=== PATIENT | male | born 1955 | race Caucasian/White ===

== ENCOUNTER 2023-08-18 19:34 | Inpatient (IN) | payer OTHER, SELFPAY ==
--- NOTE | 2023-08-18 16:53 | ED.GENMED ---
Addendum entered and electronically signed by Brett Hernandez DO 08/18/23 20:14:
Late entry, on initial evaluation, the patient did have palpable DP and PT pulses to the left foot.
Original Note:
History of Present Illness
General
Chief Complaint: Crisis Evaluation
Time Seen by Provider: 08/18/23 16:52
History of Present Illness
History of Present Illness:
HPI: Patient presents as a 302. I reviewed the 302 which indicates the patient 'collapsed and urinated on himself in the kitchen and was found to have a gangrenous left toe. There was concern for change in mental status, he had declined medical
care'.
EXAM:
GENERAL: Disheveled
HEENT: Moist oral mucosa
CARDIOVASCULAR: No murmurs, tachycardic heart rate with regular rhythm, No chest wall tenderness
PULMONARY: No respiratory distress, breath sounds are clear and equal
ABDOMEN: Soft with no peritoneal signs, no tenderness
NEUROLOGIC: Excellent strength all extremities, no coordination deficits
PSYCHIATRIC: Fair mental status, limited insight and judgement, however he is currently cooperative and is willing to stay in the hospital
EXTREMITIES: Nontender, there is evidence of gangrenous changes to the left fifth toe with some cellulitic changes to the foot, there is purulent drainage at the webspace between the fourth and fifth toe
SKIN: Somewhat pale
ED COURSE:
6 PM: I initially evaluated patient
NUMBER AND COMPLEXITY OF PROBLEMS ADDRESSED AT THE ENCOUNTER
� Chronic conditions affecting care: Patient is a diabetic
� Acute Exacerbation and/or Progression of Chronic Illness: This is an acute problem
� Differential Diagnosis includes: Failure to thrive, uncontrolled diabetes, DKA, dehydration, FABRICE
AMOUNT AND/OR COMPLEXITY OF DATA TO BE REVIEWED AND ANALYZED
� I performed an independent evaluation of and my interpretation is:
EKG:
CT:
X-rays: I personally reviewed the x-rays of the left foot and I do have some concern for osseous destruction especially laterally
Laboratory Studies: White count is 13.6, hemoglobin 13.2, glucose is 428, lactic is 4.1
Other:
� Review of other/old records: I reviewed records, the patient apparently had a biopsy in 2010 here at [place]
� Clinical information was obtained by an independent historian: I also spoke to family at bedside and reviewed the 302 that was petition for by the
� Prescriptions/Medications Considered but not given:
� Further testing considered but not performed:
RISK OF COMPLICATIONS AND/OR MORBIDITY OR MORTALITY OF PATIENT MANAGEMENT
� Social determinants of health affecting care: Lives at home but does not take care of himself
� Discussion with other providers: Hospitalist for admission
� Escalation of care including admission/observation vs risk of discharge considered: The patient has an elevated lactic acid, is tachycardic, has significant hyperglycemia, along with signs of a rather significant diabetic foot
infection with necrosis of the left fifth toe. Will try antibiotics as there is some cellulitic changes to the left foot as well. The patient agrees for treatment here in the hospital therefore will not pursue to attempt to uphold a 302 at this
time. He was given aggressive IV fluids, antibiotics, and insulin.
Phy Exam
Physical Exam
Physical Exam:
See HPI
Course
Orders/Labs/Results
Orders:
Orders
08/18/23 17:05
IV Insert/Care/Rem.- Treatment PRN
08/18/23 17:07
Complete Blood Count/With Diff Urgent
Comprehensive Metabolic Panel Urgent
Lactic Acid Q4H
Comment: ON ICE, CANCEL 2ND ORDER IF FIRST LACTIC ACID LEVEL <2
Blood Culture Q30M
AMY Source: Blood/Venous
Specimen Description:
Comment: FROM 2 SEPARATE SITES
Blood Culture Q30M
AMY Source: Blood/Venous
Specimen Description:
Comment: FROM 2 SEPARATE SITES
08/18/23 17:08
Foot, Left 3 View [CR Foot - Left Min 3 Views] Urgent
Comment:
Reason For Exam: gangrene lt toe
08/18/23 17:11
Wound/Abscess/Other Culture Urgent
AMY Source: Foot
Specimen Description: Right
Date Specimen was Collected: 08/18/23
Time Specimen was Collected: 17:09
08/18/23 18:08
0.9% Sodium Chloride 1000 ml [Nss] 1,000 ml IV BOLUS
08/18/23 18:09
0.9% Sodium Chloride 1000 ml [Nss] 1,000 ml IV BOLUS
Piperacillin/Tazo 3.375 Gram [Zosyn] 3.375 gram in 50 ml IV NOW
08/18/23 18:11
Insulin Human Regular [Novolin R] 10 units IV NOW STA
08/18/23 18:49
Admit/Transfer Patient As Directed
Co-Sign Provider:
Level of Care: Inpatient admission
Assign to:: Medical/Surgical
Physician / Group: dm
Diagnosis: diabetic toe infection
Reason for Hospitalization: diabetic toe infection
Expected length of stay greater than two midnights?: Yes
ELOS- Estimated Length of Stay in days: 2
I certify the patient meets the requirements for IP care: Yes
Code Status As Directed
Resuscitation Status: Full Code
08/18/23 18:55
Urinalysis Reflex To Culture Urgent
08/18/23 18:56
Vancomycin [Vancocin] 2,000 mg 0.9% Sodium Chloride 500 ml [Nss] 500 ml IV NOW
08/18/23 20:00
Piperacillin/Tazo 3.375 Gram [Zosyn] 3.375 gram in 50 ml IV Q6H
VANCOMYCIN Pharmacy to Dose [VANCOCIN Pharmacy to Dose] 1 each Pharmacy To Prepare [Call Pharmacy To Prepare] 0 ml IV PER PROTOCOL
08/18/23 21:15
Lactic Acid Q4H
Comment: ON ICE, CANCEL 2ND ORDER IF FIRST LACTIC ACID LEVEL <2
Abnormal Lab Results
08/18/23
17:07
WBC 13.6 H 10^3/uL
(4.8-10.8)
RBC 4.49 L 10^6/uL
(4.70-6.10)
Hct 38.3 L %
(39.0-52.0)
Plt Count 443 H 10^3/uL
(130-400)
MPV 10.5 H fL
(7.4-10.4)
Abs Immat Gran (auto) 0.1 H 10^3/uL
(0-0.05)
Absolute Neuts (auto) 10.6 H 10^3/uL
(1.4-6.5)
Absolute Monos (auto) 0.8 H 10^3/uL
(0.1-0.6)
Immature Gran % 0.7 H %
(0-0.5)
Neutrophils % 78.0 H %
(42.2-75.2)
Lymphocytes % 14.6 L %
(20.5-51.1)
Sodium 132 L mmol/L
(135-145)
Chloride 95 L mmol/L
(98-107)
Glucose 428 H mg/dl
(70-99)
Lactic Acid 4.1 H* mmol/L
(0.7-2.0)
Alkaline Phosphatase 151 H U/L
(38-126)
08/18/23 17:07
08/18/23 17:07
Vital Signs
Initial and Last Documented VS:
Initial Vital Signs
Pulse Resp BP Pulse Ox
114 18 119/83 99
08/18/23 16:56 08/18/23 16:56 08/18/23 16:56 08/18/23 16:56
Last Documented Vital Signs
Temp Pulse Resp BP Pulse Ox
98.3 F 114 18 119/83 99
08/18/23 16:57 08/18/23 16:56 08/18/23 16:56 08/18/23 16:56 08/18/23 16:56
*Critical Care Note
Total Time (30-74mins, 75-104mins- exclusive of procedures): Not Applicable
ED Attending Note
-
Portions of this chart may have been created with voice recognition software.� Occasional wrong word or��sound alike� substitutions may have occurred due to the inherent limitations of voice recognition software.
Discharge Plan
Departure
Patient Disposition: Admit
Date of Disposition: 08/18/23
Time of Disposition: 18:10
Presentation/result/management discussed w/ accepting MD/DO: Hospitalist
Discharge Problem:
Diabetic foot infection
Prescriptions:
No Action
No Current Medications
0
Rx Instructions:
SEE NOTE
Referrals:
UNKNOWN - PT NOT,INTERVIEWE [Family Provider] -
Interventions
Interventions:
*Risk Screen - Suicide Last Done: 08/18/23 19:05
*Neglect/Abuse Screening Last Done: 08/18/23 19:05
ED-Psychological Assessment Last Done: 08/18/23 17:17
[2023-08-18 16:56] VITALS: BP 119/83
[2023-08-18 17:19] VITALS: BMI 17.7
[2023-08-18 17:24] VITALS: BMI 29.3
[2023-08-18 17:26] LABS: % Basophils 0.4 % (0-2); % Eosinophils 0.4 % (0-6); % Immature Granulocytes 0.7 % (0-0.5); % Lymphocytes 14.6 % (20.5-51.1); % Monocytes 5.9 % (1.7-9.3); Absolute Basophils 0.1 10^3/uL (0-0.2); Absolute Eosinophils 0.1 10^3/uL (0-0.7); Absolute Immature Granulocytes 0.1 10^3/uL (0-0.05); Absolute Monocytes 0.8 10^3/uL (0.1-0.6); Absolute Neutrophils 10.6 10^3/uL (1.4-6.5); Hematocrit 38.3 % (39.0-52.0); Hemoglobin 13.2 g/dL (13.0-18.0); Mean Corp Hgb Conc. 34.5 g/dL (33.0-37.0); Mean Corpuscular Hgb 29.4 pg (27.0-31.0); Mean Corpuscular Volume 85.3 fL (80.0-94.0); Mean Platelet Volume 10.5 fL (7.4-10.4); Nucleated Red Blood Cells % 0 % (-); Platelet Count 443 10^3/uL (130-400); Red Blood Cell Count 4.49 10^6/uL (4.70-6.10); Red Cell Dist. Width 11.5 % (11.5-14.5); White Blood Cell Count 13.6 10^3/uL (4.8-10.8)
[2023-08-18 17:40] LABS: Lactic Acid 4.1 mmol/L (0.7-2.0)
--- NOTE | 2023-08-18 17:51 | PHANOTE ---
Med Rec Note:
Per pt's family, pt has not taken his medications over a year. Family provided a list of medications of what pt was previously taking before stopping his medications.
Aspirin 81mg Daily, Atenolol 50mg Daily, Glipizide ER 10mg Daily, Levemir FlexPen 30 units Daily, Metformin 1000mg BID, Novolog Flexpen 10-15 units Before Meals, Rosuvastatin 10mg Daily, Spironolactone 25mg Daily
[2023-08-18 17:53] LABS: ALT (SGPT) 20 U/L (0-50); AST (SGOT) 19 U/L (17-59); Albumin 3.5 g/dl (3.5-5.0); Alkaline Phosphatase 151 U/L (38-126); Blood Urea Nitrogen 10 mg/dl (9-20); Calcium 9.4 mg/dl (8.4-10.2); Carbon Dioxide 22 mmol/L (22-30); Chloride 95 mmol/L (98-107); Estimated Creatinine Clearance 109 ml/min; Glucose 428 mg/dl (70-99); Potassium 4.9 mmol/L (3.5-5.1); Sodium 132 mmol/L (135-145); Total Protein 8.1 g/dl (6.3-8.2); eGFR > 60.00
[2023-08-18] MEDS: ZOSYN 50 IV (18:37)
[2023-08-18] MEDS: NOVOLIN R 10 UNITS IV (18:40)
[2023-08-18] MEDS: NSS 1000 IV ×2 (18:46→23:44)
--- NOTE | 2023-08-18 18:56 | HPS.HSE ---
Family Physician
-
Family Physician: INTERVIEWE UNKNOWN - PT NOT
Chief Complaint
-
gangrene
History of Present Illness
68-year-old male with past medical history of diabetes noncompliant with medication, diabetic neuropathy, hypertension, hypercholesteremia, who presented as 302 which indicated the patient collapsed and urinated on himself in the kitchen and found
to have gangrenous left toe.
Patient's family at bedside. Patient has had infected left fifth toe for the past year but over the past few days it has become black and necrotic. Patient denies any pain. Family has noticed some discharge from the toe. Surrounding area is red.
Patient refused to come to the hospital over the past several days so 302 was filed. Patient has not been taking his diabetic medications for the past year which includes metformin and Humalog. Denies any fevers or chills.
He is a former smoker and alcohol user. Denies any drug use at this time.
Patient does not have any history of psychiatric problems.
Medical History
Past Medical History
Past Medical History: Reports Other (diabetes noncompliant with medication, diabetic neuropathy, hypertension, hypercholesteremia)
Past Surgical History: Reports None
Social History
Tobacco: Former Smoker
Alcohol: Former
Drug: None
Family History
Family History: Not pertinent
Allergies / Home Medications
Allergies reflects when Allergies were last updated in [facility] [facility].
Home Medications with original date entered in [facility] [facility]
Allergy/Medication List:
Allergies
Allergy/AdvReac Type Severity Reaction Status Date / Time
No Known Allergies Allergy Unverified 08/18/23 17:14
Home Medications
No Meds [No Current Medications] 08/18/23
Review of Systems
-
History Source: Patient
A 12 point ROS was completed and negative except as noted: Yes
Constitutional: Reports No Symptoms
EENT: Reports No Symptoms
Respiratory: Reports No Symptoms
Cardiac: Reports No Symptoms
Abdomen/GI: Reports No Symptoms
: Reports No Symptoms
Musculoskeletal: Reports No Symptoms
Skin: Reports See HPI
Neurological: Reports No Symptoms
Endocrine: Reports No Symptoms
Hematologic/Lymphatic: Reports No Symptoms
Psych: Reports No Symptoms
Physical Exam
Vital Signs
Vital Signs
Temp Pulse Resp BP Pulse Ox
98.3 F 114 18 119/83 99
08/18/23 16:57 08/18/23 16:56 08/18/23 16:56 08/18/23 16:56 08/18/23 16:56
Physical Exam
General: Well Developed, Well Nourished and No Apparent Distress
HEENT: NormoCephalic, Moist mucous membranes and Atraumatic
Respiratory: Clear
Cardiac: S1/S2 and Regular Rhythm; No Murmur or Rub
GI: Soft, Non Tender, Non Distended and Normal Bowel Sounds; No Organomegaly
Rectal: Deferred by Provider
Musculoskeletal: No Clubbing, No Cyanosis and No Edema
Skin: Other (left 5th toe gangrene, erythema around 5th toe ); No Rash
Neuro: Nonfocal/grossly intact
Laboratory Results
-
08/18/23 17:07
08/18/23 17:07
Laboratory Results
Lactic Acid 4.1 mmol/L (0.7-2.0) H* 08/18/23 17:07
Total Bilirubin 1.0 mg/dl (0.2-1.3) 08/18/23 17:07
AST 19 U/L (17-59) 08/18/23 17:07
ALT 20 U/L (0-50) 08/18/23 17:07
Alkaline Phosphatase 151 U/L (38-126) H 08/18/23 17:07
Data Reviewed
-
Lab Data: Labs Reviewed by me
Old Records: Reviewed
Impression/Plan
-
IMPRESSION:
PLAN:
# Gangrenous left toe/likely osteomyelitis/surrounding cellulitis
-Could not palpate pulses
-Check wound culture, blood cultures
-IV fluids
-Vancomycin/Zosyn
-Check foot x-ray
-Podiatry consult
-Check arterial ultrasound
-Vascular surgery consulted
-ID consult
# Urinary incontinence
-Check UA/urine culture
# Hyperglycemia secondary to untreated diabetes
-Blood sugar 428
-Start Lantus 10 units
-Insulin sliding scale
-Check A1c
Essential hypertension
-Noncompliant with medication
Hypercholesterolemia
-Noncompliant with medication
Former alcohol use
Former smoker
Full code
DVT prophylaxis�heparin
Diabetic diet
--- NOTE | 2023-08-18 20:07 | ED.GENMED ---
History of Present Illness
General
Chief Complaint: Crisis Evaluation
Time Seen by Provider: 08/18/23 16:52
Travel History
Have you had any contact with someone who has COVID-19?: No
Do you have any symptoms of coronavirus? Fever > 100 degrees, chills, cough, shortness of breath, sore throat, loss of taste or smell, muscle aches, or headache?: No
Course
Orders/Labs/Results
Orders:
Orders
08/18/23 17:05
IV Insert/Care/Rem.- Treatment PRN
08/18/23 17:07
Complete Blood Count/With Diff Urgent
Comprehensive Metabolic Panel Urgent
Lactic Acid Q4H
Comment: ON ICE, CANCEL 2ND ORDER IF FIRST LACTIC ACID LEVEL <2
Blood Culture Q30M
AMY Source: Blood/Venous
Specimen Description:
Comment: FROM 2 SEPARATE SITES
Blood Culture Q30M
AMY Source: Blood/Venous
Specimen Description:
Comment: FROM 2 SEPARATE SITES
08/18/23 17:08
Foot, Left 3 View [CR Foot - Left Min 3 Views] Urgent
Comment:
Reason For Exam: gangrene lt toe
08/18/23 17:11
Wound/Abscess/Other Culture Urgent
AMY Source: Foot
Specimen Description: Right
Date Specimen was Collected: 08/18/23
Time Specimen was Collected: 17:09
08/18/23 18:08
0.9% Sodium Chloride 1000 ml [Nss] 1,000 ml IV BOLUS
08/18/23 18:09
0.9% Sodium Chloride 1000 ml [Nss] 1,000 ml IV BOLUS
Piperacillin/Tazo 3.375 Gram [Zosyn] 3.375 gram in 50 ml IV NOW
08/18/23 18:11
Insulin Human Regular [Novolin R] 10 units IV NOW STA
08/18/23 18:49
Admit/Transfer Patient As Directed
Co-Sign Provider:
Level of Care: Inpatient admission
Assign to:: Medical/Surgical
Physician / Group: dm
Diagnosis: diabetic toe infection
Reason for Hospitalization: diabetic toe infection
Expected length of stay greater than two midnights?: Yes
ELOS- Estimated Length of Stay in days: 2
I certify the patient meets the requirements for IP care: Yes
Code Status As Directed
Resuscitation Status: Full Code
08/18/23 18:55
Urinalysis Reflex To Culture Urgent
08/18/23 18:56
Vancomycin [Vancocin] 2,000 mg 0.9% Sodium Chloride 500 ml [Nss] 500 ml IV NOW
08/18/23 20:00
VANCOMYCIN Pharmacy to Dose [VANCOCIN Pharmacy to Dose] 1 each Pharmacy To Prepare [Call Pharmacy To Prepare] 0 ml IV PER PROTOCOL
08/18/23 21:15
Lactic Acid Q4H
Comment: ON ICE, CANCEL 2ND ORDER IF FIRST LACTIC ACID LEVEL <2
08/19/23 00:00
Piperacillin/Tazo 3.375 Gram [Zosyn] 3.375 gram in 50 ml IV Q6H
Abnormal Lab Results
08/18/23
17:07
WBC 13.6 H 10^3/uL
(4.8-10.8)
RBC 4.49 L 10^6/uL
(4.70-6.10)
Hct 38.3 L %
(39.0-52.0)
Plt Count 443 H 10^3/uL
(130-400)
MPV 10.5 H fL
(7.4-10.4)
Abs Immat Gran (auto) 0.1 H 10^3/uL
(0-0.05)
Absolute Neuts (auto) 10.6 H 10^3/uL
(1.4-6.5)
Absolute Monos (auto) 0.8 H 10^3/uL
(0.1-0.6)
Immature Gran % 0.7 H %
(0-0.5)
Neutrophils % 78.0 H %
(42.2-75.2)
Lymphocytes % 14.6 L %
(20.5-51.1)
Sodium 132 L mmol/L
(135-145)
Chloride 95 L mmol/L
(98-107)
Glucose 428 H mg/dl
(70-99)
Lactic Acid 4.1 H* mmol/L
(0.7-2.0)
Alkaline Phosphatase 151 H U/L
(38-126)
08/18/23 17:07
08/18/23 17:07
Vital Signs
Initial and Last Documented VS:
Initial Vital Signs
Pulse Resp BP Pulse Ox
114 18 119/83 99
08/18/23 16:56 08/18/23 16:56 08/18/23 16:56 08/18/23 16:56
Last Documented Vital Signs
Temp Pulse Resp BP Pulse Ox
98.3 F 114 18 119/83 99
08/18/23 16:57 08/18/23 16:56 08/18/23 16:56 08/18/23 16:56 08/18/23 16:56
ED Attending Note
-
Portions of this chart may have been created with voice recognition software.� Occasional wrong word or��sound alike� substitutions may have occurred due to the inherent limitations of voice recognition software.
Discharge Plan
Departure
Patient Disposition: Admit
Date of Disposition: 08/18/23
Time of Disposition: 18:10
Presentation/result/management discussed w/ accepting MD/DO: Hospitalist
Discharge Problem:
Diabetic foot infection
Interventions
Interventions:
*Risk Screen - Suicide Last Done: 08/18/23 19:05
*Neglect/Abuse Screening Last Done: 08/18/23 19:05
ED-Psychological Assessment Last Done: 08/18/23 17:17
--- NOTE | 2023-08-18 20:16 | PHA.VAN.IN ---
Assessment
- Assessment
Renal Function: Unknown baseline
Concomitant Antimicrobials: ZOSYN
- Previous Dosing Experience
Previous Regimen: NONE
AUC Dosing Plan
- Dosing Variables
Dosing Weight (kg): 97.8
Dosing CrCl (ml/min): 100
Vd coefficient (L/kg): 0.7
- Empiric Dosing
Initial / Loading Dose: 2GM
Maintenance Regimen: 1500MG IV Q12H
Estimated AUC (mcg*h/mL): 534
Estimated Peak (mcg*h/mL): 33.7
Estimated Trough (mcg/ml): 13.5
Estimated Half Life (H): 7.9
Pharmacokinetics Vancomycin I
- -
Patient Age: 68
Patient Sex: Male
Vancomycin Day #: 1
Indication: Bone And Joint (GANGRENE/OM LEFT TOE)
Requesting Provider: MACO
Height / Weight:
Height 6 ft
Actual Weight 97.8 kg
Pertinent Past Medical History: DM
- Vital Signs / Lab Results
Temp Pulse Resp BP Pulse Ox
98.3 F 114 18 119/83 99
08/18/23 16:57 08/18/23 16:56 08/18/23 16:56 08/18/23 16:56 08/18/23 16:56
Lab Results - Hematology
08/18/23
17:07
WBC 13.6 H
Lab Results - Chemistry
08/18/23
17:07
BUN 10
Creatinine 0.7
Estimated Creat Clear 109
Albumin 3.5
08/18/23
17:07
Lactic Acid 4.1 H*
Microbiology Results
08/18/23 17:11 Gram Stain - Preliminary
Foot - Right
[2023-08-18] MEDS: VANCOCIN 540 MG IV (21:14)
[2023-08-18 21:47] VITALS: BP 135/72; BMI 28.3
[2023-08-18 21:51] LABS: Lactic Acid 1.9 mmol/L (0.7-2.0)
[2023-08-18] MEDS: LANTUS 0.100000000000000006 UNITS SC (21:55)
[2023-08-18 21:58] LABS: Glucose - Point of Care 187 mg/dl (70-99)
[2023-08-18] MEDS: HEPARIN 5000 UNITS SC (22:28)
[2023-08-18 23:38] VITALS: BP 137/74
[2023-08-19] VITALS (12 sets, daily range): BP systolic 12–152; BP diastolic 58–86
[2023-08-19] MEDS: ZOSYN 50 IV ×2 (00:55→05:33)
[2023-08-19 03:31] LABS: Urine Albumin Negative (Neg - Trace); Urine Bilirubin Negative (Negative); Urine Character Clear (Clear); Urine Color Yellow; Urine Glucose Negative (Negative); Urine Ketone Negative (Negative); Urine Leukocyte 2+ (Negative); Urine Nitrite Negative (Negative); Urine Occult Blood Trace (Negative); Urine Specific Gravity 1.005 (<1.030); Urine Urobilinogen Negative (Neg - 1+)
[2023-08-19 03:55] LABS: Urine Bacteria Moderate (Negative); Urine Red Blood Cell 0-2 /HPF (0-2); Urine White Cell 70-80 /HPF (0-5)
[2023-08-19 05:43] LABS: % Basophils 0.5 % (0-2); % Eosinophils 0.3 % (0-6); % Immature Granulocytes 0.7 % (0-0.5); % Lymphocytes 5.2 % (20.5-51.1); % Monocytes 2.8 % (1.7-9.3); % Neutrophils 90.5 % (42.2-75.2); Absolute Basophils 0.1 10^3/uL (0-0.2); Absolute Eosinophils 0.1 10^3/uL (0-0.7); Absolute Immature Granulocytes 0.1 10^3/uL (0-0.05); Absolute Monocytes 0.6 10^3/uL (0.1-0.6); Absolute Neutrophils 18.1 10^3/uL (1.4-6.5); Hematocrit 33.8 % (39.0-52.0); Hemoglobin 11.6 g/dL (13.0-18.0); Mean Corp Hgb Conc. 34.3 g/dL (33.0-37.0); Mean Corpuscular Hgb 29.3 pg (27.0-31.0); Mean Corpuscular Volume 85.4 fL (80.0-94.0); Mean Platelet Volume 10.4 fL (7.4-10.4); Nucleated Red Blood Cells % 0 % (-); Platelet Count 384 10^3/uL (130-400); Red Blood Cell Count 3.96 10^6/uL (4.70-6.10); Red Cell Dist. Width 11.7 % (11.5-14.5); White Blood Cell Count 19.9 10^3/uL (4.8-10.8)
[2023-08-19 06:00] LABS: Blood Urea Nitrogen 11 mg/dl (9-20); Estimated Creatinine Clearance 70 ml/min; Glucose 235 mg/dl (70-99)
[2023-08-19 06:01] LABS: ALT (SGPT) 14 U/L (0-50); AST (SGOT) 17 U/L (17-59); Albumin 2.9 g/dl (3.5-5.0); Alkaline Phosphatase 129 U/L (38-126); Calcium 8.7 mg/dl (8.4-10.2); Carbon Dioxide 25 mmol/L (22-30); Chloride 99 mmol/L (98-107); Potassium 4.8 mmol/L (3.5-5.1); Sodium 133 mmol/L (135-145); Total Protein 6.9 g/dl (6.3-8.2); eGFR > 60.00
[2023-08-19] MEDS: VANCOCIN 300 MG IV (06:08)
[2023-08-19] MEDS: VANCOCIN 300 ML IV (06:08)
[2023-08-19 08:11] LABS: Glucose - Point of Care 267 mg/dl (70-99)
--- NOTE | 2023-08-19 08:24 | PHA.VAN.FU ---
Vancomycin Assessment / Plan
- Assessment
Renal Function: SCR Increasing
WBC's are: Trending Up
In the past 24 hrs, patient has been: Afebrile
Concomitant Antimicrobials: piperacillin/tazobactam
- Dosing Plan
Adjust Regimen to: dosing by level given increase in SCR
Dosing Comments: received 1500mg today at 06:08, will give 1000mg at 1800
- Monitoring Plan
Random Level: 08/20 0600
- Follow Up
Pharmacy will continue to follow.
Vancomycin Follow UP
- -
Patient Age: 68
Patient Sex: Male
Vancomycin Day #: 2
Indication: Bone And Joint
Requesting Provider: Dr. Smith
Pertinent Antimicrobial Allergies:
NKDA
Height / Weight:
Height 6 ft
Actual Weight 94.619 kg
Pertinent Past Medical History: DM
- Vital Signs / Lab Results
Temp Pulse Resp BP Pulse Ox
99.5 F 109 20 137/74 99
08/18/23 23:38 08/18/23 23:38 08/18/23 23:38 08/18/23 23:38 08/18/23 23:38
Lab Results - Hematology
08/18/23 08/19/23
17:07 04:43
WBC 13.6 H 19.9 H
Lab Results - Chemistry
08/18/23 08/19/23
17:07 04:43
BUN 10 11
Creatinine 0.7 1.1
Estimated Creat Clear 109 70
Albumin 3.5 2.9 L
08/18/23 08/18/23
17:07 21:32
Lactic Acid 4.1 H* 1.9
Lab Results - Urine
08/19/23
02:47
Urine Nitrite (Reflex) Negative
Leukocyte Esterase Rfl 2+ A
Ur Squamous Epith Cells 6-10
Microbiology Results
08/18/23 17:11 Gram Stain - Preliminary
Foot - Right
[2023-08-19] MEDS: NSS 1000 IV (08:37)
[2023-08-19] MEDS: HEPARIN 5000 UNITS SC (08:37)
[2023-08-19] MEDS: NOVOLOG FLEXPEN-LOW RESISTANCE 3 UNITS SC (09:25)
--- NOTE | 2023-08-19 09:28 | CON.VAS ---
Addendum entered and electronically signed by Alejandro Perez MD 08/19/23 11:18:
Seen and examined with MADISYN De La Rosa. Agree with findings as noted below. Briefly 68-year-old diabetic, prior tobacco smoking male presents with left foot wounds as noted below. Asked to evaluate for arterial perfusion for wound healing. Denies any
prior lower extremity revascularizations. No prior toe amputations. This wound in some form has been present for approximately a year per patient. However more recently over the last couple weeks has decompensated. Denies any prior claudication.
On exam/ He is awake and alert. He is in no acute distress. Head is normocephalic and atraumatic. Eyes are anicteric. Neck is soft without jugular venous distention. 2+ carotid pulsations bilaterally. 2+ upper extremity radial pulses palpable
bilaterally. Abdomen is soft, nondistended, nontender. No pulsatile masses. Lower extremity with easily palpable 2+ femoral, popliteal, dorsalis pedis and posterior tibial pulses bilaterally. Feet are both warm and well-perfused, no rubor. Left
foot lateral fifth toe and metatarsal and plantar aspect as noted in pictures below. Mix of dry gangrene with likely possible infected areas.
Plan/ Diabetic left foot ulceration/gangrene. No evidence of arterial insufficiency on exam. I reviewed all ultrasounds that demonstrate multiphasic waveforms throughout with no clear evidence of any stenosis. TBI likely falsely elevated. But
multiphasic posterior tibial artery waveforms suggestive of adequate perfusion for healing. Would recommend proceeding with podiatric foot debridement/toe amputation as needed. If concerns for wound healing post procedurally, can reconsult for
possible angiography. However at this point I do not think the benefits of angiography or outweighed by the risks given evidence of adequacy of perfusion for wound healing.
Note, would obtain baseline abdominal aortic ultrasound to rule out aneurysm given history of tobacco use, age of 68 male gender.
Original Note:
Consultation
Consultation Request
Performing Provider: Chris
Reason for Consultation: Left foot gangrene
Medical History
-
Chief Complaint: Nonhealing wound
History of Present Illness:
68-year-old male presented to the ER overnight as a 302. Patient was found collapsed covered in urine in his kitchen per the ER record. Past medical history noted in the chart as hypertension, diabetes, hypercholesterolemia, noncompliance with
medications, and nonhealing left fifth toe wound. Also noted from ER record patient's family noted toe wound for the past year.
Vascular consult for nonhealing left toe wound.
Patient seen at bedside this am. Patient resting comfortably in bed, agreeable to exam. Patient states he has had toe wound for about 2 weeks. He denies injury or trauma to the site. Patient denies any history of stents or balloons in the legs
or the heart. Denies any surgical history. Admits to diabetes, hypertension, hypercholesterolemia, all of which he has not been taking medications for. Admits to former smoking history, alcohol use. Denies any pertinent family history.
All pulses easily palpable, bilateral feet warm and pink, no edema noted. Left fifth toe and lateral foot wound image below. Both areas with necrosis, lateral wound dry, areas of toe wound wet. Very malodorous. Patient denies pain.
Past Medical History
Past Medical History: HTN, Hypercholesterolemia and NIDDM
Past Surgical History: None
Social History
Tobacco: Former Smoker
Alcohol: Former
Drug: None
Living: Alone
Family History
Family History: Reviewed & Not Pertinent
Allergies / Home Medications
Allergy/AdvReac Type Severity Reaction Status Date / Time
No Known Allergies Allergy Unverified 08/18/23 17:14
Medication Instructions Recorded Confirmed Type
No Meds [No Current Medications] 08/18/23 08/18/23 History
Review of Systems
-
History Source: Patient
All other systems: Negative unless noted
Constitutional: Reports No Symptoms
EENT: Reports No Symptoms
Respiratory: Reports No Symptoms
Cardiac: Reports No Symptoms
Vascular: Denies Leg Pain / Claudication
Abdomen/GI: Reports No Symptoms
: Reports No Symptoms
Musculoskeletal: Reports No Symptoms
Skin: Reports Other (left 5th toe wound)
Neurological: Reports No Symptoms
Endocrine: Reports No Symptoms
Physical Exam
Vital Signs
Temp Pulse Resp BP Pulse Ox
98.7 F 93 16 152/85 97
08/19/23 07:45 08/19/23 07:45 08/19/23 07:45 08/19/23 07:45 08/19/23 07:45
Lab Results
08/19/23 04:43
08/19/23 04:43
Physical Exam
General: No Apparent Distress
HEENT: Normocephalic and Atraumatic
Respiratory: Non Labored Respirations
Cardiac: Negative JVD
Breast: Deferred by me
GI: Soft and Non Tender
Musculoskeletal: No Clubbing, No Cyanosis and No Edema
Skin: Warm and Other (see images above)
Neuro: Awake, Alert and Oriented
Psych: Calm
Pulses: Bilateral Femoral: +2, Left Popliteal: +2, Right Popliteal: +2, Bilateral Dorsalis Pedis: +2 and Bilateral Posterior Tibial: +2
Assessment / Plan
-
68-year-old male with nonhealing left fifth toe wound, history of diabetes noncompliant, gangrene
Easily palpable proximal and distal pulses.
Plan:
-Arterial US/AROLDO/TBI
-Local wound care
-Podiatry consult
-Will follow up with plan after US complete
Data Reviewed
-
Labs: Labs Reviewed by me
[2023-08-19 09:33] LABS: Glycohemoglobin (HgbA1c) 14.8 % (4.0-5.6)
--- NOTE | 2023-08-19 10:26 | W.PN.HOSP.TC ---
Today's Communication/Plan
-
see A/P
Assessment / Plan
Assessment / Plan
HPI: 68-year-old male with past medical history of diabetes noncompliant with medication, diabetic neuropathy, hypertension, hypercholesteremia, who presented as 302.
The patient collapsed and urinated on himself in the kitchen and found to have gangrenous left toe.
Patient has had infected left fifth toe for the past year but over the past few days it has become black and necrotic.� Patient denies any pain.� Family has noticed some discharge from the toe.� Surrounding area is red.� Patient refused to come to
the hospital over the past several days so 302 was filed.� Patient has not been taking his diabetic medications for the past year which includes metformin and Humalog.� Denies any fevers or chills.
He is a former smoker and alcohol user.� Denies any drug use at this time.
Patient does not have any history of psychiatric problems.
A/P:
# Gangrenous left toe with surrounding cellulitis, possible osteomyelitis
Foot x-ray noted Soft tissue swelling and gas in the lateral forefoot most compatible with a necrotizing soft tissue infection. Demineralization of the fifth metatarsal head raising concern for osteomyelitis.
Follow wound culture, blood cultures
observe off further IV fluid
Cont Vancomycin/Zosyn
Podiatry consult
ID CS
wound care CS
# PAD (could not palpate pulses)
Check Arterial US/AROLDO/TBI
Vascular on board
# Urinary incontinence
UA dirty, follow urine culture
Abx was initiated as above
# Hyperglycemia secondary to untreated diabetes
Blood sugar 428
A1c 14.8%
Started Lantus 10 units HS, cont
Cont Insulin sliding scale
DM DRIER TENDER NAPHTHALENE CS
# Essential hypertension
Noncompliant with medication
Start Coreg 3.125 BID and adjust dose as tolerated
# Hypercholesterolemia
Noncompliant with medication
# Former alcohol use
# Former smoker
# hyponatremia
Full code
DVT prophylaxis�heparin SQ
Diabetic diet
Anticipated Discharge: > 48 hours
Subjective/Interval History
-
Date of Service: August 19, 2023
Objective Data
-
Labs:
Laboratory Results
08/19/23
04:43
WBC 19.9 H
Hgb 11.6 L
Hct 33.8 L
Plt Count 384
Sodium 133 L
Potassium 4.8
Chloride 99
Carbon Dioxide 25
BUN 11
Creatinine 1.1
Glucose 235 H
Calcium 8.7
Total Bilirubin 1.0
AST 17
ALT 14
Alkaline Phosphatase 129 H
Vital Signs:
Vital Signs
Temp Pulse Resp BP Pulse Ox
37.1 C 93 16 152/85 97
08/19/23 07:45 08/19/23 07:45 08/19/23 07:45 08/19/23 07:45 08/19/23 07:45
I&O
08/18/23 08/19/23 08/20/23
06:59 06:59 06:59
Intake Total 480 / 480
Output Total 450 / 450
Balance
Review of Systems
-
All other systems: Reviewed and negative
Physical Exam
-
General: Well Developed, Well Nourished, No Apparent Distress, Comfortable, Conversant and Other (dishevelled); Negative Respiratory Distress
HEENT: Normocephalic, Atraumatic, Nose Appears Normal and Ears Appear Normal; Negative Oxygen
Respiratory: Clear to Auscultation and Non Labored Respirations; Negative Accessory Resp Muscle Use
Cardiac: Regular Rhythm and S1/S2
GI: Soft, Nontender, Nondistended and Normal Bowel Sounds
Skin: Lesions (L 5th toe gangrene )
Neuro: Awake and Alert
Psych: Calm and Intact Judgement/Insight
Data Reviewed
-
Labs: Labs Reviewed by me
--- NOTE | 2023-08-19 11:09 | PN.DE.MGMTRT ---
Insulin Management
- -
08/19/2023: Diabetes Management Consult
68-year-old male admitted with Left 5th toe nonhealing wound concerning for gangrene and possibly osteomyelitis.
PMH includes: HTN, HLD, Former ETOH and cigarette use, Diabetic Neuropathy and T2DM. A1C 14.8%, Glucose on admission was 428, Cr 0.7-->1.1 today.
Per chart review, pt has not taken any of his diabetes medications (Humalog and Metformin) for over a year.
Pt is unable to provide hx or participate in interview. Family is at the bedside, has provided a list of medications that were last filled 07/2022, on the list is- Levemir 30 units daily, Metformin 1000 mg BID, Glipizide 10mg BID and Humalog SS
10-15 units with meals. Pt's states that pt stopped taking all his DM meds a year ago and it appears that he gave up on himself. states he has a glucose meter (Accuchek) with supplies but does not monitor his sugars, dtr at bedside states she
is using the supplies.
His current regiment includes: Lantus 10 units @ HS with low corrective insulin with meals.
Glucose has remained >200, FBG 235, has received 3 units of corrective for a blood sugar of 267 before breakfast.
Will start AC NovoLog 8 units and increase Lantus to 15 units and change to moderate corrective
Will hold off on starting Metformin and reassess after surgery.
Pt was seen with Surgeon/College Football Coach at bedside, plan for OR later today.
Spoke to pt's nurse and instructed to HOLD AC NovoLog but use corrective insulin while NPO if needed before procedure
Will follow closely and make further adjustments as needed
Diabetes History
- -
Type of Diabetes: 2 requiring insulin
Pre-Admission Diabetes Regimen
08/18/23 08/19/23
17:07 04:43
Creatinine 0.7 1.1
Lab Results
Hemoglobin A1c 14.8 % (4.0-5.6) H 08/19/23 04:43
Insulin Pump Settings
IP Diabetes Regimen
08/18/23 08/18/23 08/19/23
17:07 21:53 04:43
Glucose 428 H 235 H
POC Glucose 187 H
08/19/23
08:10
Glucose
POC Glucose 267 H
Patient Education
--- NOTE | 2023-08-19 11:11 | CON.ID ---
Consultation
-
Date/Time Consultation Requested: 08/18/23 22:27
Date/Time Consultation Performed: 08/19/23 11:11
Requesting Provider: Dr Smith
Performing Provider: Dr Paula
Reason for Consultation: osteo
Chief Complaint / Past History
Chief Complaint
gangrene
History of Present Illness
Mr Chavira is a 68 year old male with history of Dm2, diabetic neuropathy, noncompliance who presented here as 302 after found collapsed in kitchen. He was noted to have urinated on himself and to have a gangrenous L 5th toe. Family reported 5th toe
infected about 1 year progressing over several days to become black and necrotic with drainage and surrounding erythema. Patient has been refusing to come to the hospital. No fevers or chills.
Since arrival here he has been afebrile, bp stable, wbc initially 13 now 19.9, hgb 11.6, plt 384, L shift increasing from 78 to 90, cr initially 0.7 now 1.1, lactic acid initially 4.1 now 1.9, tbili 1.0, ast 1q7, alt 14, alk phos 130, ua 70-80
wbc/hpf, moderate bacteria, xray foot: likely osteo L 5th meta head, AROLDO: R normal, L infrapop disease suspected, urine culture pending, currently on vancomycin and zosyn
Past History
Additional Past Medical History:
fatty liver
Past Surgical History: None
Allergy History:
No Known Allergies Allergy (Unverified 08/18/23 17:14)
Medications Reviewed: Yes
Social History
Tobacco: Former Smoker
Alcohol: Former
Drug: None
Family History
Family History: Not Pertinent
Review of Systems
Review of Systems
General: Negative Fever or Chills
All systems: All other systems were reviewed and were negative
Vital Signs
Temp Pulse Resp BP Pulse Ox
98.7 F 93 16 152/85 97
08/19/23 07:45 08/19/23 07:45 08/19/23 07:45 08/19/23 07:45 08/19/23 07:45
Physical Exam
Physical Exam
Constitutional: No Acute Distress
Cardiovascular: Regular Rate and S1/S2; Negative Murmur or Rub
Pulmonary: Clear and Symmetric; Negative Wheezes, Rales or Rhonchi
Gastrointestinal: Soft, Non Tender, Non Distended and Normal Bowel Sounds
Skin: Warm and Dry; Negative Rash or Jaundice
Wound: Other (necrotic 5th L toe with surrounding erythema; second ulcer plantar midfoot - also necrotic)
Lab / Diagnostic Study Results
08/19/23 04:43
08/19/23 04:43
Abs Immat Gran (auto) 0.1 10^3/uL (0-0.05) H 08/19/23 04:43
Absolute Neuts (auto) 18.1 10^3/uL (1.4-6.5) H 08/19/23 04:43
Absolute Lymphs (auto) 1.0 10^3/uL (1.2-3.4) L 08/19/23 04:43
Absolute Monos (auto) 0.6 10^3/uL (0.1-0.6) 08/19/23 04:43
Absolute Basos (auto) 0.1 10^3/uL (0-0.2) 08/19/23 04:43
Immature Gran % 0.7 % (0-0.5) H 08/19/23 04:43
Neutrophils % 90.5 % (42.2-75.2) H 08/19/23 04:43
Lymphocytes % 5.2 % (20.5-51.1) L 08/19/23 04:43
Monocytes % 2.8 % (1.7-9.3) 08/19/23 04:43
Eosinophils % 0.3 % (0-6) 08/19/23 04:43
Basophils % 0.5 % (0-2) 08/19/23 04:43
Lactic Acid 1.9 mmol/L (0.7-2.0) 08/18/23 21:32
Ur Squamous Epith Cells 6-10 /LPF (Few) 08/19/23 02:47
Microbiology Results
Micro:
08/19/23 02:47 Urine Culture - Pending
Urine
08/18/23 21:59 MRSA Screen - Pending
Nose
08/18/23 17:11 Wound Culture - Pending
Foot - Right Gram Stain - Preliminary
08/18/23 17:07 Blood Culture - Pending
Blood/Venous
08/18/23 17:07 Blood Culture - Pending
Blood/Venous
Assessment / Plan
Gangrene - wet
Probable osteomyelitis - L 5th met head
DM2 - uncontrolled
FABRICE
Medication noncompliance
- blood cultures x2
- foot xray: soft tissue swelling, L 5th met head suspicious for osteomyelitis
- mrsa screen in progress
- wound culture many GPCs and many GNRs
- tight glucose control recommended - discussed consequences with patient if he remains noncompliant
- continue vancomycin pending mrsa screen - if negative stop
- start unaysn stop zosyn
- will likely require debridement at a minimum if not amputation - appreciate podiatry input
- appreciate vascular input
- follow clinically
Asymptomatic bacturia
- above treatment will cover typical uropathogens irregardless
HCM
- hep C ab sent, if positive can follow up with GI
[2023-08-19 11:45] LABS: Glucose - Point of Care 262 mg/dl (70-99)
[2023-08-19] MEDS: UNASYN IV ×2 (12:06→17:34)
[2023-08-19] MEDS: NOVOLOG FLEXPEN-MODERATE RESISTANCE SC ×2 (12:07→17:34)
[2023-08-19] MEDS: NOVOLOG FLEXPEN SC ×2 (12:07→17:33)
[2023-08-19] MEDS: NOVOLOG FLEXPEN 8 UNITS SC (13:17)
[2023-08-19] MEDS: NOVOLOG FLEXPEN-MODERATE RESISTANCE 5 UNITS SC (13:18)
--- NOTE | 2023-08-19 13:37 | CON.MD ---
Consultation - Medical
-
Date/Time Consultation Requested: 08/19/23 12:26
Date/Time Consultation Performed: 08/19/23 13:30
Requesting Provider: Anuel Smith MD, through swimming pool salesperson Accounts Payable Technician Dr Magdi Tavares
Performing Provider: Dr Geeta Ross
Reason for Consultation: Gas gangrene
Chief Complaint / Past History
Gas gangrene�
History of Present Illness
Mr Chavira is a 68 year old male with history of Uncontrolled DM2, diabetic neuropathy, who presented here as 302 after family found him collapsed in kitchen.� He was noted to have a gangrenous L 5th toe.� Family reported 5th toe infected about 1 year
progressing over several days to become black and necrotic with drainage and surrounding erythema.� Patient has been refusing to come to the hospital.� No fevers or chills.�
Presently afebrile, vitals stable, WBC initially 13 now 19.9 w/ L shift increasing from 78 to 90, cr initially 0.7 now 1.1, lactic acid initially 4.1 now 1.9, tbili 1.0, ast 1q7, alt 14, alk phos 130,
Past History
Additional Past Medical History:
MANCERA, Uncontrolled DM2, DPN w/LOPS
Past Surgical History: None
No Known Allergies Allergy (Unverified 08/18/23 17:14)
Medications Reviewed: Yes
Social History
Tobacco: Former Smoker
Alcohol: Former
Drug: None
Family History
Family History: Lives with family
Review of Systems
Review of Systems
General: Negative Fever or Chills
All systems: All other systems were reviewed and were negative
Vital Signs
Temp Pulse Resp BP Pulse Ox
�98.7 F �93 �16 �152/85 �97
�08/19/23 07:45 �08/19/23 07:45 �08/19/23 07:45 �08/19/23 07:45 �08/19/23 07:45
Physical Exam
Physical Exam
Constitutional: No Acute Distress, conversant
Vascular: Pedal pulses are diminished but palpable. +edema and cellulitis to the left forefoot
Wound: Plantar ulcer with abscess and probing to bone, purulence expressed and gangrene to the 5th toe to mid metatarsal left foot
Lab / Diagnostic Study Results
Abs Immat Gran (auto) �0.1 10^3/uL (0-0.05)� H 08/19/23� 04:43� �
Absolute Neuts (auto) �18.1 10^3/uL (1.4-6.5)� H 08/19/23� 04:43� �
Absolute Lymphs (auto) �1.0 10^3/uL (1.2-3.4)� L 08/19/23� 04:43� �
Absolute Monos (auto) �0.6 10^3/uL (0.1-0.6)� 08/19/23� 04:43� �
Absolute Basos (auto) �0.1 10^3/uL (0-0.2)� 08/19/23� 04:43� �
Immature Gran % �0.7 % (0-0.5)� H 08/19/23� 04:43� �
Neutrophils % �90.5 % (42.2-75.2)� H 08/19/23� 04:43� �
Lymphocytes % �5.2 % (20.5-51.1)� L 08/19/23� 04:43� �
Monocytes % �2.8 % (1.7-9.3)� 08/19/23� 04:43� �
Eosinophils % �0.3 % (0-6)� 08/19/23� 04:43� �
Basophils % �0.5 % (0-2)� 08/19/23� 04:43� �
Lactic Acid �1.9 mmol/L (0.7-2.0)� 08/18/23� 21:32� �
Ur Squamous Epith Cells �6-10 /LPF (Few)� 08/19/23� 02:47� �
Microbiology Results
Micro:
�08/19/23 02:47 Urine Culture - Pending
�Urine �
�08/18/23 21:59 MRSA Screen - Pending
�Nose �
�08/18/23 17:11 Wound Culture - Pending
�Foot - Right Gram Stain - Preliminary
�08/18/23 17:07 Blood Culture - Pending
�Blood/Venous �
�08/18/23 17:07 Blood Culture - Pending
�Blood/Venous �
XRAY left foot: +gas in the soft tissue and osteo L 5th met head,
AROLDO:IMPRESSION:Right leg: AROLDO within normal limits measuring 1.28. Multiphasic flow throughout the leg with no focal or flow-limiting stenosis appreciated.
Left leg: AROLDO within normal limits measuring 1.03. TBI measures 1.52, possibly falsely elevated. Multiphasic flow within the common femoral through popliteal arteries no focal stenosis appreciated. Similarly dampened waveforms observed within the
dorsalis pedis artery raising the possibility of infrapopliteal disease.
Assessment / Plan
1-Gas Gangrene left foot w/Osteomyelitis-[facility]. He has had some lunch today,(at his side now at 1330) will schedule with OR for [address]. Likely open amp with wound vac or delayed primary closure. NPO status
NOW. Hold Lovenox.
2-DM2 w/DPN and LOPS- uncontrolled
3-Possible sepsis-bld cx pending
--- NOTE | 2023-08-19 13:42 | WOUNDNOTE ---
WOShobha RN NOTE: Reviewed chart. Podiatry and Research Engineer currently with patient. Plan is for OR for 5 th toe today. Will follow up as needed after surgery.
--- NOTE | 2023-08-19 14:59 | CM ---
Initial assessment completed with via phone
Pharmacy: [facility], [address] [facility]
Family Physician: Gagan Kulkarni DO, [address] [facility] [address],
reported that patient lives with her in a 2 story home; 0 steps to enter; 11 steps to 2nd floor bathroom; bedroom on 1st floor; bath has tub with shower; no grab bar or seat available.
PLOF: reported that patient is alone during the day; is independent with ADLs; holds on to railings to go up the stairs slowly; refuses to use assistive device with ambulation; has not showered in a month. Does not drive
SNF/Rehab/Home Care utilization history: none
DME: None
Transport: daughter will provide ride home
Plan: discharge to home; CM will follow to support DC planning needs
[2023-08-19 17:32] LABS: Glucose - Point of Care 90 mg/dl (70-99)
[2023-08-19] MEDS: VANCOCIN 200 IV (18:11)
--- NOTE | 2023-08-19 19:30 | PTCARENOTE ---
Patient transported to OR for L toe amp, transported in bed; patient showered, bathed with CHG wipes, and changed into fresh gown prior to transport. 1800 vanco infusion finished prior to transport, patient's IV flushed and capped.
[2023-08-19 20:41] LABS: Glucose - Point of Care 133 mg/dl (70-99)
--- NOTE | 2023-08-19 20:43 | W.SUR.POST ---
Surgical Immediate Post Op
Note
Pre Op Diagnosis: gas gangrene left foot w/osteomyelitis 5th ray(toe and met)
Post Op Diagnosis: same
Procedure Performed: 5th ray amp with application wound vac and partial closure wound left foot
Primary Surgeon: T Cody
Secondary Surgeons: n/a
Anesthesia: IV sed with local block 10 cc 1%lido pl pre op and 0.5%derik pl intra op
Estimated Blood Loss: 30 ml
Fluids: n/a
Drains/Shunts: n/a
Specimens/Cultures: bone prox margin 5th met
Doppler/Duplex/Angio (Y/N): N
Complications: None
Operative Findings: see report. Findings of significance: abscess sub left forefoot deep fascia across to the 2nd toe plantar sulcus with malodor and purulence. Pathologic fracture of bone to the distal 5th met left foot.
[2023-08-19] MEDS: COREG 3.125 MG PO (21:18)
[2023-08-19] MEDS: LANTUS 0.149999999999999994 UNITS SC (22:34)
[2023-08-19 22:35] LABS: Glucose - Point of Care 128 mg/dl (70-99)
[2023-08-20] VITALS (8 sets, daily range): BP systolic 102–147; BP diastolic 56–99; PULSE 86; O2SAT 97
[2023-08-20] MEDS: UNASYN IV ×4 (00:14→17:35)
[2023-08-20 05:23] LABS: Hematocrit 33.9 % (39.0-52.0); Hemoglobin 11.9 g/dL (13.0-18.0); Mean Corp Hgb Conc. 35.1 g/dL (33.0-37.0); Mean Corpuscular Hgb 30.1 pg (27.0-31.0); Mean Corpuscular Volume 85.8 fL (80.0-94.0); Mean Platelet Volume 10.3 fL (7.4-10.4); Platelet Count 362 10^3/uL (130-400); Red Blood Cell Count 3.95 10^6/uL (4.70-6.10); Red Cell Dist. Width 11.9 % (11.5-14.5); White Blood Cell Count 14.6 10^3/uL (4.8-10.8)
[2023-08-20 05:46] LABS: Blood Urea Nitrogen 11 mg/dl (9-20); Calcium 8.6 mg/dl (8.4-10.2); Carbon Dioxide 22 mmol/L (22-30); Chloride 100 mmol/L (98-107); Estimated Creatinine Clearance 64 ml/min; Glucose 148 mg/dl (70-99); Magnesium 2.2 mg/dl (1.6-2.3); Potassium 3.9 mmol/L (3.5-5.1); Sodium 135 mmol/L (135-145); eGFR > 60.00
[2023-08-20 05:54] LABS: Vancomycin Random 19.5 ug/ml
--- NOTE | 2023-08-20 07:15 | PN.DE.MGMTRT ---
Insulin Management
- -
08/19/2023: Diabetes Management Consult
68-year-old male admitted with Left 5th toe nonhealing wound concerning for gangrene and possibly osteomyelitis.
PMH includes: HTN, HLD, Former ETOH and cigarette use, Diabetic Neuropathy and T2DM. A1C 14.8%, Glucose on admission was 428, Cr 0.7-->1.1 today.
Per chart review, pt has not taken any of his diabetes medications (Humalog and Metformin) for over a year.
Pt is unable to provide hx or participate in interview. Family is at the bedside, has provided a list of medications that were last filled 07/2022, on the list is- Levemir 30 units daily, Metformin 1000 mg BID, Glipizide 10mg BID and Humalog SS
10-15 units with meals. Pt's states that pt stopped taking all his DM meds a year ago and it appears that he gave up on himself. states he has a glucose meter (Accuchek) with supplies but does not monitor his sugars, dtr at bedside states she
is using the supplies.
His current regiment includes: Lantus 10 units @ HS with low corrective insulin with meals.
Glucose has remained >200, FBG 235, has received 3 units of corrective for a blood sugar of 267 before breakfast.
Will start AC NovoLog 8 units and increase Lantus to 15 units and change to moderate corrective
Will hold off on starting Metformin and reassess after surgery.
Pt was seen with Surgeon/Wool Sacker at bedside, plan for OR later today.
Spoke to pt's nurse and instructed to HOLD AC NovoLog but use corrective insulin while NPO if needed before procedure
Will follow closely and make further adjustments as needed
08/20/2023 Diabetes Management Follow up
POD 1 s/p L 5th toe amputation. Patient received 15 units lantus @ HS, fasting glucose this AM 148. Will make no change to lantus. Patient was in the OR in the evening, most likely no dinner, HS glucose 128. Will continue AC novolog 8 units,
reduce corrective insulin from moderate to low. CR 1.2, egfr >60, will resume metformin. With A1C 14.8% will not resume glipizide.
Diabetes History
- -
Type of Diabetes: 2 requiring insulin
Pre-Admission Diabetes Regimen
08/20/23
04:38
Creatinine 1.2
Lab Results
Hemoglobin A1c 14.8 % (4.0-5.6) H 08/19/23 04:43
Insulin Pump Settings
IP Diabetes Regimen
08/19/23 08/19/23 08/19/23
08:10 11:44 17:30
Glucose
POC Glucose 267 H 262 H 90
08/19/23 08/19/23 08/20/23
20:39 22:33 04:38
Glucose 148 H
POC Glucose 133 H 128 H
Meal type: Dinner
Meal type: Lunch
Meal type: Breakfast
Amount consumed: 10%
Amount consumed: 10%
Patient Education
[2023-08-20 07:39] LABS: Glucose - Point of Care 150 mg/dl (70-99)
--- NOTE | 2023-08-20 08:04 | PHA.VAN.FU ---
Vancomycin Assessment / Plan
- Assessment
Renal Function: SCR Increasing
WBC's are: Trending Down
In the past 24 hrs, patient has been: Afebrile
Concomitant Antimicrobials: ampicillin/sulbactam
- Assessment - Therapeutic Drug Monitoring
Random Level: 19.5 - drawn ~10.5H after previous dose of 1000mg
Received 1500mg plus 1000mg yesterday
- Dosing Plan
Dosing by Level: Re-dose today (Vanc 1000mg)
Will trial single dose today (vs 2 doses given yesterday) to see if that decreases level
If level continues to increase - may require further prolonged interval
- Monitoring Plan
Random Level: 08/21 06
- Follow Up
Pharmacy will continue to follow.
Vancomycin Follow UP
- -
Patient Age: 68
Patient Sex: Male
Vancomycin Day #: 3
Indication: Bone And Joint
Requesting Provider: Dr. Smith / Chai
Pertinent Antimicrobial Allergies:
NKDA
Height / Weight:
Height 6 ft
Actual Weight 94.619 kg
Pertinent Past Medical History: DM
- Vital Signs / Lab Results
Temp Pulse Resp BP Pulse Ox
98.4 F 99 12 143/99 95
08/20/23 07:59 08/20/23 07:59 08/20/23 07:59 08/20/23 07:59 08/20/23 07:59
Lab Results - Hematology
08/18/23 08/19/23 08/20/23
17:07 04:43 04:38
WBC 13.6 H 19.9 H 14.6 H
Lab Results - Chemistry
08/18/23 08/19/23 08/20/23
17:07 04:43 04:38
BUN 10 11 11
Creatinine 0.7 1.1 1.2
Estimated Creat Clear 109 70 64
Albumin 3.5 2.9 L
08/18/23 08/18/23
17:07 21:32
Lactic Acid 4.1 H* 1.9
Microbiology Results
08/18/23 17:07 Blood Culture - Preliminary
Blood/Venous No Growth in 24 hours- Final report to follow
08/18/23 17:07 Blood Culture - Preliminary
Blood/Venous No Growth in 24 hours- Final report to follow
08/18/23 17:11 Wound Culture - Preliminary
Foot - Right Gram Stain - Preliminary
Therapeutic Drug Monitoring
Random Vancomycin 19.5 ug/ml 08/20/23 04:38
--- NOTE | 2023-08-20 08:52 | PN.CDI ---
CDI
- -
CDI:
Physician Documentation Request
Admit Date: 08/18/23 19:34
Dear Doctor Sagar,
Patient admitted with a gangrenous toe.
08/19 Hospitalist PN: 'Gangrenous left toe with surrounding cellulitis, possible osteomyelitis'
08/18/23 08/19/23
17:07 04:43
WBC 13.6 H 19.9 H
08/18/23
16:56 08/18/23
23:38 08/19/23
07:45
Pulse 114 109 93
Please clarify which of the following most accurately describes the status of the patient's infection:
Sepsis, POA
- Systemic manifestations of infection, with 2 or more SIRS criteria which include:
- Fever >100.4 degrees F or hypothermia < 96.8 degrees F
- Leukocytosis - WBC > 12,000 or leukopenia - WBC < 4,000 or > 10% bands
- Tachycardia > 90 beats per minute
- Tachypnea - RR > 20 breaths per minute or PaCO2 , 32mmHg
Source: Merck Manual 2013
Localized Infection Only, Without Systemic Illness
Other
Use of terms such as suspected, likely, concern for, or probable (associated with a specific diagnosis that is being evaluated, monitored, or treated as if it exists) are acceptable and can be coded in the inpatient setting, when documented at the
time of discharge.
Thank you,
Sonia Emery RN, BSN
CDI Specialist
Available via [place] text
Please use your independent medical judgment in providing your response.
[2023-08-20] MEDS: COREG 3.125 MG PO (08:54)
[2023-08-20] MEDS: NOVOLOG FLEXPEN 8 UNITS SC ×3 (08:55→16:23)
[2023-08-20] MEDS: NOVOLOG FLEXPEN-LOW RESISTANCE 1 UNITS SC ×2 (08:55→11:51)
[2023-08-20] MEDS: GLUCOPHAGE 1000 MG PO ×2 (08:57→16:24)
--- NOTE | 2023-08-20 09:58 | WOUNDNOTE ---
[facility] RN NOTE: Notified by MARÍA Martinez and Dr. Ross that wound vac reading 'low pressure.' On assessment, the wound vac has a scant amount of drainage with clots in tubing connected to track pad. Pressure reading on wound vac is 50mmHg. Track pad
changed and dressing enforced by this RN. Wound vac now reading 125 mmHg. Will plan on changing vac dressing tomorrow with Dr. Ross in AM. SPD called for supplies. MARÍA Martinezian given update.
--- NOTE | 2023-08-20 10:37 | W.PN.ID1 ---
Date of Service
Date of Service: August 20, 2023
Today's Communication
vanc/unasyn
Assessment / Plan
Gangrene - wet - s/p resection
Probable osteomyelitis - L 5th met head
DM2 - uncontrolled
FABRICE
Medication noncompliance
- blood cultures x2 in progress no growth to date
- follow OR cultures
- s/p resection of the met head, wound vac placement
- tight glucose control recommended
- continue vancomycin pending urine culture - if MSSA then stop vancomycin -
- continue unasyn
- follow clinically
S aureus bacturia
- blood cultures x2 already in progress
- on vancomycin, unasyn
- if bacteremic with S aures then i will order TTE
- given very low colony count, 15K, most likely a contaminant, still will follow blood cultures to 48 hours to assure not bacteremic
HCM
- hep C ab sent, if positive can follow up with GI
Chief Complaint
-: Other (gas gangrene)
Subjective / Review of Systems
afebrile
bp stable
declining leukocytosis
cr stable
superficial cultures noted
Vital Signs / Physical Exam
Vital Signs
Vital Signs
Temp Pulse Resp BP Pulse Ox
98.4 F 99 12 143/99 95
08/20/23 07:59 08/20/23 08:54 08/20/23 07:59 08/20/23 08:54 08/20/23 09:00
Physical Exam
Constitutional: No Acute Distress
Cardiovascular: Regular Rate and S1/S2; Negative Murmur or Rub
Pulmonary: Clear and Symmetric; Negative Wheezes or Rales
Gastrointestinal: Soft, Non Tender, Non Distended and Normal Bowel Sounds
Skin: Warm and Dry; Negative Rash or Jaundice
Wound: Other (wound vac)
Objective Data
Lab Data
Lab Results
08/20/23 04:38
08/20/23 04:38
Estimated Creat Clear 64 ml/min 08/20/23 04:38
Lactic Acid 1.9 mmol/L (0.7-2.0) 08/18/23 21:32
Total Bilirubin 1.0 mg/dl (0.2-1.3) 08/19/23 04:43
AST 17 U/L (17-59) 08/19/23 04:43
ALT 14 U/L (0-50) 08/19/23 04:43
Alkaline Phosphatase 129 U/L (38-126) H 08/19/23 04:43
Most recent labs reviewed.
Wound/abscess/other Cult Preliminary 08/20/23-933
Moderate Enterococcus species
Moderate Streptococcus pyogenes*
Moderate Streptococcus species
Many Viridans Streptococcus Group
Micro Results:
08/18/23 17:11 Wound Culture - Preliminary
Foot - Right Enterococcus species
Streptococcus pyogenes
Streptococcus species
Viridans Streptococcus Group
Gram Stain - Preliminary
08/18/23 21:59 MRSA Screen - Final
Nose No Methicillin Resistant Staphylococcus aureus isolated.
08/19/23 19:48 Tissue Culture - Pending
Foot - Left Gram Stain - Pending
08/18/23 17:07 Blood Culture - Preliminary
Blood/Venous No Growth in 24 hours- Final report to follow
08/18/23 17:07 Blood Culture - Preliminary
Blood/Venous No Growth in 24 hours- Final report to follow
08/19/23 02:47 Urine Culture - Pending
Urine
[2023-08-20 11:16] LABS: Glucose - Point of Care 155 mg/dl (70-99)
--- NOTE | 2023-08-20 11:30 | W.PN.HOSP.TC ---
Addendum entered and electronically signed by Nalini Keith MD 08/20/23 14:47:
# Sepsis, POA
Original Note:
Today's Communication/Plan
-
see A/P
Assessment / Plan
Assessment / Plan
HPI: 68-year-old male with past medical history of diabetes noncompliant with medication, diabetic neuropathy, hypertension, hypercholesteremia, who presented as 302.
The patient collapsed and urinated on himself in the kitchen and found to have gangrenous left toe.
Patient has had infected left fifth toe for the past year but over the past few days it has become black and necrotic.� Patient denies any pain.� Family has noticed some discharge from the toe.� Surrounding area is red.� Patient refused to come to
the hospital over the past several days so 302 was filed.� Patient has not been taking his diabetic medications for the past year which includes metformin and Humalog.� Denies any fevers or chills.
He is a former smoker and alcohol user.� Denies any drug use at this time.
Patient does not have any history of psychiatric problems.
A/P:
# Gangrenous left toe with surrounding cellulitis, possible osteomyelitis
Foot x-ray noted Soft tissue swelling and gas in the lateral forefoot most compatible with a necrotizing soft tissue infection. Demineralization of the fifth metatarsal head raising concern for osteomyelitis.
s/p�5th ray amp with application wound vac and partial closure wound left foot by whiting can worker 08/19
Cont Vancomycin and Unasyn per ID
Follow wound culture, blood culture negative
wound care on board
# PAD
BL AROLDO within normal limits
Vascular on board, TBI likely falsely elevated.�At this point, do not think there is benefit of angiography
# Urinary incontinence
follow urine culture
Abx as above
# Hyperglycemia secondary to untreated diabetes
Blood sugar 428
A1c 14.8%
Started Lantus 15 units HS, Aspart 8 units AC ; also Metformin 1000 mg BID
Cont Insulin sliding scale
DM SENIOR LINUX SYSTEMS ADMINISTRATOR on board
# Essential hypertension
Noncompliant with medication
Started Coreg 3.125 BID with holding parameter
# Hypercholesterolemia
Noncompliant with medication
# Former alcohol use
# Former smoker
# hyponatremia
Full code
DVT prophylaxis�heparin SQ
Diabetic diet
DW RN
Anticipated Discharge: > 48 hours
Subjective/Interval History
-
Date of Service: August 20, 2023
Objective Data
-
Labs:
Laboratory Results
08/20/23
04:38
WBC 14.6 H
Hgb 11.9 L
Hct 33.9 L
Plt Count 362
Sodium 135
Potassium 3.9
Chloride 100
Carbon Dioxide 22
BUN 11
Creatinine 1.2
Glucose 148 H
Calcium 8.6
Vital Signs:
Vital Signs
Temp Pulse Resp BP Pulse Ox
36.8 C 89 14 102/56 97
08/20/23 11:18 08/20/23 11:18 08/20/23 11:18 08/20/23 11:18 08/20/23 11:18
I&O
08/19/23 08/20/23 08/21/23
06:59 06:59 06:59
Intake Total 480 / 480 1700 / 1700
Output Total 450 / 450 900 / 900
Balance 30 / 30 800 / 800
Review of Systems
-
All other systems: Reviewed and negative
Physical Exam
-
General: Well Developed, Well Nourished, No Apparent Distress, Comfortable and Conversant; Negative Respiratory Distress
HEENT: Normocephalic, Atraumatic, Nose Appears Normal and Ears Appear Normal; Negative Oxygen
Respiratory: Clear to Auscultation and Non Labored Respirations; Negative Accessory Resp Muscle Use
Cardiac: Regular Rhythm and S1/S2
GI: Soft, Nontender, Nondistended and Normal Bowel Sounds
Skin: Lesions (L foot in wound dressing and wound vac )
Neuro: Awake and Alert
Psych: Calm and Intact Judgement/Insight
Data Reviewed
-
Labs: Labs Reviewed by me
[2023-08-20] MEDS: VANCOCIN 200 IV (11:52)
--- NOTE | 2023-08-20 15:15 | CM ---
Addendum entered by Margret Gomez RN 08/20/23 15:34:
CM spoke with Alva OLEA ([phone]). Per Alva, was out to do initial assessment and call [phone] due to the patient's status.
Original Note:
Reviewed the chart notes and spoke with the patient at the bedside. The patient is post partial left 5th ray amputation and application of
wound vac to the left foot. CM continues to be available to patient/family and is monitoring medical plan for needs at discharge.
Plan: Discharge plans will depend on the patient's progress.
[2023-08-20 16:22] LABS: Glucose - Point of Care 136 mg/dl (70-99)
[2023-08-20] MEDS: NOVOLOG FLEXPEN-LOW RESISTANCE SC (16:24)
[2023-08-20] MEDS: LOVENOX 40 MG SC (17:35)
[2023-08-20 20:09] LABS: Hepatitis C Antibody Negative (Negative)
[2023-08-20] MEDS: COREG PO (20:17)
[2023-08-20] MEDS: LANTUS 0.149999999999999994 UNITS SC (21:49)
[2023-08-20 21:50] LABS: Glucose - Point of Care 177 mg/dl (70-99)
[2023-08-21] MEDS: UNASYN IV ×4 (00:01→17:39)
--- NOTE | 2023-08-21 01:41 | PTCARENOTE ---
This nurse removed negative pressure wound VAC from patients left foot. Attempted to reinforce seal two times. Initially started to alarm at 0045, at that time this nurse reinforced the seal with transparent film dressing. The pressure was reading
at 125 mmhg. Rewrapped foot. At 0115, wound VAC was alarming and reading at 50 mmhg. Attempted to reinforce seal. Unable to obtain a seal. Removed wound VAC and placed wet to dry dressing in wound then wrapped with gauze and ELINOR bandage. Podiatry
and wound care are scheduled to change wound VAC on 08/21 in the AM.
[2023-08-21 04:52] LABS: Hematocrit 31.1 % (39.0-52.0); Hemoglobin 10.6 g/dL (13.0-18.0); Mean Corp Hgb Conc. 34.1 g/dL (33.0-37.0); Mean Corpuscular Hgb 29.9 pg (27.0-31.0); Mean Corpuscular Volume 87.9 fL (80.0-94.0); Mean Platelet Volume 10.2 fL (7.4-10.4); Platelet Count 332 10^3/uL (130-400); Red Blood Cell Count 3.54 10^6/uL (4.70-6.10); Red Cell Dist. Width 11.9 % (11.5-14.5); White Blood Cell Count 12.1 10^3/uL (4.8-10.8)
[2023-08-21 05:20] LABS: Vancomycin Random 14.9 ug/ml
[2023-08-21 05:25] LABS: Blood Urea Nitrogen 13 mg/dl (9-20); Calcium 8.2 mg/dl (8.4-10.2); Carbon Dioxide 24 mmol/L (22-30); Chloride 102 mmol/L (98-107); Estimated Creatinine Clearance 70 ml/min; Glucose 140 mg/dl (70-99); Potassium 3.6 mmol/L (3.5-5.1); Sodium 136 mmol/L (135-145); eGFR > 60.00
--- NOTE | 2023-08-21 07:25 | PN.DE.MGMTRT ---
Insulin Management
- -
08/19/2023: Diabetes Management Consult
68-year-old male admitted with Left 5th toe nonhealing wound concerning for gangrene and possibly osteomyelitis.
PMH includes: HTN, HLD, Former ETOH and cigarette use, Diabetic Neuropathy and T2DM. A1C 14.8%, Glucose on admission was 428, Cr 0.7-->1.1 today.
Per chart review, pt has not taken any of his diabetes medications (Humalog and Metformin) for over a year.
Pt is unable to provide hx or participate in interview. Family is at the bedside, has provided a list of medications that were last filled 07/2022, on the list is- Levemir 30 units daily, Metformin 1000 mg BID, Glipizide 10mg BID and Humalog SS
10-15 units with meals. Pt's states that pt stopped taking all his DM meds a year ago and it appears that he gave up on himself. states he has a glucose meter ([employer]) with supplies but does not monitor his sugars, dtr at bedside states she
is using the supplies.
His current regiment includes: Lantus 10 units @ HS with low corrective insulin with meals.
Glucose has remained >200, FBG 235, has received 3 units of corrective for a blood sugar of 267 before breakfast.
Will start AC NovoLog 8 units and increase Lantus to 15 units and change to moderate corrective
Will hold off on starting Metformin and reassess after surgery.
Pt was seen with Surgeon/Stage Driver at bedside, plan for OR later today.
Spoke to pt's nurse and instructed to HOLD AC NovoLog but use corrective insulin while NPO if needed before procedure
Will follow closely and make further adjustments as needed
08/20/2023 Diabetes Management Follow up
POD 1 s/p L 5th toe amputation. Patient received 15 units Lantus @ HS, fasting glucose this AM 148. Will make no change to Lantus. Patient was in the OR in the evening, most likely no dinner, HS glucose 128. Will continue AC NovoLog 8 units,
reduce corrective insulin from moderate to low. CR 1.2, egfr >60, will resume metformin. With A1C 14.8% will not resume glipizide.
08/21/2023: Diabetes Management F/U
POD# 2 s/p L5th toe amputation, pt doing well, offers no complaints.
Glucose stable and in range, FBG 140 this AM, premeal 129 to 155 on current regimen
Will make no changes- cont Lantus 15 units, AC NovoLog 8 units, low corrective insulin and Metformin.
With A1C 14.8% will not resume glipizide.
Diabetes History
- -
Type of Diabetes: 2 requiring insulin
Pre-Admission Diabetes Regimen
08/21/23
04:35
Creatinine 1.1
Lab Results
Hemoglobin A1c 14.8 % (4.0-5.6) H 08/19/23 04:43
Insulin Pump Settings
IP Diabetes Regimen
08/20/23 08/20/23 08/20/23
07:37 11:15 16:21
Glucose
POC Glucose 150 H 155 H 136 H
08/20/23 08/21/23
21:48 04:35
Glucose 140 H
POC Glucose 177 H
Meal type: Dinner
Meal type: Lunch
Meal type: Breakfast
Amount consumed: 100%
Amount consumed: 95%
Amount consumed: 75%
Patient Education
[2023-08-21 07:31] VITALS: BP 136/73
[2023-08-21 07:36] LABS: Glucose - Point of Care 129 mg/dl (70-99)
[2023-08-21] MEDS: NOVOLOG FLEXPEN 8 UNITS SC ×3 (08:43→17:38)
[2023-08-21] MEDS: NOVOLOG FLEXPEN-LOW RESISTANCE SC ×2 (08:44→17:37)
[2023-08-21] MEDS: GLUCOPHAGE 1000 MG PO ×2 (08:45→17:38)
[2023-08-21] MEDS: COREG 3.125 MG PO ×2 (08:45→21:34)
--- NOTE | 2023-08-21 09:26 | WOUNDNOTE ---
[facility] RN note: Patient admitted with infected left 5 th toe
See H&P for complete history.
PMH: Diabetes (uncontrolled), diabetic neuropathy, HTN, presented as a 302.
Wound Location and type/assessment: Patient admitted with: Infected left toe which has recently worsened. Now s/p partial left 5th ray amputation and application of wound vac to left foot. The wound vac dressing was removed overnight and replaced
overnight with a sterile saline dressing due seal loss. Dr. Ross present to assess wound. Purulent drainage expressed from plantar aspect of foot by Dr. Ross (see operative report). Wound bed where vac was placed was pink/red. No odor noted.
Vac changed and set at 125 mm Hg per order, using alginate over sutures. Patient denied pain or discomfort during vac replacement. Heels intact. Sacrum red and blanchable.
Appetite: States good appetite.
Pressure redistribution devices in place: Versa Care Air, patient is able to turn and sit on side of bed. Instructed patient on importance of turning/changing position and off-loading heels while in bed to prevent pressure injury. Also encouraged
patient to control diabetes at home, as this will impact healing. Patient stated he understands all recommendations.
Plan: Will continue to follow with patient for wound vac changes. Nursing may TT over the weekend if any issues with vac. SPD called for sacral foam, as patients sacrum is red. RN Joyce given update and will apply foam.
Note to case management of equipment requested for discharge: Plan is for discharge to home. Activac order placed.
--- NOTE | 2023-08-21 10:31 | WOUNDNOTE ---
LEFT LATERAL FOOT
[2023-08-21 11:20] LABS: Glucose - Point of Care 171 mg/dl (70-99)
[2023-08-21] MEDS: NOVOLOG FLEXPEN-LOW RESISTANCE 1 UNITS SC (12:01)
--- NOTE | 2023-08-21 12:01 | W.PN.HOSP.TC ---
Addendum entered and electronically signed by Conrad Samuels MD 08/21/23 14:25:
Anemia is multifactorial due to dilution as well as acute blood loss anemia from surgery.
Original Note:
Today's Communication/Plan
-
see bold
Assessment / Plan
Assessment / Plan
HPI: 68-year-old male with past medical history of diabetes noncompliant with medication, diabetic neuropathy, hypertension, hypercholesteremia, who presented as 302.
The patient collapsed and urinated on himself in the kitchen and found to have gangrenous left toe.
Patient has had infected left fifth toe for the past year but over the past few days it has become black and necrotic.� Patient denies any pain.� Family has noticed some discharge from the toe.� Surrounding area is red.� Patient refused to come to
the hospital over the past several days so 302 was filed.� Patient has not been taking his diabetic medications for the past year which includes metformin and Humalog.� Denies any fevers or chills.
He is a former smoker and alcohol user.� Denies any drug use at this time.
Patient does not have any history of psychiatric problems.
Gen: NAD, Awake and alert
Eyes: EOMI, PERRLA, no scleral icterus.
Neck: supple.
CV: RRR, +S1/S2, no m/r/g.
Resp: CTAB, no rales, wheezes, or rhonchi.
Abd: +BS, soft, NT, ND
Skin: No rashes. L foot with C/D/I dressing and medical shoe
Neuro: CN 2-12 intact, non-focal.
Psych: Normal mood and affect.
08/18/23 17:11 Foot - Right Wound Culture - Final
Enterococcus faecalis
Streptococcus pyogenes
08/18/23 17:11 Foot - Right Gram Stain - Final
08/19/23 02:47 Urine Urine Culture - Final
S aureus-Methicillin Sensitive
08/18/23 17:07 Blood/Venous Blood Culture - Preliminary
No Growth in 48 hours- Final report to follow
08/18/23 17:07 Blood/Venous Blood Culture - Preliminary
No Growth in 48 hours- Final report to follow
08/19/23 19:48 Foot - Left Gram Stain - Preliminary
08/18/23 21:59 Nose MRSA Screen - Final
No Methicillin Resistant Staphylococcus aureus isolated.
Gangrenous left toe due to PAD:
-with surrounding cellulitis, possible osteomyelitis
-B/L LE AROLDO within normal limits
-Vascular surgery saw and there was no indication for LE angiography
-Foot x-ray noted Soft tissue swelling and gas in the lateral forefoot most compatible with a necrotizing soft tissue infection. Demineralization of the fifth metatarsal head raising concern for osteomyelitis.
-s/p�5th ray amp with application wound vac and partial closure wound left foot by waste paper hammermill operator 08/19/23
-WCx with Enterococcus faecalis and strep pyogenes
-cont Unasyn per ID
Other problems:
MSSA bacteriuria, likely contaminant as per ID
DM2: a1c 14.8%, cont metformin/Lantus/premeal Novolog/SSI/accuchecks. Diabetes EXTRACTOR OPERATOR SOLVENT PROCESS following.
Essential hypertension: cont Coreg
Hypercholesterolemia
Former alcohol abuse
Former tobacco abuse
Hyponatremia
FULL/heparin
Anticipated Discharge: 24 - 48 hours
Subjective/Interval History
-
Date of Service: August 21, 2023
Denies CP/SOB.
Objective Data
-
Labs:
Laboratory Results
08/21/23
04:35
WBC 12.1 H
Hgb 10.6 L
Hct 31.1 L
Plt Count 332
Sodium 136
Potassium 3.6
Chloride 102
Carbon Dioxide 24
BUN 13
Creatinine 1.1
Glucose 140 H
Calcium 8.2 L
Vital Signs:
Vital Signs
Temp Pulse Resp BP Pulse Ox
97.8 F 74 18 136/73 98
08/21/23 07:31 08/21/23 08:45 08/21/23 07:31 08/21/23 08:45 08/21/23 07:31
I&O
08/20/23 08/21/23 08/22/23
06:59 06:59 06:59
Intake Total 1700 / 1700 2119
Output Total 900 / 900
Balance 800 / 800 2119
--- NOTE | 2023-08-21 12:47 | W.PN.ID1 ---
Date of Service
Date of Service: August 21, 2023
Today's Communication
unasyn
Assessment / Plan
Gangrene - wet - s/p resection
Probable osteomyelitis - L 5th met head
DM2 - uncontrolled
FABRICE
Medication noncompliance
- blood cultures x2 in progress no growth to date
- follow OR cultures - no growth to date
- discussed with podiatry - there is some concern for possible persistent abscess - will continue IV antibiotics while following clinically
- s/p resection of the met head, wound vac placement
- tight glucose control recommended
- stopped vanc
- continue unasyn
- follow clinically
S aureus bacturia
- blood cultures x2 already in progress
- on unasyn
- if bacteremic with S aures then i will order TTE
- given very low colony count, 15K, most likely a contaminant, still will follow blood cultures to 48 hours to assure not bacteremic
HCM
- hep C ab sent, if positive can follow up with GI
Chief Complaint
-: Other (gas gangrene)
Subjective / Review of Systems
afebrile
bp stable
tolerating current therapies
discussed with podiatry - there is some concern for possible persistent abscess - will continue IV antibiotics while following clinically
Vital Signs / Physical Exam
Vital Signs
Vital Signs
Temp Pulse Resp BP Pulse Ox
97.8 F 74 18 136/73 98
08/21/23 07:31 08/21/23 08:45 08/21/23 07:31 08/21/23 08:45 08/21/23 07:31
Physical Exam
Constitutional: No Acute Distress and Chronically Ill
Cardiovascular: Regular Rate
Pulmonary: Symmetric and Non Labored
Gastrointestinal: Non Distended
Lines: Other (wound vac)
Objective Data
Lab Data
Lab Results
08/21/23 04:35
08/21/23 04:35
Estimated Creat Clear 70 ml/min 08/21/23 04:35
Lactic Acid 1.9 mmol/L (0.7-2.0) 08/18/23 21:32
Total Bilirubin 1.0 mg/dl (0.2-1.3) 08/19/23 04:43
AST 17 U/L (17-59) 08/19/23 04:43
ALT 14 U/L (0-50) 08/19/23 04:43
Alkaline Phosphatase 129 U/L (38-126) H 08/19/23 04:43
Most recent labs reviewed.
Micro Results:
08/19/23 19:48 Tissue Culture - Preliminary
Foot - Left Gram Stain - Preliminary
08/18/23 17:11 Wound Culture - Final
Foot - Right Enterococcus faecalis
Streptococcus pyogenes
Gram Stain - Final
08/19/23 02:47 Urine Culture - Final
Urine S aureus-Methicillin Sensitive
08/18/23 17:07 Blood Culture - Preliminary
Blood/Venous No Growth in 48 hours- Final report to follow
08/18/23 17:07 Blood Culture - Preliminary
Blood/Venous No Growth in 48 hours- Final report to follow
08/18/23 21:59 MRSA Screen - Final
Nose No Methicillin Resistant Staphylococcus aureus isolated.
--- NOTE | 2023-08-21 14:03 | PN.CDI ---
CDI
- -
CDI:
Physician Documentation Request
Admit Date: 08/18/23 19:34
Dear Doctor Arvind,
Patient admitted for gangrenous left toe.
Laboratory Tests
08/18/23 08/21/23
17:07 04:35
Hgb 13.2 10.6 L
Hct 38.3 L 31.1 L
Based on the above, could you clarify in the progress notes, the appropriate diagnosis, if significant, that supports the above abnormalities and additional evaluation, monitoring and/or treatment rendered:
Acute anemia multifactorial due to hemodilution and blood loss
Hemodilution only
Other
Use of terms such as suspected, likely, concern for, or probable (associated with a specific diagnosis that is being evaluated, monitored, or treated as if it exists) are acceptable and can be coded in the inpatient setting, when documented at the
time of discharge.
Thank you,
Sonia Emery RN, BSN
CDI Specialist
Available via [facility] text
Please use your independent medical judgment in providing your response.
--- NOTE | 2023-08-21 14:23 | WOUNDNOTE ---
WO RN NOTE: Following up on home vac. Spoke to Kati at [facility] and they do not take patient's [employer] insurance and recommended contacting patients insurance company for information. TT with ERIC Zhao who said [email or web address] uses [facility]. [employer] was
contacted and this financial writer was connected with local company in [facility]. Spoke to Grace at [facility] who said company offers home vac services. Requested information was faxed to [facility] at [phone]. [facility] can be
contacted at [phone] press option 4 for assistance . Confirmation of fax received. Will continue to follow up.
[2023-08-21 14:40] VITALS: BP 130/69; PULSE 75; O2SAT 98
--- NOTE | 2023-08-21 15:07 | CM ---
Reviewed the chart notes and spoke with the patient at the bedside. Patient anticipates being discharged to home with wound vac and VN services. Discussed area VNs, patient selected VN. Referral sent in [facility]. chair inspector ordering home
wound vac. CM continues to be available to patient/family and is monitoring medical plan for needs at discharge.
Plan: Discharge to home with VN services when medically stable.
[2023-08-21 16:02] VITALS: BP 129/70
[2023-08-21 16:41] LABS: Glucose - Point of Care 102 mg/dl (70-99)
--- NOTE | 2023-08-21 17:10 | W.PN.POD ---
Today's Communication
Today's Communication
Gas gangrene left foot w/ OM of the left 5th toe and metatarsal -S/P partial 5th ray amp POD #2, wound vac was removed and wound was cleansed and evaluated with wound care nurse and VAC to be reapplied. Recommend we continue IV abt for now for
complicated SSI, if erythema improves we can switch to po and dc home, however, there is a possibility of deep plantar space infection to the distal forefoot despite OR debridement that may require return to OR to be opened and irrigated. Will
follow closely over the next 24 hours
Discussed above w/Dr galdamez
Assessment / Plan
-
DM2 with hyperglycemia
DM2 with DPN
Gas gangrene left foot w/ OM of the left 5th toe and metatarsal -S/P partial 5th ray amp POD #2, wound vac was removed and wound was cleansed and evaluated with wound care nurse and VAC to be reapplied. Recommend we continue IV abt for now for
complicated SSI, if erythema improves we can switch to po and dc home, however, there is a possibility of deep plantar space infection to the distal forefoot despite OR debridement that may require return to OR to be opened and irrigated. Will
follow closely over the next 24 hours
Discussed above tyler/Dr galdamez
Subjective
Chief Complaint
left foot gangrene
Subjective
Patient feels well, denies pain
Objective
Temp Pulse Resp BP Pulse Ox
98.6 F 80 18 129/70 97
08/21/23 16:02 08/21/23 16:02 08/21/23 16:02 08/21/23 16:02 08/21/23 16:02
08/21/23 04:35
08/21/23 04:35
Vital Signs and Lab results were reviewed.
Micro bone 5th met prox margin is negative so far
Inspection: Cellulitis (left foot)
Review of Systems
Review of Systems
Review of Systems: No Fever, No Chills, No Headache and No Nausea
Physical Exam
Physical Exam
General: No Apparent Distress, Comfortable and Conversant
Musculoskeletal: Edema, Left Lower Extrem (left foot)
Skin: Warm, Dry and Other (incision ins coapted dorsal left foot, wound bed plantarly is clean and granular. There is scant purulent drainage expressed from the distal incision upon compression of the mtpjs 2-4. There is early echymosis and erythema
persisiting to the plantar distal forefoot under these toes as well)
Neuro: AO x 3 and Protective Sensation Diminished
Vascular: Capillary Refill Intact and Skin Temperature Warm to Warm
Dorsalis Pedis: Intact
Posterior Tibialis: Intact
[2023-08-21] MEDS: LOVENOX 40 MG SC (17:39)
[2023-08-21] MEDS: LANTUS 0.149999999999999994 UNITS SC (21:43)
[2023-08-21 21:45] LABS: Glucose - Point of Care 116 mg/dl (70-99)
[2023-08-21 23:55] VITALS: BP 136/69
[2023-08-22] MEDS: UNASYN IV ×4 (00:28→17:14)
[2023-08-22 07:23] LABS: Glucose - Point of Care 104 mg/dl (70-99)
[2023-08-22] MEDS: NOVOLOG FLEXPEN-LOW RESISTANCE SC ×3 (07:28→16:47)
[2023-08-22 07:45] VITALS: BP 130/72
[2023-08-22 07:57] LABS: Hematocrit 30.8 % (39.0-52.0); Hemoglobin 10.8 g/dL (13.0-18.0); Mean Corp Hgb Conc. 35.1 g/dL (33.0-37.0); Mean Corpuscular Hgb 29.8 pg (27.0-31.0); Mean Corpuscular Volume 84.8 fL (80.0-94.0); Mean Platelet Volume 10.3 fL (7.4-10.4); Platelet Count 347 10^3/uL (130-400); Red Blood Cell Count 3.63 10^6/uL (4.70-6.10); Red Cell Dist. Width 11.9 % (11.5-14.5); White Blood Cell Count 9.3 10^3/uL (4.8-10.8)
[2023-08-22 08:11] LABS: Blood Urea Nitrogen 11 mg/dl (9-20); Calcium 8.3 mg/dl (8.4-10.2); Carbon Dioxide 25 mmol/L (22-30); Chloride 105 mmol/L (98-107); Estimated Creatinine Clearance 85 ml/min; Glucose 109 mg/dl (70-99); Sodium 135 mmol/L (135-145); eGFR > 60.00
[2023-08-22] MEDS: GLUCOPHAGE 1000 MG PO ×2 (08:12→17:12)
[2023-08-22] MEDS: NOVOLOG FLEXPEN 8 UNITS SC ×2 (08:13→17:12)
[2023-08-22] MEDS: COREG 3.125 MG PO ×2 (08:13→19:49)
--- NOTE | 2023-08-22 08:55 | W.PN.ID1 ---
Date of Service
Date of Service: August 22, 2023
Today's Communication
Continue Unasyn.
Assessment / Plan
Gangrene - wet - s/p resection
Probable osteomyelitis - L 5th met head
DM2 - uncontrolled
FABRICE - resolved
Medication noncompliance
- blood cultures x2 in progress no growth to date
- follow OR cultures - no growth to date
- discussed with podiatry - there is some concern for possible persistent abscess - will continue IV antibiotics while following clinically
- s/p resection of the met head, wound vac placement
- tight glucose control recommended
- continue unasyn
- follow clinically
S aureus bacturia
- blood cultures x2 neg to date
- on unasyn
- given very low colony count, 15K, most likely a contaminant, still will follow blood cultures to 48 hours to assure not bacteremic
HCM
- hep C ab sent, if positive can follow up with GI
Chief Complaint
-: Other (gas gangrene)
Subjective / Review of Systems
No pain
Vital Signs / Physical Exam
Vital Signs
Vital Signs
Temp Pulse Resp BP Pulse Ox
97.4 F 76 14 130/72 97
08/22/23 07:45 08/22/23 08:13 08/22/23 07:45 08/22/23 08:13 08/22/23 07:45
Physical Exam
Constitutional: No Acute Distress and Comfortable
Pulmonary: Clear
Gastrointestinal: Soft, Non Tender and Non Distended
Wound: Other (left foot dressing in place with wound vac.)
Objective Data
Lab Data
Lab Results
08/22/23 07:22
08/22/23 07:22
Estimated Creat Clear 85 ml/min 08/22/23 07:22
Lactic Acid 1.9 mmol/L (0.7-2.0) 08/18/23 21:32
Total Bilirubin 1.0 mg/dl (0.2-1.3) 08/19/23 04:43
AST 17 U/L (17-59) 08/19/23 04:43
ALT 14 U/L (0-50) 08/19/23 04:43
Alkaline Phosphatase 129 U/L (38-126) H 08/19/23 04:43
Most recent labs reviewed.
Micro Results:
08/18/23 17:07 Blood Culture - Preliminary
Blood/Venous No Growth in 72 hours- Final report to follow
08/18/23 17:07 Blood Culture - Preliminary
Blood/Venous No Growth in 72 hours- Final report to follow
08/19/23 19:48 Tissue Culture - Preliminary
Foot - Left Gram Stain - Preliminary
08/18/23 17:11 Wound Culture - Final
Foot - Right Enterococcus faecalis
Streptococcus pyogenes
Gram Stain - Final
08/19/23 02:47 Urine Culture - Final
Urine S aureus-Methicillin Sensitive
08/18/23 21:59 MRSA Screen - Final
Nose No Methicillin Resistant Staphylococcus aureus isolated.
[2023-08-22 11:19] LABS: Glucose - Point of Care 90 mg/dl (70-99)
--- NOTE | 2023-08-22 11:21 | W.PN.HOSP.TC ---
Today's Communication/Plan
-
Doing well.
Continue iv abx.
Assessment / Plan
Assessment / Plan
HPI: 68-year-old male with past medical history of diabetes noncompliant with medication, diabetic neuropathy, hypertension, hypercholesteremia, who presented as 302.
The patient collapsed and urinated on himself in the kitchen and found to have gangrenous left toe.
Patient has had infected left fifth toe for the past year but over the past few days it has become black and necrotic.� Patient denies any pain.� Family has noticed some discharge from the toe.� Surrounding area is red.� Patient refused to come to
the hospital over the past several days so 302 was filed.� Patient has not been taking his diabetic medications for the past year which includes metformin and Humalog.� Denies any fevers or chills.
He is a former smoker and alcohol user.� Denies any drug use at this time.
Patient does not have any history of psychiatric problems.
Initial exam:
Gen: NAD, Awake and alert
Eyes: EOMI, PERRLA, no scleral icterus.
Neck: supple.
CV: RRR, +S1/S2, no m/r/g.
Resp: CTAB, no rales, wheezes, or rhonchi.
Abd: +BS, soft, NT, ND
Skin: No rashes. L foot with C/D/I dressing and medical shoe
Neuro: CN 2-12 intact, non-focal.
Psych: Normal mood and affect.
Important data
08/18/23 17:11 Foot - Right Wound Culture - Final
Enterococcus faecalis
Streptococcus pyogenes
08/18/23 17:11 Foot - Right Gram Stain - Final
08/19/23 02:47 Urine Urine Culture - Final
S aureus-Methicillin Sensitive
08/18/23 17:07 Blood/Venous Blood Culture - Preliminary
No Growth in 48 hours- Final report to follow
08/18/23 17:07 Blood/Venous Blood Culture - Preliminary
No Growth in 48 hours- Final report to follow
08/19/23 19:48 Foot - Left Gram Stain - Preliminary
08/18/23 21:59 Nose MRSA Screen - Final
No Methicillin Resistant Staphylococcus aureus isolated.
1. Gangrenous left toe due to PAD: healing. -with surrounding cellulitis, possible osteomyelitis
-B/L LE AROLDO within normal limits
-Vascular surgery saw and there was no indication for LE angiography
-Foot x-ray noted Soft tissue swelling and gas in the lateral forefoot most compatible with a necrotizing soft tissue infection. Demineralization of the fifth metatarsal head raising concern for osteomyelitis.
-s/p�5th ray amp with application wound vac and partial closure wound left foot by nylon mender 08/19/23
-WCx with Enterococcus faecalis and strep pyogenes
-cont Unasyn per ID
Other problems:
MSSA bacteriuria, likely contaminant as per ID
DM2: a1c 14.8%, cont metformin/Lantus/premeal Novolog/SSI/accuchecks. 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
Essential hypertension: cont Coreg
Hypercholesterolemia
Former alcohol abuse
Former tobacco abuse
Hyponatremia
Code: FULL
DVTp: heparin
Anticipated Discharge: 24 - 48 hours
Subjective/Interval History
-
Date of Service: August 22, 2023
Feels OK. No new issues.
Objective Data
-
Labs:
Laboratory Results
08/22/23
07:22
WBC 9.3
Hgb 10.8 L
Hct 30.8 L
Plt Count 347
Sodium 135
Potassium 4.0
Chloride 105
Carbon Dioxide 25
BUN 11
Creatinine 0.9
Glucose 109 H
Calcium 8.3 L
Vital Signs:
Vital Signs
Temp Pulse Resp BP Pulse Ox
97.4 F 76 14 130/72 97
08/22/23 07:45 08/22/23 08:13 08/22/23 07:45 08/22/23 08:13 08/22/23 07:45
I&O
08/21/23 08/22/23 08/23/23
06:59 06:59 06:59
Intake Total 2119
Balance 2119
Review of Systems
-
History Source: Patient
All other systems: Reviewed and negative
Physical Exam
-
General: Well Developed, Well Nourished and No Apparent Distress
HEENT: Normocephalic, Atraumatic, Nose Appears Normal and Ears Appear Normal
Respiratory: Clear to Auscultation
Cardiac: Regular Rhythm and S1/S2
GI: Soft, Nontender and Nondistended
Musculoskeletal: No Clubbing, No Cyanosis and No Edema
Skin: Warm and Dry
Neuro: Awake, Alert, Oriented and AO x 3
Psych: Calm
Data Reviewed
-
Labs: Labs Reviewed by me
[2023-08-22] MEDS: NOVOLOG FLEXPEN SC (11:43)
[2023-08-22] MEDS: NOVOLOG FLEXPEN 4 UNITS SC (11:54)
[2023-08-22] MEDS: DAKIN'S SOLUTION 0.125% 1/4 STRENGTH 473 ML TOPICAL (14:23)
--- NOTE | 2023-08-22 14:39 | W.PN.POD ---
Today's Communication
Today's Communication
Wound vac was removed and wound was irrigated with .0125% dakins soln..and lightly packed and redressed with mesalt ribbon.
Will order MRI as result of increased cellulitis to the midfoot and ongoing cellulitis sub 2 left foot to evaluate for deep plantar abscess.
Recommend we continue IV abt for now for complicated SSI/cellulitis and possible abscess despite improved leukocystosis
Discussed above w/Dr Darnell
Wound VAC placed on hold. Will determine possible need to return to OR for I&D plantar deep space infection pending MRI findings
Assessment / Plan
-
DM2 with hyperglycemia
DM2 with DPN
Gas gangrene left foot w/ OM of the left 5th toe and metatarsal -S/P partial 5th ray amp POD #3,
Subjective
Chief Complaint
Gangrene left foot
Subjective
Patient sitting up in bed, feels ok, minimal discomfort to the left foot at rest
Objective
Temp Pulse Resp BP Pulse Ox
97.4 F 76 14 130/72 97
08/22/23 07:45 08/22/23 08:13 08/22/23 07:45 08/22/23 08:13 08/22/23 11:24
08/22/23 07:22
08/22/23 07:22
Vital Signs and Lab results were reviewed.
Inspection: Cellulitis
Review of Systems
Review of Systems
Review of Systems: No Fever, No Chills, No Headache and No Nausea
Physical Exam
Physical Exam
General: No Apparent Distress and Conversant
Musculoskeletal: Edema, Left Lower Extrem (left foot) and Other (+Pain to palpation medial arch as well as mtp 2-4 left foot)
Skin: Warm, Dry and Other (Drainage under drape/tegaderm is yellow and purulent, there is increased edema and cellulitis sub 2nd met as well as into the medial arch of the left foot. Incision with deterioration from vac dressing but otherwisw
intact. Plantar wound is clean and granular and does not probe to bone. )
Neuro: AO x 3 and Protective Sensation Diminished
Vascular: Capillary Refill Intact and Skin Temperature Warm to Cool
Dorsalis Pedis: Intact
Posterior Tibialis: Intact
[2023-08-22 14:46] VITALS: BP 122/69
[2023-08-22 16:38] LABS: Glucose - Point of Care 132 mg/dl (70-99)
[2023-08-22] MEDS: LOVENOX 40 MG SC (17:12)
[2023-08-22 20:02] LABS: Glucose - Point of Care 96 mg/dl (70-99)
[2023-08-22 21:34] LABS: Glucose - Point of Care 111 mg/dl (70-99)
[2023-08-22] MEDS: LANTUS 0.149999999999999994 UNITS SC (22:06)
[2023-08-22 23:48] VITALS: BP 133/70
[2023-08-23] MEDS: UNASYN IV ×5 (00:18→23:59)
[2023-08-23 06:00] VITALS: BMI 28.3
[2023-08-23 07:15] VITALS: BP 147/81
[2023-08-23 07:20] LABS: Hematocrit 34.1 % (39.0-52.0); Hemoglobin 11.4 g/dL (13.0-18.0); Mean Corp Hgb Conc. 33.4 g/dL (33.0-37.0); Mean Corpuscular Hgb 29.7 pg (27.0-31.0); Mean Corpuscular Volume 88.8 fL (80.0-94.0); Mean Platelet Volume 10.4 fL (7.4-10.4); Platelet Count 378 10^3/uL (130-400); Red Blood Cell Count 3.84 10^6/uL (4.70-6.10); Red Cell Dist. Width 11.8 % (11.5-14.5); White Blood Cell Count 8.5 10^3/uL (4.8-10.8)
[2023-08-23 07:54] LABS: Glucose - Point of Care 182 mg/dl (70-99)
[2023-08-23 08:02] LABS: Blood Urea Nitrogen 11 mg/dl (9-20); Calcium 8.5 mg/dl (8.4-10.2); Carbon Dioxide 27 mmol/L (22-30); Chloride 105 mmol/L (98-107); Estimated Creatinine Clearance 77 ml/min; Glucose 134 mg/dl (70-99); Potassium 4.2 mmol/L (3.5-5.1); Sodium 138 mmol/L (135-145); eGFR > 60.00
[2023-08-23] MEDS: GLUCOPHAGE 1000 MG PO ×2 (08:46→17:21)
[2023-08-23] MEDS: NOVOLOG FLEXPEN 8 UNITS SC ×2 (08:46→17:22)
[2023-08-23] MEDS: COREG 3.125 MG PO ×2 (08:46→20:51)
[2023-08-23] MEDS: NOVOLOG FLEXPEN-LOW RESISTANCE 1 UNITS SC (08:47)
[2023-08-23] MEDS: DAKIN'S SOLUTION 0.125% 1/4 STRENGTH 473 ML TOPICAL (09:01)
--- NOTE | 2023-08-23 09:30 | W.PN.ID1 ---
Date of Service
Date of Service: August 23, 2023
Today's Communication
Agree with MRI foot.
Continue Unasyn.
Assessment / Plan
Gangrene - wet - s/p resection
Probable osteomyelitis - L 5th met head
DM2 - uncontrolled
FABRICE - resolved
Medication noncompliance
- s/p resection of the left 5th met head, wound vac placement
- blood cultures x2 in progress no growth to date
- follow OR cultures - S. aureus, Strep species
- Discussed with podiatry Dr. Ross who is concerned about the 2nd toe submet cellulitis to midfoot. She ordered MRI
- tight glucose control recommended
- continue unasyn
- follow clinically
S aureus bacteruria
- blood cultures x2 neg to date
- on unasyn
- given very low colony count, 15K, most likely a contaminant, still will follow blood cultures to 48 hours to assure not bacteremic
HCM
- hep C negative
Chief Complaint
-: Other (gas gangrene)
Subjective / Review of Systems
No complaints.
Vital Signs / Physical Exam
Vital Signs
Vital Signs
Temp Pulse Resp BP Pulse Ox
97.9 F 79 16 147/81 96
08/23/23 07:15 08/23/23 08:46 08/23/23 07:15 08/23/23 08:46 08/23/23 07:15
Physical Exam
Constitutional: No Acute Distress
Gastrointestinal: Soft, Non Tender and Non Distended
Wound: Other (left foot dressing intact, above dressing the plantar 2nd toe with streaking erythema)
Objective Data
Lab Data
Lab Results
08/23/23 06:48
08/23/23 06:48
Estimated Creat Clear 77 ml/min 08/23/23 06:48
Lactic Acid 1.9 mmol/L (0.7-2.0) 08/18/23 21:32
Total Bilirubin 1.0 mg/dl (0.2-1.3) 08/19/23 04:43
AST 17 U/L (17-59) 08/19/23 04:43
ALT 14 U/L (0-50) 08/19/23 04:43
Alkaline Phosphatase 129 U/L (38-126) H 08/19/23 04:43
Most recent labs reviewed.
Micro Results:
08/19/23 19:48 Tissue Culture - Preliminary
Foot - Left Staphylococcus aureus
Coagulase neg. staphylococcus
Strep species,not Enterococcus
Gram Stain - Preliminary
08/18/23 17:07 Blood Culture - Preliminary
Blood/Venous No Growth in 4 days- Final report to follow
08/18/23 17:07 Blood Culture - Preliminary
Blood/Venous No Growth in 4 days- Final report to follow
08/18/23 17:11 Wound Culture - Final
Foot - Right Enterococcus faecalis
Streptococcus pyogenes
Gram Stain - Final
08/19/23 02:47 Urine Culture - Final
Urine S aureus-Methicillin Sensitive
08/18/23 21:59 MRSA Screen - Final
Nose No Methicillin Resistant Staphylococcus aureus isolated.
Care Review
Plan reviewed with: Physician (Dr. Ross)
--- NOTE | 2023-08-23 10:49 | W.PN.HOSP.TC ---
Today's Communication/Plan
-
see bold
Assessment / Plan
Assessment / Plan
HPI: 68-year-old male with past medical history of diabetes noncompliant with medication, diabetic neuropathy, hypertension, hypercholesteremia, who presented as 302.
The patient collapsed and urinated on himself in the kitchen and found to have gangrenous left toe.
Patient has had infected left fifth toe for the past year but over the past few days it has become black and necrotic.� Patient denies any pain.� Family has noticed some discharge from the toe.� Surrounding area is red.� Patient refused to come to
the hospital over the past several days so 302 was filed.� Patient has not been taking his diabetic medications for the past year which includes metformin and Humalog.� Denies any fevers or chills. He is a former smoker and alcohol user.� Denies any
drug use at this time.
Patient does not have any history of psychiatric problems.
Gen: NAD, AAOx3.
Eyes: EOMI, PERRLA, no scleral icterus.
Neck: supple.
CV: RRR, +S1/S2, no m/r/g.
Resp: CTAB, no rales, wheezes, or rhonchi.
Abd: +BS, soft, NT, ND
Skin: facial rash, LLE with C/D/I dressing
Neuro: CN 2-12 intact, non-focal.
Psych: Normal mood and affect.
08/19/23 19:48 Foot - Left Tissue Culture - Final
S aureus-Methicillin Sensitive
Coagulase neg. staphylococcus
Strep species,not Enterococcus
08/19/23 19:48 Foot - Left Gram Stain - Final
08/18/23 17:07 Blood/Venous Blood Culture - Preliminary
No Growth in 4 days- Final report to follow
08/18/23 17:07 Blood/Venous Blood Culture - Preliminary
No Growth in 4 days- Final report to follow
08/18/23 17:11 Foot - Right Wound Culture - Final
Enterococcus faecalis
Streptococcus pyogenes
08/18/23 17:11 Foot - Right Gram Stain - Final
08/19/23 02:47 Urine Urine Culture - Final
S aureus-Methicillin Sensitive
08/18/23 21:59 Nose MRSA Screen - Final
No Methicillin Resistant Staphylococcus aureus isolated.
Gangrenous left toe due to PAD: healing. -with surrounding cellulitis, possible osteomyelitis
-B/L LE AROLDO within normal limits
-Vascular surgery saw and there was no indication for LE angiography
-Foot x-ray noted Soft tissue swelling and gas in the lateral forefoot most compatible with a necrotizing soft tissue infection. Demineralization of the fifth metatarsal head raising concern for osteomyelitis.
-s/p�5th ray amp with application wound vac and partial closure wound left foot by food checker 08/19/23
-WCx R foot with Enterococcus faecalis and strep pyogenes, WCx L foor MSSA
-cont Unasyn per ID
-check MRI L foot
Other problems:
MSSA bacteriuria, likely contaminant as per ID
DM2: a1c 14.8%, cont metformin/Lantus/premeal Novolog/SSI/accuchecks. 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
Essential hypertension: cont Coreg
Hypercholesterolemia
Former alcohol abuse
Former tobacco abuse
Hyponatremia
FULL/Heparin
Anticipated Discharge: > 48 hours
Subjective/Interval History
-
Date of Service: August 23, 2023
Denies CP/SOB.
Objective Data
-
Labs:
Laboratory Results
08/23/23
06:48
WBC 8.5
Hgb 11.4 L
Hct 34.1 L
Plt Count 378
Sodium 138
Potassium 4.2
Chloride 105
Carbon Dioxide 27
BUN 11
Creatinine 1.0
Glucose 134 H
Calcium 8.5
Vital Signs:
Vital Signs
Temp Pulse Resp BP Pulse Ox
97.9 F 79 16 147/81 96
08/23/23 07:15 08/23/23 08:46 08/23/23 07:15 08/23/23 08:46 08/23/23 07:15
I&O
08/22/23 08/23/23 08/24/23
06:59 06:59 06:59
Intake Total 2120 / 2120 1420 / 1420
Balance 2120 / 2120 1420 / 1420
[2023-08-23 11:33] LABS: Glucose - Point of Care 76 mg/dl (70-99)
[2023-08-23] MEDS: NOVOLOG FLEXPEN-LOW RESISTANCE SC ×2 (11:43→16:42)
[2023-08-23] MEDS: NOVOLOG FLEXPEN SC (11:49)
[2023-08-23] MEDS: NOVOLOG FLEXPEN 4 UNITS SC (12:25)
--- NOTE | 2023-08-23 12:40 | W.PN.POD ---
Today's Communication
Today's Communication
MRI pending xrays of orbits
Wound left forefoot irrigated and again purulence was able to be expressed from the distal incision (open).
With patient's verbal consent- boggy area sub toes 2&3 of the plantar forefoot was opened via a stab incision and using hemostats the plantar soft tissue opened and drained of liquified fatty tissue only- no santos puss expressed. Patient tolerated
well (did not feel pain secondary to peripheral neuropathy) this area was again irrigated and lateral forefoot was lightly packed with mesalt ribbon, alginate placed over entire area and dry dressing. .
Assessment / Plan
-
DM2 with hyperglycemia -improved
DM2 with DPN
Gas gangrene left foot w/ OM of the left 5th toe and metatarsal -S/P partial 5th ray amp POD #4,
Possible residual deep space infection/abscess left forefoot
Subjective
Chief Complaint
left foot gas gangrene S/P partial 5th ray amp
Subjective
POD # 4
Objective
Temp Pulse Resp BP Pulse Ox
97.9 F 79 16 147/81 96
08/23/23 07:15 08/23/23 08:46 08/23/23 07:15 08/23/23 08:46 08/23/23 09:00
08/23/23 06:48
08/23/23 06:48
Vital Signs and Lab results were reviewed.
Tissue Culture (PROX MARGIN 5TH MET) Final 08/23/23-941
Few Presumptive S aureus-Methicillin Sensitive
Few Coagulase neg. staphylococcus*
Few Strep species,not Enterococcustwo types*
Review of Systems
Review of Systems
Review of Systems: No Fever, No Chills, No Headache and No Nausea
Physical Exam
Physical Exam
General: No Apparent Distress, Comfortable and Conversant
Musculoskeletal: Edema, Left Lower Extrem (left forefoot-minimal)
Skin: Warm, Dry and Other (Erythema/cellulitis to left medial arch as well as to left forefoot toe sulcus persists. Boggy area now sub toes 2&3 left foot with purulence again expressed at the distal wound. NO malodor. Denies pain. )
Neuro: AO x 3, Protective Sensation Absent and Other (forgetful)
Vascular: Capillary Refill Intact and Pedal Hair Absent
Dorsalis Pedis: Intact
Posterior Tibialis: Intact
[2023-08-23 15:28] VITALS: BP 134/73
[2023-08-23 15:33] VITALS: BP 134/73; PULSE 84; O2SAT 96
[2023-08-23 16:42] LABS: Glucose - Point of Care 136 mg/dl (70-99)
[2023-08-23] MEDS: LOVENOX 40 MG SC (17:23)
[2023-08-23 22:11] LABS: Glucose - Point of Care 146 mg/dl (70-99)
[2023-08-23] MEDS: LANTUS 0.149999999999999994 UNITS SC (22:23)
[2023-08-23 23:31] VITALS: BP 136/74
[2023-08-24 05:46] VITALS: BMI 28.7
[2023-08-24] MEDS: UNASYN IV ×3 (05:52→17:34)
[2023-08-24 06:34] LABS: Hematocrit 32.2 % (39.0-52.0); Hemoglobin 10.7 g/dL (13.0-18.0); Mean Corp Hgb Conc. 33.2 g/dL (33.0-37.0); Mean Corpuscular Hgb 29.5 pg (27.0-31.0); Mean Corpuscular Volume 88.7 fL (80.0-94.0); Mean Platelet Volume 10.6 fL (7.4-10.4); Platelet Count 348 10^3/uL (130-400); Red Blood Cell Count 3.63 10^6/uL (4.70-6.10); Red Cell Dist. Width 11.8 % (11.5-14.5); White Blood Cell Count 8.5 10^3/uL (4.8-10.8)
[2023-08-24 06:54] LABS: Blood Urea Nitrogen 10 mg/dl (9-20); Calcium 8.3 mg/dl (8.4-10.2); Carbon Dioxide 28 mmol/L (22-30); Chloride 104 mmol/L (98-107); Estimated Creatinine Clearance 85 ml/min; Glucose 153 mg/dl (70-99); Potassium 4.1 mmol/L (3.5-5.1); Sodium 137 mmol/L (135-145); eGFR > 60.00
[2023-08-24 07:17] VITALS: BP 140/75
--- NOTE | 2023-08-24 07:33 | PN.DE.MGMTRT ---
Insulin Management
- -
08/19/2023: Diabetes Management Consult
68-year-old male admitted with Left 5th toe nonhealing wound concerning for gangrene and possibly osteomyelitis.
PMH includes: HTN, HLD, Former ETOH and cigarette use, Diabetic Neuropathy and T2DM. A1C 14.8%, Glucose on admission was 428, Cr 0.7-->1.1 today.
Per chart review, pt has not taken any of his diabetes medications (Humalog and Metformin) for over a year.
Pt is unable to provide hx or participate in interview. Family is at the bedside, has provided a list of medications that were last filled 07/2022, on the list is- Levemir 30 units daily, Metformin 1000 mg BID, Glipizide 10mg BID and Humalog SS
10-15 units with meals. Pt's states that pt stopped taking all his DM meds a year ago and it appears that he gave up on himself. states he has a glucose meter ([employer]) with supplies but does not monitor his sugars, dtr at bedside states she
is using the supplies.
His current regiment includes: Lantus 10 units @ HS with low corrective insulin with meals.
Glucose has remained >200, FBG 235, has received 3 units of corrective for a blood sugar of 267 before breakfast.
Will start AC NovoLog 8 units and increase Lantus to 15 units and change to moderate corrective
Will hold off on starting Metformin and reassess after surgery.
Pt was seen with Surgeon/Automobile Mechanic Motor at bedside, plan for OR later today.
Spoke to pt's nurse and instructed to HOLD AC NovoLog but use corrective insulin while NPO if needed before procedure
Will follow closely and make further adjustments as needed
08/20/2023 Diabetes Management Follow up
POD 1 s/p L 5th toe amputation. Patient received 15 units Lantus @ HS, fasting glucose this AM 148. Will make no change to Lantus. Patient was in the OR in the evening, most likely no dinner, HS glucose 128. Will continue AC NovoLog 8 units,
reduce corrective insulin from moderate to low. CR 1.2, egfr >60, will resume metformin. With A1C 14.8% will not resume glipizide.
08/21/2023: Diabetes Management F/U
POD# 2 s/p L5th toe amputation, pt doing well, offers no complaints.
Glucose stable and in range, FBG 140 this AM, premeal 129 to 155 on current regimen
Will make no changes- cont Lantus 15 units, AC NovoLog 8 units, low corrective insulin and Metformin.
With A1C 14.8% will not resume glipizide.
08/24/2023: Diabetes Management F/U:
POD# 5 s/p L5th toe amputation, pt doing well, offers no complaints.
Glucose remained stable throughout the weekend with some drop to 70-90 at lunch time
Will reduce AM NovoLog dose to 4 units. Cont NovoLog 8 units before lunch and dinner.
FBG 153, Will make no changes to Lantus dose of 15 units @ HS
HOLD AC NovoLog if pt NPO for procedure and use corrective insulin
Diabetes History
- -
Type of Diabetes: 2 requiring insulin
Pre-Admission Diabetes Regimen
08/23/23 08/24/23
06:48 05:44
Creatinine 1.0 0.9
Lab Results
Hemoglobin A1c 14.8 % (4.0-5.6) H 08/19/23 04:43
Insulin Pump Settings
IP Diabetes Regimen
08/23/23 08/23/23 08/23/23
06:48 07:53 11:31
Glucose 134 H
POC Glucose 182 H 76
08/23/23 08/23/23 08/24/23
16:41 22:09 05:44
Glucose 153 H
POC Glucose 136 H 146 H
Meal type: Dinner
Meal type: Lunch
Meal type: Breakfast
Amount consumed: 75%
Amount consumed: 70%
Amount consumed: 25%
Patient Education
--- NOTE | 2023-08-24 07:48 | W.PN.HOSP.TC ---
Today's Communication/Plan
-
See bold
Assessment / Plan
Assessment / Plan
HPI: 68-year-old male with past medical history of diabetes noncompliant with medication, diabetic neuropathy, hypertension, hypercholesteremia, who presented as 302.
The patient collapsed and urinated on himself in the kitchen and found to have gangrenous left toe.
Patient has had infected left fifth toe for the past year but over the past few days it has become black and necrotic.� Patient denies any pain.� Family has noticed some discharge from the toe.� Surrounding area is red.� Patient refused to come to
the hospital over the past several days so 302 was filed.� Patient has not been taking his diabetic medications for the past year which includes metformin and Humalog.� Denies any fevers or chills. He is a former smoker and alcohol user.� Denies any
drug use at this time.
Patient does not have any history of psychiatric problems.
Gen: NAD, AAOx3.
Eyes: EOMI, PERRLA, no scleral icterus.
Neck: supple.
CV: Remains RRR, +S1/S2, no m/r/g.
Resp: Remains CTAB, no rales, wheezes, or rhonchi.
Abd: Remains +BS, soft, NT, ND
Skin: facial rash, LLE with C/D/I dressing
Neuro: CN 2-12 intact, non-focal.
Psych: Normal mood and affect.
08/18/23 17:07 Blood/Venous Blood Culture - Final
No Growth - Final Report
08/18/23 17:07 Blood/Venous Blood Culture - Final
No Growth - Final Report
08/19/23 19:48 Foot - Left Tissue Culture - Final
S aureus-Methicillin Sensitive
Coagulase neg. staphylococcus
Strep species,not Enterococcus
08/19/23 19:48 Foot - Left Gram Stain - Final
08/18/23 17:11 Foot - Right Wound Culture - Final
Enterococcus faecalis
Streptococcus pyogenes
08/18/23 17:11 Foot - Right Gram Stain - Final
08/19/23 02:47 Urine Urine Culture - Final
S aureus-Methicillin Sensitive
08/18/23 21:59 Nose MRSA Screen - Final
No Methicillin Resistant Staphylococcus aureus isolated.
Gangrenous left toe due to PAD: healing. -with surrounding cellulitis, possible osteomyelitis
-B/L LE AROLDO within normal limits
-Vascular surgery saw and there was no indication for LE angiography
-Foot x-ray noted Soft tissue swelling and gas in the lateral forefoot most compatible with a necrotizing soft tissue infection. Demineralization of the fifth metatarsal head raising concern for osteomyelitis.
-s/p�5th ray amp with application wound vac and partial closure wound left foot by display associate 08/19/23
-WCx R foot with Enterococcus faecalis and strep pyogenes, WCx L foor MSSA
-cont Unasyn per ID
-check MRI L foot
Other problems:
MSSA bacteriuria, likely contaminant as per ID
DM2: a1c 14.8%, cont metformin/Lantus/premeal Novolog/SSI/accuchecks. 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
Essential hypertension: cont Coreg
Hypercholesterolemia
Former alcohol abuse
Former tobacco abuse
Hyponatremia
FULL/Heparin
Anticipated Discharge: 24 - 48 hours
Subjective/Interval History
-
Date of Service: August 24, 2023
No new complaints.
Objective Data
-
Labs:
Laboratory Results
08/24/23
05:44
WBC 8.5
Hgb 10.7 L
Hct 32.2 L
Plt Count 348
Sodium 137
Potassium 4.1
Chloride 104
Carbon Dioxide 28
BUN 10
Creatinine 0.9
Glucose 153 H
Calcium 8.3 L
Vital Signs:
Vital Signs
Temp Pulse Resp BP Pulse Ox
98.0 F 86 20 136/74 97
08/23/23 23:31 08/23/23 23:31 08/23/23 23:31 08/23/23 23:31 08/23/23 23:31
I&O
08/23/23 08/24/23 08/25/23
06:59 06:59 06:59
Intake Total 1420 / 1420 1720 / 1720
Balance 1420 / 1420 1720 / 1720
[2023-08-24 08:05] LABS: Glucose - Point of Care 161 mg/dl (70-99)
[2023-08-24] MEDS: NOVOLOG FLEXPEN 4 UNITS SC (09:38)
[2023-08-24] MEDS: COREG 3.125 MG PO ×2 (09:39→20:12)
[2023-08-24] MEDS: GLUCOPHAGE 1000 MG PO ×2 (09:39→17:33)
[2023-08-24] MEDS: NOVOLOG FLEXPEN-LOW RESISTANCE 1 UNITS SC ×2 (09:39→12:55)
[2023-08-24] MEDS: NOVOLOG FLEXPEN SC (09:40)
[2023-08-24] MEDS: DAKIN'S SOLUTION 0.125% 1/4 STRENGTH 473 ML TOPICAL (09:41)
[2023-08-24 11:48] LABS: Glucose - Point of Care 193 mg/dl (70-99)
[2023-08-24] MEDS: NOVOLOG FLEXPEN 8 UNITS SC (12:56)
[2023-08-24 15:15] VITALS: BP 144/89
--- NOTE | 2023-08-24 15:17 | CM ---
Reviewed the chart notes. PT recommending home with home care. Referral sent for [facility] and they have accepted. CM continues to be available to patient/family and is monitoring medical plan for needs at discharge.
Plan: Discharge home with [facility] services when medically stable.
[2023-08-24 16:53] LABS: Glucose - Point of Care 78 mg/dl (70-99)
[2023-08-24] MEDS: NOVOLOG FLEXPEN-LOW RESISTANCE SC (17:25)
[2023-08-24] MEDS: LOVENOX 40 MG SC (17:34)
--- NOTE | 2023-08-24 17:59 | W.PN.POD ---
Today's Communication
Today's Communication
Spoke w/MRI, apparently the patient has been refusing MRI, however he neither admits or denies stating he 'isn't sure if that happened or not'
We sill try to have MRI completed today or tomorrow
Wound irrigated with dakins and packed with mesalt packing, and redressed with ABD and kerlix
Assessment / Plan
-
DM2 with hyperglycemia -improved
DM2 with DPN
Gas gangrene left foot w/ OM of the left 5th toe and metatarsal -S/P partial 5th ray amp POD #5
Possible residual deep space infection/abscess left forefoot-mri pending
Subjective
Chief Complaint
gangrene left foot
Subjective
Patient resting comfortably, denies pain left foot.
Objective
Temp Pulse Resp BP Pulse Ox
97.9 F 77 16 144/89 98
08/24/23 15:15 08/24/23 15:15 08/24/23 15:15 08/24/23 15:15 08/24/23 15:15
08/24/23 05:44
08/24/23 05:44
Vital Signs and Lab results were reviewed.
MRI pending
PROX MARGIN BONE +MSSA. Coag neg staph and enterococcus
Inspection: Cellulitis (some improvement)
Review of Systems
Review of Systems
Review of Systems: No Fever, No Chills, No Headache, No Nausea and No Diarrhea
Physical Exam
Physical Exam
General: No Apparent Distress and Conversant
Musculoskeletal: No Cyanosis and Edema, Left Lower Extrem (mild left foot edema)
Skin: Warm, Dry and Other (plantar left foot ulcer is granulating and reduced in size, no odor, scant purulence still able to be expressed from distal aspect adjacent to 4th met head. improved cellulitis to the forefoot and midarch left foot)
Neuro: Awake, Alert, Protective Sensation Absent and Other (forgetful)
Vascular: Capillary Refill Intact and Pedal Hair Absent
Dorsalis Pedis: Intact
Posterior Tibialis: Intact
--- NOTE | 2023-08-24 18:09 | W.PN.UPDATE ---
Update Note
Progress Note Update
Chart reviewed and discussed with RN.
Patient prognosis is guarded with multiple co morbities, therefore will continue to watch and wait and if/when stable for OR will proceed with bone/jt resection to the right 1st MTP
Rec continuance of wound care right foot/Abt therapy
--- NOTE | 2023-08-24 18:13 | WOUNDNOTE ---
[facility] RN Note: Patient's vac was discontinued on 08/22/23; notified [employer] via [employer] stop rental vac bill date 08/22/23 and vac pump merchandise pickup/receiving associate (work order #[id number]). Updated Dr. Ross via tiger text who confirmed discontinue hospital vac rental.
Updated RN Joyce Lanza who will place vac rental vac ulta in the soiled utility room. t/c Updated Jack from [facility] re: patient's vac has been discontinued in the hospital. Jack stated he will place home vac order on hold for
now.
[2023-08-24 21:25] LABS: Glucose - Point of Care 143 mg/dl (70-99)
[2023-08-24] MEDS: LANTUS 0.149999999999999994 UNITS SC (22:07)
[2023-08-24 23:25] VITALS: BP 145/84
[2023-08-25] MEDS: UNASYN IV ×4 (00:15→18:14)
[2023-08-25 06:00] VITALS: BMI 28.8
[2023-08-25 07:54] LABS: Glucose - Point of Care 102 mg/dl (70-99)
[2023-08-25] MEDS: NOVOLOG FLEXPEN-LOW RESISTANCE SC ×3 (07:56→17:27)
[2023-08-25 08:01] VITALS: BP 124/76
--- NOTE | 2023-08-25 08:02 | PN.DE.MGMTRT ---
Insulin Management
- -
:
08/19/2023: Diabetes Management Consult
68-year-old male admitted with Left 5th toe nonhealing wound concerning for gangrene and possibly osteomyelitis.
PMH includes: HTN, HLD, Former ETOH and cigarette use, Diabetic Neuropathy and T2DM. A1C 14.8%, Glucose on admission was 428, Cr 0.7-->1.1 today.
Per chart review, pt has not taken any of his diabetes medications (Humalog and Metformin) for over a year.
Pt is unable to provide hx or participate in interview. Family is at the bedside, has provided a list of medications that were last filled 07/2022, on the list is- Levemir 30 units daily, Metformin 1000 mg BID, Glipizide 10mg BID and Humalog SS
10-15 units with meals. Pt's states that pt stopped taking all his DM meds a year ago and it appears that he gave up on himself. states he has a glucose meter (Accuchek) with supplies but does not monitor his sugars, dtr at bedside states she
is using the supplies.
His current regiment includes: Lantus 10 units @ HS with low corrective insulin with meals.
Glucose has remained >200, FBG 235, has received 3 units of corrective for a blood sugar of 267 before breakfast.
Will start AC NovoLog 8 units and increase Lantus to 15 units and change to moderate corrective
Will hold off on starting Metformin and reassess after surgery.
Pt was seen with Surgeon/Propagation Manager at bedside, plan for OR later today.
Spoke to pt's nurse and instructed to HOLD AC NovoLog but use corrective insulin while NPO if needed before procedure
Will follow closely and make further adjustments as needed
08/20/2023 Diabetes Management Follow up
POD 1 s/p L 5th toe amputation. Patient received 15 units Lantus @ HS, fasting glucose this AM 148. Will make no change to Lantus. Patient was in the OR in the evening, most likely no dinner, HS glucose 128. Will continue AC NovoLog 8 units,
reduce corrective insulin from moderate to low. CR 1.2, egfr >60, will resume metformin. With A1C 14.8% will not resume glipizide.
08/21/2023: Diabetes Management F/U
POD# 2 s/p L5th toe amputation, pt doing well, offers no complaints.
Glucose stable and in range, FBG 140 this AM, premeal 129 to 155 on current regimen
Will make no changes- cont Lantus 15 units, AC NovoLog 8 units, low corrective insulin and Metformin.
With A1C 14.8% will not resume glipizide.
08/24/2023: Diabetes Management F/U:
POD# 5 s/p L5th toe amputation, pt doing well, offers no complaints.
Glucose remained stable throughout the weekend with some drop to 70-90 at lunch time
Will reduce AM NovoLog dose to 4 units. Cont NovoLog 8 units before lunch and dinner.
FBG 153, Will make no changes to Lantus dose of 15 units @ HS
HOLD AC NovoLog if pt NPO for procedure and use corrective insulin
08/25/2023 Diabetes Management Follow up
POD 6 s/p 5th toe amputation. Glucose 78 pre dinner. Will change novolog to 6 units AC with low corrective. AM glucose 102, will make no change to lantus 15 units @ hs.
Diabetes History
- -
Type of Diabetes: 2 requiring insulin
Pre-Admission Diabetes Regimen
Lab Results
Hemoglobin A1c 14.8 % (4.0-5.6) H 08/19/23 04:43
Insulin Pump Settings
IP Diabetes Regimen
08/24/23 08/24/23 08/24/23
08:04 11:46 16:51
POC Glucose 161 H 193 H 78
08/24/23 08/25/23
21:24 07:52
POC Glucose 143 H 102 H
Meal type: Lunch
Amount consumed: 100%
Patient Education
[2023-08-25] MEDS: DAKIN'S SOLUTION 0.125% 1/4 STRENGTH 473 ML TOPICAL (08:05)
[2023-08-25] MEDS: GLUCOPHAGE 1000 MG PO ×2 (08:05→18:00)
[2023-08-25] MEDS: COREG 3.125 MG PO ×2 (08:05→20:08)
[2023-08-25 08:43] VITALS: BMI 28.8
--- NOTE | 2023-08-25 09:43 | W.PN.HOSP.TC ---
Today's Communication/Plan
-
see bold
Assessment / Plan
Assessment / Plan
HPI: 68-year-old male with past medical history of diabetes noncompliant with medication, diabetic neuropathy, hypertension, hypercholesteremia, who presented as 302.
The patient collapsed and urinated on himself in the kitchen and found to have gangrenous left toe.
Patient has had infected left fifth toe for the past year but over the past few days it has become black and necrotic.� Patient denies any pain.� Family has noticed some discharge from the toe.� Surrounding area is red.� Patient refused to come to
the hospital over the past several days so 302 was filed.� Patient has not been taking his diabetic medications for the past year which includes metformin and Humalog.� Denies any fevers or chills. He is a former smoker and alcohol user.� Denies any
drug use at this time.
Patient does not have any history of psychiatric problems.
Gen: NAD, AAOx3.
Eyes: EOMI, PERRLA, no scleral icterus.
Neck: supple.
CV: continues to remain RRR, +S1/S2, no m/r/g.
Resp: continues to remain CTAB, no rales, wheezes, or rhonchi.
Abd: continues to remain +BS, soft, NT, ND
Skin: facial rash, LLE with C/D/I dressing
Neuro: CN 2-12 intact, non-focal.
Psych: Normal mood and affect.
08/18/23 17:07 Blood/Venous Blood Culture - Final
No Growth - Final Report
08/18/23 17:07 Blood/Venous Blood Culture - Final
No Growth - Final Report
08/19/23 19:48 Foot - Left Tissue Culture - Final
S aureus-Methicillin Sensitive
Coagulase neg. staphylococcus
Strep species,not Enterococcus
08/19/23 19:48 Foot - Left Gram Stain - Final
08/18/23 17:11 Foot - Right Wound Culture - Final
Enterococcus faecalis
Streptococcus pyogenes
08/18/23 17:11 Foot - Right Gram Stain - Final
08/19/23 02:47 Urine Urine Culture - Final
S aureus-Methicillin Sensitive
08/18/23 21:59 Nose MRSA Screen - Final
No Methicillin Resistant Staphylococcus aureus isolated.
MRI L-foot: Transmetatarsal amputation of the fifth digit with intact resection margin without overt MR evidence for residual osteomyelitis at this site. Soft tissue wound along the lateral aspect of the foot more distally at the proximal phalangeal
level with underlying fluid tract extending into the subcutaneous tissues and adjacent to the fourth digit proximal phalanx proximal diaphysis with associated osteomyelitis. No discrete loculated abscess. Mild plantar fasciitis. Scattered
degenerative changes.
Gangrenous left toe due to PAD: healing. -with surrounding cellulitis, possible osteomyelitis
-B/L LE AROLDO within normal limits
-Vascular surgery saw and there was no indication for LE angiography
-Foot x-ray noted Soft tissue swelling and gas in the lateral forefoot most compatible with a necrotizing soft tissue infection. Demineralization of the fifth metatarsal head raising concern for osteomyelitis.
-s/p�5th ray amp with application wound vac and partial closure wound left foot by lead generation specialist 08/19/23
-WCx R foot with Enterococcus faecalis and strep pyogenes, WCx L foor MSSA
-cont Unasyn per ID
-MRI L foot notable for osteomyelitis of the proximal fourth digit
-Podiatry following for possible right first MTP bone/joint resection
Other problems:
MSSA bacteriuria, likely contaminant as per ID
DM2: a1c 14.8%, cont metformin/Lantus/premeal Novolog/SSI/accuchecks. Diabetes CARBIDER following.
Essential hypertension: cont Coreg
Hypercholesterolemia
Former alcohol abuse
Former tobacco abuse
Hyponatremia
FULL/Heparin
Anticipated Discharge: > 48 hours
Subjective/Interval History
-
Date of Service: August 25, 2023
Denies CP/SOB.
Objective Data
-
Vital Signs:
Vital Signs
Temp Pulse Resp BP Pulse Ox
98.4 F 85 14 124/76 99
08/25/23 08:01 08/25/23 08:05 08/25/23 08:01 08/25/23 08:05 08/25/23 08:01
I&O
08/24/23 08/25/23 08/26/23
06:59 06:59 06:59
Intake Total 1720 / 1720 1740 / 1740
Balance 1720 / 1720 1740 / 1740
--- NOTE | 2023-08-25 09:43 | W.PN.ID1 ---
Date of Service
Date of Service: August 25, 2023
Today's Communication
- MRI consistent with osteo of the L 4th prox phalanx
- continue unasyn
- will follow up podiatry recs
Assessment / Plan
Gangrene - wet - s/p resection
Probable osteomyelitis - L 5th met head, L 4th digit proximal phalanx proximal diaphysis with associated osteomyelitis.
DM2 - uncontrolled
FABRICE - resolved
Medication noncompliance
- s/p resection of the left 5th met head, wound vac placement
- MRI consistent with osteo of the L 4th prox phalanx
- continue unasyn
- will follow up podiatry recs
- follow clinically
Chief Complaint
-: Other (gas gangrene)
Subjective / Review of Systems
MRI today: Transmetatarsal amputation of the fifth digit with intact resection margin without overt MR evidence for residual osteomyelitis at this site.
Soft tissue wound along the lateral aspect of the foot more distally at the proximal phalangeal level with underlying fluid tract extending into the subcutaneous tissues and adjacent to the fourth digit proximal phalanx proximal diaphysis with
associated osteomyelitis.
afebrile
bp stable
leukocytosis resolved
L shift resolved
cr 0.9
08/19 tissue culture mssa, cons, strep
Vital Signs / Physical Exam
Vital Signs
Vital Signs
Temp Pulse Resp BP Pulse Ox
98.4 F 85 14 124/76 99
08/25/23 08:01 08/25/23 08:05 08/25/23 08:01 08/25/23 08:05 08/25/23 08:01
Physical Exam
Constitutional: No Acute Distress and Chronically Ill
Cardiovascular: Regular Rate and S1/S2; Negative Murmur or Rub
Pulmonary: Clear and Symmetric; Negative Wheezes or Rales
Gastrointestinal: Soft, Non Tender, Non Distended and Normal Bowel Sounds
Skin: Warm and Dry; Negative Rash or Jaundice
Wound: Other (dressing take down deferred)
Objective Data
Lab Data
Lab Results
08/24/23 05:44
08/24/23 05:44
Estimated Creat Clear 85 ml/min 08/24/23 05:44
Lactic Acid 1.9 mmol/L (0.7-2.0) 08/18/23 21:32
Total Bilirubin 1.0 mg/dl (0.2-1.3) 08/19/23 04:43
AST 17 U/L (17-59) 08/19/23 04:43
ALT 14 U/L (0-50) 08/19/23 04:43
Alkaline Phosphatase 129 U/L (38-126) H 08/19/23 04:43
Most recent labs reviewed.
Micro Results:
08/18/23 17:07 Blood Culture - Final
Blood/Venous No Growth - Final Report
08/18/23 17:07 Blood Culture - Final
Blood/Venous No Growth - Final Report
08/19/23 19:48 Tissue Culture - Final
Foot - Left S aureus-Methicillin Sensitive
Coagulase neg. staphylococcus
Strep species,not Enterococcus
Gram Stain - Final
08/18/23 17:11 Wound Culture - Final
Foot - Right Enterococcus faecalis
Streptococcus pyogenes
Gram Stain - Final
08/19/23 02:47 Urine Culture - Final
Urine S aureus-Methicillin Sensitive
08/18/23 21:59 MRSA Screen - Final
Nose No Methicillin Resistant Staphylococcus aureus isolated.
[2023-08-25] MEDS: NOVOLOG FLEXPEN 6 UNITS SC ×3 (10:19→18:14)
[2023-08-25 12:38] LABS: Glucose - Point of Care 105 mg/dl (70-99)
[2023-08-25 14:59] VITALS: BP 118/71
--- NOTE | 2023-08-25 16:08 | CM ---
Reviewed the chart notes. Per ID note, MRI consistent with osteo of the L 4th prox phalanx. Patient continues on IV abx. Patient has been refusing PT. CM continues to be available to patient/family and is monitoring medical plan for needs at
discharge.
Plan: Discharge plans will depend on the patient's progress.
[2023-08-25 17:18] LABS: Glucose - Point of Care 107 mg/dl (70-99)
--- NOTE | 2023-08-25 17:30 | W.PN.UPDATE ---
Update Note
Progress Note Update
MRI findings reviewed, Patient with osteomyelitis of the base of the 4th toe proximal phalynx and sinus tract to plantar forefoot.
Will discuss with patient and family surgical option with debridement of bone (I would recommend 4th toe amp with met head resection for more definitive treatment), if he does not want to proceed he will require 6 weeks of IV abt, if he does want to
proceed will get him on the OR schedule for Thursday.
[2023-08-25] MEDS: LOVENOX 40 MG SC (18:14)
[2023-08-25 21:55] LABS: Glucose - Point of Care 116 mg/dl (70-99)
[2023-08-25] MEDS: LANTUS 0.149999999999999994 UNITS SC (22:36)
[2023-08-25 23:25] VITALS: BP 122/66
[2023-08-26] MEDS: UNASYN IV ×5 (00:30→23:57)
[2023-08-26 06:00] VITALS: BMI 28.4
--- NOTE | 2023-08-26 07:22 | PN.DE.MGMTRT ---
Insulin Management
- -
08/19/2023: Diabetes Management Consult
68-year-old male admitted with Left 5th toe nonhealing wound concerning for gangrene and possibly osteomyelitis.
PMH includes: HTN, HLD, Former ETOH and cigarette use, Diabetic Neuropathy and T2DM. A1C 14.8%, Glucose on admission was 428, Cr 0.7-->1.1 today.
Per chart review, pt has not taken any of his diabetes medications (Humalog and Metformin) for over a year.
Pt is unable to provide hx or participate in interview. Family is at the bedside, has provided a list of medications that were last filled 07/2022, on the list is- Levemir 30 units daily, Metformin 1000 mg BID, Glipizide 10mg BID and Humalog SS
10-15 units with meals. Pt's states that pt stopped taking all his DM meds a year ago and it appears that he gave up on himself. states he has a glucose meter (Accuchek) with supplies but does not monitor his sugars, dtr at bedside states she
is using the supplies.
His current regiment includes: Lantus 10 units @ HS with low corrective insulin with meals.
Glucose has remained >200, FBG 235, has received 3 units of corrective for a blood sugar of 267 before breakfast.
Will start AC NovoLog 8 units and increase Lantus to 15 units and change to moderate corrective
Will hold off on starting Metformin and reassess after surgery.
Pt was seen with Surgeon/Stage Rigger at bedside, plan for OR later today.
Spoke to pt's nurse and instructed to HOLD AC NovoLog but use corrective insulin while NPO if needed before procedure
Will follow closely and make further adjustments as needed
08/20/2023 Diabetes Management Follow up
POD 1 s/p L 5th toe amputation. Patient received 15 units Lantus @ HS, fasting glucose this AM 148. Will make no change to Lantus. Patient was in the OR in the evening, most likely no dinner, HS glucose 128. Will continue AC NovoLog 8 units,
reduce corrective insulin from moderate to low. CR 1.2, egfr >60, will resume metformin. With A1C 14.8% will not resume glipizide.
08/21/2023: Diabetes Management F/U
POD# 2 s/p L5th toe amputation, pt doing well, offers no complaints.
Glucose stable and in range, FBG 140 this AM, premeal 129 to 155 on current regimen
Will make no changes- cont Lantus 15 units, AC NovoLog 8 units, low corrective insulin and Metformin.
With A1C 14.8% will not resume glipizide.
08/24/2023: Diabetes Management F/U:
POD# 5 s/p L5th toe amputation, pt doing well, offers no complaints.
Glucose remained stable throughout the weekend with some drop to 70-90 at lunch time
Will reduce AM NovoLog dose to 4 units. Cont NovoLog 8 units before lunch and dinner.
FBG 153, Will make no changes to Lantus dose of 15 units @ HS
HOLD AC NovoLog if pt NPO for procedure and use corrective insulin
08/25/2023 Diabetes Management Follow up
POD 6 s/p 5th toe amputation. Glucose 78 pre dinner. Will change novolog to 6 units AC with low corrective. AM glucose 102, will make no change to lantus 15 units @ hs.
08/26/2023 Diabetes Management Follow up
Podiatry recommends return to OR for amputation of 4th toe.
Glucose stable, 102 to 116, with 6 units novolog AC, required no correction, and 15 units lantus @ HS. AM fasting glucose not reported at this time. Will assess for needed adjustments to lantus when reported.
Diabetes History
- -
Type of Diabetes: 2 requiring insulin
Pre-Admission Diabetes Regimen
Lab Results
Hemoglobin A1c 14.8 % (4.0-5.6) H 08/19/23 04:43
Insulin Pump Settings
IP Diabetes Regimen
08/25/23 08/25/23 08/25/23
07:52 12:36 17:17
POC Glucose 102 H 105 H 107 H
08/25/23
21:54
POC Glucose 116 H
Meal type: Dinner
Meal type: Lunch
Meal type: Breakfast
Amount consumed: 100%
Amount consumed: 100%
Amount consumed: 100%
Patient Education
[2023-08-26 07:35] VITALS: BP 112/63
[2023-08-26 07:39] LABS: Glucose - Point of Care 133 mg/dl (70-99)
[2023-08-26] MEDS: GLUCOPHAGE 1000 MG PO ×2 (07:54→17:00)
[2023-08-26] MEDS: COREG 3.125 MG PO ×2 (07:54→20:23)
[2023-08-26] MEDS: NOVOLOG FLEXPEN-LOW RESISTANCE SC ×3 (07:56→16:48)
[2023-08-26] MEDS: DAKIN'S SOLUTION 0.125% 1/4 STRENGTH 1 ML TOPICAL (07:56)
[2023-08-26] MEDS: NOVOLOG FLEXPEN 6 UNITS SC ×3 (07:56→16:59)
--- NOTE | 2023-08-26 08:13 | W.PN.HOSP.TC ---
Today's Communication/Plan
-
see bold, awaiting on decision about RLE surgery
Assessment / Plan
Assessment / Plan
HPI: 68-year-old male with past medical history of diabetes noncompliant with medication, diabetic neuropathy, hypertension, hypercholesteremia, who presented as 302.
The patient collapsed and urinated on himself in the kitchen and found to have gangrenous left toe.
Patient has had infected left fifth toe for the past year but over the past few days it has become black and necrotic.� Patient denies any pain.� Family has noticed some discharge from the toe.� Surrounding area is red.� Patient refused to come to
the hospital over the past several days so 302 was filed.� Patient has not been taking his diabetic medications for the past year which includes metformin and Humalog.� Denies any fevers or chills. He is a former smoker and alcohol user.� Denies any
drug use at this time.
Patient does not have any history of psychiatric problems.
Gen: NAD, awake and alert
Eyes: EOMI, PERRLA, no scleral icterus.
Neck: Remains supple.
CV: RRR, +S1/S2, no m/r/g.
Resp: CTAB, no rales, wheezes, or rhonchi.
Abd: +BS, soft, NT, ND
Skin: facial rash, LLE with C/D/I dressing
Neuro: CN 2-12 intact, non-focal.
Psych: Normal mood and affect.
08/18/23 17:07 Blood/Venous Blood Culture - Final
No Growth - Final Report
08/18/23 17:07 Blood/Venous Blood Culture - Final
No Growth - Final Report
08/19/23 19:48 Foot - Left Tissue Culture - Final
S aureus-Methicillin Sensitive
Coagulase neg. staphylococcus
Strep species,not Enterococcus
08/19/23 19:48 Foot - Left Gram Stain - Final
08/18/23 17:11 Foot - Right Wound Culture - Final
Enterococcus faecalis
Streptococcus pyogenes
08/18/23 17:11 Foot - Right Gram Stain - Final
08/19/23 02:47 Urine Urine Culture - Final
S aureus-Methicillin Sensitive
08/18/23 21:59 Nose MRSA Screen - Final
No Methicillin Resistant Staphylococcus aureus isolated.
MRI L-foot: Transmetatarsal amputation of the fifth digit with intact resection margin without overt MR evidence for residual osteomyelitis at this site. Soft tissue wound along the lateral aspect of the foot more distally at the proximal phalangeal
level with underlying fluid tract extending into the subcutaneous tissues and adjacent to the fourth digit proximal phalanx proximal diaphysis with associated osteomyelitis. No discrete loculated abscess. Mild plantar fasciitis. Scattered
degenerative changes.
Gangrenous left toe due to PAD: healing. -with surrounding cellulitis, possible osteomyelitis
-B/L LE AROLDO within normal limits
-Vascular surgery saw and there was no indication for LE angiography
-Foot x-ray noted Soft tissue swelling and gas in the lateral forefoot most compatible with a necrotizing soft tissue infection. Demineralization of the fifth metatarsal head raising concern for osteomyelitis.
-s/p�5th ray amp with application wound vac and partial closure wound left foot by arch support maker 08/19/23
-WCx R foot with Enterococcus faecalis and strep pyogenes, WCx L foor MSSA
-cont Unasyn per ID
-MRI L foot notable for osteomyelitis of the proximal fourth digit
-Podiatry following for possible right first MTP bone/joint resection
Other problems:
MSSA bacteriuria, likely contaminant as per ID
DM2: a1c 14.8%, cont metformin/Lantus/premeal Novolog/SSI/accuchecks. 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
Essential hypertension: cont Coreg
Hypercholesterolemia
Former alcohol abuse
Former tobacco abuse
Hyponatremia
FULL/Heparin
Anticipated Discharge: > 48 hours
Subjective/Interval History
-
Date of Service: August 26, 2023
No new complaints. Denies chest pain or shortness of breath.
Objective Data
-
Vital Signs:
Vital Signs
Temp Pulse Resp BP Pulse Ox
97.9 F 75 12 112/63 99
08/26/23 07:35 08/26/23 07:54 08/26/23 07:35 08/26/23 07:54 08/26/23 07:35
I&O
08/25/23 08/26/23 08/27/23
06:59 06:59 06:59
Intake Total 1740 / 1740 1919
Balance 1740 / 1740 1919
--- NOTE | 2023-08-26 11:32 | CM ---
Addendum entered by Margret Gomez RN 08/26/23 13:58:
Received call from Alva Velazquez [facility] ([phone]) inquiring on status of patient. Updated on patient needing to make decision regarding surgery or no surgery. Alva requests discharge paperwork be faxed to her at .
Original Note:
Reviewed the chart notes. Per Podiatry, osteomyelitis of the base of the 4th toe proximal phalynx and sinus tract to plantar forefoot.
Patient presented with surgical option with debridement of bone with recommendation of 4th toe amp with met head resection for more definitive treatment. If not wanting to proceed with surgery, patient will require 6 weeks of IV abt. If agreeable
to surgery, to OR on Thursday. CM continues to be available to patient/family and is monitoring medical plan for needs at discharge.
Plan: Discharge plans will depend on the patient's course of action.
[2023-08-26 12:00] LABS: Glucose - Point of Care 105 mg/dl (70-99)
--- NOTE | 2023-08-26 13:48 | W.PN.POD ---
Today's Communication
Today's Communication
Discussed with patient and his [place] surgical treatment of residual osteomyelitis with amp of 4th toe and distal metatarsal. They are in agreement.
Patient added to OR schedule for 08/28/23, will obtain prox cx & path of 4th met but anticipate DC home.
For better patient outcome I am recommending psych eval as it seems patient has no interest in caring for himself/personal hygiene, is non-compliant with meds etc.
Assessment / Plan
-
DM2 with hyperglycemia -improved
DM2 with DPN
?Psych issues
Gas gangrene left foot w/ OM of the left 5th toe and metatarsal -S/P partial 5th ray amp POD #7
Osteomyelitis left 4th toe base prox phalynx with sinus tract plantar forefoot
Subjective
Chief Complaint
gangrene left foot
Subjective
Denies pain left foot
Objective
Temp Pulse Resp BP Pulse Ox
97.9 F 75 12 112/63 99
08/26/23 07:35 08/26/23 07:54 08/26/23 07:35 08/26/23 07:54 08/26/23 07:35
08/24/23 05:44
08/24/23 05:44
Vital Signs and Lab results were reviewed.
Inspection: Inflammation (base of left 4th toe) and Ulcer
Review of Systems
Review of Systems
Review of Systems: No Fever, No Chills, No Headache and No Nausea
Physical Exam
Physical Exam
General: No Apparent Distress and Comfortable
Musculoskeletal: Edema, Left Lower Extrem (forefoot only)
Skin: Warm, Dry and Wound (plantar ulceration-neurotrophic granulation-no odor or drainage)
Neuro: Awake, Alert, Protective Sensation Absent and Other (patient remains somewhat flat affect and forgetful)
Vascular: Capillary Refill Delayed and Pedal Hair Absent
Dorsalis Pedis: Intact
Posterior Tibialis: Intact
--- NOTE | 2023-08-26 13:49 | W.PN.ID1 ---
Date of Service
Date of Service: August 26, 2023
Today's Communication
- MRI consistent with osteo of the L 4th prox phalanx - for the OR later this week
- continue unasyn - follow up OR note - hopefully for transition to orals post operatively
Assessment / Plan
Gangrene - wet - s/p resection
Probable osteomyelitis - L 5th met head, L 4th digit proximal phalanx proximal diaphysis with associated osteomyelitis.
DM2 - uncontrolled
FABRICE - resolved
Medication noncompliance
- s/p resection of the left 5th met head, wound vac placement
- MRI consistent with osteo of the L 4th prox phalanx - for the OR later this week
- continue unasyn - follow up OR note - hopefully for transition to orals post operatively
- follow clinically
Chief Complaint
-: Other (gas gangrene)
Subjective / Review of Systems
afebrile
bp stable
no labs today
discussed with dr guthrie
Vital Signs / Physical Exam
Vital Signs
Vital Signs
Temp Pulse Resp BP Pulse Ox
97.9 F 75 12 112/63 99
08/26/23 07:35 08/26/23 07:54 08/26/23 07:35 08/26/23 07:54 08/26/23 07:35
Physical Exam
Constitutional: No Acute Distress
Cardiovascular: Regular Rate and S1/S2; Negative Murmur or Rub
Pulmonary: Clear and Symmetric; Negative Wheezes or Rales
Gastrointestinal: Soft, Non Tender, Non Distended and Normal Bowel Sounds
Skin: Warm and Dry; Negative Rash or Jaundice
Wound: Other (dressing clean/dry/intact)
Objective Data
Lab Data
Lab Results
08/24/23 05:44
08/24/23 05:44
Estimated Creat Clear 85 ml/min 02/05/24 05:44
Lactic Acid 1.9 mmol/L (0.7-2.0) 08/18/23 21:32
Total Bilirubin 1.0 mg/dl (0.2-1.3) 08/19/23 04:43
AST 17 U/L (17-59) 08/19/23 04:43
ALT 14 U/L (0-50) 08/19/23 04:43
Alkaline Phosphatase 129 U/L (38-126) H 08/19/23 04:43
Most recent labs reviewed.
Micro Results:
08/18/23 17:07 Blood Culture - Final
Blood/Venous No Growth - Final Report
08/18/23 17:07 Blood Culture - Final
Blood/Venous No Growth - Final Report
08/19/23 19:48 Tissue Culture - Final
Foot - Left S aureus-Methicillin Sensitive
Coagulase neg. staphylococcus
Strep species,not Enterococcus
Gram Stain - Final
08/18/23 17:11 Wound Culture - Final
Foot - Right Enterococcus faecalis
Streptococcus pyogenes
Gram Stain - Final
08/19/23 02:47 Urine Culture - Final
Urine S aureus-Methicillin Sensitive
08/18/23 21:59 MRSA Screen - Final
Nose No Methicillin Resistant Staphylococcus aureus isolated.
[2023-08-26 15:25] VITALS: BP 111/56
[2023-08-26 16:44] LABS: Glucose - Point of Care 112 mg/dl (70-99)
[2023-08-26] MEDS: LOVENOX 40 MG SC (17:00)
[2023-08-26 21:49] LABS: Glucose - Point of Care 129 mg/dl (70-99)
[2023-08-26] MEDS: LANTUS 0.149999999999999994 UNITS SC (21:52)
[2023-08-26 23:18] VITALS: BP 129/72
[2023-08-27 06:00] VITALS: BMI 28.5
[2023-08-27] MEDS: UNASYN IV ×3 (06:12→17:39)
[2023-08-27 07:05] LABS: Glucose - Point of Care 114 mg/dl (70-99)
[2023-08-27 07:30] VITALS: BP 147/47
[2023-08-27] MEDS: GLUCOPHAGE 1000 MG PO ×2 (07:51→17:34)
--- NOTE | 2023-08-27 07:52 | PN.DE.MGMTRT ---
Insulin Management
- -
08/19/2023: Diabetes Management Consult
68-year-old male admitted with Left 5th toe nonhealing wound concerning for gangrene and possibly osteomyelitis.
PMH includes: HTN, HLD, Former ETOH and cigarette use, Diabetic Neuropathy and T2DM. A1C 14.8%, Glucose on admission was 428, Cr 0.7-->1.1 today.
Per chart review, pt has not taken any of his diabetes medications (Humalog and Metformin) for over a year.
Pt is unable to provide hx or participate in interview. Family is at the bedside, has provided a list of medications that were last filled 07/2022, on the list is- Levemir 30 units daily, Metformin 1000 mg BID, Glipizide 10mg BID and Humalog SS
10-15 units with meals. Pt's states that pt stopped taking all his DM meds a year ago and it appears that he gave up on himself. states he has a glucose meter (Accuchek) with supplies but does not monitor his sugars, dtr at bedside states she
is using the supplies.
His current regiment includes: Lantus 10 units @ HS with low corrective insulin with meals.
Glucose has remained >200, FBG 235, has received 3 units of corrective for a blood sugar of 267 before breakfast.
Will start AC NovoLog 8 units and increase Lantus to 15 units and change to moderate corrective
Will hold off on starting Metformin and reassess after surgery.
Pt was seen with Surgeon/Circulation Director at bedside, plan for OR later today.
Spoke to pt's nurse and instructed to HOLD AC NovoLog but use corrective insulin while NPO if needed before procedure
Will follow closely and make further adjustments as needed
08/20/2023 Diabetes Management Follow up
POD 1 s/p L 5th toe amputation. Patient received 15 units Lantus @ HS, fasting glucose this AM 148. Will make no change to Lantus. Patient was in the OR in the evening, most likely no dinner, HS glucose 128. Will continue AC NovoLog 8 units,
reduce corrective insulin from moderate to low. CR 1.2, egfr >60, will resume metformin. With A1C 14.8% will not resume glipizide.
08/21/2023: Diabetes Management F/U
POD# 2 s/p L5th toe amputation, pt doing well, offers no complaints.
Glucose stable and in range, FBG 140 this AM, premeal 129 to 155 on current regimen
Will make no changes- cont Lantus 15 units, AC NovoLog 8 units, low corrective insulin and Metformin.
With A1C 14.8% will not resume glipizide.
08/24/2023: Diabetes Management F/U:
POD# 5 s/p L5th toe amputation, pt doing well, offers no complaints.
Glucose remained stable throughout the weekend with some drop to 70-90 at lunch time
Will reduce AM NovoLog dose to 4 units. Cont NovoLog 8 units before lunch and dinner.
FBG 153, Will make no changes to Lantus dose of 15 units @ HS
HOLD AC NovoLog if pt NPO for procedure and use corrective insulin
08/25/2023 Diabetes Management Follow up
POD 6 s/p 5th toe amputation. Glucose 78 pre dinner. Will change novolog to 6 units AC with low corrective. AM glucose 102, will make no change to lantus 15 units @ hs.
08/26/2023 Diabetes Management Follow up
Podiatry recommends return to OR for amputation of 4th toe.
Glucose stable, 102 to 116, with 6 units novolog AC, required no correction, and 15 units lantus @ HS. AM fasting glucose not reported at this time. Will assess for needed adjustments to lantus when reported.
08/27/2023 Diabetes Management Follow up
Glucose remains stable, 105 to 129 with 15 lantus @ hs and 6 units novolog AC. Required no corrective insulin. Patient for OR tomorrow, will HOLD 15 lantus @ hs tonight and reduce dose to 10 units (one time dose), will resume 15 lantus @ hs on
Thursday @ HS.
Diabetes History
- -
Type of Diabetes: 2 requiring insulin
Pre-Admission Diabetes Regimen
Lab Results
Hemoglobin A1c 14.8 % (4.0-5.6) H 08/19/23 04:43
Insulin Pump Settings
IP Diabetes Regimen
08/26/23 08/26/23 08/26/23
11:58 16:42 21:46
POC Glucose 105 H 112 H 129 H
08/27/23
07:04
POC Glucose 114 H
Meal type: Dinner
Meal type: Lunch
Meal type: Breakfast
Amount consumed: 100%
Amount consumed: 100%
Amount consumed: 100%
Patient Education
[2023-08-27] MEDS: COREG 3.125 MG PO ×2 (07:53→20:34)
[2023-08-27] MEDS: NOVOLOG FLEXPEN-LOW RESISTANCE SC ×3 (07:56→16:35)
[2023-08-27] MEDS: NOVOLOG FLEXPEN 6 UNITS SC ×2 (07:56→17:34)
--- NOTE | 2023-08-27 08:55 | W.PN.HOSP.TC ---
Today's Communication/Plan
-
see bold
Assessment / Plan
Assessment / Plan
HPI: 68-year-old male with past medical history of diabetes noncompliant with medication, diabetic neuropathy, hypertension, hypercholesteremia, who presented as 302.
The patient collapsed and urinated on himself in the kitchen and found to have gangrenous left toe.
Patient has had infected left fifth toe for the past year but over the past few days it has become black and necrotic.� Patient denies any pain.� Family has noticed some discharge from the toe.� Surrounding area is red.� Patient refused to come to
the hospital over the past several days so 302 was filed.� Patient has not been taking his diabetic medications for the past year which includes metformin and Humalog.� Denies any fevers or chills. He is a former smoker and alcohol user.� Denies any
drug use at this time.
Patient does not have any history of psychiatric problems.
Gen: NAD, awake and alert
Eyes: EOMI, PERRLA, no scleral icterus.
Neck: continues to remain supple.
CV: RRR, +S1/S2, no m/r/g.
Resp: remains CTAB, no rales, wheezes, or rhonchi.
Abd: +BS, soft, NT, ND
Skin: remains facial rash, LLE with C/D/I dressing
Neuro: CN 2-12 intact, non-focal.
Psych: Normal mood and affect.
08/18/23 17:07 Blood/Venous Blood Culture - Final
No Growth - Final Report
08/18/23 17:07 Blood/Venous Blood Culture - Final
No Growth - Final Report
08/19/23 19:48 Foot - Left Tissue Culture - Final
S aureus-Methicillin Sensitive
Coagulase neg. staphylococcus
Strep species,not Enterococcus
08/19/23 19:48 Foot - Left Gram Stain - Final
08/18/23 17:11 Foot - Right Wound Culture - Final
Enterococcus faecalis
Streptococcus pyogenes
08/18/23 17:11 Foot - Right Gram Stain - Final
08/19/23 02:47 Urine Urine Culture - Final
S aureus-Methicillin Sensitive
08/18/23 21:59 Nose MRSA Screen - Final
No Methicillin Resistant Staphylococcus aureus isolated.
MRI L-foot: Transmetatarsal amputation of the fifth digit with intact resection margin without overt MR evidence for residual osteomyelitis at this site. Soft tissue wound along the lateral aspect of the foot more distally at the proximal phalangeal
level with underlying fluid tract extending into the subcutaneous tissues and adjacent to the fourth digit proximal phalanx proximal diaphysis with associated osteomyelitis. No discrete loculated abscess. Mild plantar fasciitis. Scattered
degenerative changes.
Gangrenous left toe due to PAD: healing. -with surrounding cellulitis, possible osteomyelitis
-B/L LE AROLDO within normal limits
-Vascular surgery saw and there was no indication for LE angiography
-Foot x-ray noted Soft tissue swelling and gas in the lateral forefoot most compatible with a necrotizing soft tissue infection. Demineralization of the fifth metatarsal head raising concern for osteomyelitis.
-s/p�5th ray amp with application wound vac and partial closure wound left foot by repeater chief 08/19/23
-WCx R foot with Enterococcus faecalis and strep pyogenes, WCx L foor MSSA
-cont Unasyn per ID
-MRI L foot notable for osteomyelitis of the proximal fourth digit
-Podiatry following
-for right first MTP bone/joint resection on 08/28/23
Other problems:
MSSA bacteriuria, likely contaminant as per ID
DM2: a1c 14.8%, cont metformin/Lantus/premeal Novolog/SSI/accuchecks. 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
Essential hypertension: cont Coreg
Hypercholesterolemia
Former alcohol abuse
Former tobacco abuse
Hyponatremia
FULL/Heparin
Anticipated Discharge: > 48 hours
Subjective/Interval History
-
Date of Service: August 27, 2023
No new complaints.
Objective Data
-
Vital Signs:
Vital Signs
Temp Pulse Resp BP Pulse Ox
97.4 F 70 30 147/74 97
08/27/23 07:30 08/27/23 07:53 08/27/23 07:30 08/27/23 07:53 08/27/23 07:30
I&O
08/26/23 08/27/23 08/28/23
06:59 06:59 06:59
Intake Total 1919
Balance 1919
[2023-08-27] MEDS: DAKIN'S SOLUTION 0.125% 1/4 STRENGTH 473 ML TOPICAL (11:11)
[2023-08-27 11:15] LABS: Glucose - Point of Care 83 mg/dl (70-99)
[2023-08-27] MEDS: FLUSH (NSS) 1 FLUSH IV (12:36)
[2023-08-27] MEDS: NOVOLOG FLEXPEN SC (13:13)
[2023-08-27] MEDS: NOVOLOG FLEXPEN 4 UNITS SC (13:30)
--- NOTE | 2023-08-27 14:21 | W.PN.ID1 ---
Date of Service
Date of Service: August 27, 2023
Today's Communication
- for for resection of the residual 5th and also 4th digits
- continue unasyn - follow up OR note - hopefully for transition to orals for short course post operatively
Assessment / Plan
Gangrene - wet - s/p resection
Probable osteomyelitis - L 5th met head, L 4th digit proximal phalanx proximal diaphysis with associated osteomyelitis.
DM2 - uncontrolled
FABRICE - resolved
Medication noncompliance - ongoing
- s/p resection of the left 5th met head, wound vac placement
- for for resection of the residual 5th and also 4th digits
- continue unasyn - follow up OR note - hopefully for transition to orals for short course post operatively
- follow clinically
Chief Complaint
-: Other (gas gangrene)
Subjective / Review of Systems
afebrile
bp stable
no new labs
path back - concerning for possible residual osteo of the amputation margin
patient already plans for amp of residual toe and 4th toe
Vital Signs / Physical Exam
Vital Signs
Vital Signs
Temp Pulse Resp BP Pulse Ox
97.4 F 70 30 147/74 97
08/27/23 07:30 08/27/23 07:53 08/27/23 07:30 08/27/23 07:53 08/27/23 07:30
Physical Exam
Constitutional: No Acute Distress
Cardiovascular: Regular Rate and S1/S2; Negative Murmur or Rub
Pulmonary: Clear and Symmetric; Negative Wheezes or Rales
Gastrointestinal: Soft, Non Tender, Non Distended and Normal Bowel Sounds
Skin: Warm and Dry; Negative Rash or Jaundice
Wound: Other (dressing clean dry intact)
Objective Data
Lab Data
Lab Results
08/24/23 05:44
08/24/23 05:44
Estimated Creat Clear 85 ml/min 08/24/23 05:44
Lactic Acid 1.9 mmol/L (0.7-2.0) 08/18/23 21:32
Total Bilirubin 1.0 mg/dl (0.2-1.3) 08/19/23 04:43
AST 17 U/L (17-59) 08/19/23 04:43
ALT 14 U/L (0-50) 08/19/23 04:43
Alkaline Phosphatase 129 U/L (38-126) H 08/19/23 04:43
Most recent labs reviewed.
Micro Results:
08/18/23 17:07 Blood Culture - Final
Blood/Venous No Growth - Final Report
08/18/23 17:07 Blood Culture - Final
Blood/Venous No Growth - Final Report
08/19/23 19:48 Tissue Culture - Final
Foot - Left S aureus-Methicillin Sensitive
Coagulase neg. staphylococcus
Strep species,not Enterococcus
Gram Stain - Final
08/18/23 17:11 Wound Culture - Final
Foot - Right Enterococcus faecalis
Streptococcus pyogenes
Gram Stain - Final
08/19/23 02:47 Urine Culture - Final
Urine S aureus-Methicillin Sensitive
08/18/23 21:59 MRSA Screen - Final
Nose No Methicillin Resistant Staphylococcus aureus isolated.
[2023-08-27 15:00] VITALS: BP 125/69
--- NOTE | 2023-08-27 16:10 | CM ---
Patient asleep bedside.
CM reviewed chart, per Hospitalist note, plan for OR tomorrow, 08/28/23. CM will continue to follow for discharge planning needs.
Plan; watch for VN needs after OR, [facility] requesting discharge paperwork faxed upon d/c ([phone]).
[2023-08-27 16:24] LABS: Glucose - Point of Care 118 mg/dl (70-99)
[2023-08-27] MEDS: LOVENOX 40 MG SC (17:34)
[2023-08-27 21:28] LABS: Glucose - Point of Care 125 mg/dl (70-99)
[2023-08-27] MEDS: LANTUS 0.100000000000000006 UNITS SC (21:38)
[2023-08-27 23:27] VITALS: BP 112/69
[2023-08-28] VITALS (7 sets, daily range): BP systolic 100–138; BP diastolic 64–81; BMI 28.8
[2023-08-28] MEDS: UNASYN IV ×4 (00:16→17:49)
--- NOTE | 2023-08-28 05:43 | W.PN.HOSP.TC ---
Today's Communication/Plan
-
see bold
Assessment / Plan
Assessment / Plan
HPI: 68-year-old male with past medical history of diabetes noncompliant with medication, diabetic neuropathy, hypertension, hypercholesteremia, who presented as 302.
The patient collapsed and urinated on himself in the kitchen and found to have gangrenous left toe.
Patient has had infected left fifth toe for the past year but over the past few days it has become black and necrotic.� Patient denies any pain.� Family has noticed some discharge from the toe.� Surrounding area is red.� Patient refused to come to
the hospital over the past several days so 302 was filed.� Patient has not been taking his diabetic medications for the past year which includes metformin and Humalog.� Denies any fevers or chills. He is a former smoker and alcohol user.� Denies any
drug use at this time.
Patient does not have any history of psychiatric problems.
Gen: NAD, awake and alert
Eyes: EOMI, PERRLA, no scleral icterus.
Neck: supple.
CV: remains RRR, +S1/S2, no m/r/g.
Resp: CTAB anteriorly, no rales, wheezes, or rhonchi.
Abd: +BS, soft, NT, ND
Skin: facial rash, LLE with C/D/I dressing
Neuro: CN 2-12 intact, non-focal.
Psych: Normal mood and affect.
08/18/23 17:07 Blood/Venous Blood Culture - Final
No Growth - Final Report
08/18/23 17:07 Blood/Venous Blood Culture - Final
No Growth - Final Report
08/19/23 19:48 Foot - Left Tissue Culture - Final
S aureus-Methicillin Sensitive
Coagulase neg. staphylococcus
Strep species,not Enterococcus
08/19/23 19:48 Foot - Left Gram Stain - Final
08/18/23 17:11 Foot - Right Wound Culture - Final
Enterococcus faecalis
Streptococcus pyogenes
08/18/23 17:11 Foot - Right Gram Stain - Final
08/19/23 02:47 Urine Urine Culture - Final
S aureus-Methicillin Sensitive
08/18/23 21:59 Nose MRSA Screen - Final
No Methicillin Resistant Staphylococcus aureus isolated.
MRI L-foot: Transmetatarsal amputation of the fifth digit with intact resection margin without overt MR evidence for residual osteomyelitis at this site. Soft tissue wound along the lateral aspect of the foot more distally at the proximal phalangeal
level with underlying fluid tract extending into the subcutaneous tissues and adjacent to the fourth digit proximal phalanx proximal diaphysis with associated osteomyelitis. No discrete loculated abscess. Mild plantar fasciitis. Scattered
degenerative changes.
Gangrenous left toe due to PAD: healing. -with surrounding cellulitis, possible osteomyelitis
-B/L LE AROLDO within normal limits
-Vascular surgery saw and there was no indication for LE angiography
-Foot x-ray noted Soft tissue swelling and gas in the lateral forefoot most compatible with a necrotizing soft tissue infection. Demineralization of the fifth metatarsal head raising concern for osteomyelitis.
-s/p�5th ray amp with application wound vac and partial closure wound left foot by railroad accountant 08/19/23
-WCx R foot with Enterococcus faecalis and strep pyogenes, WCx L foor MSSA
-cont Unasyn per ID
-MRI L foot notable for osteomyelitis of the proximal fourth digit
-Podiatry following
-for right first MTP bone/joint resection (hopefully today)
Other problems:
MSSA bacteriuria, likely contaminant as per ID
DM2: a1c 14.8%, cont metformin/Lantus/premeal Novolog/SSI/accuchecks. 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
Essential hypertension: cont Coreg
Hypercholesterolemia
Former alcohol abuse
Former tobacco abuse
Hyponatremia
FULL/Heparin
Anticipated Discharge: > 48 hours
Subjective/Interval History
-
Date of Service: August 28, 2023
Denies CP/SOB.
Objective Data
-
Vital Signs:
Vital Signs
Temp Pulse Resp BP Pulse Ox
97.2 F 89 19 112/69 99
08/27/23 23:27 08/27/23 23:27 08/27/23 23:27 08/27/23 23:27 08/27/23 23:27
I&O
08/26/23 08/27/23 08/28/23
06:59 06:59 06:59
Intake Total 1919 1270 / 1270
Balance 1919 1270 / 1270
[2023-08-28] MEDS: NOVOLOG FLEXPEN SC ×2 (06:19→10:54)
[2023-08-28 06:20] LABS: Glucose - Point of Care 123 mg/dl (70-99)
[2023-08-28] MEDS: NOVOLOG FLEXPEN-LOW RESISTANCE SC ×3 (06:20→17:45)
--- NOTE | 2023-08-28 08:39 | PN.DE.MGMTRT ---
Insulin Management
- -
08/19/2023: Diabetes Management Consult
68-year-old male admitted with Left 5th toe nonhealing wound concerning for gangrene and possibly osteomyelitis.
PMH includes: HTN, HLD, Former ETOH and cigarette use, Diabetic Neuropathy and T2DM. A1C 14.8%, Glucose on admission was 428, Cr 0.7-->1.1 today.
Per chart review, pt has not taken any of his diabetes medications (Humalog and Metformin) for over a year.
Pt is unable to provide hx or participate in interview. Family is at the bedside, has provided a list of medications that were last filled 07/2022, on the list is- Levemir 30 units daily, Metformin 1000 mg BID, Glipizide 10mg BID and Humalog SS
10-15 units with meals. Pt's states that pt stopped taking all his DM meds a year ago and it appears that he gave up on himself. states he has a glucose meter ([employer]he[employer]) with supplies but does not monitor his sugars, dtr at bedside states she
is using the supplies.
His current regiment includes: Lantus 10 units @ HS with low corrective insulin with meals.
Glucose has remained >200, FBG 235, has received 3 units of corrective for a blood sugar of 267 before breakfast.
Will start AC NovoLog 8 units and increase Lantus to 15 units and change to moderate corrective
Will hold off on starting Metformin and reassess after surgery.
Pt was seen with Surgeon/Human Services Professional at bedside, plan for OR later today.
Spoke to pt's nurse and instructed to HOLD AC NovoLog but use corrective insulin while NPO if needed before procedure
Will follow closely and make further adjustments as needed
08/20/2023 Diabetes Management Follow up
POD 1 s/p L 5th toe amputation. Patient received 15 units Lantus @ HS, fasting glucose this AM 148. Will make no change to Lantus. Patient was in the OR in the evening, most likely no dinner, HS glucose 128. Will continue AC NovoLog 8 units,
reduce corrective insulin from moderate to low. CR 1.2, egfr >60, will resume metformin. With A1C 14.8% will not resume glipizide.
08/21/2023: Diabetes Management F/U
POD# 2 s/p L5th toe amputation, pt doing well, offers no complaints.
Glucose stable and in range, FBG 140 this AM, premeal 129 to 155 on current regimen
Will make no changes- cont Lantus 15 units, AC NovoLog 8 units, low corrective insulin and Metformin.
With A1C 14.8% will not resume glipizide.
08/24/2023: Diabetes Management F/U:
POD# 5 s/p L5th toe amputation, pt doing well, offers no complaints.
Glucose remained stable throughout the weekend with some drop to 70-90 at lunch time
Will reduce AM NovoLog dose to 4 units. Cont NovoLog 8 units before lunch and dinner.
FBG 153, Will make no changes to Lantus dose of 15 units @ HS
HOLD AC NovoLog if pt NPO for procedure and use corrective insulin
08/25/2023 Diabetes Management Follow up
POD 6 s/p 5th toe amputation. Glucose 78 pre dinner. Will change NovoLog to 6 units AC with low corrective. AM glucose 102, will make no change to Lantus 15 units @ hs.
08/26/2023 Diabetes Management Follow up
Podiatry recommends return to OR for amputation of 4th toe.
Glucose stable, 102 to 116, with 6 units NovoLog AC, required no correction, and 15 units Lantus @ HS. AM fasting glucose not reported at this time. Will assess for needed adjustments to Lantus when reported.
08/27/2023 Diabetes Management Follow up
Glucose remains stable, 105 to 129 with 15 Lantus @ hs and 6 units NovoLog AC. Required no corrective insulin. Patient for OR tomorrow, will HOLD 15 Lantus @ hs tonight and reduce dose to 10 units (one time dose), will resume 15 Lantus @ hs on
Thursday @ HS.
08/28/2023: Diabetes Management F/U:
Pt NPO for OR today, received reduced dose of Lantus 10 units last night, FBG 123. Otherwise, Glucose remains stable, 83 to 118 on current regimen.
Will make no changes, resume Lantus 15 units @ hs tonight and AC NovoLog 6 units with corrective insulin post-op
Diabetes History
- -
Type of Diabetes: 2 requiring insulin
Pre-Admission Diabetes Regimen
Lab Results
Hemoglobin A1c 14.8 % (4.0-5.6) H 08/19/23 04:43
Insulin Pump Settings
IP Diabetes Regimen
08/27/23 08/27/23 08/27/23
11:14 16:22 21:26
POC Glucose 83 118 H 125 H
08/28/23
06:18
POC Glucose 123 H
Meal type: Dinner
Meal type: Lunch
Amount consumed: 30%
Amount consumed: 75%
Patient Education
[2023-08-28] MEDS: COREG PO (09:17)
[2023-08-28] MEDS: DAKIN'S SOLUTION 0.125% 1/4 STRENGTH 473 ML TOPICAL (09:22)
[2023-08-28 09:42] LABS: Glucose - Point of Care 121 mg/dl (70-99)
[2023-08-28] MEDS: GLUCOPHAGE PO (09:44)
[2023-08-28 13:00] LABS: Glucose - Point of Care 117 mg/dl (70-99)
--- NOTE | 2023-08-28 13:36 | W.PN.UPDATE ---
Update Note
Progress Note Update
Approached pt for psychiatric consult. Also discussed with nursing staff. Pt declined to talk to Psychiatry. When asked if he had surgery today (for gangrenous toe, S/P amputation, with osteomyelitis) pt stated 'I wouldn't know.' Nursing reports
pt seems to take little interest in his care or decisions. Pt does not express his wishes or reasoning behind any choices, does not seem to grasp the risks/consequences involved. Pt has hx of chronic infected toe and non-compliance with diabetes
care. Per nursing, pt is scheduled for surgery later today.
Imp: Pt appears to lack capacity for medical decision-making, given the above presentation. He declines full psychiatric consult; unclear if pt's presentation is due to depression
Rec: Utilize or other closest family member to aid in decision-making
Will follow and re-attempt full evaluation
--- NOTE | 2023-08-28 14:21 | CM ---
Reviewed the chart notes. To OR today for osteomyelitis left 4th toe base prox phalynx with sinus tract plantar forefoot. CM continues to be available to patient/family and is monitoring medical plan for needs at discharge.
Plan: Discharge plans will depend on progress after surgery. SNF/rehab vs VN.
[2023-08-28 16:12] LABS: Glucose - Point of Care 110 mg/dl (70-99)
--- NOTE | 2023-08-28 16:14 | W.SUR.POST ---
Surgical Immediate Post Op
Note
Pre Op Diagnosis: osteomyelitis left 4th toe
Post Op Diagnosis: same
Procedure Performed: partial 4th ray amp (left 4th toe and distal 4t met)
Primary Surgeon: Fco Ko
Anesthesia: IV sed with local block 10mL 1% Lido plain
Estimated Blood Loss: 20ML
Drains/Shunts: 07/23 in iodoform packing
Specimens/Cultures: prox margin 4th met for cx and path, 4th toe gross specimen
Doppler/Duplex/Angio (Y/N): N
Complications: None
Operative Findings: see report. Of significance - fractured base prox phalynx
[2023-08-28] MEDS: NOVOLOG FLEXPEN 6 UNITS SC (17:46)
[2023-08-28] MEDS: GLUCOPHAGE 1000 MG PO (17:46)
[2023-08-28] MEDS: COREG 3.125 MG PO (20:48)
[2023-08-28 21:59] LABS: Glucose - Point of Care 101 mg/dl (70-99)
[2023-08-28] MEDS: LANTUS 0.149999999999999994 UNITS SC (22:03)
[2023-08-29] MEDS: UNASYN IV ×3 (00:30→12:38)
[2023-08-29 03:14] VITALS: BP 119/63
[2023-08-29 06:00] VITALS: BMI 28.2
[2023-08-29 07:40] VITALS: BP 126/71
[2023-08-29] MEDS: DAKIN'S SOLUTION 0.125% 1/4 STRENGTH 473 ML TOPICAL (08:01)
[2023-08-29 08:04] LABS: Glucose - Point of Care 121 mg/dl (70-99)
[2023-08-29] MEDS: COREG 3.125 MG PO ×2 (08:05→19:55)
[2023-08-29] MEDS: GLUCOPHAGE 1000 MG PO ×2 (08:05→17:01)
[2023-08-29] MEDS: NOVOLOG FLEXPEN-LOW RESISTANCE SC ×3 (08:05→17:02)
[2023-08-29] MEDS: NOVOLOG FLEXPEN SC ×2 (10:51→17:31)
--- NOTE | 2023-08-29 12:00 | W.PN.HOSP.TC ---
Today's Communication/Plan
-
see bold
Assessment / Plan
Assessment / Plan
HPI: 68-year-old male with past medical history of diabetes noncompliant with medication, diabetic neuropathy, hypertension, hypercholesteremia, who presented as 302.
The patient collapsed and urinated on himself in the kitchen and found to have gangrenous left toe.
Patient has had infected left fifth toe for the past year but over the past few days it has become black and necrotic.� Patient denies any pain.� Family has noticed some discharge from the toe.� Surrounding area is red.� Patient refused to come to
the hospital over the past several days so 302 was filed.� Patient has not been taking his diabetic medications for the past year which includes metformin and Humalog.� Denies any fevers or chills. He is a former smoker and alcohol user.� Denies any
drug use at this time.
Patient does not have any history of psychiatric problems.
Gen: NAD, awake and alert
Eyes: EOMI, PERRLA, no scleral icterus.
Neck: supple.
CV: continues to remain RRR, +S1/S2, no m/r/g.
Resp: remains CTAB anteriorly, no rales, wheezes, or rhonchi.
Abd: remains +BS, soft, NT, ND
Skin: facial rash, LLE with C/D/I dressing
Neuro: CN 2-12 intact, non-focal.
Psych: Normal mood and affect.
08/18/23 17:07 Blood/Venous Blood Culture - Final
No Growth - Final Report
08/18/23 17:07 Blood/Venous Blood Culture - Final
No Growth - Final Report
08/19/23 19:48 Foot - Left Tissue Culture - Final
S aureus-Methicillin Sensitive
Coagulase neg. staphylococcus
Strep species,not Enterococcus
08/19/23 19:48 Foot - Left Gram Stain - Final
08/18/23 17:11 Foot - Right Wound Culture - Final
Enterococcus faecalis
Streptococcus pyogenes
08/18/23 17:11 Foot - Right Gram Stain - Final
08/19/23 02:47 Urine Urine Culture - Final
S aureus-Methicillin Sensitive
08/18/23 21:59 Nose MRSA Screen - Final
No Methicillin Resistant Staphylococcus aureus isolated.
MRI L-foot: Transmetatarsal amputation of the fifth digit with intact resection margin without overt MR evidence for residual osteomyelitis at this site. Soft tissue wound along the lateral aspect of the foot more distally at the proximal phalangeal
level with underlying fluid tract extending into the subcutaneous tissues and adjacent to the fourth digit proximal phalanx proximal diaphysis with associated osteomyelitis. No discrete loculated abscess. Mild plantar fasciitis. Scattered
degenerative changes.
Gangrenous left toe due to PAD: healing. -with surrounding cellulitis, possible osteomyelitis
-B/L LE AROLDO within normal limits
-Vascular surgery saw and there was no indication for LE angiography
-Foot x-ray noted Soft tissue swelling and gas in the lateral forefoot most compatible with a necrotizing soft tissue infection. Demineralization of the fifth metatarsal head raising concern for osteomyelitis.
-s/p�5th ray amp with application wound vac and partial closure wound left foot by segmental wall installer 08/19/23
-WCx R foot with Enterococcus faecalis and strep pyogenes, WCx L foor MSSA
-cont Unasyn per ID
-MRI L foot notable for osteomyelitis of the proximal fourth digit
-Podiatry following
-s/p partial 4th ray amp (left 4th toe and distal 4t met) on 08/28/23
Other problems:
MSSA bacteriuria, likely contaminant as per ID
DM2: a1c 14.8%, cont metformin/Lantus/premeal Novolog/SSI/accuchecks. 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
Essential hypertension: cont Coreg
Hypercholesterolemia
Former alcohol abuse
Former tobacco abuse
Hyponatremia
FULL/Heparin
Anticipated Discharge: 24 - 48 hours
Subjective/Interval History
-
Date of Service: August 29, 2023
No new complaints.
Objective Data
-
Vital Signs:
Vital Signs
Temp Pulse Resp BP Pulse Ox
97.8 F 81 18 126/71 95
08/29/23 07:40 08/29/23 08:05 08/29/23 07:40 08/29/23 08:05 08/29/23 10:32
I&O
08/28/23 08/29/23 08/30/23
06:59 06:59 06:59
Intake Total 2029 960 / 960
Balance 2029 960 / 960
[2023-08-29 12:21] LABS: Glucose - Point of Care 109 mg/dl (70-99)
[2023-08-29] MEDS: NOVOLOG FLEXPEN 6 UNITS SC (13:16)
--- NOTE | 2023-08-29 14:26 | W.PN.POD ---
Today's Communication
Today's Communication
Patient refused psych eval, he admits that he really doesn't have any interest in speaking with psych about his depression at this time. He admits to lack of interest in his health and diabetes and states he understands the risk of uncontrolled
blood sugars if he remains non compliant including risk of limb loss, MD, CVA, Chronic/Acute kidney disease and .
Wounds irrigated with 1/4 str dakins solution and repacked with 1/4 in iodoform packing, adaptic, abd and kerlix
Cx and path of bone 4th met pending, will require wound care, however I do not anticipate return to OR.
Bone path and cx of 5th met reviewed w/Dr Paula, while cx was not taken, distal portion of bone 5th met was taken to clean edges prior to closure of wound
Pending final cx/path of the 4th met may require chcf iv abt
Assessment / Plan
-
DM2 with hyperglycemia -improved
DM2 with DPN/LOPS
?Psych issues- pt refused eval
Gas gangrene left foot w/ OM of the left 5th toe and metatarsal -S/P partial 5th ray amp POD #9
Osteomyelitis left 4th toe base prox phalynx with sinus tract plantar forefoot S/P partial 4th ray resection (4th toe and distal 1/3 4th met) and debridement of remaining soft tissue and distal 5th met-POD # 1
Subjective
Chief Complaint
gangrene left foot/osteomyelitis
Subjective
Patient appears comfortable, denies pain left foot
Objective
Temp Pulse Resp BP Pulse Ox
97.8 F 81 18 126/71 95
08/29/23 07:40 08/29/23 08:05 08/29/23 07:40 08/29/23 08:05 08/29/23 10:32
08/24/23 05:44
08/24/23 05:44
Vital Signs and Lab results were reviewed.
Review of Systems
Review of Systems
Review of Systems: No Fever, No Chills, No Headache, No Nausea, No Diarrhea and No Joint Pain
Physical Exam
Physical Exam
General: No Apparent Distress and Comfortable
Musculoskeletal: No Clubbing and No Cyanosis
Skin: Warm, Dry and Other (dressing removed along with wound packing. No purulence is expressed. Moderate erythema plantar forefoot. )
Neuro: Awake, Alert and Protective Sensation Diminished
Vascular: Capillary Refill Intact and Skin Temperature Warm to Cool
Dorsalis Pedis: Intact
Posterior Tibialis: Intact
--- NOTE | 2023-08-29 14:44 | W.PN.ID1 ---
Date of Service
Date of Service: August 29, 2023
Today's Communication
day 12 antibiotics - plan 5 more days of augmentin
- will follow up path
- follow up with podiatry, stable for dc from ID perspective
Assessment / Plan
Gangrene - wet - s/p resection
Probable osteomyelitis - L 5th met head, L 4th digit proximal phalanx proximal diaphysis with associated osteomyelitis.
DM2 - uncontrolled
FABRICE - resolved
Medication noncompliance - ongoing
- discussed with Dr Ross - 5th amputation site was further revised and 4th toe amputated
- day 12 antibiotics - plan 5 more days of augmentin
- will follow up path
- follow up with podiatry, stable for dc from ID perspective
Chief Complaint
-: Other (gas gangrene)
Subjective / Review of Systems
afebrile
bp stable
no recent labs
08/28 OR culture no growth to date
tolerating current therapies
Vital Signs / Physical Exam
Vital Signs
Vital Signs
Temp Pulse Resp BP Pulse Ox
97.8 F 81 18 126/71 95
08/29/23 07:40 08/29/23 08:05 08/29/23 07:40 08/29/23 08:05 08/29/23 10:32
Physical Exam
Constitutional: No Acute Distress
Cardiovascular: Regular Rate and S1/S2; Negative Murmur or Rub
Pulmonary: Clear and Symmetric; Negative Wheezes or Rales
Gastrointestinal: Soft, Non Tender, Non Distended and Normal Bowel Sounds
Skin: Warm and Dry; Negative Rash or Jaundice
Objective Data
Lab Data
Lab Results
08/24/23 05:44
08/24/23 05:44
Estimated Creat Clear 85 ml/min 08/24/23 05:44
Lactic Acid 1.9 mmol/L (0.7-2.0) 08/18/23 21:32
Total Bilirubin 1.0 mg/dl (0.2-1.3) 08/19/23 04:43
AST 17 U/L (17-59) 08/19/23 04:43
ALT 14 U/L (0-50) 08/19/23 04:43
Alkaline Phosphatase 129 U/L (38-126) H 08/19/23 04:43
Most recent labs reviewed.
Micro Results:
08/28/23 Unknown Anaerobic Culture - Preliminary
Foot - Left Culture pending. Anaerobic cultures are examined after 3
days incubation. Additional information to follow.
08/28/23 Unknown Tissue Culture - Preliminary
Foot - Left No Growth After 18-24 Hours
Gram Stain - Preliminary
08/18/23 17:07 Blood Culture - Final
Blood/Venous No Growth - Final Report
08/18/23 17:07 Blood Culture - Final
Blood/Venous No Growth - Final Report
08/19/23 19:48 Tissue Culture - Final
Foot - Left S aureus-Methicillin Sensitive
Coagulase neg. staphylococcus
Strep species,not Enterococcus
Gram Stain - Final
08/18/23 17:11 Wound Culture - Final
Foot - Right Enterococcus faecalis
Streptococcus pyogenes
Gram Stain - Final
08/19/23 02:47 Urine Culture - Final
Urine S aureus-Methicillin Sensitive
08/18/23 21:59 MRSA Screen - Final
Nose No Methicillin Resistant Staphylococcus aureus isolated.
Care Review
Plan reviewed with: Physician ( Propato - surgery)
[2023-08-29 15:35] VITALS: BP 110/47
--- NOTE | 2023-08-29 16:28 | PTCARENOTE ---
pt refused to work with PT this afternoon. pt is one day post op and was seen by podiatry this afternoon for his amputation.
[2023-08-29 17:03] LABS: Glucose - Point of Care 99 mg/dl (70-99)
[2023-08-29] MEDS: AUGMENTIN 875 MG/125 MG 1 TABLET PO (19:55)
[2023-08-29 21:47] LABS: Glucose - Point of Care 103 mg/dl (70-99)
[2023-08-29] MEDS: LANTUS 0.149999999999999994 UNITS SC (21:54)
[2023-08-29 23:23] VITALS: BP 125/71
[2023-08-30 06:00] VITALS: BMI 28.0
[2023-08-30 07:30] VITALS: BP 129/77
--- NOTE | 2023-08-30 07:36 | W.PN.HOSP.TC ---
Today's Communication/Plan
-
see bold, begin discharge planning
Assessment / Plan
Assessment / Plan
HPI: 68-year-old male with past medical history of diabetes noncompliant with medication, diabetic neuropathy, hypertension, hypercholesteremia, who presented as 302.
The patient collapsed and urinated on himself in the kitchen and found to have gangrenous left toe.
Patient has had infected left fifth toe for the past year but over the past few days it has become black and necrotic.� Patient denies any pain.� Family has noticed some discharge from the toe.� Surrounding area is red.� Patient refused to come to
the hospital over the past several days so 302 was filed.� Patient has not been taking his diabetic medications for the past year which includes metformin and Humalog.� Denies any fevers or chills. He is a former smoker and alcohol user.� Denies any
drug use at this time.
Patient does not have any history of psychiatric problems.
Gen: remains NAD, awake and alert
Eyes: EOMI, PERRLA, no scleral icterus.
Neck: supple.
CV: RRR, +S1/S2, no m/r/g.
Resp: continues to remain CTAB anteriorly, no rales, wheezes, or rhonchi.
Abd: continues to remain +BS, soft, NT, ND
Skin: facial rash, LLE with C/D/I dressing
Neuro: CN 2-12 intact, non-focal.
Psych: Normal mood and affect.
08/18/23 17:07 Blood/Venous Blood Culture - Final
No Growth - Final Report
08/18/23 17:07 Blood/Venous Blood Culture - Final
No Growth - Final Report
08/19/23 19:48 Foot - Left Tissue Culture - Final
S aureus-Methicillin Sensitive
Coagulase neg. staphylococcus
Strep species,not Enterococcus
08/19/23 19:48 Foot - Left Gram Stain - Final
08/18/23 17:11 Foot - Right Wound Culture - Final
Enterococcus faecalis
Streptococcus pyogenes
08/18/23 17:11 Foot - Right Gram Stain - Final
08/19/23 02:47 Urine Urine Culture - Final
S aureus-Methicillin Sensitive
08/18/23 21:59 Nose MRSA Screen - Final
No Methicillin Resistant Staphylococcus aureus isolated.
MRI L-foot: Transmetatarsal amputation of the fifth digit with intact resection margin without overt MR evidence for residual osteomyelitis at this site. Soft tissue wound along the lateral aspect of the foot more distally at the proximal phalangeal
level with underlying fluid tract extending into the subcutaneous tissues and adjacent to the fourth digit proximal phalanx proximal diaphysis with associated osteomyelitis. No discrete loculated abscess. Mild plantar fasciitis. Scattered
degenerative changes.
Gangrenous left toe due to PAD: healing. -with surrounding cellulitis, possible osteomyelitis
-B/L LE AROLDO within normal limits
-Vascular surgery saw and there was no indication for LE angiography
-Foot x-ray noted Soft tissue swelling and gas in the lateral forefoot most compatible with a necrotizing soft tissue infection. Demineralization of the fifth metatarsal head raising concern for osteomyelitis.
-s/p�5th ray amp with application wound vac and partial closure wound left foot by health coordinator 08/19/23
-WCx R foot with Enterococcus faecalis and strep pyogenes, WCx L foot MSSA
-MRI L foot notable for osteomyelitis of the proximal fourth digit
-Podiatry following
-s/p partial 4th ray amp (left 4th toe and distal 4t met) on 08/28/23
-was on IV Unasyn, now transitioned to Augmentin for 5 further days
Other problems:
MSSA bacteriuria, likely contaminant as per ID
DM2: a1c 14.8%, cont metformin/Lantus/premeal Novolog/SSI/accuchecks. 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
Essential hypertension: cont Coreg
Hypercholesterolemia
Former alcohol abuse
Former tobacco abuse
Hyponatremia
FULL/Heparin
Anticipated Discharge: Within 24 hours
Subjective/Interval History
-
Date of Service: August 30, 2023
No new complaints.
Objective Data
-
Vital Signs:
Vital Signs
Temp Pulse Resp BP Pulse Ox
97.3 F 80 18 125/71 96
08/29/23 23:23 08/29/23 23:23 08/29/23 23:23 08/29/23 23:23 08/30/23 00:14
I&O
08/29/23 08/30/23 08/31/23
06:59 06:59 06:59
Intake Total 960 / 960 1230 / 1230
Balance 960 / 960 1230 / 1230
[2023-08-30 08:07] LABS: Glucose - Point of Care 115 mg/dl (70-99)
[2023-08-30] MEDS: COREG 3.125 MG PO ×2 (08:30→20:39)
[2023-08-30] MEDS: GLUCOPHAGE 1000 MG PO ×2 (08:30→17:14)
[2023-08-30] MEDS: NOVOLOG FLEXPEN 6 UNITS SC ×3 (08:30→17:13)
[2023-08-30] MEDS: AUGMENTIN 875 MG/125 MG 1 TABLET PO ×2 (08:31→20:39)
[2023-08-30] MEDS: NOVOLOG FLEXPEN-LOW RESISTANCE SC ×3 (08:32→17:13)
[2023-08-30 08:37] LABS: % Basophils 0.6 % (0-2); % Eosinophils 1.3 % (0-6); % Immature Granulocytes 0.4 % (0-0.5); % Lymphocytes 25.3 % (20.5-51.1); % Monocytes 9.3 % (1.7-9.3); % Neutrophils 63.1 % (42.2-75.2); Absolute Basophils 0.1 10^3/uL (0-0.2); Absolute Eosinophils 0.1 10^3/uL (0-0.7); Absolute Monocytes 0.7 10^3/uL (0.1-0.6); Hematocrit 32.9 % (39.0-52.0); Hemoglobin 11.1 g/dL (13.0-18.0); Mean Corp Hgb Conc. 33.7 g/dL (33.0-37.0); Mean Corpuscular Hgb 29.8 pg (27.0-31.0); Mean Corpuscular Volume 88.4 fL (80.0-94.0); Mean Platelet Volume 10.4 fL (7.4-10.4); Nucleated Red Blood Cells % 0 % (-); Platelet Count 389 10^3/uL (130-400); Red Blood Cell Count 3.72 10^6/uL (4.70-6.10); Red Cell Dist. Width 12.1 % (11.5-14.5); White Blood Cell Count 7.9 10^3/uL (4.8-10.8)
[2023-08-30] MEDS: DAKIN'S SOLUTION 0.125% 1/4 STRENGTH 473 ML TOPICAL (08:40)
[2023-08-30 08:59] LABS: Blood Urea Nitrogen 15 mg/dl (9-20); Carbon Dioxide 25 mmol/L (22-30); Chloride 101 mmol/L (98-107); Estimated Creatinine Clearance 85 ml/min; Glucose 126 mg/dl (70-99); Potassium 4.1 mmol/L (3.5-5.1); Sodium 137 mmol/L (135-145); eGFR > 60.00
[2023-08-30 12:15] LABS: Glucose - Point of Care 109 mg/dl (70-99)
--- NOTE | 2023-08-30 14:15 | W.PN.ID1 ---
Date of Service
Date of Service: August 30, 2023
Today's Communication
augmentin x 4 more days
Assessment / Plan
Gangrene - wet - s/p resection
Probable osteomyelitis - L 5th met head, L 4th digit proximal phalanx proximal diaphysis with associated osteomyelitis.
DM2 - uncontrolled
FABRICE - resolved
Medication noncompliance - ongoing
- plan 4 more days of augmentin
- will follow up path
- follow up with podiatry, stable for dc from ID perspective
Chief Complaint
-: Other (gas gangrene)
Subjective / Review of Systems
afebrile
bp stable
without leukocytosis
cr stbale
Vital Signs / Physical Exam
Vital Signs
Vital Signs
Temp Pulse Resp BP Pulse Ox
98.2 F 70 16 129/77 96
08/30/23 07:30 08/30/23 08:30 08/30/23 07:30 08/30/23 08:30 08/30/23 07:30
Physical Exam
Constitutional: No Acute Distress
Cardiovascular: Regular Rate
Pulmonary: Symmetric and Non Labored
Gastrointestinal: Non Distended
Skin: Warm and Dry; Negative Rash or Jaundice
Wound: Other (dressing clean, dry, intact)
Objective Data
Lab Data
Lab Results
08/30/23 08:05
08/30/23 08:05
Estimated Creat Clear 85 ml/min 08/30/23 08:05
Lactic Acid 1.9 mmol/L (0.7-2.0) 08/18/23 21:32
Total Bilirubin 1.0 mg/dl (0.2-1.3) 08/19/23 04:43
AST 17 U/L (17-59) 08/19/23 04:43
ALT 14 U/L (0-50) 08/19/23 04:43
Alkaline Phosphatase 129 U/L (38-126) H 08/19/23 04:43
Most recent labs reviewed.
Micro Results:
08/28/23 Unknown Tissue Culture - Preliminary
Foot - Left No Growth After 48 Hours
Gram Stain - Preliminary
08/28/23 Unknown Anaerobic Culture - Preliminary
Foot - Left Culture pending. Anaerobic cultures are examined after 3
days incubation. Additional information to follow.
08/18/23 17:07 Blood Culture - Final
Blood/Venous No Growth - Final Report
08/18/23 17:07 Blood Culture - Final
Blood/Venous No Growth - Final Report
08/19/23 19:48 Tissue Culture - Final
Foot - Left S aureus-Methicillin Sensitive
Coagulase neg. staphylococcus
Strep species,not Enterococcus
Gram Stain - Final
08/18/23 17:11 Wound Culture - Final
Foot - Right Enterococcus faecalis
Streptococcus pyogenes
Gram Stain - Final
08/19/23 02:47 Urine Culture - Final
Urine S aureus-Methicillin Sensitive
08/18/23 21:59 MRSA Screen - Final
Nose No Methicillin Resistant Staphylococcus aureus isolated.
[2023-08-30 15:30] VITALS: BP 112/69
[2023-08-30 17:03] LABS: Glucose - Point of Care 114 mg/dl (70-99)
--- NOTE | 2023-08-30 18:17 | W.PN.UPDATE ---
Update Note
Progress Note Update
Pt seen & evaluated. Sitting up in bed watching TV. Reports feeling 'fine', denies pain in foot. Stated that he is able to ambulate to bathroom 'fine'. Although cooperative, he was guarded and did not seem to be very open to discussing prior
concerns regarding his necrotic toe (ie his refusal to get treatment, for unclear reasons). He was clearly understanding of having had the amputation however, as well as why it was amputated - was eager to return home. No evidence of avh/delusions
or other acute psychiatric concern.
No current psychiatric interventions
--- NOTE | 2023-08-30 19:42 | W.PN.POD ---
Today's Communication
Today's Communication
Wounds were irrigated w/1/4 str dakins, pat dry and repacked with 1/4in iodoform packing, adaptic, ADB and kerlix and loosely applied marcela. .
This treatment will need to be done at home via VN/Home care until seen in the office in 1 week. patient states he is agreeable and will not refuse home care for his wound care.
Antibiotics- augmentin po per ID
Assessment / Plan
-
DM2 with hyperglycemia -improved
DM2 with DPN/LOPS
?Psych issues- pt refused eval
Gas gangrene left foot w/ OM of the left 5th toe and metatarsal -S/P partial 5th ray amp POD #10
Osteomyelitis left 4th toe base prox phalynx with sinus tract plantar forefoot S/P partial 4th ray resection (4th toe and distal 1/3 4th met) and debridement of remaining soft tissue and distal 5th met-POD # 2
Subjective
Chief Complaint
gas gangrene left foot/osteomyelitis left foot
Subjective
Patient resting comfortably denies significant pain left foot
Objective
Temp Pulse Resp BP Pulse Ox
97.8 F 82 16 112/69 95
08/30/23 15:30 08/30/23 15:30 08/30/23 15:30 08/30/23 15:30 08/30/23 15:30
08/30/23 08:05
08/30/23 08:05
Vital Signs and Lab results were reviewed.
Inspection: Cellulitis (none) and Inflammation (minimal left forefoot)
Review of Systems
Review of Systems
Review of Systems: No Fever, No Chills, No Headache, No Nausea, No Diarrhea and No Joint Pain
Physical Exam
Physical Exam
General: No Apparent Distress, Comfortable and Conversant
Musculoskeletal: No Clubbing and No Cyanosis
Skin: Warm, Dry, Pressure Ulcer - Stage IV, Neurotrophic Ulcer and Other (erythema and edema have decreased to the forefoot, no purulence was expressed. Packing present in 3 locations- sub 2, original plantar neurotrophic ulcer and just superior to
that area within incision site. Plantar wound decreasing in size )
Neuro: AO x 3, Slurred Speech and Protective Sensation Absent
Vascular: Capillary Refill Delayed and Skin Temperature Warm to Cool
Dorsalis Pedis: Intact
Posterior Tibialis: Intact
[2023-08-30 22:04] LABS: Glucose - Point of Care 82 mg/dl (70-99)
[2023-08-30] MEDS: LANTUS 0.149999999999999994 UNITS SC (22:05)
[2023-08-30 23:49] VITALS: BP 116/62
[2023-08-31 06:00] VITALS: BMI 27.6
[2023-08-31 07:04] LABS: Glucose - Point of Care 89 mg/dl (70-99)
[2023-08-31 07:09] VITALS: BP 123/84
--- NOTE | 2023-08-31 07:20 | W.PN.HOSP.TC ---
Addendum entered and electronically signed by Conrad Samuels MD 09/05/23 07:13:
Gas gangrene
Addendum entered and electronically signed by Conrad Samuels MD 08/31/23 10:41:
Total time spent on d/c = 32 min. This included today's physical exam, progress note, review of laboratory and diagnostic data, preparation of discharge documents and prescriptions, and discussions about the pt's hospital course and discharge plan
with the patient and other medical physics teacher involved in the patient's care.
Original Note:
Today's Communication/Plan
-
d/c
Assessment / Plan
Assessment / Plan
HPI: 68-year-old male with past medical history of diabetes noncompliant with medication, diabetic neuropathy, hypertension, hypercholesteremia, who presented as 302.
The patient collapsed and urinated on himself in the kitchen and found to have gangrenous left toe.
Patient has had infected left fifth toe for the past year but over the past few days it has become black and necrotic.� Patient denies any pain.� Family has noticed some discharge from the toe.� Surrounding area is red.� Patient refused to come to
the hospital over the past several days so 302 was filed.� Patient has not been taking his diabetic medications for the past year which includes metformin and Humalog.� Denies any fevers or chills. He is a former smoker and alcohol user.� Denies any
drug use at this time.
Patient does not have any history of psychiatric problems.
Gen: continues to remain NAD, awake and alert
Eyes: EOMI, PERRLA, no scleral icterus.
Neck: supple.
CV: remains RRR, +S1/S2, no m/r/g.
Resp: CTAB anteriorly, no rales, wheezes, or rhonchi.
Abd: +BS, soft, NT, ND
Skin: facial rash, LLE with C/D/I dressing
Neuro: remains CN 2-12 intact, non-focal.
Psych: Normal mood and affect.
08/18/23 17:07 Blood/Venous Blood Culture - Final
No Growth - Final Report
08/18/23 17:07 Blood/Venous Blood Culture - Final
No Growth - Final Report
08/19/23 19:48 Foot - Left Tissue Culture - Final
S aureus-Methicillin Sensitive
Coagulase neg. staphylococcus
Strep species,not Enterococcus
08/19/23 19:48 Foot - Left Gram Stain - Final
08/18/23 17:11 Foot - Right Wound Culture - Final
Enterococcus faecalis
Streptococcus pyogenes
08/18/23 17:11 Foot - Right Gram Stain - Final
08/19/23 02:47 Urine Urine Culture - Final
S aureus-Methicillin Sensitive
08/18/23 21:59 Nose MRSA Screen - Final
No Methicillin Resistant Staphylococcus aureus isolated.
MRI L-foot: Transmetatarsal amputation of the fifth digit with intact resection margin without overt MR evidence for residual osteomyelitis at this site. Soft tissue wound along the lateral aspect of the foot more distally at the proximal phalangeal
level with underlying fluid tract extending into the subcutaneous tissues and adjacent to the fourth digit proximal phalanx proximal diaphysis with associated osteomyelitis. No discrete loculated abscess. Mild plantar fasciitis. Scattered
degenerative changes.
Gangrenous left toe due to PAD: healing. -with surrounding cellulitis, possible osteomyelitis
-B/L LE AROLDO within normal limits
-Vascular surgery saw and there was no indication for LE angiography
-Foot x-ray noted Soft tissue swelling and gas in the lateral forefoot most compatible with a necrotizing soft tissue infection. Demineralization of the fifth metatarsal head raising concern for osteomyelitis.
-s/p�5th ray amp with application wound vac and partial closure wound left foot by tail dogger 08/19/23
-WCx R foot with Enterococcus faecalis and strep pyogenes, WCx L foot MSSA
-MRI L foot notable for osteomyelitis of the proximal fourth digit
-Podiatry following
-s/p partial 4th ray amp (left 4th toe and distal 4t met) on 08/28/23
-was on IV Unasyn, now transitioned to Augmentin for 4 further days
Other problems:
MSSA bacteriuria, likely contaminant as per ID
DM2: a1c 14.8%, cont metformin/Lantus/premeal Novolog/SSI/accuchecks. 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
Essential hypertension: cont Coreg
Hypercholesterolemia
Former alcohol abuse
Former tobacco abuse
Hyponatremia
FULL/Heparin
Medically cleared for d/c. Case management aware.
Anticipated Discharge: Today
Subjective/Interval History
-
Date of Service: August 31, 2023
Denies CP/SOB.
Objective Data
-
Vital Signs:
Vital Signs
Temp Pulse Resp BP Pulse Ox
97.7 F 81 12 123/84 95
08/31/23 07:09 08/31/23 07:09 08/31/23 07:09 08/31/23 07:09 08/31/23 07:09
I&O
08/30/23 08/31/23 09/01/23
06:59 06:59 06:59
Intake Total 1230 / 1230 1420 / 1420
Balance 1230 / 1230 1420 / 1420
[2023-08-31] MEDS: GLUCOPHAGE 1000 MG PO ×2 (08:23→17:42)
[2023-08-31] MEDS: COREG 3.125 MG PO (08:23)
[2023-08-31] MEDS: AUGMENTIN 875 MG/125 MG 1 TABLET PO (08:23)
[2023-08-31] MEDS: NOVOLOG FLEXPEN-LOW RESISTANCE SC ×3 (08:24→17:42)
[2023-08-31] MEDS: NOVOLOG FLEXPEN 6 UNITS SC ×2 (08:24→13:48)
[2023-08-31] MEDS: DAKIN'S SOLUTION 0.125% 1/4 STRENGTH 473 ML TOPICAL (08:26)
--- NOTE | 2023-08-31 09:02 | PN.DE.MGMTRT ---
Insulin Management
- -
08/19/2023: Diabetes Management Consult
68-year-old male admitted with Left 5th toe nonhealing wound concerning for gangrene and possibly osteomyelitis.
PMH includes: HTN, HLD, Former ETOH and cigarette use, Diabetic Neuropathy and T2DM. A1C 14.8%, Glucose on admission was 428, Cr 0.7-->1.1 today.
Per chart review, pt has not taken any of his diabetes medications (Humalog and Metformin) for over a year.
Pt is unable to provide hx or participate in interview. Family is at the bedside, has provided a list of medications that were last filled 07/2022, on the list is- Levemir 30 units daily, Metformin 1000 mg BID, Glipizide 10mg BID and Humalog SS
10-15 units with meals. Pt's states that pt stopped taking all his DM meds a year ago and it appears that he gave up on himself. states he has a glucose meter ([employer]) with supplies but does not monitor his sugars, dtr at bedside states she
is using the supplies.
His current regiment includes: Lantus 10 units @ HS with low corrective insulin with meals.
Glucose has remained >200, FBG 235, has received 3 units of corrective for a blood sugar of 267 before breakfast.
Will start AC NovoLog 8 units and increase Lantus to 15 units and change to moderate corrective
Will hold off on starting Metformin and reassess after surgery.
Pt was seen with Surgeon/Interior Decorator at bedside, plan for OR later today.
Spoke to pt's nurse and instructed to HOLD AC NovoLog but use corrective insulin while NPO if needed before procedure
Will follow closely and make further adjustments as needed
08/20/2023 Diabetes Management Follow up
POD 1 s/p L 5th toe amputation. Patient received 15 units Lantus @ HS, fasting glucose this AM 148. Will make no change to Lantus. Patient was in the OR in the evening, most likely no dinner, HS glucose 128. Will continue AC NovoLog 8 units,
reduce corrective insulin from moderate to low. CR 1.2, egfr >60, will resume metformin. With A1C 14.8% will not resume glipizide.
08/21/2023: Diabetes Management F/U
POD# 2 s/p L5th toe amputation, pt doing well, offers no complaints.
Glucose stable and in range, FBG 140 this AM, premeal 129 to 155 on current regimen
Will make no changes- cont Lantus 15 units, AC NovoLog 8 units, low corrective insulin and Metformin.
With A1C 14.8% will not resume glipizide.
08/24/2023: Diabetes Management F/U:
POD# 5 s/p L5th toe amputation, pt doing well, offers no complaints.
Glucose remained stable throughout the weekend with some drop to 70-90 at lunch time
Will reduce AM NovoLog dose to 4 units. Cont NovoLog 8 units before lunch and dinner.
FBG 153, Will make no changes to Lantus dose of 15 units @ HS
HOLD AC NovoLog if pt NPO for procedure and use corrective insulin
08/25/2023 Diabetes Management Follow up
POD 6 s/p 5th toe amputation. Glucose 78 pre dinner. Will change NovoLog to 6 units AC with low corrective. AM glucose 102, will make no change to Lantus 15 units @ hs.
08/26/2023 Diabetes Management Follow up
Podiatry recommends return to OR for amputation of 4th toe.
Glucose stable, 102 to 116, with 6 units NovoLog AC, required no correction, and 15 units Lantus @ HS. AM fasting glucose not reported at this time. Will assess for needed adjustments to Lantus when reported.
08/27/2023 Diabetes Management Follow up
Glucose remains stable, 105 to 129 with 15 Lantus @ hs and 6 units NovoLog AC. Required no corrective insulin. Patient for OR tomorrow, will HOLD 15 Lantus @ hs tonight and reduce dose to 10 units (one time dose), will resume 15 Lantus @ hs on
Thursday @ HS.
08/28/2023: Diabetes Management F/U:
Pt NPO for OR today, received reduced dose of Lantus 10 units last night, FBG 123. Otherwise, Glucose remains stable, 83 to 118 on current regimen.
Will make no changes, resume Lantus 15 units @ hs tonight and AC NovoLog 6 units with corrective insulin post-op
08/31/2023: Diabetes Management F/U:
POD# 3 s/p partial 4th ray amp (left 4th toe and distal 4t met) on 08/28/23, pt doing well, offers no complaints.
Glucose remained stable throughout the weekend w/o Hypoglycemia
Will make no changes to current regimen, Lantus 15 units @ hs tonight and AC NovoLog 6 units with corrective insulin
Pt stable for d/c home from diabetes standpoint
Diabetes History
- -
Type of Diabetes: 2 requiring insulin
Pre-Admission Diabetes Regimen
Lab Results
Hemoglobin A1c 14.8 % (4.0-5.6) H 08/19/23 04:43
Insulin Pump Settings
IP Diabetes Regimen
08/30/23 08/30/23 08/30/23
12:13 17:01 21:58
POC Glucose 109 H 114 H 82
08/31/23
07:02
POC Glucose 89
Meal type: Dinner
Meal type: Breakfast
Amount consumed: 100%
Amount consumed: 100%
Patient Education
--- NOTE | 2023-08-31 09:03 | CM ---
Addendum entered by Margret Gomez RN 08/31/23 13:31:
A list of area PCPs was provided to the patient. Podiatry will follow for VN orders if needed.
Addendum entered by Margret Gomez RN 08/31/23 09:10:
Please fax discharge paperwork to [facility] . Alva from [facility] informed of anticipated discharge today.
Addendum entered by Margret Gomez RN 08/31/23 09:09:
IMM signed and placed on the chart. The patient's spouse will provide transportation home.
Original Note:
Reviewed the chart notes and spoke with the patient at the bedside. Patient is for discharge today to home with VN services. Discussed area VN agencies, patient selected VN. Referral sent via [facility]. CM continues to be available to
patient/family and is monitoring medical plan for needs at discharge.
Plan: Discharge to home with VN services.
--- NOTE | 2023-08-31 10:31 | WOUNDNOTE ---
WOC RN NOTE: Reviewed chart and added new wound care orders to discharge instructions. Per chart review, patient will be discharge to home with VN today.
--- NOTE | 2023-08-31 12:32 | W.PN.ID1 ---
Date of Service
Date of Service: August 31, 2023
Today's Communication
path pending
stable for dc
Assessment / Plan
Gangrene - wet - s/p resection
Probable osteomyelitis - L 5th met head, L 4th digit proximal phalanx proximal diaphysis with associated osteomyelitis.
DM2 - uncontrolled
FABRICE - resolved
Medication noncompliance - ongoing
- plan 3 more days of augmentin
- will follow up path - pending
- follow up with podiatry, stable for dc from ID perspective
Chief Complaint
-: Other (gas gangrene)
Subjective / Review of Systems
afebrile
bp stable
tolerating current therapies
no new complaints
Vital Signs / Physical Exam
Vital Signs
Vital Signs
Temp Pulse Resp BP Pulse Ox
97.7 F 81 12 123/84 95
08/31/23 07:09 08/31/23 08:23 08/31/23 07:09 08/31/23 08:23 08/31/23 07:09
Physical Exam
Constitutional: No Acute Distress
Cardiovascular: Regular Rate
Pulmonary: Symmetric and Non Labored
Gastrointestinal: Non Distended
Wound: Other (dressing clean, dry, intact)
Neurological: Awake
Objective Data
Lab Data
Lab Results
08/30/23 08:05
08/30/23 08:05
Estimated Creat Clear 85 ml/min 08/30/23 08:05
Lactic Acid 1.9 mmol/L (0.7-2.0) 08/18/23 21:32
Total Bilirubin 1.0 mg/dl (0.2-1.3) 08/19/23 04:43
AST 17 U/L (17-59) 08/19/23 04:43
ALT 14 U/L (0-50) 08/19/23 04:43
Alkaline Phosphatase 129 U/L (38-126) H 08/19/23 04:43
Most recent labs reviewed.
Micro Results:
08/28/23 Unknown Anaerobic Culture - Preliminary
Foot - Left Culture pending. Anaerobic cultures are examined after 3
days incubation. Additional information to follow.
08/28/23 Unknown Tissue Culture - Preliminary
Foot - Left No Growth After 48 Hours
Gram Stain - Preliminary
08/18/23 17:07 Blood Culture - Final
Blood/Venous No Growth - Final Report
08/18/23 17:07 Blood Culture - Final
Blood/Venous No Growth - Final Report
08/19/23 19:48 Tissue Culture - Final
Foot - Left S aureus-Methicillin Sensitive
Coagulase neg. staphylococcus
Strep species,not Enterococcus
Gram Stain - Final
08/18/23 17:11 Wound Culture - Final
Foot - Right Enterococcus faecalis
Streptococcus pyogenes
Gram Stain - Final
08/19/23 02:47 Urine Culture - Final
Urine S aureus-Methicillin Sensitive
08/18/23 21:59 MRSA Screen - Final
Nose No Methicillin Resistant Staphylococcus aureus isolated.
--- NOTE | 2023-08-31 13:00 | W.DCSUMMARY ---
Discharge Summary
Discharge Data
Date of Admission: 08/18/23
Date of Discharge: 08/31/23
-
Pending Results: No
Hospital Course
Primary diagnoses:
Gangrenous left toe due and osteomyelitis to peripheral arterial disease as well as uncontrolled type 2 diabetes mellitus s/p 5th ray amp with application wound vac and partial closure wound left foot by ssis ssrs developer 08/19/23 and s/p partial 4th ray
amp (left 4th toe and distal 4t met) on 08/28/23
Secondary diagnoses:
Methicillin sensitive Staphylococcus aureus bacteriuria, likely contaminant
Essential hypertension
Hypercholesterolemia
Former alcohol abuse
Former tobacco abuse
Hyponatremia
Consultants:
Vascular surgery
Podiatry
Infectious disease
Psychiatry
Imaging:
L foot Xray 08/18/23:
1. Soft tissue swelling and gas in the lateral forefoot most compatible with a necrotizing soft tissue infection.
2. Demineralization of the fifth metatarsal head raising concern for osteomyelitis.
Aorta U/S: Nonaneurysmal abdominal aorta and iliac arteries. Increased echogenicity of the hepatic parenchyma suggestive of steatosis. No focal lesions.
B/L LE arterial U/S with ABIs:
Right leg: AROLDO within normal limits measuring 1.28. Multiphasic flow throughout the leg with no focal or flow-limiting stenosis appreciated.
Left leg: AROLDO within normal limits measuring 1.03. TBI measures 1.52, possibly falsely elevated. Multiphasic flow within the common femoral through popliteal arteries no focal stenosis appreciated. Similarly dampened waveforms observed within the
dorsalis pedis artery raising the possibility of infrapopliteal disease.
Enlarged LEFT inguinal lymph node measuring 4.0 x 1.3 x 2.1 cm with echogenic hilum, likely reactive in nature.
MRI L-foot 08/25/23: Transmetatarsal amputation of the fifth digit with intact resection margin without overt MR evidence for residual osteomyelitis at this site.�Soft tissue wound along the lateral aspect of the foot more distally at the proximal
phalangeal level with underlying fluid tract extending into the subcutaneous tissues and adjacent to the fourth digit proximal phalanx proximal diaphysis with associated osteomyelitis.�No discrete loculated abscess. Mild plantar fasciitis. Scattered
degenerative changes.
68-year-old male who initially presented with chief complaint of left fifth toe gangrene is on H&P done on admission. Hospital course by problem list:
Gangrenous left toe due and osteomyelitis to peripheral arterial disease as well as uncontrolled type 2 diabetes mellitus s/p 5th ray amp with application wound vac and partial closure wound left foot by ssis ssrs developer 08/19/23 and s/p partial 4th ray
amp (left 4th toe and distal 4t met) on 08/28/23: Patient was seen in consultation by vascular surgery and there was no indication for LE angiography. All imaging above. Patient underwent two surgical procedures as noted. Antibiotics managed by
infectious disease. The patient was initially given doses of vancomycin and Zosyn. He was then placed on Unasyn and at the time of discharge she was transitioned to Augmentin for 4 further days of antibiotic therapy. Patient was seen by the
diabetes nurse practitioner. His hemoglobin A1c was 14 8.8%. He was placed on basal bolus insulin which was titrated based on his Accu-Cheks while hospitalized.
Discharge Plan
-
Patient Disposition: Home with Home Care
Discharge Diagnosis/Procedures: Gangrenous left toe due and osteomyelitis to peripheral arterial disease as well as uncontrolled type 2 diabetes mellitus s/p 5th ray amp with application wound vac and partial closure wound left foot by ssis ssrs developer
08/19/23 and s/p partial 4th ray amp (left 4th toe and distal 4t met) on 08/28/23
Condition: Good
Diet: Diabetic, Carb Controlled
Activity: As tolerated
Driving Restrictions: No driving
Blood Work: BMP and CBC in 1 week, script from PCP
Activity Restrictions/Additional Instructions:
Wound Care Instructions Irrigate lateral foot wound with 0.125% dakins solution. Pack plantar wound and lateral distal incision with 1/4 iodoform packing.
folded 4x4, ABD and wrap with kerlix and loosely applied marcela daily
Follow up with Dr. Ross
Referrals:
UNKNOWN - PT NOT,INTERVIEWE [Family Provider] - in less than 1 week
Prescriptions:
New
insulin aspart U-100 [Novolog FlexPen U-100 Insulin] 100 unit/mL (3 mL) Insulin Pen
6 unit SC AC Qty: 5 0RF
Rx Instructions:
Take 6 units before each meal
insulin glargine [Lantus Solostar U-100 Insulin] 100 unit/mL (3 mL) Insulin Pen
15 unit SC HS Qty: 5 0RF
Rx Instructions:
Take 15 units every night at bedtime
(DME) pen needle, diabetic [BD Ultra-Fine Ida Pen Needle] 32 gauge x ' Needle
Qty: 200 0RF
Rx Instructions:
Use a new needle with each insulin injection
carvedilol 3.125 mg Tablet
3.125 mg PO BID Qty: 60 0RF
metformin 1,000 mg Tablet
1,000 mg PO BID@0800,1700 Qty: 60 0RF
amoxicillin-pot clavulanate 875-125 mg Tablet
1 tab PO Q12 Qty: 8 0RF
Discharge Orders:
Discharge Patient (As Directed); Ordered 08/31/23
Ordered By: Conrad Samuels
[2023-08-31 13:28] LABS: Glucose - Point of Care 82 mg/dl (70-99)
[2023-08-31 15:15] VITALS: BP 94/50
--- NOTE | 2023-08-31 16:23 | VNURNOTE ---
Home Health Liaison spoke with patient's Florence at 1625 to discuss [facility] nurse/therapy, visits, schedule and homebound status. Florence is agreeable and understands that visits at home will be 2-3 x per week to assess and teach medical management
and wound care.
Florence is aware that [facility] will contact them for start of care in 1-2 days after discharge from .
[facility] referral completed in [facility].
[2023-08-31 17:16] LABS: Glucose - Point of Care 92 mg/dl (70-99)
[2023-08-31] MEDS: NOVOLOG FLEXPEN SC ×3 (17:41→18:06)
--- NOTE | 2023-09-01 12:37 | PN.CDI ---
CDI
- -
CDI:
Physician Documentation Request
Admit Date: 08/18/23 19:34
Dear Doctor Arvind,
Patient admitted for gangrenous wound.
08/18 Food XRay report: 'Soft tissue swelling and gas in the lateral forefoot most compatible with a necrotizing soft tissue infection.'
08/30 Podiatry PN: 'Gas gangrene left foot w/ OM of the left 5th toe and metatarsal -S/P partial 5th ray amp POD #10'
08/31 Infectious Disease PN: 'Gangrene - wet - s/p resection'
Please clarify the type of gangrene being monitored/treated:
Gas gangrene
Wet gangrene
Other
Unable to determine
Use of terms such as suspected, likely, concern for, or probable (associated with a specific diagnosis that is being evaluated, monitored, or treated as if it exists) are acceptable and can be coded in the inpatient setting, when documented at the
time of discharge.
Thank you,
Sonia Emery RN, BSN
CDI Specialist
Available via [place] text
Please use your independent medical judgment in providing your response.
== END 2023-08-31 18:40 | disposition home health service (06) | DRG 853 ==
LOC: 2 NORTH 19:34
PROVIDERS: Internal Medicine; ADMITTING PHYSICIAN Hospitalist; ATTENDING PHYSICIAN Internal Medicine; CONSULT PHYSICIAN Podiatrist Foot & Ankle Surgery; CONSULT PHYSICIAN Student in an Organized Health Care Education/Training Program; EMERGENCY PHYSICIAN Emergency Medicine; OTHER PHYSICIAN Nurse Practitioner Acute Care
PROC: 0Y6N0ZF Detachment at Left Foot, Partial 5th Ray, Open Approach (ICD-10-PCS; 2023-08-19)
PROC: 0JBR0ZZ Excision of Left Foot Subcutaneous Tissue and Fascia, Open Approach (ICD-10-PCS; 2023-08-28)
PROC: 0Y6N0ZD Detachment at Left Foot, Partial 4th Ray, Open Approach (ICD-10-PCS; 2023-08-28)
DX: A41.9 Sepsis, unspecified organism (principal); A48.0 Gas gangrene; M86.172 Other acute osteomyelitis, left ankle and foot; E11.52 Type 2 diabetes mellitus with diabetic peripheral angiopathy with gangrene; E87.1 Hypo-osmolality and hyponatremia; E11.628 Type 2 diabetes mellitus with other skin complications; E11.65 Type 2 diabetes mellitus with hyperglycemia; L03.032 Cellulitis of left toe; E11.621 Type 2 diabetes mellitus with foot ulcer; E11.69 Type 2 diabetes mellitus with other specified complication; I10 Essential (primary) hypertension; E78.00 Pure hypercholesterolemia, unspecified; L97.529 Non-pressure chronic ulcer of other part of left foot with unspecified severity; F10.11 Alcohol abuse, in remission; R32 Unspecified urinary incontinence; B95.2 Enterococcus as the cause of diseases classified elsewhere; B95.0 Streptococcus, group A, as the cause of diseases classified elsewhere; Z87.891 Personal history of nicotine dependence; Z91.148 Patient's other noncompliance with medication regimen for other reason; Z79.4 Long term (current) use of insulin; Z79.84 Long term (current) use of oral hypoglycemic drugs
CPT/HCPCS: 88304; 88305; 88311; 70030; 73620; 73630; 73720; 76770; 80048; 80053; 80202; 81003; 81015; 82962; 83036; 83605; 83735; 85025; 85027; 86803; 87040; 87070; 87075; 87077; 87086; 87147; 87176; 87186; 87205; 93922; 93925; 96365; 96375; 97116; 97162; 97166; 97530; 99284

== ENCOUNTER 2024-01-29 18:49 | Inpatient (IN) | payer OTHER, SELFPAY ==
[2024-01-29] VITALS (9 sets, daily range): BP systolic 108–126; BP diastolic 57–74; BMI 28.1; BMI 25.8
[2024-01-29 11:31] LABS: % Basophils 0.2 % (0-2); % Immature Granulocytes 0.9 % (0-0.5); % Lymphocytes 3.2 % (20.5-51.1); % Monocytes 6.6 % (1.7-9.3); % Neutrophils 89.1 % (42.2-75.2); Absolute Basophils 0.1 10^3/uL (0-0.2); Absolute Immature Granulocytes 0.4 10^3/uL (0-0.05); Absolute Lymphocytes 1.2 10^3/uL (1.2-3.4); Absolute Monocytes 2.5 10^3/uL (0.1-0.6); Absolute Neutrophils 33.1 10^3/uL (1.4-6.5); Hematocrit 28.6 % (39.0-52.0); Hemoglobin 10.1 g/dL (13.0-18.0); Mean Corp Hgb Conc. 35.3 g/dL (33.0-37.0); Mean Corpuscular Hgb 31.2 pg (27.0-31.0); Mean Corpuscular Volume 88.3 fL (80.0-94.0); Nucleated Red Blood Cells % 0 % (-); Platelet Count 596 10^3/uL (130-400); Red Blood Cell Count 3.24 10^6/uL (4.70-6.10); White Blood Cell Count 37.2 10^3/uL (4.8-10.8)
--- NOTE | 2024-01-29 11:38 | ED.GENMED ---
History of Present Illness
<Eliz Hudson PA-C - Last Filed: 02/01/24 06:55>
General
Chief Complaint: Abdominal Symptoms
Source: patient and spouse
Time Seen by Provider: 01/29/24 10:52
History of Present Illness
History of Present Illness:
68yoM with a history of type 2 diabetes and hypothyroidism presenting with his for evaluation of generalized weakness. Patient reports decreased appetite and poor p.o. intake for the past several weeks. He has lost about 17 pounds in the past
month. He developed diarrhea about 3 days ago which his describes as profuse. Patient reports significant generalized weakness. He has been having frequent falls due to his weakness. He also endorses exertional dyspnea. He was seen by his
PCP this morning and was sent to the ED for concern for dehydration. No chest pain or syncope. No fevers. He denies any recent travel, suspicious food intake, or sick contacts.
Phy Exam
<Eliz Hudson PA-C - Last Filed: 02/01/24 06:55>
Physical Exam
Physical Exam:
Ill appearing elderly male with dry mucous membranes. Acutely non-toxic.
General Physical Exam
General Presentation: mild distress
General Skin: warm and dry
General Habitus: elderly
General Mental: alert
Cardiovascular Exam
Cardiovascular Exam: no murmur and tachycardia
Pulmonary Exam
Pulmonary Exam: lungs clear, no respiratory distress, no crackles and no wheezing
Gastrointestinal Exam
Gastrointestinal Exam: non tender, soft and non distended
Skin Exam
Skin Exam: normal color and warm/dry
Course
<Eliz Hudson PA-C - Last Filed: 02/01/24 06:55>
Orders/Labs/Results
Orders:
Orders
01/29/24 11:15
Complete Blood Count/With Diff Urgent
Comprehensive Metabolic Panel Urgent
Glycohemoglobin (HgbA1c) Urgent
Lipase Urgent
Comment: ADD ON
Magnesium Urgent
Comment: ADD ON
01/29/24 11:37
Add On- LAB Urgent
Tests Added?: Lipase, magnesium
0.9% Sodium Chloride 1000 ml [Nss] 1,000 ml IV BOLUS
01/29/24 11:38
Electrocardiogram (*1) Urgent
Reason for Study: Other
Other Reason for Exam: weakness
01/29/24 11:42
Lactate Level [Lactic Acid] Urgent
Troponin I Urgent
01/29/24 13:14
CT Chest/abd/pel Wo Iv Cont Urgent
Reason For Exam: SOB, weight loss
Iohexol [Omnipaque] See Protocol PO NOW STA
01/29/24 Dinner
1800 calorie (15 carb) Diabetic
At Your Request: Full Participation
01/29/24 15:07
Stool Culture Urgent
AMY Source: Feces/Stool
Specimen Description:
Date Specimen was Collected: 01/29/24
Time Specimen was Collected: 15:06
01/29/24 15:08
STOOL [C difficile Antigen & Toxins] Urgent
AMY Source: Feces/Stool
Specimen Description:
Date Specimen was Collected: 01/29/24
Time Specimen was Collected: 15:06
01/29/24 16:45
Urinalysis Reflex To Culture Urgent
Date Specimen was Collected: 01/30/24
Time Specimen was Collected: 02:56
01/29/24 17:45
Dextrose 5%/Water 1000 ml [D5w] 1,000 ml Sodium Bicarbonate 150 meq IV 150 mls/hr
01/29/24 18:00
LevoFLOXacin 750 MG/150 ML [Levaquin] 750 mg in 150 ml IV Q24H
01/29/24 18:01
Add On- LAB Stat
Tests Added?: Hba1c
01/29/24 18:26
Admit/Transfer Patient As Directed
Co-Sign Provider:
Level of Care: Inpatient admission
Assign to:: Medical/Surgical
Physician / Group: hospitalist
Diagnosis: Acute kidney injury
Reason for Hospitalization: Acute kidney injury
Expected length of stay greater than two midnights?: Yes
ELOS- Estimated Length of Stay in days: 3
I certify the patient meets the requirements for IP care: Yes
01/29/24 18:36
Code Status As Directed
Resuscitation Status: Full Code
01/29/24 18:38
Dextrose 50%-Water [Dextrose 50% Syringe] 12.5 grams IV [id number] PRN
Glucagon [GlucaGen] 1 mg IM PRN PRN
Bedside Glucose Monitoring As Directed
Frequency: AC&HS
Additional Instructions:: Change to q6h if pt on TPN, tube feeding or not eating
01/29/24 20:08
Heparin 5,000 units SC Q12
Hydrocodone 5/APAP 325 [[place] 5/325] 1 tablet PO BIDPRN PRN
01/29/24 20:08
DX Deep Vein Thrombosis Video Routine
01/29/24 22:00
MetroNIDAZOLE 500 MG/100 ML [Flagyl 500 mg] 100 ml IV Q8H
01/30/24 06:00
Levothyroxine [Synthroid] 25 mcg PO DAILY @ 0600
01/30/24 07:30
Insulin Aspart Corrective Mod [Novolog Flexpen-Moderate Resistance] See Protocol SC AC
01/30/24 08:00
Bupropion(24Hr)Extended Releas [WELLBUTRIN XL (24 hour extended release)] 150 mg PO DAILY
Meloxicam [Mobic] 15 mg PO DAILY
Midodrine [ProAmatine] 2.5 mg PO TID @ 0800,1200,1700
02/04/24 08:00
Ergocalciferol [Drisdol (Vitamin D2)] 50,000 units PO TH
Abnormal Lab Results
01/29/24
11:15
WBC 37.2 H 10^3/uL
(4.8-10.8)
RBC 3.24 L 10^6/uL
(4.70-6.10)
Hgb 10.1 L g/dL
(13.0-18.0)
Hct 28.6 L %
(39.0-52.0)
MCH 31.2 H pg
(27.0-31.0)
Plt Count 596 H 10^3/uL
(130-400)
Abs Immat Gran (auto) 0.4 H 10^3/uL
(0-0.05)
Absolute Neuts (auto) 33.1 H 10^3/uL
(1.4-6.5)
Absolute Monos (auto) 2.5 H 10^3/uL
(0.1-0.6)
Immature Gran % 0.9 H %
(0-0.5)
Neutrophils % 89.1 H %
(42.2-75.2)
Lymphocytes % 3.2 L %
(20.5-51.1)
Sodium 131 L mmol/L
(135-145)
Chloride 95 L mmol/L
(98-107)
Carbon Dioxide 16 L mmol/L
(22-30)
BUN 35 H mg/dl
(9-20)
Creatinine 1.9 H mg/dL
(0.7-1.3)
Glucose 183 H mg/dl
(70-99)
Hemoglobin A1c 6.6 H %
(4.0-5.6)
Total Bilirubin 2.8 H mg/dl
(0.2-1.3)
Alkaline Phosphatase 178 H U/L
(38-126)
01/29/24 11:15
01/29/24 11:15
Vital Signs
Initial and Last Documented VS:
Initial Vital Signs
Temp Pulse BP Pulse Ox
99.5 F 130 108/60 99
01/29/24 10:06 01/29/24 10:06 01/29/24 10:06 01/29/24 10:06
Last Documented Vital Signs
Temp Pulse Resp BP Pulse Ox
98.3 F 97 18 126/76 99
01/31/24 23:19 01/31/24 23:19 01/31/24 23:19 01/31/24 23:19 01/31/24 23:19
<Mathew Chun PA-C - Last Filed: 01/29/24 18:53>
Orders/Labs/Results
Orders:
Orders
01/29/24 11:15
Complete Blood Count/With Diff Urgent
Comprehensive Metabolic Panel Urgent
Glycohemoglobin (HgbA1c) Urgent
Lipase Urgent
Comment: ADD ON
Magnesium Urgent
Comment: ADD ON
01/29/24 11:37
Add On- LAB Urgent
Tests Added?: Lipase, magnesium
0.9% Sodium Chloride 1000 ml [Nss] 1,000 ml IV BOLUS
01/29/24 11:38
Electrocardiogram (*1) Urgent
Reason for Study: Other
Other Reason for Exam: weakness
01/29/24 11:42
Lactate Level [Lactic Acid] Urgent
Troponin I Urgent
01/29/24 13:14
CT Chest/abd/pel Wo Iv Cont Urgent
Reason For Exam: SOB, weight loss
Iohexol [Omnipaque] See Protocol PO NOW STA
01/29/24 Dinner
1800 calorie (15 carb) Diabetic
At Your Request: Full Participation
01/29/24 15:07
Stool Culture Urgent
AMY Source: Feces/Stool
Specimen Description:
Date Specimen was Collected: 01/29/24
Time Specimen was Collected: 15:06
01/29/24 15:08
STOOL [C difficile Antigen & Toxins] Urgent
AMY Source: Feces/Stool
Specimen Description:
Date Specimen was Collected: 01/29/24
Time Specimen was Collected: 15:06
01/29/24 16:45
Urinalysis Reflex To Culture Urgent
Date Specimen was Collected: 01/30/24
Time Specimen was Collected: 02:56
01/29/24 17:45
Dextrose 5%/Water 1000 ml [D5w] 1,000 ml Sodium Bicarbonate 150 meq IV 150 mls/hr
01/29/24 18:00
LevoFLOXacin 750 MG/150 ML [Levaquin] 750 mg in 150 ml IV Q24H
01/29/24 18:01
Add On- LAB Stat
Tests Added?: Hba1c
01/29/24 18:26
Admit/Transfer Patient As Directed
Co-Sign Provider:
Level of Care: Inpatient admission
Assign to:: Medical/Surgical
Physician / Group: hospitalist
Diagnosis: Acute kidney injury
Reason for Hospitalization: Acute kidney injury
Expected length of stay greater than two midnights?: Yes
ELOS- Estimated Length of Stay in days: 3
I certify the patient meets the requirements for IP care: Yes
01/29/24 18:36
Code Status As Directed
Resuscitation Status: Full Code
01/29/24 18:38
Dextrose 50%-Water [Dextrose 50% Syringe] 12.5 grams IV [id number] PRN
Glucagon [GlucaGen] 1 mg IM PRN PRN
Bedside Glucose Monitoring As Directed
Frequency: AC&HS
Additional Instructions:: Change to q6h if pt on TPN, tube feeding or not eating
01/29/24 20:08
Heparin 5,000 units SC Q12
Hydrocodone 5/APAP 325 [[place] 5/325] 1 tablet PO BIDPRN PRN
01/29/24 20:08
DX Deep Vein Thrombosis Video Routine
01/29/24 22:00
MetroNIDAZOLE 500 MG/100 ML [Flagyl 500 mg] 100 ml IV Q8H
01/30/24 06:00
Levothyroxine [Synthroid] 25 mcg PO DAILY @ 0600
01/30/24 07:30
Insulin Aspart Corrective Mod [Novolog Flexpen-Moderate Resistance] See Protocol SC AC
01/30/24 08:00
Bupropion(24Hr)Extended Releas [WELLBUTRIN XL (24 hour extended release)] 150 mg PO DAILY
Meloxicam [Mobic] 15 mg PO DAILY
Midodrine [ProAmatine] 2.5 mg PO TID @ 0800,1200,1700
02/04/24 08:00
Ergocalciferol [Drisdol (Vitamin D2)] 50,000 units PO TH
Abnormal Lab Results
01/29/24
11:15
WBC 37.2 H 10^3/uL
(4.8-10.8)
RBC 3.24 L 10^6/uL
(4.70-6.10)
Hgb 10.1 L g/dL
(13.0-18.0)
Hct 28.6 L %
(39.0-52.0)
MCH 31.2 H pg
(27.0-31.0)
Plt Count 596 H 10^3/uL
(130-400)
Abs Immat Gran (auto) 0.4 H 10^3/uL
(0-0.05)
Absolute Neuts (auto) 33.1 H 10^3/uL
(1.4-6.5)
Absolute Monos (auto) 2.5 H 10^3/uL
(0.1-0.6)
Immature Gran % 0.9 H %
(0-0.5)
Neutrophils % 89.1 H %
(42.2-75.2)
Lymphocytes % 3.2 L %
(20.5-51.1)
Sodium 131 L mmol/L
(135-145)
Chloride 95 L mmol/L
(98-107)
Carbon Dioxide 16 L mmol/L
(22-30)
BUN 35 H mg/dl
(9-20)
Creatinine 1.9 H mg/dL
(0.7-1.3)
Glucose 183 H mg/dl
(70-99)
Hemoglobin A1c 6.6 H %
(4.0-5.6)
Total Bilirubin 2.8 H mg/dl
(0.2-1.3)
Alkaline Phosphatase 178 H U/L
(38-126)
01/29/24 11:15
01/29/24 11:15
Vital Signs
Initial and Last Documented VS:
Initial Vital Signs
Temp Pulse BP Pulse Ox
99.5 F 130 108/60 99
01/29/24 10:06 01/29/24 10:06 01/29/24 10:06 01/29/24 10:06
Last Documented Vital Signs
Temp Pulse Resp BP Pulse Ox
98.3 F 97 18 126/76 99
01/31/24 23:19 01/31/24 23:19 01/31/24 23:19 01/31/24 23:19 01/31/24 23:19
[place];Eliz Hudson PA-C - Last Filed: 02/01/24 06:55>
MDM/Problems Addressed
Differential Diagnosis Includes:
68yoM presenting for poor PO intake, weakness, diarrhea, and weight loss x several weeks. Also having frequent falls. Patient is tachycardic to 130 on arrival. Vitals otherwise stable. He is ill-appearing and clinically dry on exam but nontoxic.
Differential diagnosis includes but is not limited to: Dehydration, electrolyte abnormality, FABRICE, malignancy, colitis
Initial ED plan: Check cardiac labs, magnesium, lipase, lactate, stool studies, and EKG. IV fluid bolus.
<Eliz Hudson PA-C - Last Filed: 02/01/24 06:55>
*EKG
EKG Intrepretation Date: 01/29/24
Heart Rate: 111
Rate: tachycardiac
Rhythm: sinus
[place]: normal axis
Interval: normal interval
QRS Pattern: normal QRS
Ischemia: no ischemia
<Mathew Chun PA-C - Last Filed: 01/29/24 18:53>
*Critical Care Note
Total Time (30-74mins, 75-104mins- exclusive of procedures): Not Applicable
<Eliz Hudson PA-C - Last Filed: 02/01/24 06:55>
Update Note
Update Note:
Labs reveal a significant leukocytosis with a white count of 37. Lactate normal. Bicarb is 16. Creatinine 1.9, up from baseline of 0.9. Total bilirubin 2.8, remainder of LFTs normal. Due to significant lab abnormalities, CT CAP added. Patient signed
out to Santo Chun PA-C prior to CT results. Patient will require admission.
CT reveals no acute pathology. Will admit for further eval/management --DK
<Mathew Chun PA-C - Last Filed: 01/29/24 18:53>
Update Note
Update Note:
Labs reveal a significant leukocytosis with a white count of 37. Lactate normal. Bicarb is 16. Creatinine 1.9, up from baseline of 0.9. Total bilirubin 2.8, remainder of LFTs normal. Due to significant lab abnormalities, CT CAP added.
CT reveals no acute pathology. Will admit for further eval/management --DK
ED Attending Note
<Eliz Hudson PA-C - Last Filed: 02/01/24 06:55>
-
Portions of this chart may have been created with voice recognition software.� Occasional wrong word or��sound alike� substitutions may have occurred due to the inherent limitations of voice recognition software.
Discharge Plan
Departure
Patient Disposition: Admit
Date of Disposition: 01/29/24
Time of Disposition: 17:20
Admit to: Med/Surg
Presentation/result/management discussed w/ accepting MD/DO: Hospitalist
Discharge Problem:
FABRICE (acute kidney injury), Generalized weakness
Interventions
Interventions:
*Risk Screen - Suicide Last Done: 01/29/24 21:52
*General Assessment Last Done: 01/29/24 10:09
*ED COVID-19 Vaccine History Last Done: 01/29/24 21:52
*Nursing Disposition Last Done: 01/29/24 20:09
EY-Wrsdso-Kzzqpqvuvf Assessment Last Done: 01/29/24 11:24
Discharge Date and Time
Discharge Date/Time: 01/29/24 20:35
[2024-01-29] MEDS: NSS 1000 IV (11:44)
[2024-01-29 12:15] LABS: Lactic Acid 1.2 mmol/L (0.7-2.0)
[2024-01-29 12:20] LABS: ALT (SGPT) 17 U/L (0-50); AST (SGOT) 26 U/L (17-59); Albumin 3.5 g/dl (3.5-5.0); Alkaline Phosphatase 178 U/L (38-126); Blood Urea Nitrogen 35 mg/dl (9-20); Calcium 9.7 mg/dl (8.4-10.2); Carbon Dioxide 16 mmol/L (22-30); Chloride 95 mmol/L (98-107); Glucose 183 mg/dl (70-99); Magnesium 1.9 mg/dl (1.6-2.3); Potassium 4.7 mmol/L (3.5-5.1); Sodium 131 mmol/L (135-145); Total Bilirubin 2.8 mg/dl (0.2-1.3); Total Protein 7.6 g/dl (6.3-8.2); eGFR 37.71
[2024-01-29 12:22] LABS: Troponin I < 0.012 ng/ml
[2024-01-29 12:58] LABS: Lipase 27 U/L (23-300)
[2024-01-29] MEDS: OMNIPAQUE 50 ML PO (13:20)
--- NOTE | 2024-01-29 17:40 | W.PN.UPDATE ---
Update Note
Progress Note Update
I personally performed a history and physical exam of the patient and discussed management with the resident. I reviewed the resident's note and agree with the documented findings and plan of care HPI/CC.
68 y/o M who p/w CC weakness and diarrhea for 3 weeks, 17lb wt loss.
Gen: NAD, AAOx3.
Eyes: EOMI, PERRLA, no scleral icterus.
Neck: supple.
CV: RRR, +S1/S2, no m/r/g.
Resp: CTAB, no rales, wheezes, or rhonchi.
Abd: +BS, soft, NT, ND
Skin: No rashes.
Neuro: CN 2-12 intact, non-focal.
Psych: slightly flat affect.
Lab Results
01/29/24 01/29/24
11:15 11:42
WBC 37.2 H
RBC 3.24 L
Hgb 10.1 L
Hct 28.6 L
MCV 88.3
MCH 31.2 H
MCHC 35.3
RDW 12.0
Plt Count 596 H
MPV 10.0
Abs Immat Gran (auto) 0.4 H
Absolute Neuts (auto) 33.1 H
Absolute Lymphs (auto) 1.2
Absolute Monos (auto) 2.5 H
Absolute Eos (auto) 0.0
Absolute Basos (auto) 0.1
CBC Comment
Immature Gran % 0.9 H
Neutrophils % 89.1 H
Lymphocytes % 3.2 L
Monocytes % 6.6
Eosinophils % 0.0
Basophils % 0.2
Nucleated RBC % 0
Sodium 131 L
Potassium 4.7
Chloride 95 L
Carbon Dioxide 16 L
BUN 35 H
Creatinine 1.9 H
eGFR 37.71
Glucose 183 H
Lactic Acid 1.2
Calcium 9.7
Magnesium 1.9
Total Bilirubin 2.8 H
AST 26
ALT 17
Alkaline Phosphatase 178 H
Troponin I < 0.012
Total Protein 7.6
Albumin 3.[address] A/P (no contrast):
1. No significant abnormality identified in the chest, abdomen or pelvis, within the limits of unenhanced CT, as described above.
2. Bilateral L5 pars defects with associated grade 1 anterolisthesis of L5 on S1.
Acute AG met acidosis due to FABRICE due to prerenal azotemia due to diarrhea do to gastroenteritis:
-D5 with 150meq NaHCO3 @ 150cc/hr
-trend Cr/HCO3-
-C diff NEG, stool Cx pending
-significant leukocytosis with L-shift, start Levaquin/Flagyl
-c/s renal
-if diarrhea persists will c/s GI
DM2:
-pt has been off his Lantus due to hypoglycemia
-SSI/accuchecks
-check a1c
-diabetic diet
--- NOTE | 2024-01-29 18:23 | HPS.HSE ---
Family Physician
-
Family Physician: Gagan Kulkarni
Chief Complaint
-
Diarrhea
History of Present Illness
68-year-old male with history of type 2 diabetes mellitus, hypothyroidism, hypotension, depression, presented to the ED today with complaints of diarrhea x 3 days. He has also had, reduced appetite, poor food and water intake for several weeks, and
17 pound weight loss in the past month. Son also has diarrhea off and on, but denies fevers/chills/sweats, dark/bloody stool, nausea or vomiting, new foods or recent illness.
He was seen by his PCP today who sent him to the ED with concern for dehydration patient recently discontinued insulin use due to low blood sugars. He was started on Ozempic about 2 months ago but was told to stop by PCP today due to presenting
symptoms. Of note most of his history was provided by at his bedside, who adds that there appears to be some cognitive decline, frequent falls, and some ambulatory dysfunction in the past year.
Medical History
Past Medical History
Past Medical History: Reports Hypothyroidism, NIDDM, Psychiatric (Depression) and Other (Hypotension)
Past Surgical History: Reports Orthopedic (Toe amputation)
Social History
Unable to obtain full social history at this time due to: Dementia
Tobacco: Former Smoker (Quit 15 years ago, 1 pk/day)
Alcohol: Former (Former 'heavy drinker', quit 15 years ago)
Drug: None
Personal:
Living: With Family
Family History
Family History: Diabetes (Sisters)
Allergies / Home Medications
Allergies reflects when Allergies were last updated in [facility].
Home Medications with original date entered in [facility]
Allergy/Medication List:
Allergies
Allergy/AdvReac Type Severity Reaction Status Date / Time
No Known Allergies Allergy Verified 01/29/24 10:11
Home Medications
bismuth subsalicylate 262 mg tablet (Kaopectate (bismuth subsalicylate)) 262 mg PO DAILYPRN PRN diarrhea 01/29/24
bupropion HCl 150 mg 24 hr tablet, extended release 150 mg PO DAILY 01/29/24
ergocalciferol (vitamin D2) 1,250 mcg (50,000 unit) capsule (Vitamin D2) 1,250 mcg PO TH 01/29/24
hydrocodone 5 mg-acetaminophen 325 mg tablet 1 tab PO BIDPRN PRN severe pain 01/29/24
levothyroxine 25 mcg tablet 25 mcg PO DAILY 01/29/24
meloxicam 15 mg tablet 15 mg PO DAILY 01/29/24
midodrine 2.5 mg tablet 2.5 mg PO TID 01/29/24
Review of Systems
-
History Source: Patient and Family
Constitutional: Reports Weight Loss and Fatigue; Denies Fever, Night Sweats or Chills
Respiratory: Reports No Symptoms; Denies Cough or Trouble Breathing
Cardiac: Reports No Symptoms; Denies Chest Pain or Palpitations
Abdomen/GI: Reports Diarrhea and Anorexia; Denies Abdominal Pain, Nausea, Vomiting, Bloody Stools or Black Stools
: Reports No Symptoms; Denies Dysuria or Difficulty Voiding
Neurological: Reports Dizzy
Physical Exam
Vital Signs
Vital Signs
Temp Pulse BP Pulse Ox
99.5 F 130 110/57 99
01/29/24 10:06 01/29/24 10:06 01/29/24 15:01 01/29/24 15:02
Physical Exam
General: Comfortable
HEENT: Moist mucous membranes
Respiratory: Clear and Non Labored Respirations; No Wheezes, Rales, Rhonchi or Crackles
Cardiac: S1/S2, Regular Rhythm and Tachycardia; No Murmur, Rub, Peripheral Edema or Calf Tenderness
GI: Soft and Normal Bowel Sounds; No Non Tender or Non Distended
Musculoskeletal: No Clubbing, No Cyanosis and No Edema
Skin: Warm and Dry
Neuro: Awake, Alert and Oriented
Psych: Calm
Laboratory Results
-
01/29/24 11:15
01/29/24 11:15
Laboratory Results
Lactic Acid 1.2 mmol/L (0.7-2.0) 01/29/24 11:42
Total Bilirubin 2.8 mg/dl (0.2-1.3) H 01/29/24 11:15
AST 26 U/L (17-59) 01/29/24 11:15
ALT 17 U/L (0-50) 01/29/24 11:15
Alkaline Phosphatase 178 U/L (38-126) H 01/29/24 11:15
Troponin I < 0.012 ng/ml 01/29/24 11:42
Lipase 27 U/L (23-300) 01/29/24 11:15
Impression/Plan
-
IMPRESSION: 68-year-old male with history of type 2 diabetes mellitus, hypothyroid, low blood pressure, depression who presented to the ED with diarrhea x 3 days
PLAN:
Acute AG metabolic acidosis
Secondary to FABRICE due to prerenal azotemia, due to diarrhea, due to gastroenteritis
C. difficile negative, stool culture pending
Significant leukocytosis with left shift
-Start Levaquin/Flagyl
-D5 with 150meq sodium bicarb at 150 cc/hr
-Trend cr/bicarb
-Consult nephro
-If diarrhea persist will consult GI
Hypovolemic hyponatremia:
Secondary to diarrhea
-IVF
-Follow BMP
Type 2 diabetes mellitus:
Patient has been off Lantus due to hypoglycemia
Was on Ozempic for past 2 months until today, stopped by PCP due to presenting symptoms
-SSI, Accu-Cheks
-Check A1c
-Diabetic diet
Hypothyroidism:
Check TSH
-Continue levo
Hypertension:
Continue midodrine
Depression:
Continue bupropion
DVT prophylaxis: Heparin
CODE STATUS: full code
POA: Florence Chavira, [phone]
[2024-01-29] MEDS: SODIUM BICARBONATE 1150 MEQ IV (18:29)
[2024-01-29] MEDS: NORCO 5/325 1 TABLET PO (22:16)
[2024-01-29] MEDS: HEPARIN 5000 UNITS SC (22:17)
[2024-01-29] MEDS: LEVAQUIN 100 IV (22:17)
[2024-01-29] MEDS: FLAGYL 500 MG 100 IV (23:25)
[2024-01-30 03:15] LABS: Urine Albumin Trace (Neg - Trace); Urine Bilirubin 1+ (Negative); Urine Color Amber; Urine Glucose Negative (Negative); Urine Ketone Trace (Negative); Urine Leukocyte 2+ (Negative); Urine Nitrite Negative (Negative); Urine Occult Blood 2+ (Negative); Urine Urobilinogen 2+ (Neg - 1+)
[2024-01-30] MEDS: SODIUM BICARBONATE 1150 MEQ IV (03:15)
[2024-01-30 03:18] LABS: Urine Character Cloudy (Clear)
[2024-01-30 03:33] LABS: Urine Bacteria Many (Negative); Urine Granular Cast 0-2 /LPF (0); Urine White Cell >100 /HPF (0-5)
[2024-01-30 05:29] VITALS: BMI 27.4
[2024-01-30] MEDS: FLAGYL 500 MG 100 IV ×3 (06:09→22:49)
[2024-01-30] MEDS: SYNTHROID 25 MCG PO (06:09)
[2024-01-30 07:12] VITALS: BP 128/75
[2024-01-30 07:12] LABS: Glucose - Point of Care 196 mg/dl (70-99)
[2024-01-30 07:42] LABS: Hematocrit 24.2 % (39.0-52.0); Hemoglobin 8.4 g/dL (13.0-18.0); Mean Corp Hgb Conc. 34.7 g/dL (33.0-37.0); Mean Corpuscular Hgb 29.9 pg (27.0-31.0); Mean Corpuscular Volume 86.1 fL (80.0-94.0); Mean Platelet Volume 10.3 fL (7.4-10.4); Platelet Count 550 10^3/uL (130-400); Red Blood Cell Count 2.81 10^6/uL (4.70-6.10); White Blood Cell Count 22.9 10^3/uL (4.8-10.8)
--- NOTE | 2024-01-30 07:49 | W.PN.HOSP.TC ---
Today's Communication/Plan
-
see bold
Assessment / Plan
Assessment / Plan
Gen: NAD, AAOx3.
Eyes: EOMI, PERRLA, no scleral icterus.
Neck: supple.
CV: RRR, +S1/S2, no m/r/g.
Resp: CTAB, no rales, wheezes, or rhonchi.
Abd: +BS, soft, NT, ND
Skin: No rashes.
Neuro: CN 2-12 intact, non-focal.
Psych: slightly flat affect.
01/29/24 15:08 Feces/Stool C. difficile GDH Antigen & Toxins - Final
Negative for toxigenic C.difficile
CT A/P (no contrast):
1. No significant abnormality identified in the chest, abdomen or pelvis, within the limits of unenhanced CT, as described above.
2. Bilateral L5 pars defects with associated grade 1 anterolisthesis of L5 on S1.
Acute AG met acidosis due to FABRICE due to prerenal azotemia due to diarrhea do to gastroenteritis:
-Acute anion gap metabolic acidosis and FABRICE have resolved after D5 with 150meq NaHCO3 @ 150cc/hr
-change IVFs to NS @ 60cc/hr
-C diff NEG, stool Cx pending
-significant leukocytosis with L-shift, cont Levaquin/Flagyl, improving
DM2:
-pt has been off his Lantus due to hypoglycemia
-SSI/accuchecks
-check a1c
-diabetic diet
Other problems:
Hypovolemic hyponatremia: Trend with IV fluids
Hypothyroidism: cont Levoxyl
Hypotension: cont Midodrine
Depression: cont Wellbutrin
FULL/Heparin
Anticipated Discharge: 24 - 48 hours
Subjective/Interval History
-
Date of Service: January 30, 2024
No new complaints. Denies abdominal pain or diarrhea.
Objective Data
-
Labs:
Laboratory Results
01/30/24
06:30
WBC Pending
Hgb Pending
Hct Pending
Plt Count Pending
Sodium Pending
Potassium Pending
Chloride Pending
Carbon Dioxide Pending
BUN Pending
Creatinine Pending
Glucose Pending
Calcium Pending
Total Bilirubin Pending
AST Pending
ALT Pending
Alkaline Phosphatase Pending
Vital Signs:
Vital Signs
Temp Pulse Resp BP Pulse Ox
98.7 F 105 18 128/75 97
01/30/24 07:12 01/30/24 07:12 01/30/24 07:12 01/30/24 07:12 01/30/24 07:12
I&O
01/29/24 01/30/24 01/31/24
06:59 06:59 06:59
Output Total 850 / 850
Balance -850 / -850
[2024-01-30 07:54] LABS: ALT (SGPT) 16 U/L (0-50); AST (SGOT) 24 U/L (17-59); Albumin 2.9 g/dl (3.5-5.0); Alkaline Phosphatase 160 U/L (38-126); Blood Urea Nitrogen 29 mg/dl (9-20); Calcium 8.7 mg/dl (8.4-10.2); Carbon Dioxide 26 mmol/L (22-30); Chloride 93 mmol/L (98-107); Estimated Creatinine Clearance 77 ml/min; Glucose 141 mg/dl (70-99); Potassium 3.9 mmol/L (3.5-5.1); Sodium 130 mmol/L (135-145); Total Bilirubin 1.4 mg/dl (0.2-1.3); Total Protein 6.6 g/dl (6.3-8.2); eGFR > 60.00
[2024-01-30 08:28] LABS: TSH Reflex To Free T4 0.79 uIU/ml (0.47-4.68)
[2024-01-30] MEDS: NOVOLOG FLEXPEN-MODERATE RESISTANCE 1 UNITS SC ×2 (08:51→17:53)
[2024-01-30] MEDS: HEPARIN 5000 UNITS SC ×2 (08:51→19:52)
[2024-01-30] MEDS: ProAmatine 2.5 MG PO ×3 (08:52→17:53)
[2024-01-30] MEDS: NORCO 5/325 1 TABLET PO (08:53)
[2024-01-30] MEDS: WELLBUTRIN XL (24 hour extended release) 150 MG PO (08:56)
[2024-01-30] MEDS: SODIUM BICARBONATE IV (10:46)
[2024-01-30] MEDS: NSS 1000 IV (10:51)
[2024-01-30 10:58] LABS: Glycohemoglobin (HgbA1c) 6.6 % (4.0-5.6)
[2024-01-30 11:17] VITALS: BMI 27.4
[2024-01-30 12:17] LABS: Glucose - Point of Care 267 mg/dl (70-99)
[2024-01-30] MEDS: NOVOLOG FLEXPEN-MODERATE RESISTANCE 5 UNITS SC (12:20)
[2024-01-30 15:05] VITALS: BP 109/70
[2024-01-30 17:28] LABS: Glucose - Point of Care 169 mg/dl (70-99)
[2024-01-30] MEDS: LEVAQUIN 50 IV (19:51)
[2024-01-30 22:08] LABS: Glucose - Point of Care 184 mg/dl (70-99)
[2024-01-30 23:29] VITALS: BP 137/72
[2024-01-31] MEDS: NSS 1000 IV (05:10)
[2024-01-31] MEDS: SYNTHROID 25 MCG PO (05:10)
[2024-01-31] MEDS: FLAGYL 500 MG 100 IV ×3 (05:10→21:31)
[2024-01-31 07:14] VITALS: BP 138/77
[2024-01-31 07:14] LABS: Glucose - Point of Care 154 mg/dl (70-99)
[2024-01-31] MEDS: HEPARIN 5000 UNITS SC ×2 (08:48→19:32)
[2024-01-31] MEDS: ProAmatine 2.5 MG PO ×3 (08:50→17:39)
[2024-01-31] MEDS: NOVOLOG FLEXPEN-MODERATE RESISTANCE 1 UNITS SC ×2 (08:51→11:53)
[2024-01-31] MEDS: WELLBUTRIN XL (24 hour extended release) 150 MG PO (08:51)
--- NOTE | 2024-01-31 09:20 | W.PN.HOSP.TC ---
Today's Communication/Plan
-
see bold
Assessment / Plan
Assessment / Plan
Gen: NAD, awake and alert
Eyes: EOMI, PERRLA, no scleral icterus.
Neck: supple.
CV: Remains RRR, +S1/S2, no m/r/g.
Resp: Remains CTAB, no rales, wheezes, or rhonchi.
Abd: Remains +BS, soft, NT, ND
Skin: No rashes.
Neuro: CN 2-12 intact, non-focal.
Psych: slightly flat affect.
01/29/24 15:08 Feces/Stool C. difficile GDH Antigen & Toxins - Final
Negative for toxigenic C.difficile
CT A/P (no contrast):
1. No significant abnormality identified in the chest, abdomen or pelvis, within the limits of unenhanced CT, as described above.
2. Bilateral L5 pars defects with associated grade 1 anterolisthesis of L5 on S1.
L shoulder Xray: Mild degenerative changes of the left shoulder without evidence for acute fracture or dislocation.
Acute AG met acidosis due to FABRICE due to prerenal azotemia due to diarrhea do to gastroenteritis:
-Acute anion gap metabolic acidosis and FABRICE have resolved after D5 with 150meq NaHCO3 @ 150cc/hr
-stop IVFs
-C diff NEG, stool Cx pending
-significant leukocytosis with L-shift, improving
-cont Levaquin/Flagyl
DM2:
-pt has been off his Lantus due to hypoglycemia
-SSI/accuchecks
-a1c 6.6
-diabetic diet
-start Lantus 5U HS
Other problems:
Hypovolemic hyponatremia: Trend with IV fluids
Hypothyroidism: cont Levoxyl
Hypotension: cont Midodrine
Depression: cont Wellbutrin
FULL/Heparin
Anticipated Discharge: Within 24 hours
Subjective/Interval History
-
Date of Service: January 31, 2024
Patient denies chest pain, shortness of breath, abdominal pain, diarrhea.
Objective Data
-
Vital Signs:
Vital Signs
Temp Pulse Resp BP Pulse Ox
97.7 F 105 18 138/77 99
01/31/24 07:14 01/31/24 07:14 01/31/24 07:14 01/31/24 07:14 01/31/24 07:14
I&O
01/30/24 01/31/24 02/01/24
06:59 06:59 06:59
Intake Total 1919 / 1919
Output Total 2500 / 2500
Balance -580 / -580
--- NOTE | 2024-01-31 09:33 | CM ---
Initial assessment completed with pt and at the bedside.
Pt is a 68yr old male admitted with FABRICE. Per he has had an overall decline in cognition and ambulation.
At baseline, pt lives with his in a 2 story home with 0 steps to enter. There is a 1st floor bedroom and a 2nd floor bathroom.
Pt is indep at baseline with mobility and ADLs. per , he refuses to use DME. Pt does have RW and commode if would use it. Pt does not drive.
In August, had pt 89 admitted for osteo and [facility] was involved. Pt had wound vac post surgical amputation. Per , they are not involved anymore and pt has been more agreeable to plan of care and this admission.
PCP; Gagan Kulkarni
Pharm; Sena Lazo
PLAN; dc to home with . Possible VN need
[2024-01-31 10:01] LABS: % Basophils 0.1 % (0-2); % Eosinophils 0.1 % (0-6); % Immature Granulocytes 0.4 % (0-0.5); % Lymphocytes 7.1 % (20.5-51.1); % Monocytes 7.9 % (1.7-9.3); % Neutrophils 84.4 % (42.2-75.2); Absolute Immature Granulocytes 0.1 10^3/uL (0-0.05); Absolute Lymphocytes 1.2 10^3/uL (1.2-3.4); Absolute Monocytes 1.3 10^3/uL (0.1-0.6); Absolute Neutrophils 13.9 10^3/uL (1.4-6.5); Hematocrit 23.4 % (39.0-52.0); Hemoglobin 8.2 g/dL (13.0-18.0); Mean Corpuscular Hgb 29.8 pg (27.0-31.0); Mean Corpuscular Volume 85.1 fL (80.0-94.0); Mean Platelet Volume 9.8 fL (7.4-10.4); Nucleated Red Blood Cells % 0 % (-); Platelet Count 538 10^3/uL (130-400); Red Blood Cell Count 2.75 10^6/uL (4.70-6.10); White Blood Cell Count 16.4 10^3/uL (4.8-10.8)
[2024-01-31 10:19] LABS: Blood Urea Nitrogen 18 mg/dl (9-20); Calcium 8.8 mg/dl (8.4-10.2); Carbon Dioxide 27 mmol/L (22-30); Chloride 94 mmol/L (98-107); Estimated Creatinine Clearance 96 ml/min; Glucose 123 mg/dl (70-99); Potassium 3.9 mmol/L (3.5-5.1); Sodium 132 mmol/L (135-145); eGFR > 60.00
[2024-01-31 11:45] LABS: Glucose - Point of Care 150 mg/dl (70-99)
[2024-01-31] MEDS: FLUSH (NSS) 2 FLUSH IV (14:18)
[2024-01-31 15:00] VITALS: BP 138/79
--- NOTE | 2024-01-31 15:58 | CHAP ---
Mr. Chavira was welcoming - said he was doing fine. He declined prayer. Assured him that we wish him well, and are here for him.
[2024-01-31 17:01] LABS: Glucose - Point of Care 240 mg/dl (70-99)
[2024-01-31] MEDS: NOVOLOG FLEXPEN-MODERATE RESISTANCE 3 UNITS SC (17:40)
[2024-01-31] MEDS: LEVAQUIN 100 IV (19:32)
[2024-01-31] MEDS: LANTUS 0.05 UNITS SC (21:31)
[2024-01-31 21:40] LABS: Glucose - Point of Care 188 mg/dl (70-99)
[2024-01-31 23:19] VITALS: BP 126/76
[2024-02-01] MEDS: FLAGYL 500 MG 100 IV (05:09)
[2024-02-01] MEDS: SYNTHROID 25 MCG PO (05:09)
[2024-02-01 07:00] VITALS: BP 125/71
[2024-02-01 07:10] LABS: Glucose - Point of Care 161 mg/dl (70-99)
[2024-02-01] MEDS: ProAmatine 2.5 MG PO ×3 (07:29→16:14)
[2024-02-01] MEDS: WELLBUTRIN XL (24 hour extended release) 150 MG PO (07:33)
[2024-02-01] MEDS: HEPARIN 5000 UNITS SC (07:33)
[2024-02-01 08:11] LABS: Hematocrit 24.9 % (39.0-52.0); Hemoglobin 8.4 g/dL (13.0-18.0); Mean Corp Hgb Conc. 33.7 g/dL (33.0-37.0); Mean Corpuscular Hgb 29.7 pg (27.0-31.0); Mean Platelet Volume 9.8 fL (7.4-10.4); Platelet Count 604 10^3/uL (130-400); Red Blood Cell Count 2.83 10^6/uL (4.70-6.10); Red Cell Dist. Width 12.1 % (11.5-14.5); White Blood Cell Count 12.7 10^3/uL (4.8-10.8)
--- NOTE | 2024-02-01 08:32 | W.PN.HOSP.TC ---
Today's Communication/Plan
-
d/c
Assessment / Plan
Assessment / Plan
Gen: NAD, awake and alert
Eyes: EOMI, PERRLA, no scleral icterus.
Neck: supple.
CV: continues to remain RRR, +S1/S2, no m/r/g.
Resp: continues to remain CTAB, no rales, wheezes, or rhonchi.
Abd: continues to remain +BS, soft, NT, ND
Skin: No rashes.
Neuro: CN 2-12 intact, non-focal.
Psych: slightly flat affect.
01/30/24 03:01 Urine Urine Culture - Final
01/29/24 15:07 Feces/Stool Salmonella/Shigella Culture - Final
No Salmonella, Shigella, Aeromonas or Plesiomonas species
isolated.
01/29/24 15:07 Feces/Stool Campylobacter Culture - Final
No Campylobacter species isolated.
01/29/24 15:08 Feces/Stool C. difficile GDH Antigen & Toxins - Final
Negative for toxigenic C.difficile
CT A/P (no contrast):
1. No significant abnormality identified in the chest, abdomen or pelvis, within the limits of unenhanced CT, as described above.
2. Bilateral L5 pars defects with associated grade 1 anterolisthesis of L5 on S1.
L shoulder Xray: Mild degenerative changes of the left shoulder without evidence for acute fracture or dislocation.
Acute AG met acidosis due to FABRICE due to prerenal azotemia due to diarrhea do to gastroenteritis:
-Acute anion gap metabolic acidosis and FABRICE have resolved after D5 with 150meq NaHCO3 @ 150cc/hr
-C diff NEG, stool Cx NEG
-significant leukocytosis with L-shift, improving
-cont Levaquin/Flagyl to complete a total of 7 days on d/c
DM2:
-pt has been off his Lantus due to hypoglycemia
-SSI/accuchecks
-a1c 6.6
-diabetic diet
-cont Lantus 5U HS while hospitalized
Other problems:
Hypovolemic hyponatremia: Trend with IV fluids
Hypothyroidism: cont Levoxyl
Hypotension: cont Midodrine
Depression: cont Wellbutrin
FULL/Heparin
Medically cleared for d/c.
Total time spent on d/c = 31 min. This included today's physical exam, progress note, review of laboratory and diagnostic data, preparation of discharge documents and prescriptions, and discussions about the pt's hospital course and discharge plan
with the patient and other medical records auditor involved in the patient's care.
Anticipated Discharge: Today
Subjective/Interval History
-
Date of Service: February 01, 2024
Objective Data
-
Labs:
Laboratory Results
02/01/24
07:21
WBC 12.7 H
Hgb 8.4 L
Hct 24.9 L
Plt Count 604 H
Sodium Pending
Potassium Pending
Chloride Pending
Carbon Dioxide Pending
BUN Pending
Creatinine Pending
Glucose Pending
Calcium Pending
Vital Signs:
Vital Signs
Temp Pulse Resp BP Pulse Ox
98.3 F 98 18 125/71 99
01/31/24 23:19 02/01/24 07:29 01/31/24 23:19 02/01/24 07:29 02/01/24 08:26
I&O
01/31/24 02/01/24 02/02/24
06:59 06:59 06:59
Intake Total 1919 / 1919
Output Total 2500 / 2500 3225 / 3225
Balance -580 / -580 -1185 / -1185
[2024-02-01] MEDS: NOVOLOG FLEXPEN-MODERATE RESISTANCE 1 UNITS SC ×3 (08:41→17:05)
[2024-02-01 08:57] LABS: Blood Urea Nitrogen 15 mg/dl (9-20); Calcium 8.6 mg/dl (8.4-10.2); Carbon Dioxide 30 mmol/L (22-30); Chloride 94 mmol/L (98-107); Estimated Creatinine Clearance 96 ml/min; Glucose 116 mg/dl (70-99); Potassium 4.1 mmol/L (3.5-5.1); Sodium 133 mmol/L (135-145); eGFR > 60.00
[2024-02-01] MEDS: NORCO 5/325 1 TABLET PO (10:12)
[2024-02-01 11:30] LABS: Glucose - Point of Care 172 mg/dl (70-99)
--- NOTE | 2024-02-01 13:48 | W.DCSUMMARY ---
Discharge Summary
Discharge Data
Date of Admission: 01/29/24
Date of Discharge: 02/01/24
-
Pending Results: No
Hospital Course
Primary diagnoses:
Acute anion gap metabolic acidosis due to acute kidney injury due to prerenal azotemia due to diarrhea due to acute gastroenteritis
Secondary diagnoses:
Type 2 diabetes mellitus
Hypovolemic hyponatremia
Hypothyroidism
Hypotension
Depression
Consultants:
None
Imaging:
CT A/P (no contrast):
1. No significant abnormality identified in the chest, abdomen or pelvis, within the limits of unenhanced CT, as described above.
2. Bilateral L5 pars defects with associated grade 1 anterolisthesis of L5 on S1.
L shoulder Xray: Mild degenerative changes of the left shoulder without evidence for acute fracture or dislocation.
Hospital course: 68-year-old male who presented with chief complaint of diarrhea as outlined in the H&P done on admission. The patient was found to have an acute anion gap metabolic acidosis due to acute kidney injury due to prerenal azotemia due
to diarrhea due to acute gastroenteritis. Patient was placed on D5 with sodium bicarb and his anion gap metabolic acidosis and acute kidney injury resolved. His stool C. difficile and stool culture were negative. He had a significant leukocytosis
with left shift that improved with antibiotic therapy. He was on Levaquin and Flagyl while hospitalized and was discharged on oral Levaquin and Flagyl to complete 7 days total of antibiotic therapy.
Discharge Plan
-
Patient Disposition: Home (Routine Discharge)
Discharge Diagnosis/Procedures: Gastroenteritis
Condition: Good
Diet: Diabetic, Carb Controlled
Activity: As tolerated
Driving Restrictions: As prior to admission
Blood Work: BMP and CBC in 1 week, prescription from PCP
Referrals:
Gagan Kulkarni, DO [Family Provider] - in less than 1 week
Prescriptions:
New
levofloxacin 500 mg tablet
500 mg PO DAILY Qty: 4 0RF
metronidazole 500 mg tablet
500 mg PO TID Qty: 12 0RF
Continued
meloxicam 15 mg Tablet
15 mg PO DAILY
levothyroxine 25 mcg Tablet
25 mcg PO DAILY
Kaopectate (bismuth subsalicy) 262 mg Tablet
262 mg PO DAILYPRN PRN (Reason: diarrhea)
midodrine 2.5 mg Tablet
2.5 mg PO TID
ergocalciferol (vitamin D2) [Vitamin D2] 1,250 mcg (50,000 unit) Capsule
1,250 mcg PO TH
bupropion HCl 150 mg Tablet Extended Release 24 Hr
150 mg PO DAILY
cyclobenzaprine 10 mg Tablet
10 mg PO TID PRN (Reason: muscle pain)
Changed
Levemir FlexPen 100 unit/mL (3 mL) Insulin Pen
5 unit SC HS Qty: 0 0RF
Discontinued
hydrocodone-acetaminophen 5-325 mg Tablet
1 tab PO BIDPRN PRN (Reason: severe pain)
Discharge Orders:
Discharge Patient (As Directed); Ordered 02/01/24
Ordered By: Conrad Samuels
Discharge Date and Time
Print Language: MOHAWK
[2024-02-01 15:00] VITALS: BP 137/78
[2024-02-01] MEDS: FLAGYL 500 MG IV (16:13)
[2024-02-01 16:50] LABS: Glucose - Point of Care 162 mg/dl (70-99)
--- NOTE | 2024-02-01 16:54 | CM ---
Patient has been medically cleared for discharge to home with [facility] services. will transport home.
== END 2024-02-01 18:22 | disposition home health service (06) | DRG 683 ==
LOC: 2 NORTH 18:49
PROVIDERS: Physician Assistant; Student in an Organized Health Care Education/Training Program; ADMITTING PHYSICIAN Internal Medicine; EMERGENCY PHYSICIAN Emergency Medicine; FAMILY PHYSICIAN Family Medicine
DX: N17.9 Acute kidney failure, unspecified (principal); E87.1 Hypo-osmolality and hyponatremia; E87.21 Acute metabolic acidosis; K52.9 Noninfective gastroenteritis and colitis, unspecified; E11.649 Type 2 diabetes mellitus with hypoglycemia without coma; R79.89 Other specified abnormal findings of blood chemistry; E86.1 Hypovolemia; F32.A Depression, unspecified; R29.6 Repeated falls; E03.9 Hypothyroidism, unspecified; M25.512 Pain in left shoulder; D72.829 Elevated white blood cell count, unspecified; I95.9 Hypotension, unspecified; R63.4 Abnormal weight loss; Z68.27 Body mass index [BMI] 27.0-27.9, adult; Z79.890 Hormone replacement therapy; Z79.899 Other long term (current) drug therapy
CPT/HCPCS: 71250; 73030; 74176; 80048; 80053; 81003; 81015; 82962; 83036; 83605; 83690; 83735; 84443; 84484; 85025; 85027; 87045; 87046; 87086; 87324; 87427; 87449; 93005; 96360; 96361; 99285

== ENCOUNTER 2024-02-24 12:55 | Inpatient (IN) | payer OTHER, SELFPAY ==
[2024-02-22 18:40] VITALS: BP 128/58
[2024-02-22 18:43] VITALS: BMI 26.8
[2024-02-22 19:00] VITALS: BP 123/64
[2024-02-22 19:25] LABS: ALT (SGPT) 16 U/L (0-50); AST (SGOT) 24 U/L (17-59); Albumin 2.7 g/dl (3.5-5.0); Alkaline Phosphatase 233 U/L (38-126); Blood Urea Nitrogen 18 mg/dl (9-20); Calcium 8.7 mg/dl (8.4-10.2); Carbon Dioxide 24 mmol/L (22-30); Chloride 97 mmol/L (98-107); Estimated Creatinine Clearance 96 ml/min; Glucose 173 mg/dl (70-99); Potassium 4.6 mmol/L (3.5-5.1); Sodium 129 mmol/L (135-145); Total Bilirubin 0.7 mg/dl (0.2-1.3); Total Protein 6.4 g/dl (6.3-8.2); eGFR > 60.00
[2024-02-22 19:27] LABS: % Basophils 0.2 % (0-2); % Eosinophils 0.1 % (0-6); % Immature Granulocytes 2.4 % (0-0.5); % Lymphocytes 6.4 % (20.5-51.1); % Monocytes 8.8 % (1.7-9.3); % Neutrophils 82.1 % (42.2-75.2); Absolute Basophils 0.1 10^3/uL (0-0.2); Absolute Immature Granulocytes 0.5 10^3/uL (0-0.05); Absolute Lymphocytes 1.4 10^3/uL (1.2-3.4); Absolute Monocytes 1.9 10^3/uL (0.1-0.6); Absolute Neutrophils 17.4 10^3/uL (1.4-6.5); Hematocrit 22.7 % (39.0-52.0); Hemoglobin 7.7 g/dL (13.0-18.0); Mean Corp Hgb Conc. 33.9 g/dL (33.0-37.0); Mean Corpuscular Hgb 28.8 pg (27.0-31.0); Mean Platelet Volume 9.5 fL (7.4-10.4); Nucleated Red Blood Cells % 0 % (-); Platelet Count 686 10^3/uL (130-400); Red Blood Cell Count 2.67 10^6/uL (4.70-6.10); Red Cell Dist. Width 13.3 % (11.5-14.5); White Blood Cell Count 21.1 10^3/uL (4.8-10.8)
[2024-02-22 20:00] VITALS: BP 126/68
--- NOTE | 2024-02-22 20:05 | ED.GENMED ---
History of Present Illness
General
Chief Complaint: Weakness
Source: patient and spouse
Exam Limitations: none
Time Seen by Provider: 02/22/24 19:32
Nursing documentation reviewed up to this point in time: agreed with
History of Present Illness
History of Present Illness:
The patient is a 68-year-old man with a past medical history of diabetes who was brought in by his for frequent falls, generalized weakness, and concerns for safety at home. The patient reports he is not sure why he is falling. His
reports she does not believe he hit his head. She reports that he is fallen at least once a day over the last 3 days. Patient denies fever, headache, nausea, vomiting and diarrhea. He denies bloody stool. He does not believe he hit his head.
There has been no loss of consciousness. He denies neck pain. He reports that since his recent falls, he has developed left knee pain and swelling as well as right shoulder pain. He denies a cough. Patient denies drugs and alcohol.
Past History
Past History
ED Past Medical History: NIDDM, Psychiatric and Other (Hypotension)
ED Past Surgical History: Orthopedic
Social History
Tobacco: Former smoker
Alcohol: Former
Drug: None
Personal:
Living: with family
Employment: Retired
Family History
Family History: Other
Review of Systems
Review of Systems
Allergies reviewed?: Yes
All Other Systems: ROS reviewed and negative except as documented in HPI and ROS
Constitutional: Reports fatigue
EENT: Reports no symptoms
Respiratory: Reports no symptoms
Cardiac: Reports no symptoms
ABD/GI: Reports no symptoms
: Reports no symptoms
Musculoskeletal: Reports joint pain (Right shoulder, left knee)
Skin: Reports no symptoms
Neurological: Reports no symptoms
Endocrine: Reports no symptoms
Hematologic/Lymphatic: Reports no symptoms
Psychiatric: Reports no symptoms
Phy Exam
Physical Exam
Physical Exam:
Physical Exam
General: Patient appears chronically ill. Pale appearing. Flat affect. Atraumatic appearing face and head
Neck: supple. no meningeal signs. normal psoterior pharynx. Nontender C-spine
Heart: s1/s2 regular rate and rhythm, no murmur. equal radial pulses. No vertebral spine tenderness. No anterior chest wall tenderness
Lungs: no acute respiratory distress. clear bilaterally
Abdomen: normal bowel sounds. not tender. no CVAT. On rectal exam, stool is brown and Hemoccult negative
Neuro: alert and oriented to self and place, does not know year. no focal neurological deficits
Skin: no rash
Psychiatric: well kept. Flat affect. Able to answer simple questions
Extremities: Nontender pelvis and hips. No edema of lower extremities. Patient has an ecchymotic left anterior medial knee. Patient has soft tissue tenderness of lateral right humerus area without deformity. Nontender
bilateral lower extremities
Course
Orders/Labs/Results
Orders:
Orders
02/22/24 18:39
EKG [Electrocardiogram (*1)] Urgent
Reason for Study: Fatigue / Weakness
EKG- Treatment ONCE
02/22/24 18:55
CBC/With Diff [Complete Blood Count/With Diff] Urgent
CMP [Comprehensive Metabolic Panel] Urgent
02/22/24 20:02
CT Head W/o Iv Contrast Urgent
Comment:
Reason For Exam: frequent falls
02/22/24 20:03
CR Shoulder, Trauma - Right Urgent
Reason For Exam: fall, R shoulder pain
Knee, Left 4 or More Views [CR Knee - Left 4 Or More View*] Urgent
Comment:
Reason For Exam: L knee pain, fall
02/22/24 20:04
Urinalysis Reflex To Culture Urgent
CR Chest - 2 Views Urgent
Comment:
Reason For Exam: generalized weakness
02/22/24 20:06
IV Insert/Care/Rem.- Treatment PRN
02/22/24 20:07
Morphine Sulfate 4 mg IV NOW STA
02/22/24 20:18
Type+Screen Urgent
Lactic Acid Urgent
Troponin I Urgent
Blood Culture Urgent
AMY Source: Blood/Venous
Specimen Description:
02/22/24 22:00
Flush (0.9% Sodium Chloride) [Flush (Nss)] See Dose Instructions IV PER PROTOCOL
02/22/24 22:01
Admit/Transfer Patient As Directed
Co-Sign Provider:
Level of Care: Observation services
Assign to:: Medical/Surgical
Physician / Group: dm
Diagnosis: falls, anemia
Code Status As Directed
Resuscitation Status: Full Code
PRN Pain Medication Management As Directed
May give lesser potent ordered pain med per pt: Yes
preference::
Protocol:: Medication orders for pain may be administered in a
manner that supports deferring to patient preference
when the pt is:
- Requesting an ordered lesser potent pain medication.
Least to most potent pain medications are defined
as: acetaminophen < NSAID < tramadol < opioids
(morphine, oxycodone, hydromorphone).
- Requesting a lesser dose of the same medication IF
ORDERED.
- Requesting a less intrusive route of administration
if both routes are prescribed by the provider (PO <
IV).
Abnormal Lab Results
02/22/24
18:55
WBC 21.1 H 10^3/uL
(4.8-10.8)
RBC 2.67 L 10^6/uL
(4.70-6.10)
Hgb 7.7 L g/dL
(13.0-18.0)
Hct 22.7 L %
(39.0-52.0)
Plt Count 686 H 10^3/uL
(130-400)
Abs Immat Gran (auto) 0.5 H 10^3/uL
(0-0.05)
Absolute Neuts (auto) 17.4 H 10^3/uL
(1.4-6.5)
Absolute Monos (auto) 1.9 H 10^3/uL
(0.1-0.6)
Immature Gran % 2.4 H %
(0-0.5)
Neutrophils % 82.1 H %
(42.2-75.2)
Lymphocytes % 6.4 L %
(20.5-51.1)
Sodium 129 L mmol/L
(135-145)
Chloride 97 L mmol/L
(98-107)
Glucose 173 H mg/dl
(70-99)
Alkaline Phosphatase 233 H U/L
(38-126)
Albumin 2.7 L g/dl
(3.5-5.0)
02/22/24 18:55
02/22/24 18:55
Vital Signs
Initial and Last Documented VS:
Initial Vital Signs
Pulse Resp
100 18
02/22/24 18:39 02/22/24 18:39
Last Documented Vital Signs
Temp Pulse Resp BP Pulse Ox
97.8 F 92 19 126/68 98
02/22/24 18:40 02/22/24 21:39 02/22/24 21:39 02/22/24 20:00 02/22/24 21:39
MDM/Problems Addressed
Differential Diagnosis Includes:
Acute on chronic anemia, acute dehydration, UTI, pneumonia
MDM/Problems Addressed:
Patient complains of acute on chronic generalized weakness and frequent falls
Chronic conditions affecting care: DM
Acute Exacerbation and/or Progression of Chronic Illness: DM
*Radiology
Radiology exam reviewed: preliminary read by ED provider (Chest x-ray reviewed by me. No acute disease. Left knee x-ray reviewed by me. No acute fracture seen. Right shoulder x-ray reviewed by me. No acute fracture seen of right shoulder) and
radiology read reviewed
*Pulse Oximetry
Patient hypoxic: no
*EKG
Interpreted by ED Provider?: Yes
Interpretation: normal
Comparison EKG: no changes
Rate: normal
Rhythm: sinus
[place]: normal axis
Interval: normal interval
QRS Pattern: normal QRS
Ischemia: no ischemia
*Machine Rough Rounder Interpretation
Rate: normal
Interpretation: normal
Rhythm: sinus
*Critical Care Note
Total Time (30-74mins, 75-104mins- exclusive of procedures): Not Applicable
Data Reviewed
Review of Other/Old Records Reveals: Discharge Summary (Discharge summary reviewed from 02/01/2024 from hospitalist which shows that patient was admitted for acute dehydration and acute renal failure due to acute diarrhea)
Source: patient
ED Attending Note
-
Portions of this chart may have been created with voice recognition software.� Occasional wrong word or��sound alike� substitutions may have occurred due to the inherent limitations of voice recognition software.
Discharge Plan
Departure
Patient Disposition: Admit
Date of Disposition: 02/22/24
Time of Disposition: 20:07
Admit to: Med/Surg
Presentation/result/management discussed w/ accepting MD/DO: Hospitalist
Patient with high blood pressure during this ER visit?: Yes
Condition: Fair
Covid-19: Not Applicable
Discharge Problem:
Acute on chronic anemia, Thrombocytosis, Leukocytosis, Frequent falls, Contusion of left knee
Prescriptions:
No Action
meloxicam 15 mg Tablet
15 mg PO DAILY
levothyroxine 25 mcg Tablet
25 mcg PO DAILY
midodrine 2.5 mg Tablet
5 mg PO TID
ergocalciferol (vitamin D2) [Vitamin D2] 1,250 mcg (50,000 unit) Capsule
1,250 mcg PO TH
bupropion HCl 150 mg Tablet Extended Release 24 Hr
150 mg PO DAILY
Levemir FlexPen 100 unit/mL (3 mL) Insulin Pen
5 unit SC HS Qty: 0 0RF
acetaminophen [Tylenol Extra Strength] 500 mg Tablet
1,000 mg PO TID
bisacodyl [Dulcolax (bisacodyl)] 5 mg Tablet,Delayed Release (Dr/Ec)
10 mg PO DAILYPRN PRN (Reason: constipation)
Referrals:
Gagan Kulkarni DO [Family Provider] -
Interventions
Interventions:
*Risk Screen - Suicide Last Done: 02/22/24 18:40
*General Assessment Last Done: 02/22/24 18:40
*Neglect/Abuse Screening Last Done: 02/22/24 18:40
ED- Fall Risk Assessment Last Done: 02/22/24 19:00
*ED COVID-19 Vaccine History Last Done: 02/22/24 18:43
ED- Cardiac Assessment Last Done: 02/22/24 19:00
ED- Neurological Assessment Last Done: 02/22/24 19:00
ED- Pulmonary Assessment Last Done: 02/22/24 19:00
Discharge Date and Time
Print Language: KUWAITI
[2024-02-22] MEDS: MORPHINE SULFATE 4 MG IV (20:16)
[2024-02-22 20:54] LABS: Troponin I < 0.012 ng/ml
--- NOTE | 2024-02-22 22:05 | HPS.HSE ---
Family Physician
-
Family Physician: Gagan Kulkarni
Chief Complaint
-
falls
History of Present Illness
68-year-old male past medical history of diabetes, hypothyroidism, hypertension, depression, presenting for frequent falls, generalized weakness and concern for safety at home. reports she does not believe he hit his head. Patient has a
history of falls secondary to orthostatic hypotension and dizziness with ambulation which is not new but patient has fallen at least once a day for the past 3 days which is more frequent than usual. Patient denies any fever headache, nausea
vomiting or diarrhea. Denies any blood in the stool or black stool. No loss of conscious. No neck pain. Since the fall he has had left knee pain and swelling as well as right shoulder pain. He denies cough.
He has had chronic worsening of mental status but no acute changes. He has a poor appetite recently.
No smoking or alcohol use.
Medical History
Past Medical History
Past Medical History: Reports Other (diabetes, hypothyroidism, hypertension, depression,)
Past Surgical History: Reports Other (Orthopedic)
Social History
Tobacco: Non-smoker
Alcohol: None
Drug: None
Family History
Family History: Not pertinent
Allergies / Home Medications
Allergies reflects when Allergies were last updated in [facility].
Home Medications with original date entered in [facility]
Allergy/Medication List:
Allergies
Allergy/AdvReac Type Severity Reaction Status Date / Time
No Known Allergies Allergy Verified 02/22/24 19:00
Home Medications
bupropion HCl 150 mg 24 hr tablet, extended release 150 mg PO DAILY Mental Health/Anxiety 01/29/24
ergocalciferol (vitamin D2) 1,250 mcg (50,000 unit) capsule (Vitamin D2) 1,250 mcg PO TH Supplement 01/29/24
levothyroxine 25 mcg tablet 25 mcg PO DAILY Thyroid 01/29/24
meloxicam 15 mg tablet 15 mg PO DAILY INFLAMMATION 01/29/24
midodrine 2.5 mg tablet 5 mg PO TID Blood Pressure 01/29/24
insulin detemir U-100 100 unit/mL (3 mL) subcutaneous pen (Levemir FlexPen) 5 unit (0.05 mL) SC HS Diabetes #0 mL 02/01/24
acetaminophen 500 mg tablet (Tylenol Extra Strength) 1,000 mg PO TID 02/22/24
bisacodyl 5 mg tablet,delayed release (Dulcolax (bisacodyl)) 10 mg PO DAILYPRN PRN constipation 02/22/24
Review of Systems
-
History Source: Patient
A 12 point ROS was completed and negative except as noted: Yes
Constitutional: Reports No Symptoms
EENT: Reports No Symptoms
Respiratory: Reports No Symptoms
Cardiac: Reports No Symptoms
Abdomen/GI: Reports No Symptoms
: Reports No Symptoms
Musculoskeletal: Reports No Symptoms
Skin: Reports No Symptoms
Neurological: Reports No Symptoms
Endocrine: Reports No Symptoms
Hematologic/Lymphatic: Reports No Symptoms
Psych: Reports No Symptoms
Physical Exam
Vital Signs
Vital Signs
Temp Pulse Resp BP Pulse Ox
97.8 F 92 19 126/68 98
02/22/24 18:40 02/22/24 21:39 02/22/24 21:39 02/22/24 20:00 02/22/24 21:39
Physical Exam
General: Well Developed, Well Nourished and No Apparent Distress
HEENT: NormoCephalic, Moist mucous membranes and Atraumatic
Respiratory: Clear
Cardiac: S1/S2 and Regular Rhythm; No Murmur or Rub
GI: Soft, Non Tender, Non Distended and Normal Bowel Sounds; No Organomegaly
Rectal: Deferred by Provider
Musculoskeletal: No Clubbing, No Cyanosis and No Edema
Skin: No Rash
Neuro: Nonfocal/grossly intact
Laboratory Results
-
02/22/24 18:55
02/22/24 18:55
Laboratory Results
Lactic Acid 1.0 mmol/L (0.7-2.0) 02/22/24 20:18
Total Bilirubin 0.7 mg/dl (0.2-1.3) 02/22/24 18:55
AST 24 U/L (17-59) 02/22/24 18:55
ALT 16 U/L (0-50) 02/22/24 18:55
Alkaline Phosphatase 233 U/L (38-126) H 02/22/24 18:55
Troponin I < 0.012 ng/ml 02/22/24 20:18
Data Reviewed
-
Lab Data: Labs Reviewed by me
Old Records: Reviewed
Impression/Plan
-
IMPRESSION:
PLAN:
# Worsening of chronic frequent falls secondary to known orthostatic hypotension possibly exacerbated by anemia
-Increased frequency may be due to worsening anemia
-Check urinalysis
-Chest x-ray negative
# Chronic leukocytosis
# Left knee injury
-X-ray pending
# Right shoulder injury
-X-ray pending
# Progressive anemia possible chronic GI losses versus anemia of chronic disease
-Hemoglobin of 7.7 trending down from 13 in July
-Fecal occult negative
-Check iron studies, B12 and folate
-Transfuse for hemoglobin less than 7
-consider GI if iron deficiency
Type 2 diabetes
-Continue Levemir
-Insulin sliding scale
Hypothyroidism
-Continue levothyroxine
Depression
-Continue bupropion
Essential hypertension
Hypotension
-Continue midodrine
Full code
DVT prophylaxis�SCDs
Regular diet
[2024-02-23] VITALS (28 sets, daily range): BP systolic 95–152; BP diastolic 50–80; PULSE 102–106; BMI 26.5
--- NOTE | 2024-02-23 03:48 | PTCARENOTE ---
Received patient AAOx2, disoriented to time. Following commands, complaining of 5/10 pain in right shoulder and left knee from fall. Fall risk bracelet applied, yellow fall magnet applied, bed alarm on. Patient forgetful, flat affect. Heart rate
110s, BP 152/70, normothermic. SCDs on, trace edema on b/l lower extremities. 99% on room air, lung sounds clear. Abdomen soft, round, nondistended, positive bowel sounds. No BM or void yet this shift. Scabs on right knee, left hand, and throughout
extremities. Left forearm #20 patent, capped, WNL. Call machado within reach.
[2024-02-23 04:47] LABS: ALT (SGPT) 16 U/L (0-50); AST (SGOT) 27 U/L (17-59); Albumin 2.9 g/dl (3.5-5.0); Alkaline Phosphatase 264 U/L (38-126); Blood Urea Nitrogen 19 mg/dl (9-20); Calcium 8.7 mg/dl (8.4-10.2); Carbon Dioxide 22 mmol/L (22-30); Chloride 96 mmol/L (98-107); Estimated Creatinine Clearance 109 ml/min; Glucose 167 mg/dl (70-99); Potassium 5.2 mmol/L (3.5-5.1); Sodium 127 mmol/L (135-145); Total Bilirubin 0.9 mg/dl (0.2-1.3); eGFR > 60.00
[2024-02-23 04:51] LABS: Hematocrit 24.5 % (39.0-52.0); Hemoglobin 8.3 g/dL (13.0-18.0); Mean Corp Hgb Conc. 33.9 g/dL (33.0-37.0); Mean Corpuscular Hgb 29.6 pg (27.0-31.0); Mean Corpuscular Volume 87.5 fL (80.0-94.0); Mean Platelet Volume 9.5 fL (7.4-10.4); Platelet Count 761 10^3/uL (130-400); Red Cell Dist. Width 13.2 % (11.5-14.5); White Blood Cell Count 25.9 10^3/uL (4.8-10.8)
[2024-02-23 04:54] LABS: Total Iron Binding Capacity 135 ug/dl (261-462)
[2024-02-23 05:49] LABS: Folate 5.3 ng/ml (2.76-20); Vitamin B12 488 pg/ml (239-931)
[2024-02-23 06:08] LABS: % Basophils 0.3 % (0-2); % Immature Granulocytes 2.7 % (0-0.5); % Lymphocytes 6.6 % (20.5-51.1); % Monocytes 6.6 % (1.7-9.3); % Neutrophils 83.8 % (42.2-75.2); Absolute Basophils 0.1 10^3/uL (0-0.2); Absolute Immature Granulocytes 0.7 10^3/uL (0-0.05); Absolute Lymphocytes 1.7 10^3/uL (1.2-3.4); Absolute Monocytes 1.7 10^3/uL (0.1-0.6); Absolute Neutrophils 21.7 10^3/uL (1.4-6.5); Nucleated Red Blood Cells % 0 % (-)
[2024-02-23] MEDS: SYNTHROID 25 MCG PO (06:10)
--- NOTE | 2024-02-23 06:50 | PTCARENOTE ---
Addendum entered by Mary Borja RN 02/23/24 07:07:
Fluids started per order, patient educated of fluid restriction.
Original Note:
Patient increasingly thirsty, not voiding, bladder scanned for 1189 mls, MAGNETIC PROSPECTOR notified. Straight cathed for 1140 mls, urine samples sent.
[2024-02-23] MEDS: NSS 1000 IV ×3 (07:06→23:04)
[2024-02-23 07:33] LABS: Glucose - Point of Care 132 mg/dl (70-99)
[2024-02-23 07:34] LABS: Urine Albumin Trace (Neg - Trace); Urine Bilirubin 1+ (Negative); Urine Character Clear (Clear); Urine Color Yellow; Urine Glucose Negative (Negative); Urine Ketone Negative (Negative); Urine Leukocyte Negative (Negative); Urine Nitrite Negative (Negative); Urine Occult Blood Negative (Negative); Urine Urobilinogen 1+ (Neg - 1+)
[2024-02-23 08:03] LABS: Osmolality Urine 511 mOsm/kg (300-900)
[2024-02-23 08:22] LABS: TSH 1.21 uIU/ml (0.47-4.68)
[2024-02-23 08:30] LABS: Glycohemoglobin (HgbA1c) 7.2 % (4.0-5.6)
[2024-02-23] MEDS: ProAmatine 5 MG PO ×2 (08:57→17:01)
[2024-02-23] MEDS: NOVOLOG FLEXPEN-LOW RESISTANCE SC ×2 (08:57→14:12)
[2024-02-23] MEDS: TYLENOL 1000 MG PO ×2 (09:00→17:01)
--- NOTE | 2024-02-23 09:21 | PTCARENOTE ---
Patient seen in bed. AAO x3 Flat expression. Generalized expression of pain . not able to lift b/l arms and legs. Rectal temp 102.9 SR 132; Tylenol 500 PO adm
--- NOTE | 2024-02-23 11:05 | PTCARENOTE ---
Indwelling Gabriel inserted for Acute Urinary Retention. Cloudy yellow urine draining. UA and C+S send results pending . 2nd blood culture send results pending. After tylenol po rectal temp 101.1
[2024-02-23 11:11] LABS: Urine Albumin Trace (Neg - Trace); Urine Bilirubin 1+ (Negative); Urine Character Slightly Cloudy (Clear); Urine Color Yellow; Urine Glucose Negative (Negative); Urine Ketone Trace (Negative); Urine Leukocyte 2+ (Negative); Urine Nitrite Negative (Negative); Urine Occult Blood 3+ (Negative); Urine Urobilinogen 2+ (Neg - 1+)
[2024-02-23 11:50] LABS: Glucose - Point of Care 172 mg/dl (70-99)
[2024-02-23 12:07] LABS: Urine Squamous Cell 0-2 /LPF (Few); Urine Urothelial Cell 0-2 /LPF (FEW)
[2024-02-23 12:09] LABS: Urine Bacteria Moderate (Negative); Urine White Cell 40-50 /HPF (0-5)
[2024-02-23] MEDS: ProAmatine PO (14:07)
[2024-02-23] MEDS: ZOSYN 50 IV ×3 (14:07→23:04)
--- NOTE | 2024-02-23 14:24 | VNURNOTE ---
Chart reviewed. Patient is current with VN. Will monitor hospital course and remain available if needed for DC planning. Resumption referral in Saved status in [facility] until DC plan more definitive.
[2024-02-23 14:27] LABS: LDH 160 U/L (120-246)
[2024-02-23 14:31] LABS: Direct Bilirubin 0.6 mg/dl (0.0-0.4); Iron 24 ug/dl (49-181); Percent Saturation 17 % (20-50)
--- NOTE | 2024-02-23 15:35 | W.PN.HOSP.TC ---
Today's Communication/Plan
-
Gabriel catheter
Blood and urine cultures
Zosyn
IV fluids
Assessment / Plan
Assessment / Plan
Impression:
Clinical sepsis secondary to UTI.
Complicated UTI with urinary retention.
Presentation with multiple falls at home.
Hypovolemic hyponatremia.
Hypokalemia.
Chronic orthostatic hypotension.
Reported right shoulder and left knee injury without bony abnormalities.
Conditions prior to admission:
Chronic anemia/normocytic
IDDM type II.
Hypothyroidism on replacement.
Essential hypertension.
Chronic orthostasis requiring midodrine
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
Plan:
Complicated UTI with acute urine retention requiring Gabriel placement on 02/22
Tachycardic with fever and rising white count.
Blood cultures
Urine cultures
Gabriel catheter placed for decompression on 02/22
Broad-spectrum antibiotics Zosyn pending cultures
In review of recent imaging including CT scan of chest abdomen and pelvis done on 02/09 (indication failure to thrive and weight loss) no acute abnormalities intraperitoneally or in tract.
Anemia with trending down hemoglobin
Normocytic.
Fecal occult blood test negative in ED.
Hemoglobin 7.7�8.3.
Doubt hemolysis.
Iron studies suggestive for mixed picture of anemia of chronic disease and mild iron deficiency
Monitor hemoglobin
Consider IV iron
Hyponatremia with sodium 127.
Hypovolemic.
Urine osmolarity consistent high ADH state possibly in the settings of relative hypotension
Avoid NSAIDs, meloxicam discontinued
Given relative hypotension, reported worsening orthostasis and falls at home will continue isotonic solution following BMP.
IDDM.
Hemoglobin A1c 7.2
Continue Levemir 5 units at bedtime
Basal bolus protocol with serial Accu-Cheks.
Carbohydrate controlled diet
Chronic hypotension/orthostasis.
Continue midodrine
Hypothyroidism on replacement
TSH within normal limits.
Continue levothyroxine
Overall deconditioning, multiple falls at home acute on chronic ambulatory dysfunction
Physical therapy evaluation
DVT prophylaxis subcu heparin.
Full code
Anticipated Discharge: > 48 hours
Subjective/Interval History
-
Date of Service: February 23, 2024
Objective Data
-
Labs:
Laboratory Results
02/23/24 02/23/24
04:15 04:30
WBC 25.9 H
Hgb 8.3 L
Hct 24.5 L
Plt Count 761 H
Sodium 127 L
Potassium 5.2 H
Chloride 96 L
Carbon Dioxide 22
BUN 19
Creatinine 0.7
Glucose 167 H
Calcium 8.7
Total Bilirubin 0.9
AST 27
ALT 16
Alkaline Phosphatase 264 H
Vital Signs:
Vital Signs
Temp Pulse Resp BP Pulse Ox
101.1 F H 106 22 100/58 100
02/23/24 15:29 02/23/24 15:29 02/23/24 15:29 02/23/24 15:29 02/23/24 07:58
I&O
02/22/24 02/23/24 02/24/24
06:59 06:59 06:59
Intake Total 960 / 960 795 / 795
Output Total 1140 / 1140
Balance -180 / -180 795 / 795
Physical Exam
-
General: Well Developed, Well Nourished and No Apparent Distress
HEENT: Normocephalic, Atraumatic, Nose Appears Normal and Ears Appear Normal
Respiratory: Clear to Auscultation
Cardiac: Regular Rhythm and S1/S2
GI: Soft, Nontender and Nondistended
Musculoskeletal: No Clubbing, No Cyanosis and No Edema
Skin: Warm and Dry
Neuro: Awake, Alert, Oriented and AO x 3
Psych: Calm
--- NOTE | 2024-02-23 15:38 | PTOTSP ---
Please order occupational therapy eval and treat. Thanks. PT
[2024-02-23 17:24] LABS: Glucose - Point of Care 170 mg/dl (70-99)
[2024-02-23] MEDS: NOVOLOG FLEXPEN-LOW RESISTANCE 1 UNITS SC (17:51)
--- NOTE | 2024-02-23 18:25 | PTCARENOTE ---
Patient AAO x3 Forgetful with flat affect . Rectal temp 102.4 patient received Tylenol 1000 mg po at 17:00. Limited ROM b/l UE and LE. pt c/o fo back , b/l shoulders and legs pain . Indwelling Gabriel draining cloudy yellow urine. on NSS at 125/hr .
pt on Zosyn .
[2024-02-23] MEDS: OFIRMEV 100 IV (19:01)
--- NOTE | 2024-02-23 19:02 | PTCARENOTE ---
rectral temp 102.2. Dr Gant , physician cross coverage notified. Acetaminophed 1000mg/100ml adm . ICe packs applied behind pt head and axillary b/l
[2024-02-23] MEDS: HEPARIN 5000 UNITS SC (20:22)
--- NOTE | 2024-02-23 21:03 | PTCARENOTE ---
Cannot verify vitals prior to 1900, previous shift.
--- NOTE | 2024-02-23 21:04 | PTCARENOTE ---
Received patient AAOx2, disoriented to month and year. Confused, restless, flat affect. CAMPOS, complaining of pain in right shoulder and left knee, repositioned, declined offer for ice. Normal sinus, 90s. BP stable, 120s-130s/60s-70s. Rectal temp
100.5, received affirmiv at 1900. SCDs on. 96% on room air, lung sounds diminished. Abdomen soft, round, nondistended, positive bowel sounds. Gabriel in place for acute retention, draining cloudy yellow urine. Scabs throughout extremities, stage 2 on
sacrum, foam CDI. PIVs patent, WNL. NSS at 125 ml/hr ongoing. Call machado within reach.
[2024-02-23] MEDS: LANTUS 0.05 UNITS SC (21:17)
[2024-02-23] MEDS: TYLENOL PO (21:17)
[2024-02-23 21:28] LABS: Glucose - Point of Care 200 mg/dl (70-99)
[2024-02-23] MEDS: ROXICODONE 5 MG PO (21:58)
--- NOTE | 2024-02-23 22:00 | PTCARENOTE ---
Patient transferred to [facility] RN on 4 wets.
--- NOTE | 2024-02-23 22:01 | PTCARENOTE ---
Patient transferred to [facility] on without any issues.
--- NOTE | 2024-02-23 23:45 | PTCARENOTE ---
Pt transferred from ICU. Pt oriented to unit. Call machado within reach. Will continue with current plan.
[2024-02-24] MEDS: ZOSYN 50 IV ×2 (05:35→13:02)
[2024-02-24] MEDS: SYNTHROID 25 MCG PO (05:35)
[2024-02-24 07:48] LABS: Glucose - Point of Care 121 mg/dl (70-99)
[2024-02-24 07:50] VITALS: BP 133/70
[2024-02-24] MEDS: NOVOLOG FLEXPEN-LOW RESISTANCE SC ×3 (08:10→17:21)
[2024-02-24] MEDS: NSS 1000 IV (08:14)
[2024-02-24] MEDS: HEPARIN 5000 UNITS SC ×2 (08:17→22:06)
[2024-02-24] MEDS: ProAmatine 5 MG PO ×3 (08:18→16:31)
[2024-02-24] MEDS: TYLENOL 1000 MG PO ×3 (08:18→22:06)
[2024-02-24 09:31] LABS: Hematocrit 21.1 % (39.0-52.0); Hemoglobin 7.3 g/dL (13.0-18.0); Mean Corp Hgb Conc. 34.6 g/dL (33.0-37.0); Mean Corpuscular Hgb 29.9 pg (27.0-31.0); Mean Corpuscular Volume 86.5 fL (80.0-94.0); Mean Platelet Volume 9.6 fL (7.4-10.4); Platelet Count 666 10^3/uL (130-400); Red Blood Cell Count 2.44 10^6/uL (4.70-6.10); Red Cell Dist. Width 13.5 % (11.5-14.5); White Blood Cell Count 28.8 10^3/uL (4.8-10.8)
[2024-02-24 10:17] LABS: ALT (SGPT) 16 U/L (0-50); AST (SGOT) 32 U/L (17-59); Albumin 2.5 g/dl (3.5-5.0); Alkaline Phosphatase 320 U/L (38-126); Blood Urea Nitrogen 16 mg/dl (9-20); Carbon Dioxide 20 mmol/L (22-30); Chloride 97 mmol/L (98-107); Estimated Creatinine Clearance 85 ml/min; Glucose 82 mg/dl (70-99); Potassium 4.7 mmol/L (3.5-5.1); Sodium 128 mmol/L (135-145); Total Bilirubin 0.8 mg/dl (0.2-1.3); Total Protein 6.1 g/dl (6.3-8.2); eGFR > 60.00
--- NOTE | 2024-02-24 10:19 | WOUNDNOTE ---
L 4TH FINGER
--- NOTE | 2024-02-24 10:20 | WOUNDNOTE ---
R KNEE WITH FLASH
[2024-02-24 10:21] LABS: % Basophils 0.2 % (0-2); % Eosinophils 0.1 % (0-6); % Immature Granulocytes 3.6 % (0-0.5); % Lymphocytes 4.8 % (20.5-51.1); % Monocytes 5.1 % (1.7-9.3); % Neutrophils 86.2 % (42.2-75.2); Absolute Basophils 0.1 10^3/uL (0-0.2); Absolute Immature Granulocytes 1.1 10^3/uL (0-0.05); Absolute Lymphocytes 1.4 10^3/uL (1.2-3.4); Absolute Monocytes 1.5 10^3/uL (0.1-0.6); Absolute Neutrophils 24.8 10^3/uL (1.4-6.5); Nucleated Red Blood Cells % 0 % (-)
--- NOTE | 2024-02-24 10:21 | WOUNDNOTE ---
WON RN note: Patient admitted with acute on chronic anemia.
See H&P for complete history. Lives at home with , frequent falls.
PMH: NIDDM, diabetic neuropathy, HTN, depression, hypothyroid, memory loss, L 5th ray partial amputation.
Wound Location and type/assessment: Patient known to service, last seen 08/31/23 for L 5th toe wound s/p surgery. Today L lateral foot surgical site is healed, has dry callus with scar. Admitted with L buttock stage 2 vs stage 3 vs MASD. Small ulcer
near gluteal cleft with pink and white slough at base, does not have an offloading cushion at home. R knee and L finger with intact scabs from abrasions. Scattered intact dry scabs on feet. Patient does not know how he got wounds. Heels and sacrum
are blanchable red. Patient turned with minimal assist, on air overlay with adequate inflation. Patient lying in bed without gown on only brief. Offered to cover him with a sheet and he declined.
Appetite: TBD
Pressure redistribution devices in place: Sports bed with air overlay, pillow under calves. Encouraged turning. Brought in an air chair cushion to use when sitting. PT to evaluate patient states nurse Shabazz.
Plan: L buttock applied skin prep to periwound then Exuderm thin. Silicone foam applied to sacrum to protect. All other scabs open to air. MARÍA Shabazz given update and will confirm orders with hospitalist.
Will update care plan and follow as needed.
Note to case management of equipment requested for discharge: If home VN recommended.
--- NOTE | 2024-02-24 12:47 | PHA.VAN.IN ---
Assessment
- Assessment
Renal Function: Appears similar to baseline
Concomitant Antimicrobials: piperacillin/tazobactam
AUC Dosing Plan
- Dosing Variables
Dosing Weight (kg): 87
Dosing CrCl (ml/min): 85
Vd coefficient (L/kg): 0.7
- Empiric Dosing
Initial / Loading Dose: 2000mg - administration pending
Maintenance Regimen: Vanc 1000mg Q12H starting 02/24 600
Estimated AUC (mcg*h/mL): 455
Estimated Peak (mcg*h/mL): 27.7
Estimated Trough (mcg/ml): 12.1
Estimated Half Life (H): 9.2
- Monitoring
No levels ordered at this time: consider levels in next few days
Pharmacokinetics Vancomycin I
- -
Patient Age: 68
Patient Sex: Male
Vancomycin Day #: 1
Indication: Bacteremia
Requesting Provider: Dr. Hernández
Pertinent Antimicrobial Allergies:
NKDA
Height / Weight:
Height 6 ft
Actual Weight 88.677 kg
Pertinent Past Medical History: DM II
- Vital Signs / Lab Results
Temp Pulse Resp BP Pulse Ox
99.7 F 126 18 133/70 96
02/24/24 07:50 02/24/24 08:18 02/24/24 07:50 02/24/24 08:18 02/24/24 07:50
Lab Results - Hematology
02/22/24 02/23/24 02/24/24
18:55 04:30 08:24
WBC 21.1 H 25.9 H 28.8 H
Lab Results - Chemistry
02/22/24 02/23/24 02/24/24
18:55 04:15 08:24
BUN 18 19 16
Creatinine 0.8 0.7 0.9
Estimated Creat Clear 96 109 85
Albumin 2.7 L 2.9 L 2.5 L
02/22/24
20:18
Lactic Acid 1.0
Lab Results - Urine
02/23/24 02/23/24
06:43 10:54
Urine Nitrite (Reflex) Negative Negative
Leukocyte Esterase Rfl Negative 2+ A
Urine WBC (Reflex) 40-50 A
Ur Squamous Epith Cells 0-2
Urine Bacteria (Reflex) Moderate A
Microbiology Results
02/23/24 10:54 Urine Culture - Final
Urine NO GROWTH
02/22/24 20:18 Blood Culture - Preliminary
Blood/Venous Staphylococcus species
Gram Stain - Preliminary
02/23/24 09:53 Blood Culture - Preliminary
Blood/Venous Positive culture in progress
Gram Stain - Preliminary
--- NOTE | 2024-02-24 12:56 | W.PN.HOSP.TC ---
Addendum entered and electronically signed by Marco Hernández MD 02/24/24 16:12:
He does have persistent right shoulder and left knee pain with no bony abnormalities on x-ray.
Agree with staphylococcal bacteremia further imaging with MRI.
Original Note:
Today's Communication/Plan
-
Repeat blood culture.? Contaminant
Add vancomycin and continue Zosyn.
Follow CBC.
Echocardiogram
Infectious disease consultation
Assessment / Plan
Assessment / Plan
Impression:
Clinical sepsis suspected secondary to UTI.
Complicated UTI with urinary retention.
Bacteremia with coag negative staph 2/2 'contaminant
Presentation with multiple falls at home.
Hypovolemic hyponatremia.
Hypokalemia.
Chronic orthostatic hypotension.
Reported right shoulder and left knee injury without bony abnormalities.
Conditions prior to admission:
Chronic anemia/normocytic
IDDM type II.
Hypothyroidism on replacement.
Essential hypertension.
Chronic orthostasis requiring midodrine
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
Plan:
Complicated UTI with acute urine retention requiring Gabriel placement on 02/22
Tachycardic with fever and rising white count.
Gabriel catheter placed for decompression on 02/22
Urine cultures negative to date (reported from regional urine specimen)
Blood culture 2/2 coag negative staph.
Remains febrile with rising WBC count.
Repeat blood culture.
Echocardiogram to rule out SBE
Add vancomycin and continue Zosyn.
ID consult.
Stage II�3 left buttock pressure ulcer does not appear to be infected
In review of recent imaging including CT scan of chest abdomen and pelvis done on 02/09 (indication failure to thrive and weight loss) no acute abnormalities intraperitoneally or in tract.
Anemia with trending down hemoglobin
Normocytic.
Fecal occult blood test negative in ED.
Hemoglobin 7.7�8.3-7.3
Doubt hemolysis.
Dilutional effect with IV fluids
Iron studies suggestive for mixed picture of anemia of chronic disease and mild iron deficiency
Monitor hemoglobin
Consider IV iron
Hyponatremia with sodium 127-128
Hypovolemic.
Urine osmolarity consistent high ADH state possibly in the settings of relative hypotension
Avoid NSAIDs, meloxicam discontinued
Given relative hypotension, reported worsening orthostasis and falls at home will continue isotonic solution following BMP.
IDDM.
Hemoglobin A1c 7.2
Continue Levemir 5 units at bedtime
Basal bolus protocol with serial Accu-Cheks.
Carbohydrate controlled diet
Chronic hypotension/orthostasis.
Continue midodrine
Hypothyroidism on replacement
TSH within normal limits.
Continue levothyroxine
Overall deconditioning, multiple falls at home acute on chronic ambulatory dysfunction
Physical therapy evaluation
DVT prophylaxis subcu heparin.
Full code
Anticipated Discharge: > 48 hours
Subjective/Interval History
-
Date of Service: February 24, 2024
Objective Data
-
Labs:
Laboratory Results
02/24/24
08:24
WBC 28.8 H
Hgb 7.3 L
Hct 21.1 L
Plt Count 666 H
Sodium 128 L
Potassium 4.7
Chloride 97 L
Carbon Dioxide 20 L
BUN 16
Creatinine 0.9
Glucose 82
Calcium 8.0 L
Total Bilirubin 0.8
AST 32
ALT 16
Alkaline Phosphatase 320 H
Vital Signs:
Vital Signs
Temp Pulse Resp BP Pulse Ox
99.7 F 126 18 133/70 96
02/24/24 07:50 02/24/24 08:18 02/24/24 07:50 02/24/24 08:18 02/24/24 07:50
I&O
02/23/24 02/24/24 02/25/24
06:59 06:59 06:59
Intake Total 960 / 960 1670 / 1670 480 / 480
Output Total 1140 / 1140 825.0 / 825.0 600 / 600
Balance -180 / -180 845.0 / 845.0 -120 / -120
Physical Exam
-
General: Well Developed and No Apparent Distress
HEENT: Normocephalic, Atraumatic and Moist Mucous Membranes
Respiratory: Clear to Auscultation
Cardiac: Regular Rhythm and S1/S2; Negative Murmur, Rub or Gallop
GI: Soft, Nontender, Nondistended and Normal Bowel Sounds; Negative Organomegaly
Rectal: Deferred by Provider
Genito-urinary: Gabriel
Musculoskeletal: No Clubbing, No Cyanosis and No Edema
Skin: Negative Rash
Neuro: Nonfocal/Grossly Intact
[2024-02-24 13:03] LABS: Glucose - Point of Care 120 mg/dl (70-99)
--- NOTE | 2024-02-24 14:20 | CON.ID ---
Consultation
-
Date/Time Consultation Requested: February 24, 2024 1241
Date/Time Consultation Performed: February 24, 2024 1420
Requesting Provider: Dr. Marco Hernández
Performing Provider: Dr. Yanet Darnell
Reason for Consultation: UTI
Chief Complaint / Past History
Chief Complaint
Frequent falls
History of Present Illness
History obtained from review of medical records as well as from the patient who is a poor historian. He is a 68-year-old male with diabetes mellitus type 2, hypothyroidism, orthostatic hypotension, who presented to the hospital on February 21 with
frequent falls. He complains of right shoulder pain and left knee pain. He is unable to tell me whether or not these joint pains were due to his falls. He could not remember how he fell. He complains of weakness. No fever at home. On February 22,
patient was febrile in the morning. UA was negative. Blood culture was positive for GPC in clusters. The admission blood culture on February 21 also positive for Staphylococcus species. Patient was in urinary retention. Gabriel was placed 02/23/24 @
1044. Urine analysis sent at time of catheter placement which was positive for pyuria, 2+ leukocyte esterase, urine culture negative prior to antibiotic. Zosyn was started on February 22 in the afternoon. Vancomycin was added to Zosyn today.
Patient denies headache, sore throat, sinus congestion, cough, chest pain, nausea, abdominal pain, diarrhea, dysuria, flank pain. Chief complaint is the right shoulder pain and right knee pain. Low back pain. No ill contacts. He lives with his
.
Past History
Additional Past Medical History:
DM2
Hypothyroidism
Orthostatic hypotension
Depression
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
left 4th toe osteo s/p partial ray amp (08/2023)
Allergy History:
No Known Allergies Allergy (Verified 02/22/24 19:00)
Medications Reviewed: Yes
Current Antibiotics:
Zosyn
vanco ordered
Social History
Tobacco: Non-Smoker
Alcohol: None
Drug: None
Personal:
Family History
Family History: Not Pertinent
Review of Systems
Review of Systems
General: Change in Appetite
HEENT: Negative Stiff Neck, Sinus Problems, Headache or Pharyngitis
Cardiovascular: Negative Chest Pain, Dyspnea or Edema
Respiratory: Negative Dyspnea or Cough
Gasteroenterology: Negative Nausea or Vomiting
Genital / Urological: Negative Dysuria or Flank Pain
Endocrine: Weakness and Fatigue
Musculoskeletal: Arthralgias
Skin / Hair / Nails: Negative Urticaria or Rash
All systems: All other systems were reviewed and were negative
Vital Signs
Temp Pulse Resp BP Pulse Ox
99.7 F 126 18 133/70 96
02/24/24 07:50 02/24/24 08:18 02/24/24 07:50 02/24/24 08:18 02/24/24 07:50
Selected Entries
02/23/24
18:07
Temp max 102.4 F H
Physical Exam
Physical Exam
Constitutional: No Acute Distress
Head: Other (No frontal or maxillary sinus tenderness)
Eyes: No Conjunctival Hemorrhage and Sclera Anicteric
Cardiovascular: Regular Rate and S1/S2; Negative Murmur
Pulmonary: Clear
Gastrointestinal: Soft, Non Tender, Non Distended and Normal Bowel Sounds
Genito-Urinary: Gabriel and Clear Urine; Negative CVA Tenderness
Extremities: Negative Edema
Musculoskeletal: Other (Right shoulder + induration, mild erythema, warmth, tender, ROM limited. Left knee: + induration, warm, tender.)
Wound: Other (abrasions on knees; buttock wound does not look infected)
Neurological: Awake and Alert
Lab / Diagnostic Study Results
02/24/24 08:24
02/24/24 08:24
Abs Immat Gran (auto) 1.1 10^3/uL (0-0.05) H 02/24/24 08:24
Absolute Neuts (auto) 24.8 10^3/uL (1.4-6.5) H 02/24/24 08:24
Absolute Lymphs (auto) 1.4 10^3/uL (1.2-3.4) 02/24/24 08:24
Absolute Monos (auto) 1.5 10^3/uL (0.1-0.6) H 02/24/24 08:24
Absolute Basos (auto) 0.1 10^3/uL (0-0.2) 02/24/24 08:24
Immature Gran % 3.6 % (0-0.5) H 02/24/24 08:24
Neutrophils % 86.2 % (42.2-75.2) H 02/24/24 08:24
Lymphocytes % 4.8 % (20.5-51.1) L 02/24/24 08:24
Monocytes % 5.1 % (1.7-9.3) 02/24/24 08:24
Eosinophils % 0.1 % (0-6) 02/24/24 08:24
Basophils % 0.2 % (0-2) 02/24/24 08:24
Lactic Acid 1.0 mmol/L (0.7-2.0) 02/22/24 20:18
Ur Squamous Epith Cells 0-2 /LPF (Few) 02/23/24 10:54
Microbiology Results
Micro:
02/23/24 09:53 Blood Culture - Preliminary
Blood/Venous Positive culture in progress
Gram Stain - Preliminary
02/22/24 20:18 Blood Culture - Preliminary
Blood/Venous Staphylococcus species
Gram Stain - Preliminary
02/23/24 10:54 Urine Culture - Final
Urine NO GROWTH
02/22/24 CXR: negative
02/22/24 Shoulder XRAY: DJD
02/22/24 Left knee XRAY: DJD
Assessment / Plan
# Staphylococcus bacteremia
# Fever
# Worsening leukocytosis
# Right shoulder and left knee pain with induration, limited ROM
- Repeat blood culture until clear
- Ordered MRI of right shoulder and left knee wo and w contrast to assess for septic arthritis
-Consider TTE
- Agree with Vancomycin pending cx data.
-Narrow Zosyn to cefazolin pending cx data.
- Follow wbc and temps.
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
DM2
Hypothyroidism
Orthostatic hypotension
Depression
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
left 4th toe osteo s/p partial ray amp (08/2023)
[2024-02-24 14:50] VITALS: BP 90/75
[2024-02-24] MEDS: VANCOCIN 540 MG IV (14:52)
--- NOTE | 2024-02-24 15:02 | CM ---
Addendum entered by Dariana Bruce 02/24/24 16:28:
verification manager spoke with patient's spouse and she has selected [facility] for skilled placement, referral sent to [facility].
Original Note:
verification manager reviewed patient's chart and patient has switched to inpatient, IMM given on 02/22/24. verification manager met with patient and patient lives with his spouse in a 2 story home, patient reports he is independent with adl's and ambulation, no dme,
per physical therapy patient is for skilled placement, left message for patient's spouse to review skilled options.
Plan; Skilled placement
[2024-02-24 16:57] LABS: Glucose - Point of Care 120 mg/dl (70-99)
[2024-02-24 21:18] LABS: Glucose - Point of Care 139 mg/dl (70-99)
[2024-02-24] MEDS: ANCEF 10 IV (22:15)
[2024-02-24] MEDS: LANTUS 0.05 UNITS SC (22:15)
[2024-02-24 23:05] VITALS: BP 130/64
[2024-02-25] MEDS: TYLENOL 650 MG PO (02:23)
[2024-02-25] MEDS: VANCOCIN 200 IV (05:42)
[2024-02-25] MEDS: SYNTHROID 25 MCG PO (05:42)
[2024-02-25] MEDS: ANCEF 10 IV ×3 (05:43→21:26)
[2024-02-25 07:40] VITALS: BP 122/61
[2024-02-25 07:49] LABS: Glucose - Point of Care 104 mg/dl (70-99)
[2024-02-25] MEDS: NOVOLOG FLEXPEN-LOW RESISTANCE SC ×3 (08:53→17:12)
[2024-02-25] MEDS: ProAmatine 5 MG PO ×3 (08:54→17:00)
[2024-02-25] MEDS: HEPARIN 5000 UNITS SC ×2 (08:54→20:40)
[2024-02-25] MEDS: TYLENOL 1000 MG PO ×3 (08:56→21:26)
[2024-02-25] MEDS: DRISDOL (VITAMIN D2) 50000 UNITS PO (09:33)
--- NOTE | 2024-02-25 09:39 | W.PN.ID1 ---
Date of Service
Date of Service: February 25, 2024
Today's Communication
MRI right shoulder.
Assessment / Plan
# Staphylococcus bacteremia
# Fever
# Worsening leukocytosis
# Right shoulder and left knee pain with induration, limited ROM
-Suspect Right shoulder septic arthritis + erythema/edema/tender
For MRI today R shoulder first, then left knee (if unable to do both at the same time).
- Repeat blood culture until clear
-Continue VAncomycin and cefazolin pending final cx data.
- Follow wbc and temps.
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
DM2
Hypothyroidism
Orthostatic hypotension
Depression
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
left 4th toe osteo s/p partial ray amp (08/2023)
Chief Complaint
-: Bacteremia
Subjective / Review of Systems
Right shoulder continues to be hurt.
Vital Signs / Physical Exam
Vital Signs
Vital Signs
Temp Pulse Resp BP Pulse Ox
97.5 F 90 18 122/61 99
02/25/24 07:40 02/25/24 07:40 02/25/24 07:40 02/25/24 07:40 02/25/24 07:40
Physical Exam
Constitutional: No Acute Distress
Pulmonary: Clear
Gastrointestinal: Soft, Non Tender and Non Distended
Musculoskeletal: Other (Right shoulder +erythema/warmth/induration/tenderness, ROM very limited. Left knee mild induration, warm)
Neurological: AO x 3
Objective Data
Lab Data
Estimated Creat Clear 85 ml/min 02/24/24 08:24
Lactic Acid 1.0 mmol/L (0.7-2.0) 02/22/24 20:18
Total Bilirubin 0.8 mg/dl (0.2-1.3) 02/24/24 08:24
AST 32 U/L (17-59) 02/24/24 08:24
ALT 16 U/L (0-50) 02/24/24 08:24
Alkaline Phosphatase 320 U/L (38-126) H 02/24/24 08:24
Most recent labs reviewed.
Micro Results:
02/24/24 20:54 Blood Culture - Pending
Blood/Venous
02/23/24 09:53 Blood Culture - Preliminary
Blood/Venous Positive culture in progress
Gram Stain - Preliminary
02/22/24 20:18 Blood Culture - Preliminary
Blood/Venous Staphylococcus species
Gram Stain - Preliminary
02/23/24 10:54 Urine Culture - Final
Urine NO GROWTH
02/22/24 CXR: negative
02/22/24 Shoulder XRAY: DJD
02/22/24 Left knee XRAY: DJD
[2024-02-25 10:14] LABS: Hematocrit 23.6 % (39.0-52.0); Hemoglobin 7.9 g/dL (13.0-18.0); Mean Corp Hgb Conc. 33.5 g/dL (33.0-37.0); Mean Corpuscular Hgb 28.6 pg (27.0-31.0); Mean Corpuscular Volume 85.5 fL (80.0-94.0); Mean Platelet Volume 9.8 fL (7.4-10.4); Platelet Count 716 10^3/uL (130-400); Red Blood Cell Count 2.76 10^6/uL (4.70-6.10); Red Cell Dist. Width 13.4 % (11.5-14.5)
--- NOTE | 2024-02-25 10:37 | CM ---
marketing operations manager spoke with [facility] school admissions representative for [facility] [phone] and per admissions they are in network with patient's insurance, [employer] and they will accept patient at [facility] when stable. Patient will need Auth for skilled
placement.
Plan; Skilled placement at [facility] when stable, pending Auth.
[2024-02-25 10:51] LABS: % Basophils 0.4 % (0-2); % Eosinophils 0.2 % (0-6); % Immature Granulocytes 3.5 % (0-0.5); % Lymphocytes 5.1 % (20.5-51.1); % Monocytes 4.1 % (1.7-9.3); % Neutrophils 86.7 % (42.2-75.2); Absolute Basophils 0.2 10^3/uL (0-0.2); Absolute Eosinophils 0.1 10^3/uL (0-0.7); Absolute Immature Granulocytes 1.2 10^3/uL (0-0.05); Absolute Lymphocytes 1.8 10^3/uL (1.2-3.4); Absolute Monocytes 1.4 10^3/uL (0.1-0.6); Absolute Neutrophils 30.3 10^3/uL (1.4-6.5); Nucleated Red Blood Cells % 0 % (-)
[2024-02-25 11:05] LABS: Blood Urea Nitrogen 20 mg/dl (9-20); Calcium 8.5 mg/dl (8.4-10.2); Carbon Dioxide 21 mmol/L (22-30); Chloride 100 mmol/L (98-107); Estimated Creatinine Clearance 85 ml/min; Glucose 65 mg/dl (70-99); Potassium 4.7 mmol/L (3.5-5.1); Sodium 131 mmol/L (135-145); eGFR > 60.00
[2024-02-25 11:45] VITALS: BP 127/70; PULSE 102
[2024-02-25 12:11] VITALS: BMI 26.5
[2024-02-25 12:12] LABS: Glucose - Point of Care 80 mg/dl (70-99)
--- NOTE | 2024-02-25 12:29 | PHA.VAN.FU ---
Vancomycin Assessment / Plan
- Assessment
Renal Function: Stable
WBC's are: Trending Up
Concomitant Antimicrobials: cefazolin
- Dosing Plan
Continue: Vanc 1000mg Q12H
- Monitoring Plan
No level(s) ordered at this time: consider levels in next few days
- Follow Up
Pharmacy will continue to follow.
Vancomycin Follow UP
- -
Patient Age: 68
Patient Sex: Male
Vancomycin Day #: 2
Indication: Bacteremia
Requesting Provider: Dr. Hernández
Pertinent Antimicrobial Allergies:
NKDA
Height / Weight:
Height 6 ft
Actual Weight 88.677 kg
Pertinent Past Medical History: DM II
- Vital Signs / Lab Results
Temp Pulse Resp BP Pulse Ox
97.5 F 90 18 122/61 99
02/25/24 07:40 02/25/24 07:40 02/25/24 07:40 02/25/24 07:40 02/25/24 07:40
Lab Results - Hematology
02/22/24 02/23/24 02/24/24
18:55 04:30 08:24
WBC 21.1 H 25.9 H 28.8 H
02/25/24
08:53
WBC 35.0 H
Lab Results - Chemistry
02/22/24 02/23/24 02/24/24
18:55 04:15 08:24
BUN 18 19 16
Creatinine 0.8 0.7 0.9
Estimated Creat Clear 96 109 85
Albumin 2.7 L 2.9 L 2.5 L
02/25/24
08:53
BUN 20
Creatinine 0.9
Estimated Creat Clear 85
Albumin
02/22/24
20:18
Lactic Acid 1.0
Microbiology Results
02/22/24 20:18 Blood Culture - Preliminary
Blood/Venous Staphylococcus aureus
Gram Stain - Preliminary
02/23/24 09:53 Blood Culture - Preliminary
Blood/Venous Staphylococcus species
Gram Stain - Preliminary
02/23/24 10:54 Urine Culture - Final
Urine NO GROWTH
--- NOTE | 2024-02-25 13:00 | W.PN.HOSP.TC ---
Today's Communication/Plan
-
await cultures
cont abx
await MRI of shoulder
Assessment / Plan
Assessment / Plan
pt is a 68 year old male
Clinical sepsis suspected with unclear source--bacteremia with staph aureus (sensitivities not back)--doubt UTI as culture no growth--concern for endocarditis if blood cultures stay positive--repeat pending--also cannot r/o septic arthritis (right
shoulder) given bacteremia--ECHO without vegetation but may need ANGLE--cont vanco/cefazolin--MRI shoulder pending--leukocytosis rising
Hypovolemic hyponatremia/Hypokalemia--replete K+, sodium improving--Urine osmolarity consistent high ADH state possibly in the settings of relative hypotension--Avoid NSAIDs, meloxicam discontinued
Essential hypertension with Chronic orthostatic hypotension--on midodrine
Chronic anemia/normocytic
IDDM type II--cont levemir--accuchecks, SSI
Hypothyroidism --on replacement--TSH within normal limits.
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
urinary retention--rutledge placed--urine culture negative
Stage II�3 left buttock pressure ulcer does not appear to be infected
Anemia likely of chronic disease with trending down hemoglobin--Fecal occult blood test negative in ED--Dilutional effect with IV fluids--Iron studies suggestive for mixed picture of anemia of chronic disease and mild iron deficiency
Overall deconditioning, multiple falls at home acute on chronic ambulatory dysfunction--Physical therapy evaluation
DVT prophylaxis subcu heparin.
Code status --Full code
Anticipated Discharge: > 48 hours
Subjective/Interval History
-
Date of Service: February 25, 2024
pt c/o right shoulder pain
Objective Data
-
Labs:
Laboratory Results
02/25/24
08:53
WBC 35.0 H
Hgb 7.9 L
Hct 23.6 L
Plt Count 716 H
Sodium 131 L
Potassium 4.7
Chloride 100
Carbon Dioxide 21 L
BUN 20
Creatinine 0.9
Glucose 65 L
Calcium 8.5
Vital Signs:
max temp for 24 hours
02/24/24
23:05
Temp 98.0 F
Vital Signs
Temp Pulse Resp BP Pulse Ox
97.5 F 90 18 122/61 99
02/25/24 07:40 02/25/24 07:40 02/25/24 07:40 02/25/24 07:40 02/25/24 07:40
I&O
02/24/24 02/25/24 02/26/24
06:59 06:59 06:59
Intake Total 1670 / 1670 1920 / 1920
Output Total 825.0 / 825.0 3200 / 3200
Balance 845.0 / 845.0 -1280 / -1280
Review of Systems
-
All other systems: Reviewed and negative
Musculoskeletal: Reports Joint Pain (right shoulder)
Physical Exam
-
General: Well Developed, Well Nourished and No Apparent Distress
HEENT: Normocephalic and Atraumatic
Respiratory: Clear to Auscultation; Negative Wheezes or Rhonchi
Cardiac: Regular Rhythm and S1/S2; Negative Murmur
GI: Soft, Nontender, Nondistended and Normal Bowel Sounds
Musculoskeletal: No Clubbing, No Cyanosis and Other (right shoulder swollen, painful to touch)
Neuro: Awake
[2024-02-25 13:30] LABS: Glucose - Point of Care 133 mg/dl (70-99)
[2024-02-25 15:08] VITALS: BP 118/55
[2024-02-25 17:10] LABS: Glucose - Point of Care 125 mg/dl (70-99)
[2024-02-25 21:24] LABS: Glucose - Point of Care 170 mg/dl (70-99)
[2024-02-25] MEDS: LANTUS 0.05 UNITS SC (21:26)
[2024-02-25 23:15] VITALS: BP 134/72
[2024-02-26 05:33] LABS: Haptoglobin 567 mg/dL (30-200)
[2024-02-26] MEDS: ANCEF 10 IV ×3 (05:57→22:31)
[2024-02-26] MEDS: SYNTHROID 25 MCG PO (05:57)
[2024-02-26 07:45] VITALS: BP 164/82
[2024-02-26 07:53] LABS: Glucose - Point of Care 147 mg/dl (70-99)
[2024-02-26] MEDS: NOVOLOG FLEXPEN-LOW RESISTANCE SC ×3 (08:32→16:58)
[2024-02-26 08:34] LABS: Hemoglobin 7.9 g/dL (13.0-18.0); Mean Corp Hgb Conc. 32.9 g/dL (33.0-37.0); Mean Corpuscular Hgb 28.3 pg (27.0-31.0); Mean Platelet Volume 9.5 fL (7.4-10.4); Platelet Count 758 10^3/uL (130-400); Red Blood Cell Count 2.79 10^6/uL (4.70-6.10); Red Cell Dist. Width 13.3 % (11.5-14.5); White Blood Cell Count 33.1 10^3/uL (4.8-10.8)
[2024-02-26] MEDS: ProAmatine PO (08:36)
[2024-02-26] MEDS: TYLENOL 1000 MG PO ×3 (08:37→22:31)
[2024-02-26] MEDS: HEPARIN 5000 UNITS SC ×2 (08:37→20:48)
[2024-02-26 08:52] LABS: ALT (SGPT) 12 U/L (0-50); AST (SGOT) 27 U/L (17-59); Albumin 2.7 g/dl (3.5-5.0); Alkaline Phosphatase 315 U/L (38-126); Blood Urea Nitrogen 19 mg/dl (9-20); Calcium 8.7 mg/dl (8.4-10.2); Carbon Dioxide 23 mmol/L (22-30); Chloride 100 mmol/L (98-107); Estimated Creatinine Clearance 96 ml/min; Glucose 126 mg/dl (70-99); Magnesium 1.8 mg/dl (1.6-2.3); Potassium 4.7 mmol/L (3.5-5.1); Sodium 130 mmol/L (135-145); Total Bilirubin 0.5 mg/dl (0.2-1.3); Total Protein 6.5 g/dl (6.3-8.2); eGFR > 60.00
--- NOTE | 2024-02-26 09:23 | W.PN.ID1 ---
Date of Service
Date of Service: February 26, 2024
Today's Communication
- Recommend ANGLE
-Recommend Ortho consult
Assessment / Plan
# Sustained MSSA bacteremia
# Fever - resolving
# Worsening leukocytosis
# Acute Right shoulder - induration, erythema, tender, limited ROM
# Acute left knee pain - no erythema, + mild induration
# Frequent falls
-TTE: adequate for study, no significant valvular disease
-Suspect Right shoulder septic arthritis + erythema/edema/tender
MRI R shoulder wo contrast - technically difficult study due to motion artifact
- Recommend ANGLE
-Recommend Ortho consult.
- Cancel left knee MRI pending Ortho eval.
- Repeat blood culture until clear
-DC Vancomycin
-Continue cefazolin.
- Follow wbc and temps.
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
DM2
Hypothyroidism
Orthostatic hypotension
Depression
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
left 4th toe osteo s/p partial ray amp (08/2023)
Chief Complaint
-: Bacteremia
Subjective / Review of Systems
c/o right shoulder pain more than left knee pain
Vital Signs / Physical Exam
Vital Signs
Vital Signs
Temp Pulse Resp BP Pulse Ox
98.3 F 106 18 164/82 100
02/26/24 07:45 02/26/24 07:45 02/26/24 07:45 02/26/24 08:36 02/26/24 07:45
Physical Exam
Cardiovascular: Regular Rate and S1/S2; Negative Murmur
Pulmonary: Clear
Musculoskeletal: Other (right shoulder + edema/erythema/tenderness/ROM abduct about 70 degree. left knee no erythema, mild induration, + tenderness)
Objective Data
Lab Data
Lab Results
02/26/24 08:06
02/26/24 08:06
Estimated Creat Clear 96 ml/min 02/26/24 08:06
Lactic Acid 1.0 mmol/L (0.7-2.0) 02/22/24 20:18
Total Bilirubin 0.5 mg/dl (0.2-1.3) 02/26/24 08:06
AST 27 U/L (17-59) 02/26/24 08:06
ALT 12 U/L (0-50) 02/26/24 08:06
Alkaline Phosphatase 315 U/L (38-126) H 02/26/24 08:06
C-Reactive Protein 231.00 mg/L (0.0-10.00) H 02/26/24 08:06
Most recent labs reviewed.
Micro Results:
02/23/24 09:53 Blood Culture - Preliminary
Blood/Venous S aureus-Methicillin Sensitive
Gram Stain - Preliminary
02/22/24 20:18 Blood Culture - Final
Blood/Venous S aureus-Methicillin Sensitive
Gram Stain - Final
02/24/24 20:54 Blood Culture - Preliminary
Blood/Venous Positive culture in progress
Gram Stain - Preliminary
02/25/24 08:53 Blood Culture - Pending
Blood/Venous
02/23/24 10:54 Urine Culture - Final
Urine NO GROWTH
02/22/24 CXR: negative
02/22/24 Shoulder XRAY: DJD
02/22/24 Left knee XRAY: DJD
Care Review
Plan reviewed with: Physician (Dr. Keith)
[2024-02-26 09:44] LABS: % Basophils 0.3 % (0-2); % Eosinophils 0.1 % (0-6); % Immature Granulocytes 3.8 % (0-0.5); % Lymphocytes 4.9 % (20.5-51.1); % Monocytes 3.3 % (1.7-9.3); % Neutrophils 87.6 % (42.2-75.2); Absolute Basophils 0.1 10^3/uL (0-0.2); Absolute Immature Granulocytes 1.3 10^3/uL (0-0.05); Absolute Lymphocytes 1.6 10^3/uL (1.2-3.4); Absolute Monocytes 1.1 10^3/uL (0.1-0.6); Nucleated Red Blood Cells % 0 % (-)
[2024-02-26 10:48] LABS: Erythrocyte Sed Rate 134 mm/hour (0-20)
--- NOTE | 2024-02-26 10:52 | CON.CAR ---
Addendum entered and electronically signed by Gerard Mayer MD 02/26/24 14:59:
I saw and examined the patient.
The ARTIFICIAL STONE APPLICATOR's note was reviewed and I agree with the note.
Comment: 68-year-old with hypertension, orthostatic hypotension, type 2 diabetes and MSSA persistent bacteremia who we have been asked to consult on regarding the need for ANGLE. He has no problem swallowing. No loose teeth. Echocardiogram
suggested ANGLE would be more sensitive and specific in the evaluation of endocarditis. On exam I do not appreciate any new murmur. Lungs are clear to auscultation. Certainly reasonable to proceed to ANGLE. He is agreeable. We will arrange for
Thursday. Please make him n.p.o. after midnight on Thursday and we will add to schedule. I will reach out to his who was not at the bedside to explain her plan. Please call with questions over the weekend if he needs evaluation.
Original Note:
Consultation
Consultation Request
Date/Time Consultation Requested: 02/26/2024 09:40
Date/Time Consultation Performed: 02/26/2024 10:50
Requesting Provider: Dr. Keith
Performing Provider: ISHAN Erwin for Dr. Mayer
Reason for Consultation: Bacteremia
Medical History
-
Chief Complaint: Abdominal pain
History of Present Illness:
Espinoza Chavira is a 68-year-old male with hypertension with orthostatic component, hypothyroidism, and type 2 diabetes mellitus on insulin who presented to the emergency department with weakness and associated falls. His family was concerned for his
safety at home. He has chronic falls per the family which is due to orthostatic hypotension and dizziness but he had fallen at least once a day for the 3 days prior to admission. He was found to have MSSA bacteremia. He had a transthoracic
echocardiogram which did not demonstrate vegetation. An MRI of his right shoulder noted extensive soft tissue edema without drainable fluid collection. Cardiology was consulted for ANGLE. On exam, he is mildly confused but pleasant. He has no
chest pain, shortness of breath, nor palpitations.
Past Medical History
Past Medical History: HTN, Hypothyroidism, IDDM and Other (OH on midodrine)
Social History
Tobacco: Non-Smoker
Alcohol: None
Drug: None
Personal:
Living: With Family
Employment: Retired
Family History
Family History: Unable to Obtain
Allergies / Home Medications
Allergy/AdvReac Type Severity Reaction Status Date / Time
No Known Allergies Allergy Verified 02/22/24 19:00
�Medication �Instructions �Recorded �Confirmed �Type
bupropion HCl 150 mg 24 hr tablet, 150 mg PO DAILY Mental 01/29/24 02/22/24 History
extended release Health/Anxiety
ergocalciferol (vitamin D2) 1,250 1,250 mcg PO TH Supplement 01/29/24 02/22/24 History
mcg (50,000 unit) capsule (Vitamin
D2)
levothyroxine 25 mcg tablet 25 mcg PO DAILY Thyroid 01/29/24 02/22/24 History
meloxicam 15 mg tablet 15 mg PO DAILY INFLAMMATION 01/29/24 02/22/24 History
midodrine 2.5 mg tablet 5 mg PO TID Blood Pressure 01/29/24 02/22/24 History
insulin detemir U-100 100 unit/mL 5 unit (0.05 mL) SC HS Diabetes #0 02/01/24 02/22/24 Rx
(3 mL) subcutaneous pen (Levemir mL
FlexPen)
acetaminophen 500 mg tablet 1,000 mg PO TID Pain 02/22/24 02/22/24 History
(Tylenol Extra Strength)
bisacodyl 5 mg tablet,delayed 10 mg PO DAILYPRN PRN constipation 02/22/24 02/22/24 History
release (Dulcolax (bisacodyl))
Review of Systems
-
History Source: Patient
All other systems: Negative unless noted
Constitutional: Fatigue
EENT: No Symptoms
Respiratory: No Symptoms
Cardiac: No Symptoms
Abdomen/GI: No Symptoms
: No Symptoms
Musculoskeletal: Joint Pain (Right shoulder), Muscle Pain (Right shoulder) and Muscle Stiffness (Right shoulder)
Skin: No Symptoms
Neurological: No Symptoms
Endocrine: No Symptoms
Hematologic/Lymphatic: No Symptoms
Physical Exam
Vital Signs
Temp Pulse Resp BP Pulse Ox
98.3 F 106 18 164/82 100
02/26/24 07:45 02/26/24 07:45 02/26/24 07:45 02/26/24 08:36 02/26/24 07:45
Lab Results
02/26/24 08:06
02/26/24 08:06
Troponin I < 0.012 ng/ml 02/22/24 20:18
Physical Exam
General: Well Developed, Well Nourished, No Apparent Distress and Comfortable
HEENT: Normocephalic and Moist Mucous Membranes
Respiratory: Clear and Non Labored Respirations
Cardiac: S1/S2 and Regular Rhythm; Negative Peripheral Edema
Breast: Deferred by me
GI: Soft, Non Tender, Non Distended and Normal Bowel Sounds
Rectal: Deferred by Provider
Musculoskeletal: No Clubbing, No Cyanosis and No Edema
Skin: Warm, Dry and Other (Redness to right shoulder)
Neuro: Awake, Alert and Oriented (To himself and place, not oriented to time)
Hematologic/Lymphatic: No Lymphadenopathy
Psych: Calm
Impression / Plan
-
BACKGROUND: 68M with type 2 diabetes, hypothyroidism, hypertension, and depression presented with generalized weakness with associated multiple falls. He was diagnosed with clinical sepsis, source unclear,. He has staff aureus bacteremia.
Bacteremia, Staph aureus
-Staph aureus, methicillin sensitive pos , NGTD from yesterday's blood culture
-Transthoracic echocardiogram did not demonstrate endocarditis, ANGLE would be more sensitive and specific for evaluation of endocarditis
-ANGLE 02/29/2024, will review with as he is unable to consent
Confusion, not oriented to time
Chronic orthostatic hypotension on midodrine
Type 2 diabetes mellitus, HbA1c 7.2%, per primary
Hypovolemic hyponatremia
Anemia of chronic disease, for primary
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
Hypothyroidism, on levothyroxine, TSH within normal limits
Data Reviewed
-
EKG: Report Reviewed by me (Sinus rhythm, rate 94)
Radiology: Report Reviewed by me (CXR: No acute cardiopulmonary process.)
MRI: Report Reviewed by me (RUE MRI: There is extensive soft tissue edema in the superficial soft tissues along the right shoulder/upper back. There is no definite drainable fluid collection.)
Medical Tests (Nuc Med, Echo etc): Report Reviewed by me (Echocardiogram as above)
Labs: Labs Reviewed by me
--- NOTE | 2024-02-26 11:42 | W.PN.HOSP.TC ---
Today's Communication/Plan
-
see A/P
Assessment / Plan
Assessment / Plan
A/P:
# sepsis POA with MSSA bacteremia, Possible septic arthritis R shoulder joint vs endocarditis
cont Ancef, off Vanc
Echo without vegetation, Card CS for ANGLE
MRI R shoulder noted extensive soft tissue edema but no definite drainable fluid collection.
doubt UTI as culture no growth
Ortho CS
Appreciate ID
# Hypovolemic hyponatremia
# Hypokalemia, resolved
Urine osmolarity consistent high ADH state possibly in the settings of relative hypotension
Avoid NSAIDs, meloxicam discontinued
# Essential hypertension with Chronic orthostatic hypotension on midodrine
Cont midodrine
# Chronic anemia/normocytic
# IDDM
cont Lantus 5 units HS
Accuchecks, SSI
# Hypothyroidism on replacement
TSH within normal limits.
# History of left foot osteomyelitis/gangrene with partial left foot amputation.
# urinary retention
rutledge placed
urine culture negative
# Stage II�3 left buttock pressure ulcer, does not appear to be infected
# Anemia of chronic disease
down trending hemoglobin may be due to hemodilution with IVF
Fecal occult blood negative in ED
# Overall deconditioning, multiple falls at home acute on chronic ambulatory dysfunction
PT recc SNF
DVT prophylaxis subcu heparin.
Code status --Full code
total time spent 51 min
Anticipated Discharge: > 48 hours
Subjective/Interval History
-
Date of Service: February 26, 2024
Objective Data
-
Labs:
Laboratory Results
02/26/24
08:06
WBC 33.1 H
Hgb 7.9 L
Hct 24.0 L
Plt Count 758 H
Sodium 130 L
Potassium 4.7
Chloride 100
Carbon Dioxide 23
BUN 19
Creatinine 0.8
Glucose 126 H
Calcium 8.7
Total Bilirubin 0.5
AST 27
ALT 12
Alkaline Phosphatase 315 H
Vital Signs:
Vital Signs
Temp Pulse Resp BP Pulse Ox
36.8 C 106 18 164/82 100
02/26/24 07:45 02/26/24 07:45 02/26/24 07:45 02/26/24 08:36 02/26/24 07:45
I&O
02/25/24 02/26/24 02/27/24
06:59 06:59 06:59
Intake Total 1920 / 1920 1260 / 1260
Output Total 3200 / 3200 3335 / 3335
Balance -1280 / -1280 -2074 / -2074
[2024-02-26 12:17] VITALS: BP 114/62
--- NOTE | 2024-02-26 12:25 | CON.ORTHO ---
Consultation
-
Date/Time Consultation Requested: Mar 12
Date/Time Consultation Performed: Mar 12
Requesting Provider: Sagar
Performing Provider: Tanya for Khadar
Reason for Consultation: Right shoulder/Left knee pain- R/o septic joints
Consultation - Orthopedics
History
Dictation#[id number]
HPI:
Requested in consultation for this 68-year-old white male with a PMH of NIDDM, hypothyroidism, and Hypotension who presented through the [facility] with progressive weakness. He has been found to be with MSSA bacteremia. Most recent blood Cx (Mar 12)
are currently positive. He has been on IV ABX Under the care of of the hospitalist, cardiology, and ID teams. during this admission he began complaining of some right shoulder and left knee pain. X-rays of the left knee showed severe
degenerative changes. X-ray and subsequent MRI scan of the right shoulder revealed some extensive soft tissue edema but no fluid collection, with evidence of tendinitis. due to his overall clinical picture we have been requested in consult to the
right shoulder and left knee to rule out septic joints
Allergies / Home Medications
Allergy/AdvReac Type Severity Reaction Status Date / Time
No Known Allergies Allergy Verified 02/22/24 19:00
�Medication �Instructions �Recorded
bupropion HCl 150 mg 24 hr tablet, 150 mg PO DAILY Mental 01/29/24
extended release Health/Anxiety
ergocalciferol (vitamin D2) 1,250 1,250 mcg PO TH Supplement 01/29/24
mcg (50,000 unit) capsule (Vitamin
D2)
levothyroxine 25 mcg tablet 25 mcg PO DAILY Thyroid 01/29/24
meloxicam 15 mg tablet 15 mg PO DAILY INFLAMMATION 01/29/24
midodrine 2.5 mg tablet 5 mg PO TID Blood Pressure 01/29/24
insulin detemir U-100 100 unit/mL 5 unit (0.05 mL) SC HS Diabetes #0 02/01/24
(3 mL) subcutaneous pen (Levemir mL
FlexPen)
acetaminophen 500 mg tablet 1,000 mg PO TID Pain 02/22/24
(Tylenol Extra Strength)
bisacodyl 5 mg tablet,delayed 10 mg PO DAILYPRN PRN constipation 02/22/24
release (Dulcolax (bisacodyl))
Vital Signs / Lab Results
Temp Pulse Resp BP Pulse Ox
98.4 F 93 16 114/62 98
02/26/24 12:17 02/26/24 12:17 02/26/24 12:17 02/26/24 12:17 02/26/24 12:17
02/26/24 08:06
02/26/24 08:06
Assessment / Plan
PE: Currently Afeb. At bedrest. evaluation of the right shoulder does reveal some generalized erythema over the dorsum and posterior aspects toward the neck. These findings are not noted over the anterior shoulder. Some very mild generalized
tenderness to palpation. Active forward elevation to 165 degrees with little to no pain. Active abduction to 110 degrees with little to no pain. External rotation to 45 degrees. Good strength in both abduction and external rotation. Elbow,
wrist, hand all move well. Neurovascular intact. Evaluation of the left knee reveals skin intact. Scar noted anteriorly. no erythema or warmth. Scabbed over abrasions. Mild-moderate intra-articular effusion. Medial and lateral joint line
tenderness. Range of motion 15 to 90 degrees with pain. Calf is soft and nontender. Neurovascularly intact
Labs: WBC 33
ESR 134
CRP 231
Xrays: Right shoulder- AC joint arthritis. May be mild glenohumeral arthritis. No acute abnormality
Left knee- severe tricompartmental arthritic disease. No acute abnormalities
MRI: Right shoulder- extensive soft tissue edema dorsum and posterior right shoulder into the upper back. No fluid collection moderate arthritic changes of the AC joint. Tendinopathy noted
Impression: Right shoulder rotator cuff tendinitis with soft tissue swelling. Left knee severe degenerative arthritis
Plan: I discussed at length with the patient bedside. I am not concerned at all for a septic right shoulder or left knee. Will continue treatment per the primary team. Blood Cx from March 12 still appear to be positive, likely MSSA. continue
IV ABX. In the face of his clinical picture would not consider intra-articular steroid injections. when medically optimized and discharged we would be happy to see him as an outpatient with regards to the right shoulder and left knee. Orthopaedics
to sign off.
[2024-02-26] MEDS: ProAmatine 5 MG PO ×2 (12:38→17:17)
[2024-02-26 12:40] LABS: Glucose - Point of Care 109 mg/dl (70-99)
--- NOTE | 2024-02-26 13:18 | CM ---
Addendum entered by Dariana Bruce 02/26/24 16:20:
Message left with patient's spouse to see if she is agreeable to a referral to [facility], [facility] and [facility]. Will await return call from spouse for skilled placement.
Original Note:
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
patient.
Plan; Skilled placement.
[2024-02-26 15:30] VITALS: BP 97/60
[2024-02-26 16:42] LABS: Glucose - Point of Care 142 mg/dl (70-99)
[2024-02-26 19:00] VITALS: BP 120/66
[2024-02-26 21:09] LABS: Glucose - Point of Care 212 mg/dl (70-99)
[2024-02-26] MEDS: LANTUS 0.05 UNITS SC (22:31)
[2024-02-26 23:00] VITALS: BP 138/76
[2024-02-27] VITALS (7 sets, daily range): BP systolic 108–168; BP diastolic 61–80
[2024-02-27] MEDS: ANCEF 10 IV ×3 (05:34→21:28)
[2024-02-27] MEDS: SYNTHROID 25 MCG PO (05:34)
[2024-02-27 08:03] LABS: Glucose - Point of Care 159 mg/dl (70-99)
[2024-02-27] MEDS: TYLENOL 1000 MG PO ×3 (08:31→21:27)
[2024-02-27] MEDS: HEPARIN 5000 UNITS SC (08:31)
[2024-02-27] MEDS: NOVOLOG FLEXPEN-LOW RESISTANCE 1 UNITS SC ×3 (08:31→17:56)
[2024-02-27] MEDS: ProAmatine PO ×2 (08:42→17:54)
[2024-02-27 09:23] LABS: Hematocrit 24.9 % (39.0-52.0); Hemoglobin 8.1 g/dL (13.0-18.0); Mean Corp Hgb Conc. 32.5 g/dL (33.0-37.0); Mean Corpuscular Volume 86.2 fL (80.0-94.0); Mean Platelet Volume 9.5 fL (7.4-10.4); Platelet Count 758 10^3/uL (130-400); Red Blood Cell Count 2.89 10^6/uL (4.70-6.10); Red Cell Dist. Width 13.4 % (11.5-14.5); White Blood Cell Count 28.2 10^3/uL (4.8-10.8)
[2024-02-27 09:57] LABS: % Basophils 0.2 % (0-2); % Eosinophils 0.1 % (0-6); % Immature Granulocytes 2.9 % (0-0.5); % Lymphocytes 7.5 % (20.5-51.1); % Monocytes 4.4 % (1.7-9.3); % Neutrophils 84.9 % (42.2-75.2); Absolute Basophils 0.1 10^3/uL (0-0.2); Absolute Immature Granulocytes 0.8 10^3/uL (0-0.05); Absolute Lymphocytes 2.1 10^3/uL (1.2-3.4); Absolute Monocytes 1.2 10^3/uL (0.1-0.6); Nucleated Red Blood Cells % 0 % (-)
[2024-02-27 09:58] LABS: Blood Urea Nitrogen 16 mg/dl (9-20); Calcium 8.6 mg/dl (8.4-10.2); Carbon Dioxide 24 mmol/L (22-30); Chloride 100 mmol/L (98-107); Estimated Creatinine Clearance 96 ml/min; Glucose 132 mg/dl (70-99); Potassium 4.6 mmol/L (3.5-5.1); Sodium 131 mmol/L (135-145); eGFR > 60.00
--- NOTE | 2024-02-27 10:36 | W.PN.HOSP.TC ---
Today's Communication/Plan
-
see A/P
Assessment / Plan
Assessment / Plan
A/P:
# sepsis POA with MSSA bacteremia, Possible septic arthritis R shoulder joint vs endocarditis
cont Ancef, off Vanc
Echo without vegetation
Card consulted for ANGLE, plan for Wednesday 02/28
MRI R shoulder noted extensive soft tissue edema but no definite drainable fluid collection.
doubt UTI as culture no growth
R shoulder pain control with Tylenol, lidocaine cream and added Toradol (with Protonix for GI protection)
appreciate Ortho input
appreciate ID
# Hypovolemic hyponatremia
# Hypokalemia, resolved
Urine osmolarity consistent high ADH state possibly in the settings of relative hypotension
Monitor sodium level with resumption of NSAID Toradol
# Essential hypertension with chronic orthostatic hypotension on midodrine
Cont midodrine with holding parameter
# Chronic anemia/normocytic
# IDDM
cont Lantus 5 units HS
Accuchecks, SSI
# Hypothyroidism on replacement
TSH within normal limits.
# History of left foot osteomyelitis/gangrene with partial left foot amputation.
# urinary retention, resolved
Off rutledge
urine culture negative
Added Flomax
# Stage II�3 left buttock pressure ulcer, does not appear to be infected
# Anemia of chronic disease
down trending hemoglobin may be due to hemodilution with IVF
Fecal occult blood negative in ED
# Overall deconditioning, multiple falls at home acute on chronic ambulatory dysfunction
PT recc SNF
DVT prophylaxis Lovenox SQ
Code status Full code
DW RN
Anticipated Discharge: > 48 hours
Subjective/Interval History
-
Date of Service: February 27, 2024
Objective Data
-
Labs:
Laboratory Results
02/27/24
08:23
WBC 28.2 H
Hgb 8.1 L
Hct 24.9 L
Plt Count 758 H
Sodium 131 L
Potassium 4.6
Chloride 100
Carbon Dioxide 24
BUN 16
Creatinine 0.8
Glucose 132 H
Calcium 8.6
Vital Signs:
Vital Signs
Temp Pulse Resp BP Pulse Ox
36.8 C 98 16 168/79 100
02/27/24 07:00 02/27/24 07:00 02/27/24 07:00 02/27/24 07:00 02/27/24 07:00
I&O
02/26/24 02/27/24 02/28/24
06:59 06:59 06:59
Intake Total 1260 / 1260 2640 / 2640
Output Total 3335 / 3335 3100 / 3100
Balance -2075 / -2075 -460 / -460
Review of Systems
-
All other systems: Reviewed and negative
Musculoskeletal: Reports Joint Pain (right shoulder)
Physical Exam
-
General: Well Developed, Well Nourished, No Apparent Distress, Comfortable and Conversant
HEENT: Normocephalic and Atraumatic
Respiratory: Clear to Auscultation and Non Labored Respirations; Negative Accessory Resp Muscle Use
Cardiac: Regular Rhythm and S1/S2; Negative Murmur
GI: Soft, Nontender, Nondistended and Normal Bowel Sounds
Musculoskeletal: No Clubbing, No Cyanosis and Other (right shoulder painful to palpate)
Neuro: Awake and Alert
Psych: Calm
Data Reviewed
-
MRI: Report Reviewed by me
Labs: Labs Reviewed by me
--- NOTE | 2024-02-27 11:18 | CM ---
Addendum entered by Georgia Kelley 02/27/24 11:24:
SNF referral sent via [facility] to [facility]
Original Note:
CM spoke with patient's spouse, Florence, via phone; alternative placement options reviewed; preference is [facility]
[2024-02-27] MEDS: LMX 4 1 APPLIC TOPICAL (11:25)
[2024-02-27 11:44] LABS: Glucose - Point of Care 176 mg/dl (70-99)
[2024-02-27] MEDS: PROTONIX IV IV ×2 (12:48→12:52)
[2024-02-27] MEDS: ProAmatine 5 MG PO (12:48)
[2024-02-27] MEDS: NSS (PRESERVATIVE FREE) IV ×2 (12:48→12:52)
[2024-02-27] MEDS: FLOMAX 0.4 MG PO (12:49)
--- NOTE | 2024-02-27 13:25 | W.PN.ID1 ---
Date of Service
Date of Service: February 27, 2024
Today's Communication
ANGLE Thursday.
Continue cefazolin.
Assessment / Plan
# MSSA bacteremia
# Fever - resolved
# Leukocytosis - slightly improved
# Acute Right shoulder - induration, erythema, tender, limited ROM
# Acute left knee pain - no erythema, + mild induration
# Frequent falls
- MRI R shoulder wo contrast - technically difficult study due to motion artifact
- Suspect source of bacteremia from right shoulder. Per ortho, sxs from OA, no surgical intervention
-TTE: adequate for study, no significant valvular disease
-ANGLE Thursday. Appreciate cardiology
- Repeat blood culture x 1 neg to date on 02/24.
-Repeat blood cx x 1 in am
-Continue cefazolin.
- Follow wbc
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
DM2
Hypothyroidism
Orthostatic hypotension
Depression
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
left 4th toe osteo s/p partial ray amp (08/2023)
Chief Complaint
-: Bacteremia
Subjective / Review of Systems
Right shoulder pain stable.
Vital Signs / Physical Exam
Vital Signs
Vital Signs
Temp Pulse Resp BP Pulse Ox
97.6 F 105 16 108/61 100
02/27/24 11:00 02/27/24 12:48 02/27/24 11:00 02/27/24 12:48 02/27/24 11:00
Physical Exam
Constitutional: No Acute Distress
Pulmonary: Clear
Gastrointestinal: Soft, Non Tender and Non Distended
Musculoskeletal: Other (right shoulder + erythema/warmth/induration)
Objective Data
Lab Data
Lab Results
02/27/24 08:23
02/27/24 08:23
ESR 134 mm/hour (0-20) H 02/26/24 08:06
Estimated Creat Clear 96 ml/min 02/27/24 08:23
Lactic Acid 1.0 mmol/L (0.7-2.0) 02/22/24 20:18
Total Bilirubin 0.5 mg/dl (0.2-1.3) 02/26/24 08:06
AST 27 U/L (17-59) 02/26/24 08:06
ALT 12 U/L (0-50) 02/26/24 08:06
Alkaline Phosphatase 315 U/L (38-126) H 02/26/24 08:06
C-Reactive Protein 231.00 mg/L (0.0-10.00) H 02/26/24 08:06
Most recent labs reviewed.
Micro Results:
02/25/24 08:53 Blood Culture - Preliminary
Blood/Venous No Growth in 48 hours- Final report to follow
02/24/24 20:54 Blood Culture - Preliminary
Blood/Venous S aureus-Methicillin Sensitive
Gram Stain - Preliminary
02/23/24 09:53 Blood Culture - Preliminary
Blood/Venous S aureus-Methicillin Sensitive
Gram Stain - Preliminary
02/22/24 20:18 Blood Culture - Final
Blood/Venous S aureus-Methicillin Sensitive
Gram Stain - Final
02/23/24 10:54 Urine Culture - Final
Urine NO GROWTH
02/22/24 CXR: negative
02/22/24 Shoulder XRAY: DJD
02/22/24 Left knee XRAY: DJD
[2024-02-27 16:53] LABS: Glucose - Point of Care 178 mg/dl (70-99)
[2024-02-27] MEDS: LOVENOX SC (17:56)
[2024-02-27 20:55] LABS: Glucose - Point of Care 237 mg/dl (70-99)
[2024-02-27] MEDS: LANTUS 0.05 UNITS SC (21:28)
[2024-02-28] MEDS: TYLENOL 650 MG PO (02:16)
[2024-02-28 03:00] VITALS: BP 148/74
[2024-02-28] MEDS: ANCEF 10 IV ×3 (06:05→21:46)
[2024-02-28] MEDS: SYNTHROID 25 MCG PO (06:05)
[2024-02-28 07:00] VITALS: BP 128/68
[2024-02-28] MEDS: FLOMAX 0.4 MG PO (07:36)
[2024-02-28] MEDS: PROTONIX IV 40 MG IV (07:36)
[2024-02-28] MEDS: TYLENOL 1000 MG PO ×2 (07:36→21:45)
[2024-02-28] MEDS: ProAmatine 5 MG PO ×3 (07:36→16:43)
[2024-02-28] MEDS: NSS (PRESERVATIVE FREE) 10 ML IV (07:36)
[2024-02-28 07:38] LABS: Glucose - Point of Care 169 mg/dl (70-99)
[2024-02-28] MEDS: NOVOLOG FLEXPEN-LOW RESISTANCE 1 UNITS SC (07:39)
[2024-02-28 08:01] LABS: Hematocrit 24.9 % (39.0-52.0); Hemoglobin 8.5 g/dL (13.0-18.0); Mean Corp Hgb Conc. 34.1 g/dL (33.0-37.0); Mean Corpuscular Hgb 29.6 pg (27.0-31.0); Mean Corpuscular Volume 86.8 fL (80.0-94.0); Mean Platelet Volume 9.4 fL (7.4-10.4); Platelet Count 775 10^3/uL (130-400); Red Blood Cell Count 2.87 10^6/uL (4.70-6.10); Red Cell Dist. Width 13.3 % (11.5-14.5); White Blood Cell Count 26.4 10^3/uL (4.8-10.8)
[2024-02-28 08:19] LABS: Blood Urea Nitrogen 15 mg/dl (9-20); Calcium 9.1 mg/dl (8.4-10.2); Carbon Dioxide 21 mmol/L (22-30); Chloride 102 mmol/L (98-107); Estimated Creatinine Clearance 109 ml/min; Glucose 165 mg/dl (70-99); Potassium 4.7 mmol/L (3.5-5.1); Sodium 134 mmol/L (135-145); eGFR > 60.00
[2024-02-28 08:55] LABS: % Basophils 0.3 % (0-2); % Eosinophils 0.2 % (0-6); % Immature Granulocytes 2.7 % (0-0.5); % Lymphocytes 11.9 % (20.5-51.1); % Monocytes 3.6 % (1.7-9.3); % Neutrophils 81.3 % (42.2-75.2); Absolute Basophils 0.1 10^3/uL (0-0.2); Absolute Eosinophils 0.1 10^3/uL (0-0.7); Absolute Immature Granulocytes 0.7 10^3/uL (0-0.05); Absolute Lymphocytes 3.1 10^3/uL (1.2-3.4); Absolute Neutrophils 21.4 10^3/uL (1.4-6.5); Nucleated Red Blood Cells % 0 % (-)
--- NOTE | 2024-02-28 09:24 | W.PN.HOSP.TC ---
Addendum entered and electronically signed by Nalini Keith MD 02/28/24 15:40:
updated on the phone. She is currently being admitted for bowel obstruction. Her cell # [phone]
Addendum entered and electronically signed by Nalini Keith MD 02/28/24 12:36:
Patient's left knee was aspirated by Ortho. No significant effusion, but minimal amount of pus was noted.
Follow-up joint fluid culture, cell count, crystal etc.
For now, plan is to observe on IV antibiotic without further surgical intervention/washout (given this is a very atypical presentation of septic arthritis without effusion).
Case was discussed extensively with ID and Ortho.
total time spent 51 min
Addendum entered and electronically signed by Nalini Keith MD 02/28/24 09:59:
Spoke with IR, recc to CS ortho for L knee aspiration.
Discussed with ortho PA Josafat Martínez, ortho team will attempt L knee aspiration if see if able to collect any fluid.
Original Note:
Today's Communication/Plan
-
see A/P
Assessment / Plan
Assessment / Plan
A/P:
# sepsis POA with MSSA bacteremia, Possible septic arthritis ?R shoulder joint/L knee joint vs endocarditis
cont Ancef, off Vanc
Echo without vegetation
Card consulted for ANGLE, plan for Wednesday 02/28
MRI R shoulder noted extensive soft tissue edema but no definite drainable fluid collection.
L knee XR noted degenerative changes.
Will ask IR to attempt aspirate L knee for fluid analysis
of note, doubt UTI as culture no growth
Pain control with Tylenol, lidocaine cream for R shoulder, capsaicin cream to L knee
appreciate Ortho input
appreciate ID
# Hypovolemic hyponatremia
# Hypokalemia, resolved
Urine osmolarity consistent high ADH state possibly in the settings of relative hypotension
Monitor sodium level with resumption of NSAID Motrin (added PPI for gastric protection)
# Essential hypertension with chronic orthostatic hypotension on midodrine
Cont midodrine with holding parameter
# Chronic anemia/normocytic
# IDDM
cont Lantus 5 units HS
Accuchecks, SSI
# Hypothyroidism on replacement
TSH within normal limits.
# History of left foot osteomyelitis/gangrene with partial left foot amputation.
# urinary retention, resolved
Off rutledge
urine culture negative
Added Flomax
# Stage II�3 left buttock pressure ulcer, does not appear to be infected
# Anemia of chronic disease
down trending hemoglobin may be due to hemodilution with IVF
Fecal occult blood negative in ED
# Overall deconditioning, multiple falls at home acute on chronic ambulatory dysfunction
PT recc SNF
DVT prophylaxis Lovenox SQ
Code status Full code
DW RN
Anticipated Discharge: 24 - 48 hours
Subjective/Interval History
-
Date of Service: February 28, 2024
Objective Data
-
Labs:
Laboratory Results
02/28/24
07:40
WBC 26.4 H
Hgb 8.5 L
Hct 24.9 L
Plt Count 775 H
Sodium 134 L
Potassium 4.7
Chloride 102
Carbon Dioxide 21 L
BUN 15
Creatinine 0.7
Glucose 165 H
Calcium 9.1
Vital Signs:
Vital Signs
Temp Pulse Resp BP Pulse Ox
36.2 C 102 18 128/68 100
02/28/24 07:00 02/28/24 07:00 02/28/24 07:00 02/28/24 07:00 02/28/24 07:00
I&O
02/27/24 02/28/24 02/29/24
06:59 06:59 06:59
Intake Total 2640 / 2640 2580 / 2580
Output Total 3100 / 3100 2700 / 2700
Balance -460 / -460 -120 / -120
--- NOTE | 2024-02-28 10:15 | W.PN.UPDATE ---
Update Note
Progress Note Update
Left knee painful and has endstage OA on xray.
trace effusion
Aspirated 2ml of purulent fluid.
will send for lab analysis.
[2024-02-28 11:05] VITALS: BP 141/74
[2024-02-28 11:41] LABS: Glucose - Point of Care 123 mg/dl (70-99)
[2024-02-28] MEDS: NOVOLOG FLEXPEN-LOW RESISTANCE SC ×2 (11:45→16:40)
[2024-02-28] MEDS: ZOSTRIX 0.025% CREAM 1 APPLIC TOPICAL ×3 (11:46→21:47)
[2024-02-28] MEDS: MOTRIN 400 MG PO (11:50)
[2024-02-28 11:51] LABS: Body Fluid Granulocytes 97 %; Body Fluid Lymphocytes 1 %; Body Fluid Macrophages 2 %
--- NOTE | 2024-02-28 12:12 | W.PN.ID1 ---
Date of Service
Date of Service: February 28, 2024
Today's Communication
See below.
Assessment / Plan
# MSSA bacteremia
# Fever - resolved
# Leukocytosis - trending down slowly
# # Acute left knee pain - probable septic arthritis
# Acute Right shoulder - induration, erythema,
# Acute left knee pain - + mild induration
- MRI R shoulder wo contrast - technically difficult study due to motion artifact
- Per ortho, shoulder tendinitis, not septic shoulder.
- 02/28/24 Left knee aspiration only 1 cc purulent fluid per Ortho. Not enough for cell count.
Left knee synovial gram stain: GPC, cx pending
Follow clinically for now.
-TTE: adequate for study, no significant valvular disease
-ANGLE Thursday. Appreciate cardiology
- Repeat blood culture x 1 neg to date on 02/24.
- Follow Repeat blood cx from today
-Continue cefazolin 2g IV q8h.
- Follow wbc
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
DM2
Hypothyroidism
Orthostatic hypotension
Depression
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
left 4th toe osteo s/p partial ray amp (08/2023)
Chief Complaint
-: Bacteremia
Subjective / Review of Systems
No new complaints.
Vital Signs / Physical Exam
Vital Signs
Vital Signs
Temp Pulse Resp BP Pulse Ox
97.7 F 82 16 141/74 98
02/28/24 11:05 02/28/24 11:05 02/28/24 11:05 02/28/24 11:05 02/28/24 11:05
Physical Exam
Constitutional: No Acute Distress
Cardiovascular: Regular Rate and S1/S2
Pulmonary: Clear
Gastrointestinal: Soft, Non Tender and Non Distended
Musculoskeletal: Other (left knee -ELINOR wrap. R shoulder + erythema/induration/warmth)
Objective Data
Lab Data
Lab Results
02/28/24 07:40
02/28/24 07:40
ESR 134 mm/hour (0-20) H 02/26/24 08:06
Estimated Creat Clear 109 ml/min 02/28/24 07:40
Lactic Acid 1.0 mmol/L (0.7-2.0) 02/22/24 20:18
Total Bilirubin 0.5 mg/dl (0.2-1.3) 02/26/24 08:06
AST 27 U/L (17-59) 02/26/24 08:06
ALT 12 U/L (0-50) 02/26/24 08:06
Alkaline Phosphatase 315 U/L (38-126) H 02/26/24 08:06
C-Reactive Protein 231.00 mg/L (0.0-10.00) H 02/26/24 08:06
Most recent labs reviewed.
Micro Results:
02/28/24 10:33 Body Fluid Culture - Pending
Synovial Fluid Gram Stain - Preliminary
02/28/24 10:33 Anaerobic Culture - Pending
Knee - Left
02/25/24 08:53 Blood Culture - Preliminary
Blood/Venous No Growth in 72 hours- Final report to follow
02/28/24 07:40 Blood Culture - Pending
Blood/Venous
02/24/24 20:54 Blood Culture - Preliminary
Blood/Venous S aureus-Methicillin Sensitive
Gram Stain - Preliminary
02/23/24 09:53 Blood Culture - Preliminary
Blood/Venous S aureus-Methicillin Sensitive
Gram Stain - Preliminary
02/22/24 20:18 Blood Culture - Final
Blood/Venous S aureus-Methicillin Sensitive
Gram Stain - Final
02/23/24 10:54 Urine Culture - Final
Urine NO GROWTH
02/22/24 CXR: negative
02/22/24 Shoulder XRAY: DJD
02/22/24 Left knee XRAY: DJD
Care Review
Plan reviewed with: Physician (Drs. Rubalcava, Sagar, Tanya)
[2024-02-28 15:22] VITALS: BP 149/78
[2024-02-28 16:36] LABS: Glucose - Point of Care 138 mg/dl (70-99)
[2024-02-28] MEDS: TYLENOL PO (16:45)
[2024-02-28] MEDS: LOVENOX 40 MG SC (16:47)
[2024-02-28 19:35] VITALS: BP 127/65
[2024-02-28] MEDS: LANTUS 0.05 UNITS SC (21:46)
[2024-02-28 21:51] LABS: Glucose - Point of Care 120 mg/dl (70-99)
[2024-02-28 23:49] VITALS: BP 112/76
[2024-02-29] VITALS (8 sets, daily range): BP systolic 100–168; BP diastolic 53–95; PULSE 89; O2SAT 99
[2024-02-29] MEDS: ANCEF 10 IV ×3 (05:33→22:01)
[2024-02-29] MEDS: SYNTHROID 25 MCG PO (05:33)
[2024-02-29 07:42] LABS: Glucose - Point of Care 185 mg/dl (70-99)
[2024-02-29] MEDS: NOVOLOG FLEXPEN-LOW RESISTANCE SC ×3 (08:34→17:11)
[2024-02-29] MEDS: TYLENOL 1000 MG PO ×3 (08:40→22:02)
[2024-02-29] MEDS: PROTONIX IV 40 MG IV (08:40)
[2024-02-29] MEDS: ProAmatine 5 MG PO ×3 (08:40→17:10)
[2024-02-29] MEDS: FLOMAX 0.4 MG PO (08:40)
[2024-02-29] MEDS: NSS (PRESERVATIVE FREE) 10 ML IV (08:41)
[2024-02-29] MEDS: ZOSTRIX 0.025% CREAM 1 APPLIC TOPICAL ×4 (08:41→22:01)
--- NOTE | 2024-02-29 08:56 | W.PN.CD ---
Today's Communication / Plan
-
IV antibiotics for 6 weeks
lifelong antibiotic ppx for dental procedures
no surgical indication at this time, if clnicial course deteriorates will need re look hogn, otherwise would repeat tte upon completion of therapy
Impression / Plan
-
BACKGROUND: 68M with type 2 diabetes, hypothyroidism, hypertension, and depression presented with generalized weakness with associated multiple falls. He was diagnosed with clinical sepsis, source unclear,. He has staff aureus bacteremia.
Bacteremia, Staph aureus
-Staph aureus, methicillin sensitive pos , NGTD from yesterday's blood culture
-Possible left septic knee, s/p aspiration of purulent fluid
Acute endocarditis:
-- small mobile veg on the aortic valve with trace aortic regurgitation on HONG 02/29/2024. No evidence of aortic root abscess or significant valve destruction.
�Would recommend 6 weeks of IV antibiotics.
-If clinical course deteriorates, could read look for progression of aortic valve with HONG. No surgical indication at this time.
Confusion, not oriented to time
-Spoke to Florence this isn't new, she consented to HONG
Chronic orthostatic hypotension on midodrine
Type 2 diabetes mellitus, HbA1c 7.2%, per primary
Hypovolemic hyponatremia
Anemia of chronic disease, for primary
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
Hypothyroidism, on levothyroxine, TSH within normal limits
Subjective:
he has no complaints no sob or cp
Physical Exam
Vital Signs/Labs
Vital Signs
Temp Pulse Resp BP Pulse Ox
97.7 F 105 14 126/95 100
02/29/24 07:00 02/29/24 07:00 02/29/24 07:00 02/29/24 07:00 02/29/24 07:00
Magnesium 2.0 mg/dl (1.6-2.3) 02/27/24 08:23
TSH 1.21 uIU/ml (0.47-4.68) 02/23/24 04:15
Physical Exam
Constitutional: No acute distress
Cardiovascular: Rhythm & rate is regular, Pedal edema is absent, JVD pressure is normal, Systolic murmur absent, Diastolic murmur absent and Rhythm/rate is irregular
Respiratory: Respiratory effort normal, Lungs clear to auscul., Wheeze Absent, Crackles Absent and Rhonchi Absent
Neuro/Psych: AO x 3
Data Reviewed
-
Date of Service: February 29, 2024
Medical Decision Making: Review of Case with other Provider (findings reviewed with Dr Alexis and Dr Darnell)
EKG: Other
[2024-02-29 09:09] LABS: % Basophils 0.4 % (0-2); % Eosinophils 0.2 % (0-6); % Immature Granulocytes 2.6 % (0-0.5); % Lymphocytes 8.7 % (20.5-51.1); % Monocytes 3.3 % (1.7-9.3); % Neutrophils 84.8 % (42.2-75.2); Absolute Basophils 0.1 10^3/uL (0-0.2); Absolute Immature Granulocytes 0.6 10^3/uL (0-0.05); Absolute Monocytes 0.7 10^3/uL (0.1-0.6); Hematocrit 24.1 % (39.0-52.0); Hemoglobin 8.1 g/dL (13.0-18.0); Mean Corp Hgb Conc. 33.6 g/dL (33.0-37.0); Mean Corpuscular Hgb 28.5 pg (27.0-31.0); Mean Corpuscular Volume 84.9 fL (80.0-94.0); Mean Platelet Volume 9.7 fL (7.4-10.4); Nucleated Red Blood Cells % 0 % (-); Platelet Count 773 10^3/uL (130-400); Red Blood Cell Count 2.84 10^6/uL (4.70-6.10); Red Cell Dist. Width 13.6 % (11.5-14.5); White Blood Cell Count 22.4 10^3/uL (4.8-10.8)
--- NOTE | 2024-02-29 10:07 | W.PN.UPDATE ---
Update Note
Progress Note Update
Left synovial fluid analysis with GPC on Gram stain, but cultures NGTD @ 24 hours. we will continue to follow. Plan for now per the primary team, including IV ABX. Will follow
[2024-02-29 11:47] LABS: Glucose - Point of Care 145 mg/dl (70-99)
[2024-02-29 12:08] LABS: Blood Urea Nitrogen 14 mg/dl (9-20); Calcium 8.7 mg/dl (8.4-10.2); Carbon Dioxide 27 mmol/L (22-30); Chloride 105 mmol/L (98-107); Estimated Creatinine Clearance 109 ml/min; Glucose 133 mg/dl (70-99); Potassium 4.4 mmol/L (3.5-5.1); Sodium 134 mmol/L (135-145); eGFR > 60.00
--- NOTE | 2024-02-29 12:20 | W.PN.ID1 ---
Date of Service
Date of Service: February 29, 2024
Today's Communication
- Place PICC
-Continue cefazolin 2g IV q8h x 6 weeks through 04/10/24
Assessment / Plan
# MSSA bacteremia
# [place] AV endocarditis
# Fever - resolved
# Leukocytosis - trending down slowly
# # Acute left knee pain - probable septic arthritis
# Acute Right shoulder - induration, erythema,
- ANGLE: 0.5 cm vege on AV
- MRI R shoulder wo contrast - technically difficult study due to motion artifact
- Per ortho, shoulder tendinitis, not septic shoulder.
- 02/28/24 Left knee aspiration only 1 cc purulent fluid per Ortho. Not enough for cell count. 97% polys, neg crystals
Left knee synovial gram stain: GPC, cx neg to date
Follow clinically for now.
- Repeat blood culture's 02/24 and 02/27 neg to date
- Place PICC
-Continue cefazolin 2g IV q8h x 6 weeks through 04/10/24
-Follow weekly, CBC, CMP, CRP
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
DM2
Hypothyroidism
Orthostatic hypotension
Depression
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
left 4th toe osteo s/p partial ray amp (08/2023)
Chief Complaint
-: Bacteremia
Subjective / Review of Systems
No new complaints. Stable shoulder/knee pain
Vital Signs / Physical Exam
Vital Signs
Vital Signs
Temp Pulse Resp BP Pulse Ox
97.5 F 94 16 138/73 98
02/29/24 11:00 02/29/24 11:00 02/29/24 11:00 02/29/24 11:00 02/29/24 11:00
Physical Exam
Constitutional: Comfortable
Cardiovascular: Regular Rate and S1/S2
Pulmonary: Clear
Gastrointestinal: Soft, Non Tender, Non Distended and Normal Bowel Sounds
Objective Data
Lab Data
Lab Results
02/29/24 08:35
02/29/24 11:05
ESR 134 mm/hour (0-20) H 02/26/24 08:06
Estimated Creat Clear 109 ml/min 02/29/24 11:05
Lactic Acid 1.0 mmol/L (0.7-2.0) 02/22/24 20:18
Total Bilirubin 0.5 mg/dl (0.2-1.3) 02/26/24 08:06
AST 27 U/L (17-59) 02/26/24 08:06
ALT 12 U/L (0-50) 02/26/24 08:06
Alkaline Phosphatase 315 U/L (38-126) H 02/26/24 08:06
C-Reactive Protein 200.20 mg/L (0.0-10.00) H 02/29/24 08:35
Most recent labs reviewed.
Micro Results:
02/25/24 08:53 Blood Culture - Preliminary
Blood/Venous No Growth in 4 days- Final report to follow
02/28/24 10:33 Body Fluid Culture - Preliminary
Synovial Fluid No Growth After 18-24 Hours
Gram Stain - Preliminary
02/28/24 07:40 Blood Culture - Preliminary
Blood/Venous No Growth in 24 hours- Final report to follow
02/28/24 10:33 Anaerobic Culture - Pending
Knee - Left
02/24/24 20:54 Blood Culture - Preliminary
Blood/Venous S aureus-Methicillin Sensitive
Gram Stain - Preliminary
02/23/24 09:53 Blood Culture - Preliminary
Blood/Venous S aureus-Methicillin Sensitive
Gram Stain - Preliminary
02/22/24 20:18 Blood Culture - Final
Blood/Venous S aureus-Methicillin Sensitive
Gram Stain - Final
02/23/24 10:54 Urine Culture - Final
Urine NO GROWTH
02/22/24 CXR: negative
02/22/24 Shoulder XRAY: DJD
02/22/24 Left knee XRAY: DJD
--- NOTE | 2024-02-29 13:36 | W.PN.HOSP.TC ---
Today's Communication/Plan
-
PICC and SNF
Assessment / Plan
Assessment / Plan
pt is a 68 year old male
sepsis POA with MSSA bacteremia and endocarditis--ANGLE with vegetation on aortic valve (initial ECHO without vegetation seen)--apprec cards/ID--PICC and IV cefazolin 2gm IV Q8H through 04/10/24
shoulder/knee pain--MRI R shoulder noted extensive soft tissue edema but no definite drainable fluid collection--L knee XR noted degenerative changes--Pain control with Tylenol, lidocaine cream for R shoulder, capsaicin cream to L knee--appreciate
Ortho input--appreciate ID
Hypovolemic hyponatremia--improved--Urine osmolarity consistent high ADH state possibly in the settings of relative hypotension
Hypokalemia, resolved
Essential hypertension with chronic orthostatic hypotension on midodrine--Cont midodrine with holding parameter
IDDM--cont Lantus 5 units HS --Accuchecks, SSI
Hypothyroidism on replacement--TSH within normal limits.
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
urinary retention, resolved --Off rutledge--urine culture negative--Added Flomax
Stage II�3 left buttock pressure ulcer, does not appear to be infected--POA
Anemia of chronic disease--down trending hemoglobin may be due to hemodilution with IVF--Fecal occult blood negative in ED
Overall deconditioning, multiple falls at home acute on chronic ambulatory dysfunction--PT rec SNF
DVT prophylaxis Lovenox SQ
Code status Full code
Anticipated Discharge: 24 - 48 hours
Subjective/Interval History
-
Date of Service: February 29, 2024
pt still c/o joint pains
Objective Data
-
Labs:
Laboratory Results
02/29/24 02/29/24
08:35 11:05
WBC 22.4 H
Hgb 8.1 L
Hct 24.1 L
Plt Count 773 H
Sodium Cancelled 134 L
Potassium Cancelled 4.4
Chloride Cancelled 105
Carbon Dioxide Cancelled 27
BUN Cancelled 14
Creatinine Cancelled 0.7
Glucose Cancelled 133 H
Calcium Cancelled 8.7
Vital Signs:
max temp for 24 hours
02/29/24
07:00
Temp 97.7 F
Vital Signs
Temp Pulse Resp BP Pulse Ox
97.5 F 94 16 138/73 98
02/29/24 11:00 02/29/24 11:00 02/29/24 11:00 02/29/24 11:00 02/29/24 11:00
I&O
02/28/24 02/29/24 03/01/24
06:59 06:59 06:59
Intake Total 2580 / 2580 2100 / 2100
Output Total 2700 / 2700 1800 / 1800
Balance -120 / -120 300 / 300
Review of Systems
-
All other systems: Reviewed and negative
Musculoskeletal: Reports Joint Pain
Physical Exam
-
General: Well Developed, Well Nourished and No Apparent Distress
HEENT: Normocephalic and Atraumatic
Respiratory: Clear to Auscultation; Negative Wheezes or Rhonchi
Cardiac: Regular Rhythm, S1/S2 and Murmur
GI: Soft, Nontender, Nondistended and Normal Bowel Sounds
Musculoskeletal: No Clubbing, No Cyanosis and No Edema
Neuro: Awake and Alert
--- NOTE | 2024-02-29 14:29 | CM ---
Patient accepted for transfer to [facility] pending authorization from [facility] for SNF stay. CM called to [facility] and provided information/clinical report faxed for SNF authorization to , pending reference number is [id number]. Await
response from insurance. CM called to update patient , BRITTA left. CM will continue to follow for discharge planning needs.
Plan; SNF, accepted for [facility], pending auth
[2024-02-29 16:38] LABS: Glucose - Point of Care 139 mg/dl (70-99)
[2024-02-29] MEDS: LOVENOX 40 MG SC (17:12)
[2024-02-29 21:59] LABS: Glucose - Point of Care 149 mg/dl (70-99)
[2024-02-29] MEDS: LANTUS 0.05 UNITS SC (22:02)
[2024-03-01 00:10] VITALS: BP 139/67
[2024-03-01 03:30] VITALS: BP 125/62
[2024-03-01] MEDS: SYNTHROID 25 MCG PO (05:26)
[2024-03-01] MEDS: ANCEF 10 IV ×2 (05:26→13:42)
[2024-03-01 06:53] LABS: Hematocrit 22.9 % (39.0-52.0); Hemoglobin 7.8 g/dL (13.0-18.0); Mean Corp Hgb Conc. 34.1 g/dL (33.0-37.0); Mean Corpuscular Hgb 29.8 pg (27.0-31.0); Mean Corpuscular Volume 87.4 fL (80.0-94.0); Mean Platelet Volume 9.3 fL (7.4-10.4); Platelet Count 655 10^3/uL (130-400); Red Blood Cell Count 2.62 10^6/uL (4.70-6.10); Red Cell Dist. Width 13.7 % (11.5-14.5); White Blood Cell Count 17.9 10^3/uL (4.8-10.8)
--- NOTE | 2024-03-01 07:36 | W.PN.UPDATE ---
Update Note
Progress Note Update
Patient seen and evaluated this morning by orthopedic surgery. He continues to endorse pain about his left knee. WBC trending down. 17.9 today. 22.4 yesterday. Patient afebrile.
Left synovial fluid analysis with GPC on Gram stain, blood cultures NGTD at 18 to 24 hours. We will continue to follow aspirate results. Continue treatment per primary team and ID, including IV antibiotics. ID recommending continuing Cefazolin 2
g IV every 8 hours x 6 weeks through 04/10/2024.
Orthopedic surgery will continue to follow along.
[2024-03-01 07:39] LABS: ALT (SGPT) < 10 U/L (0-50); AST (SGOT) 18 U/L (17-59); Albumin 2.8 g/dl (3.5-5.0); Alkaline Phosphatase 238 U/L (38-126); Blood Urea Nitrogen 16 mg/dl (9-20); Carbon Dioxide 23 mmol/L (22-30); Chloride 101 mmol/L (98-107); Estimated Creatinine Clearance 96 ml/min; Glucose 122 mg/dl (70-99); Potassium 4.7 mmol/L (3.5-5.1); Sodium 133 mmol/L (135-145); Total Bilirubin 0.3 mg/dl (0.2-1.3); Total Protein 6.8 g/dl (6.3-8.2); eGFR > 60.00
[2024-03-01 07:40] VITALS: BP 122/58
[2024-03-01 07:43] LABS: Glucose - Point of Care 157 mg/dl (70-99)
[2024-03-01] MEDS: TYLENOL 1000 MG PO (07:55)
[2024-03-01] MEDS: ProAmatine 5 MG PO ×2 (07:55→12:10)
[2024-03-01] MEDS: NOVOLOG FLEXPEN-LOW RESISTANCE 1 UNITS SC (07:55)
[2024-03-01] MEDS: FLOMAX 0.4 MG PO (07:57)
[2024-03-01] MEDS: NSS (PRESERVATIVE FREE) 10 ML IV (07:57)
[2024-03-01] MEDS: PROTONIX IV 40 MG IV (07:57)
[2024-03-01] MEDS: ZOSTRIX 0.025% CREAM 1 APPLIC TOPICAL ×2 (07:59→12:10)
--- NOTE | 2024-03-01 08:42 | CM ---
Addendum entered by Malini Juarez 03/01/24 11:15:
Patient seen at bedside with physician. Patient updated about discharge plan. Ambulance transportation forms completed. Patient aware. Please call [phone]/fax [phone] for transition of care. CM will continue to follow for discharge
planning needs.
Addendum entered by Malini Juarez 03/01/24 09:40:
Patient seen at bedside, IMM completed and signed form to be placed on chart.
Original Note:
[employer] auth recieved this am from Veronica Kent Approved from 03/01-03/03 auth number [id number], [employer] [phone] fax number of [phone] CM with Mia that will be managing the case is Francisca Nathan. CM provided update to facility and await physician
assessment. CM will continue to follow for discharge planning needs.
Plan; SNF
[2024-03-01 11:00] VITALS: BP 105/61
--- NOTE | 2024-03-01 11:08 | W.PN.HOSP.TC ---
Today's Communication/Plan
-
d/c to SNF WITH PICC
Assessment / Plan
Assessment / Plan
pt is a 68 year old male
sepsis POA with MSSA bacteremia and endocarditis--ANGLE with vegetation on aortic valve (initial ECHO without vegetation seen)--apprec cards/ID--PICC and IV cefazolin 2gm IV Q8H through 04/10/24
shoulder/knee pain--MRI R shoulder noted extensive soft tissue edema but no definite drainable fluid collection--L knee XR noted degenerative changes--Pain control with Tylenol, lidocaine cream for R shoulder, capsaicin cream to L knee--appreciate
Ortho input--appreciate ID--cont IV cefazolin
Hypovolemic hyponatremia--improved--Urine osmolarity consistent high ADH state possibly in the settings of relative hypotension
Hypokalemia, resolved
Essential hypertension with chronic orthostatic hypotension on midodrine--Cont midodrine with holding parameter
IDDM--cont Lantus 5 units HS --Accuchecks, SSI
Hypothyroidism on replacement--TSH within normal limits.
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
urinary retention, resolved --Off rutledge--urine culture negative--Added Flomax
Stage II�3 left buttock pressure ulcer, does not appear to be infected--POA
Anemia of chronic disease--down trending hemoglobin may be due to hemodilution with IVF--Fecal occult blood negative in ED
Overall deconditioning, multiple falls at home acute on chronic ambulatory dysfunction--PT rec SNF
pt displays signs of dementia, says he 'doesn't know what is going on', nursing reports pt didn't know his visited last night--admission in November showed him to not have decision making capacity-- reports yelling at them when they bring
something up--should have outpt neuro psych testing for definitive diagnosis
DVT prophylaxis Lovenox SQ
Code status Full code
Anticipated Discharge: Today
Subjective/Interval History
-
Date of Service: March 01, 2024
pt OK for d/c
Objective Data
-
Labs:
Laboratory Results
03/01/24
06:38
WBC 17.9 H
Hgb 7.8 L
Hct 22.9 L
Plt Count 655 H
Sodium 133 L
Potassium 4.7
Chloride 101
Carbon Dioxide 23
BUN 16
Creatinine 0.8
Glucose 122 H
Calcium 9.0
Total Bilirubin 0.3
AST 18
ALT < 10
Alkaline Phosphatase 238 H
Vital Signs:
max temp for 24 hours
02/29/24
19:00
Temp 98.2 F
Vital Signs
Temp Pulse Resp BP Pulse Ox
97.5 F 111 22 122/58 99
03/01/24 07:40 03/01/24 07:40 03/01/24 07:40 03/01/24 07:40 03/01/24 07:55
I&O
02/29/24 03/01/24 03/02/24
06:59 06:59 06:59
Intake Total 2100 / 2100 900 / 900
Output Total 1800 / 1800 500 / 500
Balance 300 / 300 400 / 400
Review of Systems
-
All other systems: Reviewed and negative
Physical Exam
-
General: Well Developed, Well Nourished and No Apparent Distress
HEENT: Normocephalic and Atraumatic
Respiratory: Clear to Auscultation; Negative Wheezes or Rhonchi
Cardiac: Regular Rhythm and S1/S2
GI: Soft, Nontender, Nondistended and Normal Bowel Sounds
Musculoskeletal: No Clubbing, No Cyanosis and No Edema
Neuro: Awake
Psych: Calm and Apparent Dementia
[2024-03-01 12:07] LABS: Glucose - Point of Care 143 mg/dl (70-99)
[2024-03-01] MEDS: NOVOLOG FLEXPEN-LOW RESISTANCE SC (12:09)
--- NOTE | 2024-03-01 13:46 | W.PN.ID1 ---
Date of Service
Date of Service: March 01, 2024
Today's Communication
Continue cefazolin.
Assessment / Plan
# MSSA bacteremia
# [place] AV endocarditis
# Fever - resolved
# Leukocytosis - trending down
# # Acute left knee pain - probable septic arthritis
# Acute Right shoulder - induration, erythema,
- ANGLE: 0.5 cm vege on AV
- MRI R shoulder wo contrast - technically difficult study due to motion artifact
- Per ortho, shoulder tendinitis, not septic shoulder.
- 02/28/24 Left knee aspiration only 1 cc purulent fluid per Ortho. Not enough for cell count. 97% polys, neg crystals
Left knee synovial gram stain: GPC, cx neg to date
Follow clinically for now.
- Repeat blood culture's 02/24 and 02/27 neg to date
-Continue cefazolin 2g IV q8h x 6 weeks through 04/10/24
-Follow weekly, CBC, CMP, CRP
- Follow-up with me in 3 to 4 weeks.
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
DM2
Hypothyroidism
Orthostatic hypotension
Depression
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
left 4th toe osteo s/p partial ray amp (08/2023)
Chief Complaint
-: Bacteremia
Subjective / Review of Systems
Going to SNF rehab.
Vital Signs / Physical Exam
Vital Signs
Vital Signs
Temp Pulse Resp BP Pulse Ox
98.2 F 107 16 105/61 100
03/01/24 11:00 03/01/24 11:00 03/01/24 11:00 03/01/24 11:00 03/01/24 11:00
Physical Exam
Constitutional: No Acute Distress
Cardiovascular: Regular Rate and S1/S2
Pulmonary: Clear
Gastrointestinal: Non Tender, Non Distended and Normal Bowel Sounds
Musculoskeletal: Other (right shoulder decrease induration/erythema; left knee + induration, no erythema)
Lines: PICC (RUE intact)
Objective Data
Lab Data
Lab Results
03/01/24 06:38
03/01/24 06:38
ESR 134 mm/hour (0-20) H 02/26/24 08:06
Estimated Creat Clear 96 ml/min 03/01/24 06:38
Lactic Acid 1.0 mmol/L (0.7-2.0) 02/22/24 20:18
Total Bilirubin 0.3 mg/dl (0.2-1.3) 03/01/24 06:38
AST 18 U/L (17-59) 03/01/24 06:38
ALT < 10 U/L (0-50) 03/01/24 06:38
Alkaline Phosphatase 238 U/L (38-126) H 03/01/24 06:38
C-Reactive Protein 172.50 mg/L (0.0-10.00) H 03/01/24 06:39
Most recent labs reviewed.
Micro Results:
02/28/24 10:33 Body Fluid Culture - Preliminary
Synovial Fluid No Growth After 48 Hours
Gram Stain - Preliminary
02/25/24 08:53 Blood Culture - Final
Blood/Venous No Growth - Final Report
02/23/24 09:53 Blood Culture - Final
Blood/Venous S aureus-Methicillin Sensitive
Gram Stain - Final
02/28/24 07:40 Blood Culture - Preliminary
Blood/Venous No Growth in 48 hours- Final report to follow
02/28/24 10:33 Anaerobic Culture - Preliminary
Knee - Left Culture pending. Anaerobic cultures are examined after 3
days incubation. Additional information to follow.
02/24/24 20:54 Blood Culture - Preliminary
Blood/Venous S aureus-Methicillin Sensitive
Gram Stain - Preliminary
02/22/24 20:18 Blood Culture - Final
Blood/Venous S aureus-Methicillin Sensitive
Gram Stain - Final
02/23/24 10:54 Urine Culture - Final
Urine NO GROWTH
02/22/24 CXR: negative
02/22/24 Shoulder XRAY: DJD
02/22/24 Left knee XRAY: DJD
--- NOTE | 2024-03-02 07:24 | W.DCSUMMARY ---
Discharge Summary
Discharge Data
Date of Admission: 02/24/24
Date of Discharge: 03/02/24
-
Pending Results: No
Hospital Course
Primary care physician : Gagan Kulkarni
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
history of urinary retention, stage II-III left buttock pressure ulcer present on admission, anemia of chronic disease, presumed dementia
Hospital Course : Patient was a 68-year-old male who was brought in for generalized weakness and concern for safety at home. Patient's reported that she did not believe he hit his head. He does have a history of fall secondary to orthostatic
hypotension and dizziness with ambulation which is not new. The patient has actually fallen once a day for the past 3 days prior to admission. Since the fall, patient was complaining of left knee pain and swelling as well as right shoulder pain.
Patient was admitted.
Problem #1: Sepsis due to MSSA bacteremia and endocarditis. Workup for his weakness included looking for infectious components. Given his history of orthostatic hypotension, transthoracic echocardiogram was done which showed normal by ventricular
size and systolic function without any regional wall motion abnormality and no significant valvular disease. Working theory was a urinary tract infection, however urine culture was negative and patient had repeatedly positive blood cultures which
were positive for Staphylococcus aureus methicillin sensitive. He was seen in consultation by infectious disease. Eventually, a transesophageal echocardiogram was done which did show a very small mobile echodensity on the noncoronary cusp of the
aortic valve consistent with vegetation. Blood cultures were repeated until negative. PICC line was placed. And the patient will have 6 weeks of IV cefazolin 2 g IV every 8 through April 10, 2024.
Problem #2: Shoulder and knee pain. Initially there was some concern that these complaints were due to the fall. However, once bacteremia was established, orthopedics was consulted. Patient had a shoulder MRI which showed extensive soft tissue
edema in the superficial soft tissues along the right shoulder and upper back. No drainable fluid collection. He also had degenerative changes in the acromioclavicular joint and tendinopathy. Patient underwent aspiration of his left knee for 1 mL
of purulent fluid. Not enough for cell count but cultures were negative. Left knee Gram stain did show gram-positive cocci but as mentioned cultures were negative. Nevertheless, he will be continued on IV cefazolin 2 g as mentioned above.
Problem #3: Hypovolemic hyponatremia. Workup showed consistently high antidiuretic hormone state (SIADH) possibly in the setting of relative hypotension with ongoing infection. This did improve.
Problem #4: All other medical issues. These include Essential hypertension with chronic orthostatic hypotension, type 2 diabetes mellitus insulin requiring, hypothyroidism, left foot osteomyelitis with gangrene status post left partial foot
amputation in the past, history of urinary retention, stage II-III left buttock pressure ulcer present on admission, anemia of chronic disease, presumed dementia. These medical issues were stable during his hospitalization. Medications were
continued as able.
Patient has been accepted at [facility] rehab for IV antibiotics and ongoing rehabilitation. He is stable for discharge at this time. If there are any questions regarding this dictation or his hospital stay, please do not hesitate to call. Our
office number is [phone].
Time for discharge 32 minutes.
Important imaging findings :
RIGHT SHOULDER MRI IMPRESSION:
Image quality is significantly limited by motion artifact.
There is extensive soft tissue edema in the superficial soft tissues along the right shoulder/upper back. There is no definite drainable fluid collection.
There is moderate degenerative changes of the acromioclavicular joint. There is suggestion of thickening and increased signal within the infraspinatus and supraspinatus tendons likely due to tendinopathy.
Procedure findings :
INITIAL ECHO TTE: CONCLUSIONS
Normal biventricular size and systolic function without regional wall motion
abnormality.
No significant valvular disease.
No prior study available for comparison.
ANGLE is more sensitive and specific in the evaluation of endocarditis in the
correct clinical scenario.
REPEAT ECHO ANGLE: CONCLUSIONS
Normal biventricular size and systolic function without regional wall motion
abnormality.
Very small (less than 0.5 cm) mobile echodensity on the noncoronary cusp of the
aortic valve consistent with vegetation.
Trace aortic regurgitation.
No prior study available for comparison.
Discharge Plan
-
Patient Disposition: Fdc/SNF
Discharge Diagnosis/Procedures: Sepsis with methicillin sensitive Staphylococcus aureus bacteremia and endocarditis (MSSA), shoulder and knee pain concern for infection given bacteremia, hypovolemic hyponatremia, hypokalemia, essential hypertension
with chronic orthostatic hypotension, type 2 diabetes mellitus insulin requiring, hypothyroidism, left foot osteomyelitis with gangrene and partial foot amputation in the past, history of urinary retention, stage II-III left buttock pressure ulcer
present on admission, anemia of chronic disease, deconditioning, presumed dementia
Condition: Good
Diet: Diabetic, Carb Controlled
Activity: As tolerated
Driving Restrictions: Patient should not be driving given his dementia
Bathing Restrictions: None
Activity Restrictions/Additional Instructions:
1. Continue cefazolin 2g IV q8h through 04/10/24
2. Follow weekly, CBC, CMP, CRP
Wound Care Instructions
L buttock: clean with soap and water, skin prep to periwound then Exuderm thin, change q 2-3 days and prn drainage.
Air chair cushion when sitting, can take upon discharge
Frequent turning when in bed.
Follow up at wound care center if wound not healing, call for an appointment.
Referrals:
Gagan Kulkarni DO [Family Provider] - in less than 1 week
Yanet Darnell MD [Active] - in three to four weeks
Prescriptions:
New
cefazolin 10 gram Recon Soln
2 g IV Q8H Qty: 0 0RF
Rx Instructions:
to go through 04/10/24
tamsulosin 0.4 mg Capsule
0.4 mg PO DAILY Qty: 0 0RF
capsaicin 0.025 % Cream
1 applic topical QID Qty: 0 0RF
Continued
meloxicam 15 mg Tablet
15 mg PO DAILY
levothyroxine 25 mcg Tablet
25 mcg PO DAILY
midodrine 2.5 mg Tablet
5 mg PO TID
ergocalciferol (vitamin D2) [Vitamin D2] 1,250 mcg (50,000 unit) Capsule
1,250 mcg PO TH
bupropion HCl 150 mg Tablet Extended Release 24 Hr
150 mg PO DAILY
Levemir FlexPen 100 unit/mL (3 mL) Insulin Pen
5 unit SC HS Qty: 0 0RF
acetaminophen [Tylenol Extra Strength] 500 mg Tablet
1,000 mg PO TID
bisacodyl [Dulcolax (bisacodyl)] 5 mg Tablet,Delayed Release (Dr/Ec)
10 mg PO DAILYPRN PRN (Reason: constipation)
Discharge Orders:
Discharge Patient (As Directed); Ordered 03/01/24
Ordered By: Shannan Alexis
Discharge Date and Time
Discharge Date/Time: 03/01/24 14:04
Print Language: SERBIAN
== END 2024-03-01 14:04 | DRG 871 ==
LOC: 4 WEST ACU 12:55
PROVIDERS: Emergency Medicine; Internal Medicine; Radiology Diagnostic Radiology; Registered Nurse; ADMITTING PHYSICIAN Hospitalist; ATTENDING PHYSICIAN Internal Medicine; CONSULT PHYSICIAN Internal Medicine Cardiovascular Disease; CONSULT PHYSICIAN Specialist; EMERGENCY PHYSICIAN Emergency Medicine; FAMILY PHYSICIAN Family Medicine; OTHER PHYSICIAN Internal Medicine Infectious Disease
PROC: 0S9D3ZX Drainage of Left Knee Joint, Percutaneous Approach, Diagnostic (ICD-10-PCS; 2024-02-28)
PROC: B24BZZ4 Ultrasonography of Heart with Aorta, Transesophageal (ICD-10-PCS; 2024-02-29)
PROC: 02HV33Z Insertion of Infusion Device into Superior Vena Cava, Percutaneous Approach (ICD-10-PCS; 2024-02-29)
DX: A41.01 Sepsis due to Methicillin susceptible Staphylococcus aureus (principal); I33.0 Acute and subacute infective endocarditis; L89.323 Pressure ulcer of left buttock, stage 3; E22.2 Syndrome of inappropriate secretion of antidiuretic hormone; F03.93 Unspecified dementia, unspecified severity, with mood disturbance; M00.9 Pyogenic arthritis, unspecified; E86.1 Hypovolemia; R29.6 Repeated falls; I95.1 Orthostatic hypotension; E03.9 Hypothyroidism, unspecified; I10 Essential (primary) hypertension; R33.8 Other retention of urine; E11.9 Type 2 diabetes mellitus without complications; E87.6 Hypokalemia; D63.8 Anemia in other chronic diseases classified elsewhere; Z79.4 Long term (current) use of insulin; Z79.890 Hormone replacement therapy; Z79.899 Other long term (current) drug therapy; Z87.891 Personal history of nicotine dependence; Z89.422 Acquired absence of other left toe(s)
CPT/HCPCS: 70450; 71045; 71046; 73030; 73221; 73564; 80048; 80053; 81003; 81015; 82248; 82607; 82728; 82746; 82962; 83010; 83036; 83540; 83550; 83605; 83615; 83735; 83935; 84443; 84484; 85025; 85027; 85652; 86140; 86850; 86900; 86901; 87015; 87040; 87070; 87075; 87086; 87147; 87150; 87186; 87205; 89051; 89060; 93005; 93306; 93312; 93320; 93325; 96374; 97162; 97530; 99285

== ENCOUNTER 2024-04-14 15:21 | Emergency (ER) | payer OTHER, SELFPAY ==
[2024-04-14 15:24] VITALS: BP 116/54
[2024-04-14 15:26] VITALS: BP 116/54
[2024-04-14 15:28] VITALS: BMI 23.7
--- NOTE | 2024-04-14 15:50 | ED.GENMED ---
Addendum entered and electronically signed by Nam Rayo PA-C 04/19/24 08:16:
Urine culture shows Klebsiella pneumonia ESBL. This is not responsive to Omnicef. Augmentin is effective. Sent prescription for Augmentin to the pharmacy. Faxed over the lab results to [facility] for their review
Original Note:
History of Present Illness
General
Chief Complaint: Catheter/Tube Problem
Source: patient
Exam Limitations: none
Time Seen by Provider: 04/14/24 15:21
Nursing documentation reviewed up to this point in time: agreed with
History of Present Illness
History of Present Illness:
68-year-old male with a past medical history of mild dementia, diabetes, hypothyroidism, BPH who presents to the ER from [facility] where he has been staying in rehab due to frequent falls. He was sent to the ER today after manually removing his
Gabriel catheter and manually removing an Fabien wrap that he has been wearing on his left arm for support of the left shoulder injury. Patient says that he removed the wrap on his left arm 'because it was bothering the heck out of me.' He does not
wish to have it replaced. He says that he removed the Gabriel catheter because he did not wish to have it anymore. I spoke to his on the phone�she notes that he has had the shoulder injury for a few weeks�had frequent falls and during 1 fall he
fell while holding onto a handrail and injured his left shoulder. He was seen by specialist and told it was likely a rotator cuff injury initially was not wearing anything on the arm but when he went to rehab started to wear an Fabien wrap for
support. She also reports that about a month ago he was at [facility] due to acute urinary retention and had a Gabriel catheter placed. He was scheduled to have it removed in early April by urologist for trial of void. I spoke to the
senior living staff directly: They report that today patient was more agitated than usual and ripped out his catheter with balloon intact. He has been wearing Fabien wrap as described above ripped off the Fabien wrap because he was upset. Patient says he
feels well, does not wish to have catheter replaced or Fabien wrap in place.
Past History
Past History
ED Past Medical History: NIDDM, Psychiatric and Other (Hypotension)
ED Past Surgical History: Orthopedic
Social History
Tobacco: Former smoker
Alcohol: Former
Drug: None
Personal:
Living: with family
Employment: Retired
Family History
Family History: Other
Review of Systems
Review of Systems
All Other Systems: ROS reviewed and negative except as documented in HPI and ROS
Constitutional: Denies fever or chills
EENT: Denies sore throat or runny nose
Respiratory: Denies trouble breathing
Cardiac: Denies chest pain
ABD/GI: Denies abdominal pain
: Denies flank pain
Musculoskeletal: Denies neck pain or back pain
Neurological: Denies headache
Phy Exam
Physical Exam
Physical Exam:
General: Awake, alert, oriented to person and place, time and situation and answering all questions appropriately
Head: Normocephalic, atraumatic
Eyes: Conjunctiva normal, pupils equal round reactive to light bilaterally
Throat: Airway intact, handling secretions
Neck: Trachea midline, supple without meningismus
Lungs: Clear to auscultation bilaterally, no wheezing, rales, rhonchi
Heart: Regular rate and rhythm, no murmurs, gallops, or rubs appreciated
Abd: Soft, non distended, nontender
: Small amount of blood at the tip of the meatus but no tears appreciated
Neuro: No gross deficits
Skin: no rash
Extremities: No reproducible tenderness in the left upper extremity, full range of motion of the left shoulder and elbow actively, good strong left radial pulse; no edema in his extremities
Scores
Heart Failure Risk
Heart Failure Risk Score: Not Applicable
Heart Score for Chest Pain Patients
STEMI patient?: Not applicable
Withdrawal Assessment of Alcohol
Withdrawal Assessment Completed?: Not applicable
Course
Orders/Labs/Results
Orders:
Orders
04/14/24 15:53
Bladder Scan- Treatment ONCE
04/14/24 16:21
Complete Blood Count/With Diff Urgent
Comprehensive Metabolic Panel Urgent
04/14/24 20:08
Urinalysis Reflex To Culture Urgent
Date Specimen was Collected: 04/14/24
Time Specimen was Collected: 20:07
Urine Microscopic Reflex Cult Urgent
Urine Culture Urgent
AMY Source: U
Specimen Description:
Date Specimen was Collected: 04/14/24
Time Specimen was Collected: 20:07
04/14/24 20:44
CefTRIAXone [Rocephin] 1,000 mg IV NOW STA
Abnormal Lab Results
04/14/24 04/14/24
16:21 20:08
WBC 11.7 H 10^3/uL
(4.8-10.8)
RBC 3.25 L 10^6/uL
(4.70-6.10)
Hgb 9.0 L g/dL
(13.0-18.0)
Hct 27.8 L %
(39.0-52.0)
MCHC 32.4 L g/dL
(33.0-37.0)
RDW 15.0 H %
(11.5-14.5)
Abs Immat Gran (auto) 0.1 H 10^3/uL
(0-0.05)
Absolute Neuts (auto) 9.4 H 10^3/uL
(1.4-6.5)
Absolute Monos (auto) 0.7 H 10^3/uL
(0.1-0.6)
Immature Gran % 0.6 H %
(0-0.5)
Neutrophils % 80.3 H %
(42.2-75.2)
Lymphocytes % 12.2 L %
(20.5-51.1)
Creatinine 0.6 L mg/dL
(0.7-1.3)
Glucose 142 H mg/dl
(70-99)
AST 15 L U/L
(17-59)
Alkaline Phosphatase 140 H U/L
(38-126)
Albumin 3.2 L g/dl
(3.5-5.0)
Ur Occult Blood Reflex 4+ A
(Negative)
Leukocyte Esterase Rfl 2+ A
(Negative)
Urine RBC 3-6 A /HPF
(0-2)
Urine WBC (Reflex) 50-60 A /HPF
(0-5)
Urine Bacteria (Reflex) Many A
(Negative)
04/14/24 16:21
04/14/24 16:21
Vital Signs
Initial and Last Documented VS:
Initial Vital Signs
BP
116/54
04/14/24 15:24
Last Documented Vital Signs
Temp Pulse Resp BP Pulse Ox
36.7 C 94 15 106/46 99
04/14/24 15:26 04/14/24 20:02 04/14/24 20:02 04/14/24 20:02 04/14/24 19:30
MDM/Problems Addressed
Differential Diagnosis Includes:
UTI, agitated delirium, polypharmacy
MDM/Problems Addressed:
68-year-old male with history as above presents for evaluation after removing his Gabriel catheter as well as Fabien wrap from his left arm. Gabriel catheter was scheduled to be removed in early April, has been in place for the past month after an
episode of acute urinary retention. He was apparently more agitated than usual today�he does have mild dementia, his says that he has bursts of agitation not infrequently. Patient says he feels well, is calm and cooperative, oriented x 3
here. Will check bladder scan to evaluate for urinary retention. Check basic labs and urinalysis. Reassess after the above.
Labs reviewed: CBC shows leukocytosis of unclear clinical significance�patient has chronic leukocytosis. He has mild but stable anemia. His CMP shows no clinically significant abnormalities. We observed patient here in the emergency room for 3+
hours but unfortunately he was not able to void despite bladder scan showing greater than 600 cc of urine and multiple attempts. Discussed with patient he is agreeable to replace catheter for now.
Catheter placed successfully by nurse, somewhat cloudy yellow urine draining no blood. Urinalysis sent off and was positive for infection with bacteria and pyuria. In the setting of questionable confusion earlier today and leukocytosis will treat
with antibiotics. Patient seems to be at his baseline now, awake alert and comfortable, ate a full meal here and is requesting discharge. Will treat with a dose of IV Rocephin and started on p.o. antibiotics discharged back to senior living.
Patient happy with this plan. All questions answered.
*Pulse Oximetry
Patient hypoxic: no
*Critical Care Note
Total Time (30-74mins, 75-104mins- exclusive of procedures): Not Applicable
Data Reviewed
Source: patient, family, ambulance crew and senior living
ED Attending Note
-
Portions of this chart may have been created with voice recognition software.� Occasional wrong word or��sound alike� substitutions may have occurred due to the inherent limitations of voice recognition software.
Discharge Plan
Departure
Patient Disposition: Home (Routine Discharge)
Date of Disposition: 04/14/24
Time of Disposition: 20:45
Patient with high blood pressure during this ER visit?: No
Discharge Problem:
Acute UTI, Displacement of Gabriel catheter, Acute urinary retention
Instructions: How to Care for Your Gabriel Catheter, Male, Urinary retention
Prescriptions:
New
cefdinir 300 mg capsule
300 mg PO BID Qty: 20 0RF
No Action
meloxicam 15 mg Tablet
15 mg PO DAILY
levothyroxine 25 mcg Tablet
25 mcg PO DAILY
midodrine 2.5 mg Tablet
5 mg PO TID
ergocalciferol (vitamin D2) [Vitamin D2] 1,250 mcg (50,000 unit) Capsule
1,250 mcg PO TH
bupropion HCl 150 mg Tablet Extended Release 24 Hr
150 mg PO DAILY
Levemir FlexPen 100 unit/mL (3 mL) Insulin Pen
5 unit SC HS Qty: 0 0RF
acetaminophen [Tylenol Extra Strength] 500 mg Tablet
1,000 mg PO TID
bisacodyl [Dulcolax (bisacodyl)] 5 mg Tablet,Delayed Release (Dr/Ec)
10 mg PO DAILYPRN PRN (Reason: constipation)
cefazolin 10 gram Recon Soln
2 g IV Q8H Qty: 0 0RF
Rx Instructions:
to go through 04/10/24
tamsulosin 0.4 mg Capsule
0.4 mg PO DAILY Qty: 0 0RF
capsaicin 0.025 % Cream
1 applic topical QID Qty: 0 0RF
Referrals:
Alexandru Guidry MD [Active] - Call in 1-3 days for appt (You should follow-up with your urologist as scheduled; if you have any difficulty with follow-up you can call our urologist at the number above.)
Lupis Merrill MD [Family Provider] - Call in 1-3 days for appt
Activity Restrictions/Additional Instructions:
Thank you for visiting the Emergency Department at [facility].
1. Please schedule a follow up appointment as directed. Call first thing tomorrow morning to make an appointment.
2. If indicated, please take your medications as instructed and indicated on discharge paperwork.
3. If any of your symptoms do not improve, or persist, or become more severe within 6-12 hours, please return to the emergency department for further care.
4. Please return to the emergency department if you develop a headache, neck pain/stiffness, fever greater than 100.4F, chest pain, shortness of breath, persistent nausea, vomiting, slurred speech, difficulty walking, numbness/tingling, weakness,
signs of infection or any other symptoms that are worrisome to you.
Please call [phone] if you have any questions.
Interventions
Interventions:
*Risk Screen - Suicide Last Done: 04/14/24 15:32
*General Assessment Last Done: 04/14/24 15:29
*Neglect/Abuse Screening Last Done: 04/14/24 15:32
*ED COVID-19 Vaccine History Last Done: 04/14/24 15:29
CQ-Ozunqm-Cynudpaobe Assessment Last Done: 04/14/24 16:47
ED-Male Genitourinary Assessment Last Done: 04/14/24 16:47
Discharge Date and Time
Print Language: LAO
[2024-04-14 16:29] LABS: % Basophils 0.3 % (0-2); % Eosinophils 0.9 % (0-6); % Immature Granulocytes 0.6 % (0-0.5); % Lymphocytes 12.2 % (20.5-51.1); % Monocytes 5.7 % (1.7-9.3); % Neutrophils 80.3 % (42.2-75.2); Absolute Eosinophils 0.1 10^3/uL (0-0.7); Absolute Immature Granulocytes 0.1 10^3/uL (0-0.05); Absolute Lymphocytes 1.4 10^3/uL (1.2-3.4); Absolute Monocytes 0.7 10^3/uL (0.1-0.6); Absolute Neutrophils 9.4 10^3/uL (1.4-6.5); Hematocrit 27.8 % (39.0-52.0); Mean Corp Hgb Conc. 32.4 g/dL (33.0-37.0); Mean Corpuscular Hgb 27.7 pg (27.0-31.0); Mean Corpuscular Volume 85.5 fL (80.0-94.0); Mean Platelet Volume 9.5 fL (7.4-10.4); Nucleated Red Blood Cells % 0 % (-); Platelet Count 391 10^3/uL (130-400); Red Blood Cell Count 3.25 10^6/uL (4.70-6.10); White Blood Cell Count 11.7 10^3/uL (4.8-10.8)
[2024-04-14 16:46] LABS: ALT (SGPT) < 10 U/L (0-50); AST (SGOT) 15 U/L (17-59); Albumin 3.2 g/dl (3.5-5.0); Alkaline Phosphatase 140 U/L (38-126); Blood Urea Nitrogen 13 mg/dl (9-20); Carbon Dioxide 23 mmol/L (22-30); Chloride 105 mmol/L (98-107); Estimated Creatinine Clearance > 125 ml/min; Glucose 142 mg/dl (70-99); Sodium 139 mmol/L (135-145); Total Bilirubin 0.4 mg/dl (0.2-1.3); Total Protein 6.8 g/dl (6.3-8.2); eGFR > 60.00
[2024-04-14 19:02] VITALS: BP 94/61
[2024-04-14 20:02] VITALS: BP 106/46
[2024-04-14 20:16] LABS: Urine Albumin Trace (Neg - Trace); Urine Bilirubin Negative (Negative); Urine Character Slightly Cloudy (Clear); Urine Color Straw; Urine Glucose Negative (Negative); Urine Ketone Negative (Negative); Urine Leukocyte 2+ (Negative); Urine Nitrite Negative (Negative); Urine Occult Blood 4+ (Negative); Urine Specific Gravity 1.005 (<1.030); Urine Urobilinogen Negative (Neg - 1+)
[2024-04-14 20:27] LABS: Urine Bacteria Many (Negative); Urine White Cell 50-60 /HPF (0-5)
[2024-04-14] MEDS: ROCEPHIN 1000 MG IV (20:55)
[2024-04-15 00:09] VITALS: BP 132/70
== END 2024-04-15 05:39 | disposition home or self-care (01) ==
LOC: EMR 15:21
PROVIDERS: EMERGENCY PHYSICIAN Emergency Medicine; FAMILY PHYSICIAN Family Medicine
DX: R33.9 Retention of urine, unspecified (principal); N39.0 Urinary tract infection, site not specified; T83.021A Displacement of indwelling urethral catheter, initial encounter; Y84.6 Urinary catheterization as the cause of abnormal reaction of the patient, or of later complication, without mention of misadventure at the time of the procedure; Y73.1 Therapeutic (nonsurgical) and rehabilitative gastroenterology and urology devices associated with adverse incidents
CPT/HCPCS: 99284; 96374; 51798; 51702; 80053; 81003; 81015; 85025; 87077; 87086; 87186

== ENCOUNTER 2025-03-11 20:22 | Inpatient (IN) | payer OTHER, SELFPAY ==
[2025-03-11] VITALS (47 sets, daily range): BP systolic 58–101; BP diastolic 27–67; BMI 25.8
[2025-03-11] MEDS: TYLENOL/FEVERALL 650 MG RECTAL (13:43)
[2025-03-11 14:15] LABS: Hematocrit 26.6 % (39.0-52.0); Hemoglobin 8.9 g/dL (13.0-18.0); Mean Corp Hgb Conc. 33.5 g/dL (33.0-37.0); Mean Corpuscular Volume 95.3 fL (80.0-94.0); Platelet Count 157 10^3/uL (130-400); Red Cell Dist. Width 12.5 % (11.5-14.5)
[2025-03-11 14:16] LABS: Urine Character Slightly Cloudy (Clear)
--- NOTE | 2025-03-11 14:17 | ED.GENMED ---
History of Present Illness
General
Chief Complaint: Fever
Source: patient
Exam Limitations: none
Time Seen by Provider: 03/11/25 14:04
Nursing documentation reviewed up to this point in time: agreed with
History of Present Illness
History of Present Illness:
The patient is a 69-year-old man who arrives from a assisted with a high fever. Patient is a vague historian. Reportedly, patient is having diarrhea but he does not remember having diarrhea. Patient's only complaint is left lower abdominal
pain.
Past History
Past History
ED Past Medical History: NIDDM, Psychiatric and Other (Hypotension)
ED Past Surgical History: Orthopedic
Social History
Tobacco: Former smoker
Alcohol: Former
Drug: None
Personal:
Living: with family
Employment: Retired
Family History
Family History: Other
Review of Systems
Review of Systems
Allergies reviewed?: Yes
Unable to obtain full review of systems at this time due to: dementia
All Other Systems: Not applicable (Limited due to dementia)
Constitutional: Reports fever
Phy Exam
Physical Exam
Physical Exam:
Physical Exam
General: no apparent distress, not acutely ill. Fully awake, alert
Neck: supple. no meningeal signs. normal psoterior pharynx
Heart: s1/s2 regular rate and rhythm, no murmur. equal radial pulses.
Lungs: no acute respiratory distress. clear bilaterally
Abdomen: normal bowel sounds. not tender. no CVAT. Gabriel catheter in place
Neuro: alert and orientedx3. no focal neurological deficits
Skin: no rash
Psychiatric: well kept. interactive and cooperative
Extremities: no edema. no calf tenderness. negative homans. good distal pulses
Course
Orders/Labs/Results
Orders:
Orders
03/11/25 13:36
Electrocardiogram (*1) Urgent
Reason for Study: Other
Other Reason for Exam: Possible Sepsis
Cardiac Monitoring- Treatment ONCE
IV Insert/Care/Rem.- Treatment PRN
O2 Therapy [RESP] Urgent
Titrate/Wean O2 to maintain O2 sat greater than (%): 93
Special Instructions: TO MAINTAIN CONTINUOUS O2 SATS > OR = 93%
Pulse Ox/cont/shift [RESP] Urgent
Quantity: 1
Special Instructions: CONTINUOUS
03/11/25 13:37
EKG- Treatment ONCE
03/11/25 13:42
Acetaminophen [Tylenol/Feverall] 650 mg .ROUTE .STK-MED ONE
Acetaminophen [Tylenol/Feverall] 650 mg RECTAL NOW STA
03/11/25 13:57
Complete Blood Count/With Diff Urgent
Comprehensive Metabolic Panel Urgent
Lactic Acid Q4H
Comment: ON ICE, CANCEL 2ND ORDER IF FIRST LACTIC ACID LEVEL <2
Lipase Urgent
Comment: ADD ON
Manual Differential Urgent
Urinalysis Reflex To Culture Urgent
Date Specimen was Collected: 03/11/25
Time Specimen was Collected: 13:37
Urine Microscopic Reflex Cult Urgent
Blood Culture Q20M
AMY Source: Blood/Venous
Specimen Description:
Comment: Urgent from separate sites. If patient screens positive for possible sepsis
Urine Culture Urgent
AMY Source: U
Specimen Description:
Date Specimen was Collected: 03/11/25
Time Specimen was Collected: 13:37
03/11/25 13:58
Portable Chest Xray [CR Chest Portable - 1 View] Urgent
Comment:
Reason For Exam: fever
Reason Study Needs to be Portable: Patient Unstable
03/11/25 14:02
C difficile Antigen & Toxins Urgent
AMY Source: Feces/Stool
Specimen Description:
Date Specimen was Collected: 03/11/25
Time Specimen was Collected: 14:01
Stool Culture Urgent
AMY Source: Feces/Stool
Specimen Description:
Date Specimen was Collected: 03/11/25
Time Specimen was Collected: 14:01
03/11/25 14:17
Add On- LAB Urgent
Tests Added?: lipase
03/11/25 14:18
Ibuprofen [Motrin] 600 mg PO NOW STA
03/11/25 14:37
0.9% Sodium Chloride 500 ml [Nss] 500 ml IV BOLUS
Piperacillin/Tazo 4.5 Gram [Zosyn] 4.5 gram in 100 ml IV ONCE
03/11/25 14:45
COVID-19 Antigen Urgent
Source: Nasal Swab
Blood Culture Q20M
AMY Source: Blood/Venous
Specimen Description:
Comment: Urgent from separate sites. If patient screens positive for possible sepsis
Influenza A+B Rapid Molecular Urgent
AMY Source: Nasal Swab
Specimen Description:
03/11/25 Dinner
NPO
Allow oral meds: Yes
Allow clear liquids: Sips of Clears
03/11/25 15:50
Vancomycin [Vancocin] 2,000 mg 0.9% Sodium Chloride 500 ml [Nss] 500 ml IV NOW
03/11/25 15:51
CT Abd/Pel (IV only)-DH only Urgent
Comment:
Reason For Exam: fever, LLQ pain
03/11/25 16:00
NORepinephrine 4 MG/250 ML [Levophed] 4 mg in 250 ml IV PER PROTOCOL
Initial dose in mcg/min, then titrate:: 5
Titrate to keep:: MAP > 65 mmHg
Titrate by mcg/min:: 1-2 mcg/min
Frequency of titrations (minutes):: 5
Maximum dose in ICU in mcg/min:: 30
Maximum dose in IMU in mcg/min:: 8
Maximum dose in IVU in mcg/min:: 4
Begin to taper infusion when:: Remained at goal for 4hrs
Taper by mcg/min:: 1-2 mcg/min
Frequency of taper (minutes) if patient maintains goal:: 30
Taper to off?: Yes
If infusion off & no longer maintaining goal:: Contact Provider
03/11/25 18:58
US Abdomen Complete/Upper Urgent
Comment:
Reason For Exam: abnormal gallbladder on catSCAN
03/11/25 19:58
Admit/Transfer Patient As Directed
Co-Sign Provider:
Level of Care: Inpatient admission
Assign to:: ICU
Physician / Group: dm
Diagnosis: septic shock
Reason for Hospitalization: septic shock
Expected length of stay greater than two midnights?: Yes
ELOS- Estimated Length of Stay in days: 2
I certify the patient meets the requirements for IP care: Yes
Code Status As Directed
Resuscitation Status: Full Code
PRN Pain Medication Management As Directed
May give lesser potent ordered pain med per pt: Yes
preference::
Protocol:: Medication orders for pain may be administered in a
manner that supports deferring to patient preference
when the pt is:
- Requesting an ordered lesser potent pain medication.
Least to most potent pain medications are defined
as: acetaminophen < NSAID < tramadol < opioids
(morphine, oxycodone, hydromorphone).
- Requesting a lesser dose of the same medication IF
ORDERED.
- Requesting a less intrusive route of administration
if both routes are prescribed by the provider (PO <
IV).
03/11/25 20:15
Vasopressin 20 Units/100 ml [Pitressin] 20 units in 100 ml IV PER PROTOCOL
Initial dose in units/min, then titrate:: 0.03
Titrate to keep:: MAP > 65 mmHg
Titrate by units/min:: 0.005 units/min
Frequency of titrations (minutes):: 10
Maximum dose in units/min:: 0.1
Begin to taper infusion when:: Remained at goal for 8hrs
Taper by units/min:: 0.005 units/min
Frequency of taper (minutes) if patient maintains goal:: 60
Taper to off?: Yes
If infusion off and no longer mantaining goal:: Contact Provider
03/11/25 20:20
Lactic Acid Q4H
Comment: ON ICE, CANCEL 2ND ORDER IF FIRST LACTIC ACID LEVEL <2
03/11/25 22:50
Lactate Level [Lactic Acid] Q6H
Acetaminophen [Tylenol] 1,000 mg PO TID
Bisacodyl [Dulcolax] 10 mg PO DAILYPRN PRN constipation
Dextrose 50%-Water [Dextrose 50% Syringe] 12.5 grams IV [id number] PRN
Glucagon [GlucaGen] 1 mg IM PRN PRN
Heparin 5,000 units SC Q12
Magnesium Hydroxide [Milk of Magnesia] 30 ml PO HSPRN PRN if no BM in 3 days
Piperacillin/Tazo 3.375 Gram [Zosyn] 3.375 gram in 50 ml IV Q6H
Sodium Bicarbonate 50 meq IV NOW STA
Sterile Water For Inj [Sterile Water For Injection 1000 ml] 1,000 ml Sodium Bicarbonate 150 meq IV 100 mls/hr
Tramadol HCl [Ultram] 50 mg PO Q4HPRN PRN moderate pain
VANCOMYCIN Pharmacy to Dose [VANCOCIN Pharmacy to Dose] 1 each Pharmacy To Prepare [Call Pharmacy To Prepare] 0 ml IV PER PROTOCOL
capsaicin 1 applic TOPICAL Q8HPRN PRN
03/11/25 22:50
Activity As Directed
Activity Level: As Tolerated
Bedside Glucose Monitoring As Directed
Frequency: AC&HS
Additional Instructions:: Change to q6h if pt on TPN, tube feeding or not eating
Vital Signs As Directed
Frequency: Per unit guidelines
DX Deep Vein Thrombosis Video Routine
03/12/25 06:00
Complete Blood Count/With Diff IN AM
Comprehensive Metabolic Panel IN AM
Glycohemoglobin (HgbA1c) IN AM
03/12/25 07:30
Insulin Aspart Corrective Low [Novolog Flexpen-Low Resistance] See Protocol SC AC
03/12/25 08:00
Bupropion(24Hr)Extended Releas [WELLBUTRIN XL (24 hour extended release)] 150 mg PO DAILY
Levothyroxine [Synthroid] 25 mcg PO DAILY
Multivitamin [Theragran] 1 tablet PO DAILY
03/16/25 08:00
Ergocalciferol [Drisdol (Vitamin D2)] 50,000 units PO TH
Abnormal Lab Results
03/11/25 03/11/25
13:57 20:20
WBC 3.6 L 10^3/uL
(4.8-10.8)
RBC 2.79 L 10^6/uL
(4.70-6.10)
Hgb 8.9 L g/dL
(13.0-18.0)
Hct 26.6 L %
(39.0-52.0)
MCV 95.3 H fL
(80.0-94.0)
MCH 31.9 H pg
(27.0-31.0)
MPV 10.6 H fL
(7.4-10.4)
Band Neutrophils 20 H %
(0-3)
Lymphocytes (Manual) 7 L %
(20-51)
Monocytes (Manual) 1 L %
(2-9)
Sodium 133 L mmol/L
(135-145)
Chloride 111 H mmol/L
(98-107)
Carbon Dioxide 13 L* mmol/L
(22-30)
BUN 46 H mg/dl
(9-20)
Creatinine 2.0 H mg/dL
(0.7-1.3)
Glucose 111 H mg/dl
(70-99)
Lactic Acid 3.0 H mmol/L 3.6 H mmol/L
(0.7-2.0) (0.7-2.0)
AST 77 H U/L
(17-59)
ALT 53 H U/L
(0-50)
Total Protein 6.1 L g/dl
(6.3-8.2)
Ur Occult Blood Reflex 4+ A
(Negative)
Leukocyte Esterase Rfl 3+ A
(Negative)
Urine RBC 50-60 A /HPF
(0-2)
Urine WBC (Reflex) 70-80 A /HPF
(0-5)
Urine Bacteria (Reflex) Moderate A
(Negative)
Urine Albumin (Reflex) 3+ A
(Neg - Trace)
03/11/25 13:57
03/11/25 13:57
Vital Signs
Initial and Last Documented VS:
Initial Vital Signs
Temp
100.9 F H
03/11/25 13:32
Last Documented Vital Signs
Temp Pulse Resp BP Pulse Ox
100.8 F H 107 16 99/57 98
03/11/25 21:00 03/11/25 22:32 03/11/25 22:32 03/11/25 22:20 03/11/25 22:20
MDM/Problems Addressed
Differential Diagnosis Includes:
Pneumonia with sepsis, urosepsis, bacteremia with sepsis
MDM/Problems Addressed:
Patient presents with acute fever and hypotension and diarrhea
Chronic conditions affecting care: DM
Acute Exacerbation and/or Progression of Chronic Illness: DM
*Radiology
Radiology exam reviewed: preliminary read by ED provider (Chest x-ray reviewed by me. No acute disease) and radiology read reviewed
*Pulse Oximetry
SaO2: 96
Oxygen Mode of Delivery: Room air
Patient hypoxic: no
*EKG
Interpreted by ED Provider?: Yes
Interpretation: abnormal
Comparison EKG: changes noted (Now tachycardic)
Rate: tachycardiac
Rhythm: sinus
[place]: normal axis
Interval: normal interval
*Internet Marketing Director Interpretation
Rate: tachycardiac
Interpretation: abnormal
Rhythm: sinus
*Critical Care Note
Total Time (30-74mins, 75-104mins- exclusive of procedures): 85 minutes
comment:
85 minutes of critical care given to patient including recurrent assessments of his mental status, heart rate and blood pressure, including reviewing his chest x-ray, CT report, speaking to general surgery, and the hospitalist as well as monitoring
his blood work, including reassessing his lactic acid
Data Reviewed
Review of Other/Old Records Reveals: Discharge Summary (Discharge summary reviewed from 2023 when patient was admitted for MSSA bacteremia and endocarditis)
Source: patient
Patient Management
Discussion with other providers: Hospitalist and Other (Spoke to Dr. Parmar about patient's ongoing abdominal pain, profound hypotension and rising lactic acid. Dr. Parmar reviewed patient's records and CT)
Escalation/DeEscalation of care consider admission/obs:
Patient became increasingly hypotensive and has had persistent lower abdominal pain. Pressors started on the patient. Additionally, patient received wide spectrum antibiotics and IV fluids. General surgery aware of patient's hypotension and
continued abdominal pain.
I did do a rectal exam and was able to disimpact some hard brown stool. There is no sign of any bloody or mucousy stool.
ED Attending Note
-
Portions of this chart may have been created with voice recognition software.� Occasional wrong word or��sound alike� substitutions may have occurred due to the inherent limitations of voice recognition software.
Discharge Plan
Departure
Patient Disposition: Admit
Date of Disposition: 03/11/25
Time of Disposition: 15:52
Admit to: ICU
Presentation/result/management discussed w/ accepting MD/DO: Hospitalist
Patient with high blood pressure during this ER visit?: No
Condition: Critical
Covid-19: Negative COVID-19
Discharge Problem:
Profound hypotension, Septic shock, Urosepsis, Fecal impaction of rectum, Abdominal pain
Interventions
Interventions:
*Risk Screen - Suicide Last Done: 03/11/25 18:13
*General Assessment Last Done: 03/11/25 14:09
*Neglect/Abuse Screening Last Done: 03/11/25 14:09
*ED- Fall Risk Assessment Last Done: 03/11/25 18:13
*ED COVID-19 Vaccine History Last Done: 03/11/25 18:13
*Nursing Disposition Last Done: 03/11/25 22:42
ED- Neurological Assessment Last Done: 03/11/25 14:08
ED-Skin Assessment Last Done: 03/11/25 18:13
Discharge Date and Time
Discharge Date/Time: 03/11/25 22:43
[2025-03-11 14:27] LABS: Urine Red Blood Cell 50-60 /HPF (0-2); Urine White Cell 70-80 /HPF (0-5)
[2025-03-11] MEDS: MOTRIN 600 MG PO (14:36)
[2025-03-11] MEDS: NSS 500 IV (14:45)
[2025-03-11 14:48] LABS: ALT (SGPT) 53 U/L (0-50); AST (SGOT) 77 U/L (17-59); Albumin 3.5 g/dl (3.5-5.0); Alkaline Phosphatase 119 U/L (38-126); Blood Urea Nitrogen 46 mg/dl (9-20); Calcium 8.6 mg/dl (8.4-10.2); Carbon Dioxide 13 mmol/L (22-30); Chloride 111 mmol/L (98-107); Estimated Creatinine Clearance 38 ml/min; Glucose 111 mg/dl (70-99); Lipase 78 U/L (23-300); Potassium 4.5 mmol/L (3.5-5.1); Sodium 133 mmol/L (135-145); Total Protein 6.1 g/dl (6.3-8.2); eGFR 35.24
[2025-03-11] MEDS: ZOSYN 100 IV (14:51)
[2025-03-11 14:55] LABS: Nucleated Red Blood Cells % 0.5 % (-)
[2025-03-11 14:56] LABS: Absolute Neutrophils -Man Diff 3.3 10^3/uL (1.4-6.5); Hypochromasia Slight; Normal RBC Morphology No; Platelets Checked Yes; Total Cells Counted 100
[2025-03-11 15:46] LABS: COVID-19 Antigen Negative (Negative)
[2025-03-11] MEDS: LEVOPHED 250 IV (15:55)
[2025-03-11] MEDS: VANCOCIN 540 MG IV (17:36)
--- NOTE | 2025-03-11 20:27 | HPS.HSE ---
Family Physician
-
Family Physician: Lupis Merrill MD
Chief Complaint
-
abdominal pain
History of Present Illness
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
III left buttock pressure ulcer, anemia of chronic disease, chronic Gabriel catheter, presenting with high fever. �His only complaint is left lower abdominal pain. Reportedly did have diarrhea. He is unsure how long he has had the pain. He denies
diarrhea or constipation. Denies vomiting. Denies fever. Denies cough.
Denies significant alcohol and denies smoking.
Medical History
Past Medical History
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
left buttock pressure ulcer, anemia of chronic disease, chronic Gabriel catheter)
Past Surgical History: Reports None
Social History
Tobacco: Non-smoker
Alcohol: None
Drug: None
Family History
Family History: Not pertinent
Allergies / Home Medications
Allergies reflects when Allergies were last updated in [facility].
Home Medications with original date entered in [facility]
Allergy/Medication List:
Allergies
Allergy/AdvReac Type Severity Reaction Status Date / Time
No Known Allergies Allergy Verified 03/11/25 13:34
Home Medications
bupropion HCl 150 mg 24 hr tablet, extended release 150 mg PO DAILY Mental Health/Anxiety 01/29/24
ergocalciferol (vitamin D2) 1,250 mcg (50,000 unit) capsule (Vitamin D2) 1,250 mcg PO TH Supplement 01/29/24
levothyroxine 25 mcg tablet 25 mcg PO DAILY Thyroid 01/29/24
meloxicam 15 mg tablet 15 mg PO DAILY INFLAMMATION 01/29/24
acetaminophen 500 mg tablet (Tylenol Extra Strength) 1,000 mg PO TID mild pain 02/22/24
bisacodyl 5 mg tablet,delayed release (Dulcolax (bisacodyl)) 10 mg PO DAILYPRN PRN constipation 02/22/24
tamsulosin 0.4 mg capsule 0.4 mg PO DAILY #0 caps 03/01/24
capsaicin 0.025 % topical cream 1 applic topical Q8HPRN PRN rash 03/11/25
insulin glargine 100 unit/mL (3 mL) subcutaneous pen (Lantus Solostar U-100 Insulin) 5 unit SC HS 03/11/25
lisinopril 5 mg tablet 5 mg PO DAILY 03/11/25
magnesium hydroxide 400 mg/5 mL oral suspension (Milk of Magnesia) 30 ml PO HSPRN PRN if no BM in 3 days 03/11/25
therapeutic multivitamin 1 tab PO DAILY 03/11/25
tramadol 50 mg tablet 50 mg PO Q4HPRN PRN moderate pain 03/11/25
Review of Systems
-
Constitutional: Reports No Symptoms
EENT: Reports No Symptoms
Respiratory: Reports No Symptoms
Cardiac: Reports No Symptoms
Abdomen/GI: Reports No Symptoms
: Reports No Symptoms
Musculoskeletal: Reports No Symptoms
Skin: Reports No Symptoms
Neurological: Reports No Symptoms
Endocrine: Reports No Symptoms
Hematologic/Lymphatic: Reports No Symptoms
Psych: Reports No Symptoms
Physical Exam
Vital Signs
Vital Signs
Temp Pulse Resp BP Pulse Ox
99.0 F 109 24 85/39 96
03/11/25 18:34 03/11/25 20:00 03/11/25 14:00 03/11/25 20:00 03/11/25 19:45
Physical Exam
General: Well Developed, Well Nourished and No Apparent Distress
HEENT: NormoCephalic, Moist mucous membranes and Atraumatic
Respiratory: Clear
Cardiac: S1/S2 and Regular Rhythm; No Murmur or Rub
GI: Soft, Non Tender, Non Distended and Normal Bowel Sounds; No Organomegaly
Rectal: Deferred by Provider
Musculoskeletal: No Clubbing, No Cyanosis and No Edema
Skin: No Rash
Neuro: Nonfocal/grossly intact
Laboratory Results
-
03/11/25 13:57
03/11/25 13:57
Laboratory Results
Lactic Acid 3.0 mmol/L (0.7-2.0) H 03/11/25 13:57
Total Bilirubin 1.0 mg/dl (0.2-1.3) 03/11/25 13:57
AST 77 U/L (17-59) H 03/11/25 13:57
ALT 53 U/L (0-50) H 03/11/25 13:57
Alkaline Phosphatase 119 U/L (38-126) 03/11/25 13:57
Lipase 78 U/L (23-300) 03/11/25 13:57
Data Reviewed
-
Lab Data: Labs Reviewed by me
Old Records: Reviewed
Impression/Plan
-
IMPRESSION:
PLAN:
# Septic shock (fever, tachycardia, leukopenia, hypotension) secondary catheter associated UTI versus rule out acute cholecystitis versus stercoral colitis versus bacteremia
# Non-anion gap metabolic acidosis
- IV fluids with bicarbonate
- Check blood cultures
-Stool studies were sent because he had diarrhea here
- CT abdomen pelvis shows large amount of fecal material in the rectum suggesting fecal impaction, appearance of mild pericholecystic fluid diffuse bladder wall thickening, moderate amount of stool throughout the colon
-Lactate of 3, trend lactate
-Abdominal ultrasound to evaluate for cholecystitis pending
- Zosyn, vancomycin
-Chronic Gabriel catheter was exchanged yesterday
- Levophed started and maxed despite receiving 3 L IV fluids, Starting vasopressin
# Fecal impaction/constipation
-Patient does not know when last bowel movement was
-Patient was manually disimpacted with brown soft stool
-Physical examination not concerning for ischemia or peritonitis and CT does not show evidence of this
- N.p.o. for now
# Acute kidney injury secondary to hypotension/sepsis
- Monitor with bicarb drip
- Hold meloxicam, lisinopril
# Transaminitis secondary to hypotension versus rule out acute cholecystitis
- Continue to monitor
History of MSSA bacteremia/endocarditis with aortic valve vegetation
Chronic Gabriel catheter
- Gabriel catheter exchanged yesterday
Essential hypertension
- Hold lisinopril
Orthostatic hypotension
- Continue midodrine
Type 2 diabetes
-Hold glargine 5 units
- Insulin sliding scale
Hypothyroidism
- Continue levothyroxine
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
Anemia of chronic disease
- Hemoglobin stable at 8.9
Anxiety/depression
- Continue bupropion
Hypercholesterolemia
Steatohepatitis
BPH
- Hold tamsulosin
Chronic pain
- Hold meloxicam
- Continue tramadol
Full code
DVT prophylaxis�heparin
N.p.o.
[2025-03-11] MEDS: PITRESSIN 100 IV (20:28)
--- NOTE | 2025-03-11 22:48 | W.PN.UPDATE ---
Update Note
Progress Note Update
Patient became more hypotensive (with blood pressure cuffs both extremities) and lactate elevated to 3.6. Repeat CT scan of Abdomen Pelvis and now Chest attempted to evaluate for bowel ischemia/perforation.. Patient became dyspnic during CT scan and
it could not be completed. He was placed on oxygen and CAT scan was attempted again which was successful. Given History of ESBL Klebsiellsa will change Zosyn to Meropenem (although sensitive to Zosyn). General Surgery was notified again who thinks
source is more likely urinary.
[2025-03-11 22:53] LABS: Glucose - Point of Care 146 mg/dl (70-99)
--- NOTE | 2025-03-11 23:19 | W.PN.UPDATE ---
Update Note
Progress Note Update
ARTERIAL LINE (A-Line) PLACEMENT
Date: 03/11/25
Time: 2300
Indication: Hemodynamic monitoring, consent verbally obtained from patientrenato inserted emergently
A time-out was completed verifying correct patient, procedure, site, positioning, and special equipment if applicable. Edd�s test was performed to ensure adequate perfusion. The patient�s right wrist was prepped and draped in sterile fashion.
�A�18G Arrow arterial line was introduced into the radial artery. The catheter was threaded over the guide wire and the needle was removed with appropriate pulsatile�blood return. A sterile dressing applied. Perfusion to the extremity distal to the
point of catheter insertion was checked and found to be adequate.
Estimated Blood Loss: <5cc
The patient tolerated the procedure well and there were no complications.
[2025-03-11] MEDS: SODIUM BICARBONATE 50 MEQ IV (23:21)
--- NOTE | 2025-03-11 23:21 | W.PN.SEPSIS ---
Sepsis
Vital Signs
Temp Pulse Resp BP Pulse Ox
100.8 F H 107 16 99/57 98
03/11/25 21:00 03/11/25 22:32 03/11/25 22:32 03/11/25 22:20 03/11/25 22:20
Physical Exam
Physical Exam:
A focused exam was performed after fluid resuscitation.
Capillary Refill
Bilateral Upper Extremity:
Jaya Time: Less than 3 sec
Bilateral Lower Extremity:
Jaya Time: Less than 3 sec
Pulse Evaluation
Bilateral Radial:
Pulse Evaluation: Present
Bilateral Dorsalis Pedis:
Pulse Evaluation: Present
[2025-03-11] MEDS: SODIUM BICARBONATE 1150 MEQ IV (23:25)
[2025-03-11] MEDS: LR 1000 IV (23:28)
--- NOTE | 2025-03-11 23:41 | PHA.VAN.IN ---
Assessment
- Assessment
Renal Function: SCR Appears Elevated from baseline
Maximum Temperature: 105.2F
Concomitant Antimicrobials: meropenem
- Previous Dosing Experience
Previous Regimen: Vancomycin 1000mg IV Q12h
Date of Regimen: 02/24/24
Provided Trough of: none obtained
Patient's SCR is: Elevated compared to previous dosing experience
Patient's weight is: Similar to previous dosing experience
Plan
- Plan
Initial / Loading Dose: Vancomycin 2000mg administered 03/11 at 1730
Maintenance Regimen: dose by level due to renal function
Monitoring: Will order random level for 03/12 AM.
Pharmacokinetics Vancomycin I
- -
Patient Age: 69
Patient Sex: Male
Vancomycin Day #: 1
Indication: Genito-Urinary Tract
Requesting Provider: Dr. Smith
Pertinent Antimicrobial Allergies:
NKA
Height / Weight:
Height 6 ft
Actual Weight 86.1 kg
Pertinent Past Medical History: h/o MSSA endocarditis, h/o ESBL Klebsiella 2023
- Vital Signs / Lab Results
Temp Pulse Resp BP Pulse Ox
97.4 F 107 16 99/57 98
03/11/25 23:29 03/11/25 22:32 03/11/25 22:32 03/11/25 22:20 03/11/25 22:20
Lab Results - Hematology
03/11/25
13:57
WBC 3.6 L
Band Neutrophils 20 H
Lab Results - Chemistry
03/11/25
13:57
BUN 46 H
Creatinine 2.0 H
Estimated Creat Clear 38
Albumin 3.5
03/11/25 03/11/25
13:57 20:20
Lactic Acid 3.0 H 3.6 H
Lab Results - Urine
03/11/25
13:57
Urine Nitrite (Reflex) Negative
Leukocyte Esterase Rfl 3+ A
Urine WBC (Reflex) 70-80 A
Ur Squamous Epith Cells 3-5
Urine Bacteria (Reflex) Moderate A
Microbiology Results
03/11/25 14:45 Influenza Types A & B (YESIKA) - Final
Nasal Swab Negative for Influenza A & B, NAAT
Negative results must be combined with clinical observations
and patient history.
Nucleic Acid Amplification test (NAAT)performed on the
[employer] platform.
03/11/25 14:02 C. difficile [facility] Antigen & Toxins - Final
Feces/Stool Negative for toxigenic C.difficile
[2025-03-11] MEDS: NEO-SYNEPHRINE 250 IV (23:50)
[2025-03-11] MEDS: DILAUDID 0.25 MG IV (23:54)
[2025-03-12] VITALS (22 sets, daily range): BP systolic 90–133; BP diastolic 50–90
[2025-03-12 00:08] LABS: B.E. -14.4 mmol/L; O2 Saturation % 99.9 % (94-98); PCO2 22 mmHg (35-48); PO2 135 mmHg (83-108)
[2025-03-12 00:10] LABS: HCO3 10.6 mmol/L (21-28)
[2025-03-12 00:12] LABS: Hematocrit 22.4 % (39.0-52.0); Hemoglobin 7.8 g/dL (13.0-18.0); Mean Corp Hgb Conc. 34.8 g/dL (33.0-37.0); Mean Corpuscular Volume 92.2 fL (80.0-94.0); Platelet Count 111 10^3/uL (130-400); Red Cell Dist. Width 12.7 % (11.5-14.5)
[2025-03-12 00:25] LABS: INR 1.61; PT 19.3 Sec (11.4-14.6)
[2025-03-12 00:26] LABS: APTT 51.4 Sec (23.4-35.0); Fibrinogen 260 MG/DL (199-459)
[2025-03-12 00:27] LABS: ALT (SGPT) 266 U/L (0-50); AST (SGOT) 359 U/L (17-59); Albumin 2.5 g/dl (3.5-5.0); Alkaline Phosphatase 101 U/L (38-126); Blood Urea Nitrogen 49 mg/dl (9-20); Calcium 7.2 mg/dl (8.4-10.2); Carbon Dioxide 9 mmol/L (22-30); Chloride 109 mmol/L (98-107); Estimated Creatinine Clearance 29 ml/min; Glucose 160 mg/dl (70-99); Magnesium 1.2 mg/dl (1.6-2.3); Potassium 4.6 mmol/L (3.5-5.1); Sodium 128 mmol/L (135-145); Total Protein 4.6 g/dl (6.3-8.2); eGFR 25.72
[2025-03-12] MEDS: LR 1000 IV (00:32)
[2025-03-12] MEDS: MERREM 500 MG IV ×3 (00:33→15:41)
[2025-03-12] MEDS: STERILE WATER FOR INJECTION 10 ML IV ×3 (00:33→15:41)
[2025-03-12] MEDS: SOLU-CORTEF 50 MG IV ×4 (00:34→17:05)
[2025-03-12] MEDS: HEPARIN 5000 UNITS SC ×3 (00:34→19:12)
[2025-03-12 00:37] LABS: Troponin I 0.170 ng/ml
[2025-03-12 00:40] LABS: C-Reactive Protein 151.30 mg/L (0.0-10.00)
[2025-03-12 00:42] LABS: D-Dimer > 20.00 ug/mlFEU (0.00-0.50)
[2025-03-12] MEDS: NOVOLOG FLEXPEN-MODERATE RESISTANCE 1 UNITS SC ×2 (00:44→05:41)
[2025-03-12 00:57] LABS: Glucose - Point of Care 196 mg/dl (70-99)
--- NOTE | 2025-03-12 01:13 | VATNOTE ---
PICC order received 03/11 at 23:11, this VAT RN contacted primary RN to confirm need for central access tonight. Primary RN stated central access needed bandar for several pressor infusions. Patient with A Line in right arm and 3 PIVs in right arm.
Attempted PICC placement in left arm basilic vein. Venous access immediately with no issues, wire advanced with no issues. Introducer inserted and PICC cut ready for placement. Patient began to scream he could not keep his arm out any longer, PCT
holding arm during entire procedure. PCT and this VAT RN reassured patient the procedure was almost over he only had to hold still a few more minuets. Patient grabbed left arm with right arm compromising sterile field and now refusing placement of
line. Introducer and wire removed. Primary RN and ZINC PLATE CUTTER at bedside. Spoke with patient, he is now agreeable to allow another attempt at PICC placement. Pressure dressing and quik clot placed over first attempted site. Unable to control bleeding long
enough for a tourniquet to be placed on left arm. Primary RN at bedside, asked for two more PIVs and for PICC placement to be assessed in the morning. Patient had removed two PIVs during his grab of sterile field. Two more PIVs placed. Patient now
has two PIVs in right arm, and three PIVs in left arm. Will continue to monitor and assess need for PICC.
[2025-03-12] MEDS: FLEXBUMIN 100 IV (01:17)
[2025-03-12] MEDS: MAGNESIUM SULFATE 50 IV (01:17)
[2025-03-12] MEDS: CALCIUM GLUCONATE 130 MG IV (01:22)
[2025-03-12] MEDS: LEVOPHED 250 IV ×7 (01:49→21:19)
[2025-03-12] MEDS: VALIUM INJECTION 5 MG IV (02:15)
[2025-03-12] MEDS: PRECEDEX 100 IV ×7 (02:31→22:39)
[2025-03-12 02:36] LABS: B.E. -17.6 mmol/L; O2 Saturation % 99.3 % (94-98); PCO2 27 mmHg (35-48); PO2 130 mmHg (83-108)
[2025-03-12 02:38] LABS: O2 Therapy NC
[2025-03-12 02:39] LABS: HCO3 9.6 mmol/L (21-28)
[2025-03-12] MEDS: DILAUDID 0.25 MG IV ×4 (02:54→22:38)
--- NOTE | 2025-03-12 04:00 | PTCARENOTE ---
Patient arrived to ICU awake on 3L/O2 nc, and on Levophed at 30 mcg/min (113 ml/hr) and Vasopressin at 0.03 units/min (9 ml/hr). Patient's MAP of 60. DRAWBENCH OPERATOR HELPER at the bedside. Pt's SBP post right radial arterial line placement was in the 60s with MAP in
the 40s. Vasopressin increased to 0.04 units/min per DRAWBENCH OPERATOR HELPER. The patient's BP remained unchanged. Neosynephrine initiated at max dose of 200 mcg/min for MAP of 54. On arrival, the patient was oriented x2 and not forthcoming with information. Verbalizes
left shoulder pain with arm extension. VAT team at the bedside and the patient had difficulty with cooperating with staff. PRN dilaudid administered for left shoulder pain. Pt's dislodged his right wrist IV site. VAT team placed multiple peripheral
IV sites and medications were administered. See MAR for medications. Labs drawn and sent. Small sip of water provided and the patient tolerated. Approximately at 0215, the patient asked to be let out of bed. Explained to the patient activity
restriction status due to current illness and being on multiple vasopressors. Pt became agitated and attempted to push this RN to get OOB. The patient kicked at staff but did not land. Pt cussed at staff and screamed to be let out. Pt states that he
is being held a prisoner. Multiple staff members assisted with restraining the patient. Valium 5 mg IV administered. Precedex initiated for RASS of 4. ABG drawn and sent. Patient continued with agitation. Medications titrated accordingly. Sinus
rhythm to sinus tachy on the monitor. Beath sounds are CTA. Abd is round and mildly tender per the patient. Chronic rutledge catheter is draining small amount of harley urine. Four points soft restraints are in use. Full documentation as noted on the
worklist.
[2025-03-12 05:27] LABS: B.E. -14.8 mmol/L; O2 Saturation % 99.2 % (94-98); PCO2 32 mmHg (35-48); PO2 117 mmHg (83-108)
[2025-03-12 05:30] LABS: HCO3 12.2 mmol/L (21-28)
[2025-03-12 05:37] LABS: Hematocrit 25.1 % (39.0-52.0); Hemoglobin 8.7 g/dL (13.0-18.0); Mean Corp Hgb Conc. 34.7 g/dL (33.0-37.0); Mean Corpuscular Volume 93.0 fL (80.0-94.0); Platelet Count 122 10^3/uL (130-400); Red Cell Dist. Width 12.6 % (11.5-14.5)
[2025-03-12] MEDS: SYNTHROID 25 MCG PO (05:42)
[2025-03-12 05:52] LABS: Glucose - Point of Care 199 mg/dl (70-99)
[2025-03-12 05:57] LABS: ALT (SGPT) 304 U/L (0-50); AST (SGOT) 365 U/L (17-59); Albumin 3.1 g/dl (3.5-5.0); Alkaline Phosphatase 93 U/L (38-126); Blood Urea Nitrogen 47 mg/dl (9-20); Calcium 7.3 mg/dl (8.4-10.2); Carbon Dioxide 11 mmol/L (22-30); Chloride 106 mmol/L (98-107); Estimated Creatinine Clearance 33 ml/min; Glucose 201 mg/dl (70-99); Magnesium 1.7 mg/dl (1.6-2.3); Potassium 4.9 mmol/L (3.5-5.1); Sodium 128 mmol/L (135-145); Total Protein 5.2 g/dl (6.3-8.2); eGFR 29.80
[2025-03-12 06:09] LABS: Troponin I 0.416 ng/ml
[2025-03-12 06:47] LABS: Hepatitis C Antibody Negative (Negative)
--- NOTE | 2025-03-12 06:51 | PHA.VAN.FU ---
Vancomycin Assessment / Plan
- Assessment
Renal Function: Stable
WBC's are: Trending Up
In the past 24 hrs, patient has been: Febrile
Concomitant Antimicrobials: meropenem
- Assessment - Therapeutic Drug Monitoring
Random Level: 15.7 - drawn ~12H after 2g loading dose
- Dosing Plan
Dosing by Level: Re-dose today (1250mg)
- Monitoring Plan
Random Level: 03/13 06
- Follow Up
Pharmacy will continue to follow.
Vancomycin Follow UP
- -
Patient Age: 69
Patient Sex: Male
Vancomycin Day #: 2
Indication: Genito-Urinary Tract
Requesting Provider: Dr. Smith
Pertinent Antimicrobial Allergies:
NKDA
Height / Weight:
Height 6 ft
Actual Weight 86.1 kg
Pertinent Past Medical History: h/o MSSA endocarditis, h/o ESBL Klebsiella 2023; DM 2
- Vital Signs / Lab Results
Temp Pulse Resp BP Pulse Ox
97.4 F 108 15 92/46 98
03/12/25 03:07 03/12/25 04:00 03/12/25 04:00 03/11/25 23:00 03/12/25 04:00
Lab Results - Hematology
03/11/25 03/11/25 03/12/25
13:57 23:56 05:20
WBC 3.6 L 17.0 H 30.1 H
Band Neutrophils 20 H
Lab Results - Chemistry
03/11/25 03/11/25 03/11/25
13:57 23:56 23:57
BUN 46 H Cancelled
Creatinine 2.0 H
Estimated Creat Clear 38
Albumin 3.5 Cancelled
03/11/25 03/11/25 03/11/25
23:57 23:57 23:57
BUN 49 H
Creatinine Cancelled 2.6 H
Estimated Creat Clear Cancelled 29
Albumin 2.5 L
03/12/25
05:20
BUN 47 H
Creatinine 2.3 H
Estimated Creat Clear 33
Albumin 3.1 L
03/11/25 03/11/25 03/11/25
13:57 20:20 23:56
Lactic Acid 3.0 H 3.6 H 3.7 H
03/11/25 03/12/25
23:57 05:20
Lactic Acid Cancelled 2.3 H
Lab Results - Urine
03/11/25
13:57
Urine Nitrite (Reflex) Negative
Leukocyte Esterase Rfl 3+ A
Ur Squamous Epith Cells 3-5
Microbiology Results
03/11/25 14:45 Influenza Types A & B (YESIKA) - Final
Nasal Swab Negative for Influenza A & B, NAAT
Negative results must be combined with clinical observations
and patient history.
Nucleic Acid Amplification test (NAAT)performed on the
[employer] platform.
03/11/25 14:02 C. difficile GDH Antigen & Toxins - Final
Feces/Stool Negative for toxigenic C.difficile
Therapeutic Drug Monitoring
Random Vancomycin 15.7 ug/ml 03/12/25 05:20
--- NOTE | 2025-03-12 07:15 | CON.INTV ---
Addendum entered and electronically signed by Karl Smyth MD 03/12/25 11:53:
Updated family at length at bedside (, stepdaughter)
[facility] in the [facility], essentially nonambulatory
Chronic intermittent agitation, questionable dementia per
Patient refused to come to the hospital multiple times in the past
Was doing okay, but after Gabriel catheter change, became more symptomatic
Reviewed CODE STATUS
Patient is full code but they would not want patient to be on prolonged mechanical ventilation, and would likely decide on comfort/withdrawal if does not respond to life support measures
This will be an ongoing discussion
Remains full code
Original Note:
Consultation
Consultation Request
Date/Time Consultation Requested: 03/12
Date/Time Consultation Performed: 03/12
Reason for Consultation: Critical care
Medical History
-
History of Present Illness:
History is primarily obtained from the chart as currently patient is sleeping and does not awaken completely during exam. Intermittent agitation noted throughout the night. Patient is a 69-year-old male with history of diabetes, history of sepsis
with MSSA bacteremia in 2023 diagnosed with endocarditis at that time, dementia who presents from the [facility] with of lower abdominal pain. Records suggest history of diarrhea. There is no clear history of fevers or emesis or cough. Upon
arrival, temperature 100.8, pulse 107, breathing at 16, blood pressure 99/57, 98%. Initial vitals not recorded but temperature was 100.9. Patient was found to have creatinine of 2.0, serum bicarbonate of 13, white count of 3.6, hemoglobin 8.9.
Per ED records, patient was given IV fluids, Zosyn, vancomycin. CT imaging was obtained. Patient required norepinephrine, Vasopressin. Does not appear to have received more than half a liter of fluids in the ED although I cannot confirm this.
General surgery was consulted. Urinary source was suspected. Imaging suggested possible mild pericholecystic fluid. Patient also had rectal exam with some mild fecal disimpaction per ED records. Upon arrival to the ICU, progressive hypotension,
requiring multiple boluses of fluid, required 3 pressors. Unfortunately PICC line placement was unsuccessful due to patient agitation, intolerance. We are asked to help from a critical care standpoint
.
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
Gabriel catheter
Past Medical History
Past Medical History: None (See above)
Past Surgical History: None (See above)
Social History
Tobacco: Non-smoker
Alcohol: None
Personal:
Living: Half-Way
Employment: Retired
Family History
Family History: Unable to Obtain
Allergies / Home Medications
Allergies
Allergy/AdvReac Type Severity Reaction Status Date / Time
No Known Allergies Allergy Verified 03/11/25 13:34
Home Medications
�Medication �Instructions �Recorded �Confirmed �Last Taken �Type
bupropion HCl 150 mg 24 hr tablet, 150 mg PO DAILY Mental 01/29/24 03/11/25 03/11/25 History
extended release Health/Anxiety
ergocalciferol (vitamin D2) 1,250 1,250 mcg PO TH Supplement 01/29/24 03/11/25 03/09/25 History
mcg (50,000 unit) capsule (Vitamin
D2)
levothyroxine 25 mcg tablet 25 mcg PO DAILY Thyroid 01/29/24 03/11/25 03/11/25 History
meloxicam 15 mg tablet 15 mg PO DAILY INFLAMMATION 01/29/24 03/11/25 03/11/25 History
acetaminophen 500 mg tablet 1,000 mg PO TID mild pain 02/22/24 03/11/25 03/11/25 History
(Tylenol Extra Strength)
bisacodyl 5 mg tablet,delayed 10 mg PO DAILYPRN PRN constipation 02/22/24 03/11/25 Unknown History
release (Dulcolax (bisacodyl))
tamsulosin 0.4 mg capsule 0.4 mg PO DAILY #0 caps 03/01/24 03/11/25 03/10/25 Rx
capsaicin 0.025 % topical cream 1 applic topical Q8HPRN PRN rash 03/11/25 03/11/25 Unknown History
insulin glargine 100 unit/mL (3 5 unit SC HS 03/11/25 03/11/25 03/10/25 History
mL) subcutaneous pen (Lantus
Solostar U-100 Insulin)
lisinopril 5 mg tablet 5 mg PO DAILY 03/11/25 03/11/25 03/11/25 History
magnesium hydroxide 400 mg/5 mL 30 ml PO HSPRN PRN if no BM in 3 03/11/25 03/11/25 Unknown History
oral suspension (Milk of Magnesia) days
therapeutic multivitamin 1 tab PO DAILY 03/11/25 03/11/25 03/11/25 History
tramadol 50 mg tablet 50 mg PO Q4HPRN PRN moderate pain 03/11/25 03/11/25 Unknown History
Review of Systems
-
Unable to Obtain full review of systems at this time due to: Acuity
All other systems: Negative unless noted
Vitals / Labs / Diagnostic Testing
Vital Signs
Temp Pulse Resp BP Pulse Ox
97.4 F 108 15 92/46 98
03/12/25 03:07 03/12/25 04:00 03/12/25 04:00 03/11/25 23:00 03/12/25 04:00
Lab Data
03/12/25 05:20
03/12/25 05:20
Laboratory Results
03/11/25 03/12/25 03/12/25
23:57 02:29 05:20
PT 19.3 H
INR 1.61
APTT 51.4 H
pH 7.29 L 7.16 L* 7.19 L*
pCO2 22 L 27 L 32 L
pO2 135 H 130 H 117 H
HCO3 10.6 L* 9.6 L* 12.2 L*
O2 Delivery Level Nc
Microbiology
03/11/25 14:45 Nasal Swab Influenza Types A & B (YESIKA) - Final
Negative for Influenza A & B, NAAT
Negative results must be combined with clinical observations
and patient history.
Nucleic Acid Amplification test (NAAT)performed on the
[employer] platform.
03/11/25 14:02 Feces/Stool C. difficile GDH Antigen & Toxins - Final
Negative for toxigenic C.difficile
Diagnostic Testing:
Physical Exam
-
HEENT: Normocephalic, Anicteric and Other (Upper extremity A-line)
Cardiovascular: S1/S2, Regular Rhythm, Murmur (n), Rub (n) and Peripheral Edema (n)
Respiratory: Wheeze (n), Rales (n), Rhonchi (n) and Non-Labored Respirations
GI: Soft, Distended and Tender (Mild lower abdominal)
Neurology: Other (Lethargic, does awaken briefly during exam but i then falls asleep. Spontaneous movement of all extremities)
Skin: Good Color and Other (No rash)
General: Comfortable
Assessment
-
69-year-old male with history of MSSA bacteremia/endocarditis February 2024, chronic orthostatic hypotension, diabetes, history of left foot osteomyelitis with gangrene requiring partial amputation, [facility] resident who presents with lower
abdominal pain, sepsis requiring IV fluids, antibiotics and pressors, admitted to ICU 03/11
Sepsis, hypotension
Suspect urinary source
Requiring pressors
Questionable acute cholecystitis per imaging, mild pericholecystic fluid
No right upper quadrant pain on exam
Bacteremia, positive blood cultures
Leukocytosis/leukopenia
Anemia
Metabolic acidemia, elevated lactate
Acute renal insufficiency, creatinine increased to 2.6
Baseline 0.8
Acute transaminitis
Mildly elevated troponin
Conditions present prior to admission
History of MSSA endocarditis February 2024
Hypertension
Insulin-dependent diabetes
History of osteomyelitis with partial left foot amputation
Chronic Garbiel catheter
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
Plan/recommendations
At this time, patient remains critically ill but seems to have stabilized.
On norepinephrine, phenylephrine, vasopressin as of this morning
Patient not cooperative with PICC line placement, requiring restraints
Unable to safely place PICC line. Patient presently with 5 peripheral IVs
Creatinine seems to have stabilized, urine output not presently. Chronic Gabriel catheter noted, possibly in suboptimal position per imaging
Positive blood cultures noted
Moving forward
Suspect sepsis from urinary source, bacteremia
Patient without upper abdominal discomfort. He primarily has lower abdominal discomfort
It appears that the balloon is in his penile urethra, per my review of images
Continue vancomycin, meropenem for now
Replace Gabriel catheter
Assess urine output
Await culture data
Wean pressors as able
Patient was also empirically started on stress dose steroids
Will wean as able
Depending on pressor support, may require reattempt at PICC line later today
Continue with IV fluids. Presently with bicarbonate, 100 cc/h
Follow creatinine
Repeat ABG
Follow lactate
Given history, may require echocardiogram
Continue with insulin coverage for blood sugars, diabetes
Reviewed with critical care nursing, primary service
TCCT 40 min
[2025-03-12] MEDS: VANCOCIN 275 MG IV (07:28)
[2025-03-12] MEDS: WELLBUTRIN XL (24 hour extended release) 150 MG PO (07:29)
[2025-03-12] MEDS: THERAGRAN 1 TABLET PO (07:29)
[2025-03-12 08:36] LABS: Absolute Neutrophils -Man Diff 27.9 10^3/uL (1.4-6.5)
[2025-03-12 08:37] LABS: Hypochromasia 1+; Normal RBC Morphology No; Platelets Checked Yes; Total Cells Counted 100
--- NOTE | 2025-03-12 08:41 | W.PN.HOSP.TC ---
Today's Communication/Plan
-
Continue with IV fluids for now
Wean pressors as able
Wean empiric steroid as able.
Continue vancomycin and meropenem for now
Assessment / Plan
Assessment / Plan
69-year-old male with history of diabetes, history of sepsis with MSSA bacteremia in 2023 diagnosed with endocarditis at that time, dementia, chronic Gabriel presented from the intermediate with complaints of lower abdominal pain.
# Septic shock (fever, tachycardia, leukopenia initially and now leukocytosis, hypotension) secondary catheter associated UTI versus rule out acute cholecystitis versus stercoral colitis versus bacteremia
# Non-anion gap metabolic acidosis
- IV fluids with bicarbonate
- Blood culture with Klebsiella pneumonia�ESBL
- Stool studies pending. C. difficile negative
- CT abdomen pelvis shows large amount of fecal material in the rectum suggesting fecal impaction, appearance of mild pericholecystic fluid diffuse bladder wall thickening, moderate amount of stool throughout the colon
-Lactate of 3, now within normal limits
-Abdominal ultrasound with suspicion of acute cholecystitis
- IV antibiotics including vancomycin and meropenem; continue
- Chronic Gabriel catheter was exchanged
- Currently on Levophed, vasopressin and talat-
-empirically started on stress dose steroids
Follow ABG
# Fecal impaction/constipation
-Patient was manually disimpacted with brown soft stool in the ER
-Physical examination not concerning for ischemia or peritonitis and CT does not show evidence of this
- N.p.o. for now
# Acute kidney injury secondary to hypotension/sepsis(baseline creatinine 0.8)
- Monitor with bicarb drip
- Hold meloxicam, lisinopril
# Elevated troponin
# Transaminitis secondary to hypotension versus rule out acute cholecystitis
- Continue to monitor
History of MSSA bacteremia/endocarditis with aortic valve vegetation
Will consider echo if there is any gram-positive bacteria on cultures
Chronic Gabriel catheter
- Gabriel catheter exchanged 03/11 2025
Essential hypertension
- Hold lisinopril
Orthostatic hypotension
- Continue midodrine
Type 2 diabetes
-Hold glargine 5 units
- Insulin sliding scale
Hypothyroidism
- Continue levothyroxine
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
Anemia of chronic disease
- Hemoglobin stable at 8.7
Anxiety/depression
- Continue bupropion
Hypercholesterolemia
Steatohepatitis
BPH
- Hold tamsulosin
Chronic pain
- Hold meloxicam
- Continue tramadol
Full code; discussion with family ongoing
DVT prophylaxis�heparin
N.p.o.
Anticipated Discharge: > 48 hours
Subjective/Interval History
-
Date of Service: March 12, 2025
Seen and examined at bedside. Patient sedated and on Precedex drip. On Levophed, vasopressin and talat-.
Objective Data
-
Labs:
Laboratory Results
03/11/25 03/11/25 03/11/25
23:56 23:57 23:57
WBC 17.0 H
Hgb 7.8 L
Hct 22.4 L
Plt Count 111 L D
PT 19.3 H
INR 1.61
APTT 51.4 H
HCO3 10.6 L*
Sodium Cancelled 128 L
Potassium Cancelled
Chloride
Carbon Dioxide
BUN
Creatinine
Glucose
Calcium
Total Bilirubin Cancelled
AST Cancelled
ALT Cancelled
Alkaline Phosphatase Cancelled
03/11/25 03/11/25 03/11/25
23:57 23:57 23:57
WBC
Hgb
Hct
Plt Count
PT
INR
APTT
HCO3
Sodium
Potassium 4.6
Chloride Cancelled 109 H
Carbon Dioxide Cancelled 9 L*
BUN Cancelled
Creatinine
Glucose
Calcium
Total Bilirubin
AST
ALT
Alkaline Phosphatase
03/11/25 03/11/25 03/11/25
23:57 23:57 23:57
WBC
Hgb
Hct
Plt Count
PT
INR
APTT
HCO3
Sodium
Potassium
Chloride
Carbon Dioxide
BUN 49 H
Creatinine Cancelled 2.6 H
Glucose Cancelled 160 H
Calcium Cancelled
Total Bilirubin
AST
ALT
Alkaline Phosphatase
03/11/25 03/12/25 03/12/25
23:57 02:29 05:20
WBC 30.1 H
Hgb 8.7 L
Hct 25.1 L
Plt Count 122 L
PT
INR
APTT
HCO3 9.6 L* 12.2 L*
Sodium 128 L
Potassium 4.9
Chloride 106
Carbon Dioxide 11 L*
BUN 47 H
Creatinine 2.3 H
Glucose 201 H
Calcium 7.2 L 7.3 L
Total Bilirubin 1.5 H 1.5 H
AST 359 H 365 H
ALT 266 H 304 H
Alkaline Phosphatase 101 93
Vital Signs:
Vital Signs
Temp Pulse Resp BP Pulse Ox
97.2 F 92 22 92/46 97
03/12/25 08:20 03/12/25 07:50 03/12/25 07:50 03/11/25 23:00 03/12/25 08:20
I&O
03/11/25 03/12/25 03/13/25
06:59 06:59 06:59
Intake Total 4173 / 4398 225 / 225
Balance 4173 / 4398 225 / 225
Review of Systems
-
Unable to obtain full review of systems at this time due to: Acuity
Physical Exam
-
General: Appears Chronically Ill
Respiratory: Non Labored Respirations
Cardiac: Tachycardic
GI: Soft and Nondistended
Neuro: Sedated
Data Reviewed
-
Diagnostic Radiology: Report Reviewed by me and Discussed with Physician
CT Scan: Report Reviewed by me and Discussed with Physician
Ultrasound: Report Reviewed by me and Discussed with Physician
Labs: Labs Reviewed by me and Discussed with Physician
[2025-03-12 09:28] LABS: B.E. -12.5 mmol/L; O2 Saturation % 99.3 % (94-98); PCO2 31 mmHg (35-48); PO2 147 mmHg (83-108)
--- NOTE | 2025-03-12 09:30 | PTCARENOTE ---
Rec'd pt at 0700. Pt sedate on Precedex gtts, lowered to assess mental status. Monitor SR. SBP 140's with MAP 80's on Levo/Vaso gtts, Levo titrated down to keep MAP >65. Right radial a-line in place. Lungs dim, pox 99% 3LNC. 0920-Pt yelling and
restless, thrashing around in bed. 4pt restraints in place. Precedex increased slightly. Pt placed in chair position in bed. Pt calmer, watching tv and dozing at times.
[2025-03-12 09:34] LABS: HCO3 13.6 mmol/L (21-28)
--- NOTE | 2025-03-12 09:39 | CM ---
Patient seen at bedside
chart reviewed
Dx: septic shock
PMH: of MSSA bacteremia/endocarditis, aortic valve vegetation, hypertension, chronic orthostatic hypotension, diabetes, hypothyroidism, left foot osteomyelitis/gangrene status post partial left foot amputation, stage III left buttock pressure ulcer,
anemia of chronic disease, chronic Gabriel catheter
Patient is a LTC resident at [facility] since 03/01/24
spoke with Juliann at [facility] - referral entered in [facility]
PLOF: max assist
PCP: Lupis Merrill
Pharmacy: [facility]
PLAN: Return to [facility] when stable
--- NOTE | 2025-03-12 09:49 | PTCARENOTE ---
Spoke with this am regarding CT scan, questioning rutledge placement per report. Order to change rutledge per Dr. Smyth. Upon removing rutledge moderate amt of blood came out of urethra and small amt urine. New rutledge cath placed without difficulty,
immediate output of 600ml harley urine.
--- NOTE | 2025-03-12 09:59 | CON.GS ---
Addendum entered and electronically signed by Negro Parmar MD 03/12/25 12:38:
I saw and examined the patient.
The EPIC WILLOW SPECIALIST's note was reviewed and I agree with the note.
Comment: Improving with non-op measures. Does not participate in encounter. Satting well on NC. No RUQ nor epigastric ttp on exam. There is notable suprapubic ttp. Suspect ESBL urosepsis. No plans for surgical intervention at this time. Will follow
peripherally.
Original Note:
Consultation
-
Date/Time Consultation Performed: 03/12/25 0830
Medical History
-
Chief Complaint: sepsis
History of Present Illness:
Pt is a 69 yo male with a h/o htn, IDDM, MSSA bacteremia with endocarditis 1 year ago, chronic rutledge and left foot osteomyelitis with partial amputation who presented through the ED last night from SNF with fever and pelvic pain. He is evaluated in
the ICU where he is in 4 point restraints and lethargic. He is able to say his name but not much else. On exam, there is suprapubic tenderness but no other abdominal tenderness present. He was noted to be impacted on arrival and was disimpacted in
the ED. He has not had any noted nausea or vomiting. SNF did report diarrhea. History obtained from medical record.
Past Medical History
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
Past Surgical History: Orthopedic (Partial left food amputation 08/2023)
Social History
Tobacco: Former Smoker
Alcohol: None
Living: [facility]
Family History
Family History: Reviewed & Not Pertinent
Allergies / Home Medications
Allergy/AdvReac Type Severity Reaction Status Date / Time
No Known Allergies Allergy Verified 03/11/25 13:34
�Medication �Instructions �Recorded �Confirmed �Type
bupropion HCl 150 mg 24 hr tablet, 150 mg PO DAILY Mental 01/29/24 03/11/25 History
extended release Health/Anxiety
ergocalciferol (vitamin D2) 1,250 1,250 mcg PO TH Supplement 01/29/24 03/11/25 History
mcg (50,000 unit) capsule (Vitamin
D2)
levothyroxine 25 mcg tablet 25 mcg PO DAILY Thyroid 01/29/24 03/11/25 History
meloxicam 15 mg tablet 15 mg PO DAILY INFLAMMATION 01/29/24 03/11/25 History
acetaminophen 500 mg tablet 1,000 mg PO TID mild pain 02/22/24 03/11/25 History
(Tylenol Extra Strength)
bisacodyl 5 mg tablet,delayed 10 mg PO DAILYPRN PRN constipation 02/22/24 03/11/25 History
release (Dulcolax (bisacodyl))
tamsulosin 0.4 mg capsule 0.4 mg PO DAILY #0 caps 03/01/24 03/11/25 Rx
capsaicin 0.025 % topical cream 1 applic topical Q8HPRN PRN rash 03/11/25 03/11/25 History
insulin glargine 100 unit/mL (3 5 unit SC HS 03/11/25 03/11/25 History
mL) subcutaneous pen (Lantus
Solostar U-100 Insulin)
lisinopril 5 mg tablet 5 mg PO DAILY 03/11/25 03/11/25 History
magnesium hydroxide 400 mg/5 mL 30 ml PO HSPRN PRN if no BM in 3 03/11/25 03/11/25 History
oral suspension (Milk of Magnesia) days
therapeutic multivitamin 1 tab PO DAILY 03/11/25 03/11/25 History
tramadol 50 mg tablet 50 mg PO Q4HPRN PRN moderate pain 03/11/25 03/11/25 History
Review of Systems
-
Unable to obtain full review of systems at this time due to: Acuity
History Source: [facility], Ambulance Crew and Transfer Record
A 10 point review of systems was completed, and was negative except as per HPI.
Physical Exam
Vital Signs
Temp Pulse Resp BP Pulse Ox
97.2 F 96 21 92/46 96
03/12/25 08:20 03/12/25 08:45 03/12/25 08:45 03/11/25 23:00 03/12/25 08:45
03/11/25 03/12/25 03/13/25
06:59 06:59 06:59
Actual Weight 86.1 kg
Body Mass Index (BMI) 25.8
Lab Results
03/12/25 05:20
03/12/25 05:20
WBC 30.1 10^3/uL (4.8-10.8) H 03/12/25 05:20
Hgb 8.7 g/dL (13.0-18.0) L 03/12/25 05:20
Hct 25.1 % (39.0-52.0) L 03/12/25 05:20
Plt Count 122 10^3/uL (130-400) L 03/12/25 05:20
Physical Exam
General: Comfortable
HEENT: Normocephalic and Other (disheveled)
Respiratory: Accessory Resp Muscle Use
GI: Soft and Tender (suprapubic)
Genito-urinary: Turbid Urine (harley, turbid urine from rutledge)
Neuro: Oriented (x1) and Other (lethargic, arouses to voice and able to state his name but not much else)
Psych: Calm
Data Reviewed
-
CT Scan: Image Personally Visualized and interpreted, Report Reviewed by me and Discussed with Physician
Ultrasound: Image Personally Visualized and interpreted, Report Reviewed by me and Discussed with Physician
Labs: Labs Reviewed by me, Discussed with Physician and Discussed with Patient
Old Records: Reviewed
Assessment / Plan
-
Pt is a 69 yo male with a h/o htn, IDDM, MSSA bacteremia with endocarditis 1 year ago, chronic rutledge and left foot osteomyelitis with partial amputation who presented through the ED last night from SNF with fever and pelvic pain. He is septic and in
the ICU on pressors (Levophed and Vasopressin). Afebrile currently. Tmax was reportedly 105.2 Lactic acid elevated on arrival and now trending down. Metabolic acidosis present, on bicarb gtt. FABRICE noted. LFT's mildly elevated consistent with shock
state. Troponin mildly elevated. Lipase normal. Bacteremia present with gram negative bacilli present, preliminary cx with ESBL Klebsiella. Urine also with gram negative bacilli present. Suspect origin of his severe sepsis.
Surgery consulted for evaluation of gallbladder as well as fecal burden. S/P disimpaction in the ED, low suspicion for stercoral colitis. Gallbladder imaging reviewed with no cholelithiasis noted. The gallbladder does have an irregular wall with
thickening and edema but is not distended as would be more typically seen in acalculous cholecystitis. There is no RUQ pain on exam.
Plan:
As he is improving with abx and volume resuscitation, doubt acalculous cholecystitis as underlying etiology of his sepsis. If condition worsens/develops RUQ pain/tenderness would consider percutaneous cholecystostomy tube placement but would hold
off for now.
Case discussed with generating plant superintendent at bedside
Medical management as per primary teams
[2025-03-12] MEDS: SODIUM BICARBONATE 1150 MEQ IV ×2 (10:29→21:38)
[2025-03-12] MEDS: PITRESSIN 100 IV ×2 (11:47→17:32)
[2025-03-12] MEDS: NOVOLOG FLEXPEN-MODERATE RESISTANCE 3 UNITS SC (11:48)
[2025-03-12 11:57] LABS: Glucose - Point of Care 201 mg/dl (70-99)
[2025-03-12 12:04] LABS: Glycohemoglobin (HgbA1c) 5.3 % (4.0-5.6)
--- NOTE | 2025-03-12 12:37 | PTCARENOTE ---
Family in to visit, updated by RN and Dr. Smyth. No changes in assessment. Pt agitated when awake and yells out. PRN Dilaudid given for pain with +results.
[2025-03-12 12:45] LABS: Troponin I 1.230 ng/ml
--- NOTE | 2025-03-12 14:46 | PTCARENOTE ---
Pt agitated and yelling out in room. A-line alarming with poor waveform. Upon entering room pt noted to have hand/wrist through siderail, A-line catheter mostly out with catheter kinked, small amt of blood oozing from site. A-line removed by RN and
pressure dressing applied.
--- NOTE | 2025-03-12 14:49 | VATNOTE ---
PICC placed. CXR shows PICC malpositioned. PICC redirected per protocol with assistance of CAPACITOR ASSEMBLER. Awaiting repeat CXR.
--- NOTE | 2025-03-12 16:06 | PTCARENOTE ---
BOB PICC line with +placement after redirection by VAT. IV tubings changed-Levo/Vaso/Dex now infusing via BOB PICC. Left arm peripheral sites removed.
[2025-03-12] MEDS: NOVOLOG FLEXPEN-MODERATE RESISTANCE SC (17:32)
[2025-03-12 17:43] LABS: Glucose - Point of Care 76 mg/dl (70-99)
--- NOTE | 2025-03-12 21:30 | PTCARENOTE ---
Report received from previous shift RN [id number]. Pt in bed, 4 point soft restraints in use. Pt is AAO2, forgetful to time. Often yelling out for assistance/water. Pt is restless in bed, attempting to pull at medication equipment (IV tubing, cardiac
monitoring). Speech is slow and garbled at times. Pt reports L shoulder pain. Lung sounds are decreased throughout, shallow, tachypneic. Difficult to obtain pox reading d/t cool/pale nailbeds, reading intermittently picking up, 94%. Telemetry rhythm
reveals ST, HR 100'S, no edema noted, weakly palpable peripheral pulses. HypoBS, abdomen soft round, NPO status maintained. Gabriel catheter in place draining harley urine. Skin as documented. R FA int x2 flushed and patent, bicarb drip 100ml/hr. L DL
PICC with Levophed and Vasopressin via purple lumen, Precedex 1.5 via white lumen.
[2025-03-13] VITALS (30 sets, daily range): BP systolic 37–159; BP diastolic 25–127; PULSE 2–126; BMI 27.1
[2025-03-13] MEDS: NOVOLOG FLEXPEN-MODERATE RESISTANCE SC ×3 (00:14→17:35)
[2025-03-13] MEDS: STERILE WATER FOR INJECTION 10 ML IV ×3 (00:15→19:46)
[2025-03-13] MEDS: FLUSH (NSS) 3 FLUSH IV (00:15)
[2025-03-13] MEDS: SOLU-CORTEF 50 MG IV ×4 (00:15→17:35)
[2025-03-13] MEDS: MERREM 500 MG IV ×3 (00:15→19:46)
[2025-03-13 00:25] LABS: Glucose - Point of Care 132 mg/dl (70-99)
[2025-03-13] MEDS: LEVOPHED 250 IV ×4 (00:30→09:33)
[2025-03-13] MEDS: PRECEDEX 100 IV (02:08)
[2025-03-13] MEDS: PITRESSIN 100 IV ×3 (03:05→19:15)
[2025-03-13 04:04] LABS: Venous Blood Gas B.E. -8.5 mmol/L (-4 to +4); Venous Blood Gas O2 Sat % 98.6 %
[2025-03-13 04:09] LABS: Venous Blood Gas O2 Therapy 2 ltr
[2025-03-13 04:11] LABS: Hematocrit 24.9 % (39.0-52.0); Hemoglobin 8.6 g/dL (13.0-18.0); Mean Corp Hgb Conc. 34.5 g/dL (33.0-37.0); Mean Corpuscular Volume 92.9 fL (80.0-94.0); Platelet Count 99 10^3/uL (130-400); Red Cell Dist. Width 12.8 % (11.5-14.5)
[2025-03-13 04:58] LABS: Absolute Neutrophils -Man Diff 39.9 10^3/uL (1.4-6.5); Platelets Checked Yes; Total Cells Counted 100
[2025-03-13 04:59] LABS: Toxic Granulation 1+; Vacuolated Segs 1+
[2025-03-13 05:00] LABS: Hypochromasia 1+; Normal RBC Morphology No; Ovalocytes Occasional
--- NOTE | 2025-03-13 05:00 | PTCARENOTE ---
0400 Pt moving legs in bed, moaning intermittently, turning head in direction of verbal stimuli, garbled speech.
0415 RN entered room again to find pt unresponsive. I-GARAGE HAND Liam immediately called to bedside. Precedex infusion turned off per GARAGE HAND order. ABG ordered and obtained by RT. Awaiting results.
[2025-03-13 05:04] LABS: B.E. -9.5 mmol/L; HCO3 20.5 mmol/L (21-28); O2 Saturation % 97.0 % (94-98); PCO2 69 mmHg (35-48); PO2 83 mmHg (83-108)
[2025-03-13 05:10] LABS: Glucose - Point of Care 129 mg/dl (70-99)
[2025-03-13 05:42] LABS: ALT (SGPT) 213 U/L (0-50); AST (SGOT) 157 U/L (17-59); Albumin 2.7 g/dl (3.5-5.0); Alkaline Phosphatase 73 U/L (38-126); Blood Urea Nitrogen 63 mg/dl (9-20); Calcium 6.2 mg/dl (8.4-10.2); Carbon Dioxide 22 mmol/L (22-30); Chloride 97 mmol/L (98-107); Glucose 103 mg/dl (70-99); Potassium 6.5 mmol/L (3.5-5.1); Sodium 124 mmol/L (135-145); Total Protein 4.9 g/dl (6.3-8.2)
[2025-03-13 05:50] LABS: Estimated Creatinine Clearance 24 ml/min; eGFR 20.83
--- NOTE | 2025-03-13 05:52 | PTCARENOTE ---
Pt's HR decreased steadily from 110's down to 40's. CODE 9 called, see code sheet.
Pt intubated, maxed on Levo and Vaso. Precedex remains off.
0555 Pt awake now on vent, RR mid 20's bpm.
[2025-03-13 06:03] LABS: Magnesium 1.8 mg/dl (1.6-2.3)
[2025-03-13] MEDS: SUBLIMAZE 100 MCG IV (06:07)
[2025-03-13] MEDS: SUBLIMAZE 100 IV (06:09)
[2025-03-13] MEDS: DIPRIVAN 100 IV ×3 (06:10→16:52)
--- NOTE | 2025-03-13 06:15 | W.PN.UPDATE ---
Update Note
Progress Note Update
Prior to code patient was less responsive to noxious stimuli. Labs were repeated because unclear why labs were abnormal from previous, including elevated potassium were possibly hemolyzed. ABG was obtained Stat and to evaluate CO2. ABG showed
worsening acidosis and hypercapnia.
0519 Code 9 called for weak pulse with bradycardia. Patient appears dusky with mottling in the extremities, agonally breathing. Epinephrine was pushed IV. At 0521 pulse was lost with rhythm changes to ventricular tachycardia, CPR initiated and
patient was shocked. Patient was shocked a second time for VT and Amiodarone bolus given 150cc IV. Anesthesia at bedside and intubated with ETT #8. Reviewed events leading to code that probably patient was hyperkalemic in addition to hypercapnia.
Patient was given bicarb 1amp push, calcium IV push, magnesium. Patient pulse was regained and ROSC achieved. Patient moving post code, no need for targeted temperature management. Present during code was Dr. Ryan, hospitalist and Zaid
Marshall OLMSTEAD. Additional insulin 10u and D50 given to also treat hyperkalemia, resulted K was 6.5. Amiodarone gtt ordered. Vasopressors titrated during code and continued afterwards: levophed and vasopressin gtts.
Chest xray to confirm ETT, respiratory therapist advanced ETT 1cm.
Dr. Amador, hydroelectric station operator called about code 9 and discussed patient case and recommendations received. Repeat labs ordered.
Patient's Florence called and updated about events.
A-line left radial was placed by me.
[2025-03-13] MEDS: CORDARONE 518 MG IV (06:19)
[2025-03-13] MEDS: SYNTHROID PO (06:20)
[2025-03-13] MEDS: CORDARONE 103 MG IV (06:23)
[2025-03-13] MEDS: DEXTROSE 50% SYRINGE 25 GRAMS IV ×2 (06:37→18:54)
[2025-03-13] MEDS: NOVOLIN R 10 UNITS IV ×2 (06:38→18:52)
[2025-03-13] MEDS: CALCIUM GLUCONATE 130 MG IV (06:45)
--- NOTE | 2025-03-13 06:59 | W.PN.INTV ---
Addendum entered and electronically signed by Xena Amador MD 03/13/25 13:24:
Goals of care update'
03/13. Met with patient's , daughter, grandchild and [id number] at bedside. Updated them regarding patient's current clinical condition. Family has opted to proceed with DNR status going forward and continue current medical therapy. Family
is awaiting additional family members to arrive in next 10 to 12 hours. Family is leaning towards pursuing more comfort focused care, in line with patient's wishes regarding his health care, if patient does not improve on current therapy in the
next 12 to 24 hours which sounds appropriate.
Original Note:
Today's Communication / Plan
Recommendations
- DC bicarb infusion, Lasix 40 mg IV stat, nephrology consult
- Serial ABG and electrolytes
- Follow-up chest x-ray in a.m.
- Double concentrate all infusions to decrease total infused volume of fluids
- Goals of care discussions ongoing
Assessment
-
69-year-old male with history of MSSA bacteremia/endocarditis February 2024, chronic orthostatic hypotension, diabetes, history of left foot osteomyelitis with gangrene requiring partial amputation, intermediate resident who presents with lower
abdominal pain, sepsis requiring IV fluids, antibiotics and pressors, admitted to ICU 03/11. Patient developed progressive septic shock at times requiring 3 pressors. In the medical communication specialist 03/13, patient developed increasing acidosis, worsening
encephalopathy and developed cardiac arrest with ventricular tachycardia, pulseless. Patient received CPR, emergent intubation and ROSC was achieved.
Conditions present prior to admission
History of MSSA endocarditis February 2024
Hypertension
Insulin-dependent diabetes
History of osteomyelitis with partial left foot amputation
Chronic Gabriel catheter
[facility] resident
03/13 overview: Patient currently intubated, mechanically ventilated and sedated. Current infusions amiodarone, Levophed, vasopressin, propofol and fentanyl. Also sterile water with bicarb infusing at 100 mL/h. Current MAP of 76. Blood gas 7
point on volume assist-control 500/30/70%/5.
Assessment and plan
#1. Septic shock with ESBL producing Klebsiella bacteremia, complicated UTI
-Currently in shock, on 2 pressors, continue empiric stress dose steroids as well as bicarb drip in view of severe acidosis
-Continue vancomycin and meropenem
#2. Cardiac arrest, 03/13. Initial rhythm ventricular tachycardia, pulseless
-S/p CPR, emergent intubation, ROSC achieved, currently normal sinus rhythm
-Suspect cardiac arrest is in the setting of severe acidosis, septic shock multiple pressors as well as FABRICE and hyperkalemia
-Continue amiodarone infusion. EKG to evaluate QTc interval.
-Aggressively manage hyperkalemia, continue bicarb drip, hyperventilate in view of acidosis, continue bicarb infusion, follow-up ABG
-Target normothermia
-Will pursue EEG to evaluate for any nonconvulsive seizures
#3. Acute respiratory failure, intubated 03/13 after cardiac arrest
- Currently on mechanical ventilation. volume AC, 500/30 for now (Minute ventilation 15 ltr in view of acidosis), follow ABG.
- Propofol and fentanyl for sedation
- Follow-up ABG
- Postintubation chest x-ray suggestive of developing volume overload
#4. Acute kidney injury, suspect developing ATN
-Nonoliguric, rising creatinine and potassium, recent contrast exposure also at risk of contrast-induced nephropathy
-In view of septic shock, multiple pressors, patient at risk of developing ATN
-Keep MAP above 65, monitor input and output closely, avoid nephrotoxic medications
-Serial labs, Nephrology consult
#5. Hyperkalemia.
-Related to FABRICE as well as acidosis. Sample also hemolyzed, repeat potassium pending
-Continue sterile water with bicarbonate infusion, serial lab work
-Patient received IV calcium, magnesium and bicarb during code
-Lasix 20 mg IV stat for kaliuresis and developing hyponatremia.
#6. ?Acute cholecystitis per imaging, mild pericholecystic fluid
- [place] less likely clinically
- Gen surgery service on case
#7. Elevated troponin, suspect NSTEMI type II
- Likely in the setting of septic shock, needing multiple pressors
- ECHO for further evaluation
#8. Abnormal LFTs
- related to septic shock, monitor for now
#9. Acute metabolic encephalopathy.
-Baseline known history of dementia, with critical illness, septic shock, metabolic derangements all contributing. Patient required Precedex infusion prior to intubation in view of agitation
-Currently sedated with propofol and fentanyl, discontinue Precedex
DVT prophylaxis. Subcu heparin 5000 units every 12 hours
Critical Care time 62 mins -- The patient is admitted for acute critical illness for the treatment of vital organ failure and/or prevention of further life-threatening conditions. Total care includes time spent in review of history, physical exam,
medications, hemodynamic/ventilator parameters, laboratory data, imaging and discussion with house staff, pharmacy, respiratory therapy, fishing reel assembler, and nursing.
Updated patient's . Will meet in person for ongoing goals of care discussions
Data:
CTA C/A/P 02/2025: 1. No acute vascular abnormality is identified.
2. Persistent gallbladder wall thickening. Possible minimal pericholecystic fluid Gallbladder remains contracted, no abnormal dilation to strongly suggest cystic duct obstruction.
3. Persistent malposition of Gabriel catheter, retention balloon inflated within the urethra as described on report of previous CT.
4. Stercoral colitis at the rectum as seen previously.
5. Mild urinary bladder wall thickening. This may be partially related to underdistention. Cystitis is a consideration.
6. Hypoaerated lungs without consolidation.
ECHO 02/2024: Normal biventricular size and systolic function without regional wall motion abnormality.
No significant valvular disease.
No prior study available for comparison.
ANGLE is more sensitive and specific in the evaluation of endocarditis in the
correct clinical scenario.
Subjective Dataa
Subjective Data
Date of Service:
Date of Service: March 13, 2025
Subjective:
Patient currently intubated, mechanically ventilated and sedated
Review of Systems
General: Unobtainable - Sedation
Objective Data
Data Reviewed
Vital Signs / I&O / Oxygen:
Vital Signs
Temp Pulse Resp BP Pulse Ox
99.5 F 83 30 142/75 91
03/13/25 03:42 03/13/25 06:31 03/13/25 06:31 03/13/25 06:31 03/13/25 06:32
Intake and Output
03/11/25 03/12/25 03/13/25
06:59 06:59 06:59
Intake Total 4173 / 4398 5572.3 / 5572.3
Output Total 1430 / 1430
Balance 4173 / 4398 4142.3 / 4142.3
SaO2 [A/C] 91
SaO2 83
Nasal Cannula flow liters per 2
minute
Physical Exam
General: Comfortable
HEENT: Normocephalic
Cardiovascular: S1-S2
Respiratory: Clear
GI: Soft and Non Distended
Neurology: Other (Currently sedated)
Skin: Other (Developing mottling of digits on both hands, worse on the right hand, also skin mottling noted on right foot.)
Labs/Micro/Reports
Laboratory Results
03/12/25 03/13/25
09:19 04:57
pH 7.25 L 7.08 L*
pCO2 31 L 69 H
pO2 147 H 83
HCO3 13.6 L* 20.5 L
O2 Delivery Level
Microbiology
03/11/25 14:02 Feces/Stool Salmonella/Shigella Culture - Preliminary
Culture in Progress
03/11/25 14:02 Feces/Stool Campylobacter Culture - Preliminary
Culture in Progress
03/11/25 13:57 Blood/Venous Blood Culture - Preliminary
Klebsiella pneumoniae-ESBL
03/11/25 13:57 Blood/Venous Gram Stain - Preliminary
03/11/25 13:57 Urine Urine Culture - Preliminary
Gram negative bacilli
03/11/25 14:45 Blood/Venous Blood Culture - Preliminary
Positive culture in progress
03/11/25 14:45 Blood/Venous Gram Stain - Preliminary
03/11/25 14:45 Nasal Swab Influenza Types A & B (YESIKA) - Final
Negative for Influenza A & B, NAAT
Negative results must be combined with clinical observations
and patient history.
Nucleic Acid Amplification test (NAAT)performed on the
Eachpal platform.
03/11/25 14:02 Feces/Stool C. difficile GDH Antigen & Toxins - Final
Negative for toxigenic C.difficile
--- NOTE | 2025-03-13 07:20 | W.PN.ANESINT ---
Anesthesia Intubation Note
- Intubation Note
Intubation Note:
Diagnosis: cardiac arrest
Blade: glidescope
Tube Size: 8.0
Depth: 23cm
Side Taped: center
Drugs Used: none
Grade View: grade 1
EtCO2 Present: ETCO2 color change present on ETCO2 detector
Atraumatic: atraumatic
Attempts: one attempt
Insertion Start and Stop Time: 519 start 522 end
SaO2 Pre: not able to be obtained
SaO2 Post: not able to be obtained
Glidescope Used: glidescope used
Other Airway Adjustments: none
Pre-Oxygenated: preoxygenated by respiratory
Portable Chest X-Ray: ordered
RSI: not necessary
Suctioned: not necessary
Bilateral Breath Sounds Confirmed: bilateral breath sounds confirmed, no breath sounds over the abdomen
Vent Settings:
Settings per _X__Attending Physician
Khadijah Gifford CRNA
--- NOTE | 2025-03-13 07:27 | W.PN.HOSP.TC ---
Addendum entered and electronically signed by Gerardo Shaw MD 03/13/25 21:43:
Attending Addendum-
I saw and evaluated the patient. I reviewed the resident�s note and agree with findings and plan as documented in the resident�s note. Sub: Was bradycardic and went into VT CPR started wasg given epi amio and shocked. Now intubated and sedated Full
12 point ROS reviewed and negative except as documented Exam: Vitals reviewed in chart GEN-intubated and sedated heart RRR lungs crackles at bases abd soft Ext-cool clamy extremities blue toes and fingers pulses faint UE B/L rutledge in place LUE A
line and PICC in place left foot partial amputation
Plan:
# Cardiac Arrest resulting in VDRF
- 03/14-coded- shocked,CPR, and epi-intubated and sedated
- cont propofol, amiodarone and fentanyl gtt
# Septic shock secondary to CAUTI
# Non-anion gap metabolic acidosis
- cont IV fluids with bicarbonate
- urine cx and Blood culture x 2- ESBL Klebsiella pneumonia - sensi reviewed
- repeat blood cx
- cont meropenem #2, DC vanco
- Chronic Rutledge catheter exchanged
- Currently on Levophed, vasopressin and restart talat-Synephrine- keep MAP > 65
- overall poor prognosis
- cont stress dose steroids
- ID on board
# Fecal impaction/constipation
-Patient was manually disimpacted
# FABRICE secondary to hypotension/sepsis
- with metabolic acidosis
- cont bicarb drip
- Hold meloxicam, lisinopril
- worsening
- poor prognosis
- nephro on board
# Hyponatremia-likely from hypervolemia
-Lasix IV x 1
-CTM closely may need 3%
# Hyperkalemia
-from met acid
-insulin dextrose beta agonist
-cont bicarb gtt
# Transaminitis -resolving
#History of MSSA bacteremia/endocarditis with aortic valve vegetation
#Chronic Rutledge catheter- Rutledge catheter exchanged 03/11
#Essential hypertension- Hold lisinopril
#Orthostatic hypotension- Continue midodrine
#Type 2 diabetes-Hold glargine 5 units- Insulin sliding scale
#Hypothyroidism- Continue levothyroxine
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
#Anemia of chronic disease-Hemoglobin stable
#Anxiety/depression- Continue bupropion
#Chronic pain- Hold meloxicam- Continue tramadol
Full code->DNR 03/13
DVT prophylaxis�heparin
ACP
Patient unable to consent to discuss, d/w on phone, time spent explanation of advance directives, changes in health status, patient�s health care wishes if the patient becomes unable to make health decisions, goals of care, code status, and
prognosis d/w change code to DNR, patient is hospice appropriate would like to think about this- 16 minutes
CC Note
Due to a high probability of clinically significant, life-threatening deterioration, the patient required a high level of preparedness to intervene emergently. I personally spent this critical care time directly and personally managing the patient.
This critical care time included obtaining a history; examining the patient; ordering and review of studies and STAT labs; arranging urgent treatment with development of a management plan; evaluation of patient's response to treatment; reassessment;
and, discussions with other providers.
This critical care time was performed to assess and manage the high probability of imminent, life-threatening deterioration that could result in multi-organ failure. It was exclusive of separately billable procedures and treating other patients and
teaching time. Total time documented is also exclusive of any additional time listed that was spent in advance care planning discussion
Total critical care time: Approximately 31 minutes
Original Note:
Today's Communication/Plan
-
Patent is now DNR
Patient remains unresponsive
Assessment / Plan
Assessment / Plan
69-year-old male with history of diabetes, history of sepsis with MSSA bacteremia in 2023 diagnosed with endocarditis at that time, dementia, chronic Rutledge presented from the [facility] with complaints of lower abdominal pain. Who became
unresponsive this morning. He is intubated.
#Cardiac arrest, 03/13. Initial rhythm ventricular tachycardia, pulseless
-CPR, emergent intubation, currently normal sinus rhythm
-Suspect cardiac arrest is in the setting of severe acidosis, septic shock multiple pressors as well as FABRICE and hyperkalemia
-Continue Amiodarone infusion. EKG to evaluate QTc interval
-Aggressively manage hyperkalemia, hyperventilate in view of acidosis, stop bicarb infusion
# Septic shock (fever, tachycardia, leukopenia initially and now leukocytosis, hypotension) secondary catheter associated UTI versus rule out acute cholecystitis versus stercoral colitis versus bacteremia
- Non-anion gap (11.6) metabolic acidosis
- 03/13/25 Blood culture with Klebsiella pneumonia�ESBL
- Gr stain of anaerobic blood culture bottle Gram (-) Bacilli
- Stool culture negative C. difficile
- CT abdomen pelvis shows large amount of fecal material in the rectum suggesting fecal impaction, appearance of mild pericholecystic fluid diffuse bladder wall thickening, moderate amount of stool throughout the colon
-Lactate of 3,4 high
-Abdominal ultrasound with suspicion of acute cholecystitis
-Chest Xray f/u pulmonary edema- Diffuse interstitial opacification which is new from prior suggestive of pulmonary edema, less likely an infectious/inflammatory process.
- IV antibiotics discontinue vancomycin, continue meropenem
- Currently on Phenylephrine, vasopressin and norepinephrine
Follow ABG
-follow furnace erector recommendations.
# Acute kidney injury secondary to hypotension/sepsis(baseline creatinine 0.8)
- Discontinued bicarb drip
- Hold meloxicam, lisinopril
-hold nephrotoxic agents
# Elevated troponin
# Transaminitis secondary to hypotension versus rule out acute cholecystitis
- Continue to monitor
History of MSSA bacteremia/endocarditis with aortic valve vegetation
ECHO done today showed no significant valvular heart disease, EF 15-20% global hypokinesis
Chronic Rutledge catheter
- Rutledge catheter exchanged 03/11 2025
Essential hypertension
- Hold lisinopril
Type 2 diabetes
-Hold glargine 5 units
- Insulin sliding scale
Hypothyroidism
- Continue levothyroxine
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
Anemia of chronic disease
- Hemoglobin stable at 8.4
Anxiety/depression
- Continue bupropion
Hypercholesterolemia
Steatohepatitis
BPH
- Hold tamsulosin
Chronic pain
- Hold meloxicam
Discussed with the ([place]) control clerk food and beverage she states DNR/ DNI code
DVT prophylaxis�heparin
N.p.o.
Anticipated Discharge: 24 - 48 hours
Subjective/Interval History
-
Date of Service: March 13, 2025
Per nursing report patient became less responsive to stilmuli until 5AM when he became unresponsive. At that time he had weak pulse with bradycardia medical interventions as noted in update note from that time. Since then, he has remained
unresponsive to stimulation. When arrived in his room around 7AM he was intubated and on a ventilator with the settings 15L oxygen, 15 L O2 as well as Bicarb drip. Still unresponsive to stimulation.
Objective Data
-
Labs:
Laboratory Results
03/13/25 03/13/25 03/13/25
03:55 04:52 04:57
WBC 44.4 H*
Hgb 8.6 L
Hct 24.9 L
Plt Count 99 L
HCO3 20.5 L
Sodium Cancelled 124 L
Potassium Cancelled 6.5 H* D
Chloride Cancelled 97 L
Carbon Dioxide Cancelled 22
BUN Cancelled 63 H
Creatinine Cancelled 3.1 H
Glucose Cancelled 103 H
Calcium Cancelled 6.2 L*
Total Bilirubin Cancelled 1.1
AST Cancelled 157 H
ALT Cancelled 213 H
Alkaline Phosphatase Cancelled 73
03/13/25 03/13/25 03/13/25
07:24 08:00 08:45
WBC Pending
Hgb Pending
Hct Pending
Plt Count Pending
HCO3 Pending Cancelled
Sodium Pending Cancelled
Potassium Pending Pending
Chloride Pending Cancelled
Carbon Dioxide Pending Cancelled
BUN Pending Cancelled
Creatinine Pending Cancelled
Glucose Pending Cancelled
Calcium Pending Cancelled
Total Bilirubin Pending
AST Pending
ALT Pending
Alkaline Phosphatase Pending
Vital Signs:
Vital Signs
Temp Pulse Resp BP Pulse Ox
99.5 F 83 30 142/75 91
03/13/25 03:42 03/13/25 06:31 03/13/25 06:31 03/13/25 06:31 03/13/25 06:32
I&O
03/12/25 03/13/25 03/14/25
06:59 06:59 06:59
Intake Total 4173 / 4398 5572.3 / 5572.3
Output Total 1430 / 1430
Balance 4173 / 4398 4142.3 / 4142.3
Review of Systems
-
Unable to obtain full review of systems at this time due to: Patient Intubation and Other
Physical Exam
-
General: Well Developed, Well Nourished, Intubated and Appears Chronically Ill
HEENT: Normocephalic and Atraumatic
Respiratory: Clear to Auscultation
Cardiac: Regular Rhythm and S1/S2
GI: Soft
Musculoskeletal: No Edema and Cyanosis (Delayed capillary refill, discoloration blue/purple toes up to knees )
Skin: Dry
Neuro: Sedated; Negative Awake, Alert or Oriented
[2025-03-13 07:30] LABS: Glucose - Point of Care 114 mg/dl (70-99)
--- NOTE | 2025-03-13 07:36 | W.PN.UPDATE ---
Update Note
Progress Note Update
ARTERIAL LINE (A-Line) PLACEMENT
Date: 03/13/25
Time: 714
Indication: Hemodynamic monitoring, consent implied emergent
A time-out was completed verifying correct patient, procedure, site, positioning, and special equipment if applicable. Edd�s test was performed to ensure adequate perfusion. The patient�s left wrist was prepped and draped in sterile fashion. A 18G
Arrow arterial line was introduced into the radial artery. The catheter was threaded over the guide wire and the needle was removed with appropriate pulsatile�blood return. A sterile dressing applied. Perfusion to the extremity distal to the point
of catheter insertion was checked and found to be adequate.
Estimated Blood Loss: <5cc
The patient tolerated the procedure well and there were no complications.
[2025-03-13 07:37] LABS: B.E. -8.0 mmol/L; O2 Saturation % 99.4 % (94-98); PCO2 22 mmHg (35-48); PO2 295 mmHg (83-108)
[2025-03-13 07:41] LABS: HCO3 14.9 mmol/L (21-28)
[2025-03-13 07:49] LABS: Glucose - Point of Care 209 mg/dl (70-99)
[2025-03-13 08:05] LABS: ALT (SGPT) 176 U/L (0-50); AST (SGOT) 130 U/L (17-59); Albumin 2.4 g/dl (3.5-5.0); Alkaline Phosphatase 76 U/L (38-126); Blood Urea Nitrogen 60 mg/dl (9-20); Calcium 8.1 mg/dl (8.4-10.2); Carbon Dioxide 14 mmol/L (22-30); Chloride 97 mmol/L (98-107); Glucose 185 mg/dl (70-99); Magnesium 1.9 mg/dl (1.6-2.3); Potassium 5.5 mmol/L (3.5-5.1); Sodium 122 mmol/L (135-145); Total Protein 4.5 g/dl (6.3-8.2)
[2025-03-13] MEDS: WELLBUTRIN XL (24 hour extended release) PO (08:08)
[2025-03-13] MEDS: HEPARIN 5000 UNITS SC ×2 (08:08→19:46)
[2025-03-13] MEDS: THERAGRAN PO (08:08)
[2025-03-13 08:15] LABS: Estimated Creatinine Clearance 25 ml/min; eGFR 21.67
[2025-03-13] MEDS: SUBLIMAZE 50 MCG IV (08:22)
[2025-03-13 08:23] LABS: Hematocrit 23.4 % (39.0-52.0); Hemoglobin 8.4 g/dL (13.0-18.0); Mean Corp Hgb Conc. 35.9 g/dL (33.0-37.0); Mean Corpuscular Volume 90.0 fL (80.0-94.0); Platelet Count 98 10^3/uL (130-400); Red Cell Dist. Width 12.4 % (11.5-14.5)
[2025-03-13 08:47] LABS: Glucose - Point of Care 186 mg/dl (70-99)
[2025-03-13 09:00] LABS: Potassium 5.3 mmol/L (3.5-5.1)
--- NOTE | 2025-03-13 09:18 | CON.ID ---
Addendum entered and electronically signed by Yanet Darnell MD 03/13/25 15:53:
I personally performed a history and physical exam of the patient and discussed management with the resident. I reviewed the resident's note and agree with the documented findings and plan of care HPI/CC.
A/P
# MDR, ESBL-Klebsiella bacteremia
# Complicated ESBL-Klebsiella UTI
# Septic shock on 3 pressors
# Multi-system organ failure: FABRICE, VDRF, shock liver, pulm edema, cardiac arrest
# Leukocytosis worse.
- Repeat blood cx's in am
- Continue meropenem, renally adjusted dose
- DC Vancomycin.
- Trend vitals, wbc.
- Continue ICU support.
- Prognosis guarded
Original Note:
Consultation
-
Date/Time Consultation Requested: 03/12/2025 17:08
Date/Time Consultation Performed: 03/13/2025 09:30
Requesting Provider: Adam Sena MD ; Gonsalo Ely DO
Performing Provider: Adam Sena MD ; Yanet Darnell MD
Reason for Consultation: Bacteremia/sepsis
Chief Complaint / Past History
Chief Complaint
Urosepsis and bacteremia
History of Present Illness
This is a 69-year-old male with known past medical history of of MSSA bacteremia/endocarditis, aortic valve vegetation, hypertension, chronic orthostatic hypotension, diabetes, hypothyroidism, left foot osteomyelitis/gangrene status post partial
left foot amputation, stage III left buttock pressure ulcer, anemia of chronic disease, chronic Gabriel catheter()Replaced this admission),resident of [facility]; presented With high fever and abdominal pain on 03/11/2025.
Chart review with Reports of some diarrhea before arrival.
Initial workup showed leukocytosis which has been progressively getting worse. Lactic acidosis which was improved however increased again on 03/13/25 to 3.3. Troponin were elevated as well. Urine analysis with positive leukocyte esterase, urine
WBCs and moderate urine bacteria. Blood cultures were obtained and he was started on IV Zosyn and vancomycin which was later changed to vancomycin and meropenem.
Blood culture and urine culture from 03/11/2025 positive for Klebsiella pneumonia�ESBL. Urine; sensitive to Zosyn as well as meropenem. Sensitivities for blood culture still pending.
Influenza and C. difficile were negative. Stool studies for Salmonella, Campylobacter, Shiga lab pending
There was a code 9 today in the morning.
Past History
Past Medical History: Hypothyroidism and IDDM
Additional Past Medical History:
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
left 4th toe osteo s/p partial ray amp (08/2023), aortic valve vegetation
Past Surgical History: Orthopedic
Allergy History:
No Known Allergies Allergy (Verified 03/11/25 13:34)
Medications Reviewed: Yes
Current Antibiotics:
Vanco and meropenem
Social History
Tobacco: Non-Smoker
Alcohol: None
Drug: None
Personal:
Family History
Family History: Not Pertinent
Review of Systems
Review of Systems
General: Other (Not obtained due to acuity. Patient sedated on vent.)
Vital Signs
Temp Pulse Resp BP Pulse Ox
99.5 F 83 30 145/77 91
03/13/25 03:42 03/13/25 08:15 03/13/25 08:15 03/13/25 07:30 03/13/25 06:32
Physical Exam
Physical Exam
Constitutional: Acutely Ill and Other (On ventilator)
Cardiovascular: Regular Rate and S1/S2
Pulmonary: Non Labored
Gastrointestinal: Soft and Non Distended
Genito-Urinary: Gabriel
Skin: Other (Cold)
Lines: PICC
Lab / Diagnostic Study Results
03/13/25 07:24
03/13/25 08:45
Total Counted 100 03/13/25 03:55
Abs Neuts (Manual) 39.9 10^3/uL (1.4-6.5) H 03/13/25 03:55
Segmented Neutrophils 56 % (42-75) 03/13/25 03:55
Band Neutrophils 34 % (0-3) H 03/13/25 03:55
Lymphocytes (Manual) 1 % (20-51) L 03/13/25 03:55
PT 19.3 Sec (11.4-14.6) H 03/11/25 23:57
INR 1.61 03/11/25 23:57
Lactic Acid 3.3 mmol/L (0.7-2.0) H 03/13/25 07:24
C-Reactive Protein 151.30 mg/L (0.0-10.00) H 03/11/25 23:56
Ur Squamous Epith Cells 3-5 /LPF (Few) 03/11/25 13:57
Microbiology Results
Micro:
03/11/25 13:57 Urine Culture - Final
Urine Klebsiella pneumoniae-ESBL
03/11/25 14:02 Salmonella/Shigella Culture - Preliminary
Feces/Stool Culture in Progress
Campylobacter Culture - Preliminary
Culture in Progress
Shiga Toxin Test - Pending
03/11/25 13:57 Blood Culture - Preliminary
Blood/Venous Klebsiella pneumoniae-ESBL
Gram Stain - Preliminary
03/11/25 14:45 Blood Culture - Preliminary
Blood/Venous Positive culture in progress
Gram Stain - Preliminary
03/11/25 14:45 Influenza Types A & B (YESIKA) - Final
Nasal Swab Negative for Influenza A & B, NAAT
Negative results must be combined with clinical observations
and patient history.
Nucleic Acid Amplification test (NAAT)performed on the
[employer] platform.
03/11/25 14:02 C. difficile GDH Antigen & Toxins - Final
Feces/Stool Negative for toxigenic C.difficile
CT Abd/Pel (IV only) 03/11/25: Large amount of fecal material in the rectum suggesting fecal impaction. New
Gabriel catheter in the penile urethra. New
Mild concentric gallbladder. Appearance of mild pericholecystic fluid. If concern of acute cholecystitis, abdominal ultrasound recommended. New
Mild diffuse bladder wall thickening. This can be seen with cystitis and bladder outlet obstruction. New
Moderate fecal material throughout the colon. New all
US Abdomen 03/11/25:Thickened, edematous and irregular gallbladder wall. No gallstones. This can be seen with acute cholecystitis. Clinical and laboratory correlation recommended
Hepatomegaly. Limited evaluation of pancreas
CT Chest/abd/pelvis Angio W/wo 03/11/25:
IMPRESSION:
1. No acute vascular abnormality is identified.
2. Persistent gallbladder wall thickening. Possible minimal pericholecystic fluid Gallbladder remains contracted, no abnormal dilation to strongly suggest cystic duct obstruction.
3. Persistent malposition of Gabriel catheter, retention balloon inflated within the urethra as described on report of previous CT.
4. Stercoral colitis at the rectum as seen previously.
5. Mild urinary bladder wall thickening. This may be partially related to underdistention. Cystitis is a consideration.
6. Hypoaerated lungs without consolidation.
CXR 03/13/25:
IMPRESSION:
Endotracheal tube tip projects over the midthoracic trachea.
There is diffuse interstitial opacification which is new from prior suggestive of pulmonary edema, less likely an infectious/inflammatory process. There is a questionable trace left pleural effusion.
Assessment / Plan
# septic shock
# Klebsiella pneumonia�ESBL bacteremia
# Klebsiella pneumonia�ESBL urosepsis
# Worsening leukocytosis
- Day 3 for vancomycin and meropenem; dc vanc; continue meropenem
- Status post 1 dose of Zosyn on 03/11/2025
- Continue IV abx pending blood culture final results
- Follow wbc and temps.
- Repeat bc in the Am
# Conditions Present on arrival
DM2
Hypothyroidism
Orthostatic hypotension
Depression
Aortic vegetation
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
left 4th toe osteo s/p partial ray amp (08/2023)
--- NOTE | 2025-03-13 09:20 | W.CON.NEPH ---
Addendum entered and electronically signed by Mathew Guaman MD 03/13/25 15:08:
Patient seen by me and examined and I agree with the resident note and exam with the following additions
Impression
Septic shock secondary to complicated UTI with ESBL producing Klebsiella bacteremia
Bradycardia then asystolic VT 03/13 and acute respiratory failure s/p intubation and ventilation with sedation
Acute kidney injury�baseline creatinine 0.8
Anion gap metabolic acidosis, elevated lactate
Hyperkalemia
Hyponatremia
Transaminitis
Anemia
Mildly elevated troponin
Plan
follow BMP
Check urine studies, FEna>32%
suspect contrast-induced nephropathy as worsening FABRICE
follow lactate
continue pressors keep MAP>65
Antibiotics per infectious disease
IV fluids given concern for worsening pulmonary edema
Concentrate pressors
Follow urine output
Critical care time spent 35 minutes
Original Note:
Consultation
-
Date/Time Consultation Requested: 03/13/2025 07:06
Date/Time Consultation Performed: 03/13/2025 09:30
Requesting Provider: Dr. Xena Amador
Performing Provider: Dr Manuel Guaman
Reason for Consultation: FABRICE
Medical History
-
History of Present Illness:
This is a 69-year-old male with past medical history of MSSA bacteremia, endocarditis, dementia who presented to ER 03/11 for complaints of lower abdominal pain and diarrhea. History was obtained from chart review as patient is currently
intubated and sedated. Upon arrival creatinine was found to be 2.0, serum bicarb 37. He was noted to be septic on admission and was given IV fluids bolus and IV antibiotics. Due to persistent hypotension despite IV fluids, he was started on
Levophed and vasopressin and admitted to the ICU. He was further evaluated with a CT of the abdomen and pelvis with IV contrast and also CT angiogram. He was continued on pressor support, antibiotics and IV fluids. In the morning of 03/13, he
developed worsening encephalopathy and a pulseless V. tach. CPR was initiated and the patient was shocked. He was emergently intubated and ROSC was achieved. His laboratory today with sodium 122, potassium 5.5, CO2 14, creatinine 3.0 with a
baseline of 0.8 and calcium 8.1 improved from 6.2 with calcium gluconate. Given his worsening FABRICE and electrolyte abnormalities, we are consulted to evaluate patient.
Past Medical History
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
Gabriel catheter
Past Medical History: Other
Past Surgical History: Other
Social History
Tobacco: Non-Smoker
Alcohol: None
Drug: None
Personal:
Living: [facility]
Employment: Retired
Family History
Family History: Unable to Obtain
Allergies / Home Medications
Allergy/AdvReac Type Severity Reaction Status Date / Time
No Known Allergies Allergy Verified 03/11/25 13:34
�Medication �Instructions �Recorded �Confirmed �Type
bupropion HCl 150 mg 24 hr tablet, 150 mg PO DAILY Mental 01/29/24 03/11/25 History
extended release Health/Anxiety
ergocalciferol (vitamin D2) 1,250 1,250 mcg PO TH Supplement 01/29/24 03/11/25 History
mcg (50,000 unit) capsule (Vitamin
D2)
levothyroxine 25 mcg tablet 25 mcg PO DAILY Thyroid 01/29/24 03/11/25 History
meloxicam 15 mg tablet 15 mg PO DAILY INFLAMMATION 01/29/24 03/11/25 History
acetaminophen 500 mg tablet 1,000 mg PO TID mild pain 02/22/24 03/11/25 History
(Tylenol Extra Strength)
bisacodyl 5 mg tablet,delayed 10 mg PO DAILYPRN PRN constipation 02/22/24 03/11/25 History
release (Dulcolax (bisacodyl))
tamsulosin 0.4 mg capsule 0.4 mg PO DAILY #0 caps 03/01/24 03/11/25 Rx
capsaicin 0.025 % topical cream 1 applic topical Q8HPRN PRN rash 03/11/25 03/11/25 History
insulin glargine 100 unit/mL (3 5 unit SC HS 03/11/25 03/11/25 History
mL) subcutaneous pen (Lantus
Solostar U-100 Insulin)
lisinopril 5 mg tablet 5 mg PO DAILY 03/11/25 03/11/25 History
magnesium hydroxide 400 mg/5 mL 30 ml PO HSPRN PRN if no BM in 3 03/11/25 03/11/25 History
oral suspension (Milk of Magnesia) days
therapeutic multivitamin 1 tab PO DAILY 03/11/25 03/11/25 History
tramadol 50 mg tablet 50 mg PO Q4HPRN PRN moderate pain 03/11/25 03/11/25 History
Review of Systems
-
Unable to obtain full review of systems at this time due to: Patient Intubation
Physical Exam
Vital Signs
Vital Signs
Temp Pulse Resp BP Pulse Ox
99.5 F 83 30 145/77 91
03/13/25 03:42 03/13/25 08:15 03/13/25 08:15 03/13/25 07:30 03/13/25 06:32
Lab Results
WBC 42.3 10^3/uL (4.8-10.8) H* 03/13/25 07:24
RBC 2.60 10^6/uL (4.70-6.10) L 03/13/25 07:24
Hgb 8.4 g/dL (13.0-18.0) L 03/13/25 07:24
Hct 23.4 % (39.0-52.0) L 03/13/25 07:24
Plt Count 98 10^3/uL (130-400) L 03/13/25 07:24
Sodium Cancelled 03/13/25 08:45
Potassium 5.3 mmol/L (3.5-5.1) H 03/13/25 08:37
Chloride Cancelled 03/13/25 08:45
Carbon Dioxide Cancelled 03/13/25 08:45
BUN Cancelled 03/13/25 08:45
Creatinine Cancelled 03/13/25 08:45
eGFR Cancelled 03/13/25 08:45
Glucose Cancelled 03/13/25 08:45
Calcium Cancelled 03/13/25 08:45
Phosphorus 3.8 mg/dl (2.5-4.5) 03/11/25 23:57
Albumin 2.4 g/dl (3.5-5.0) L 03/13/25 07:24
Physical Exam
General: Other (Intubated and mechanically ventilated And sedated)
Respiratory: Clear
Cardiac: S1/S2
Abdomen: Soft and Nondistended
Genito-urinary: Other (Gabriel with yellow urine)
Assessment/Plan
-
Impression
Septic shock secondary to complicated UTI with ESBL producing Klebsiella bacteremia
Cardiac arrest 03/13 and acute respiratory failure s/p intubation and ventilation with sedation
Acute kidney injury�baseline creatinine 0.8
Anion gap metabolic acidosis, elevated lactate
Hyperkalemia
Hyponatremia
Transaminitis
Anemia
Mildly elevated troponin
Plan
FABRICE- cr increase from 2 on 03/11-3.0 this a.m., follow BMP
Check urine studies, FEna
Nonoliguric, Gabriel with outputs, presents contrast exposure suspect contrast-induced nephropathy
Monitor labs and urine output
Blood pressure normal with pressor support, continue pressors keep MAP>65
Antibiotics per infectious disease
Adjust home medications for change in GFR
Follow hyponatremia
S/p IV bicarb, will hold further fluids for now given volume status
[2025-03-13] MEDS: SODIUM BICARBONATE 1150 MEQ IV ×2 (09:30→19:14)
[2025-03-13] MEDS: LASIX 20 MG IV (09:35)
[2025-03-13] MEDS: MAGNESIUM SULFATE 102 GRAMS IV (10:04)
[2025-03-13 10:09] LABS: B.E. -8.4 mmol/L; O2 Saturation % 99.6 % (94-98); PO2 220 mmHg (83-108)
--- NOTE | 2025-03-13 10:11 | PTCARENOTE ---
report received @0700, assessments per work list. vasopressors, sedation per work list. amiodarone@1mg per orders. patient agitated with stimulation, gtts adjustment per RASS and CPOT. nsr with burst svt, occasional pvc. left radial arterial line
with cuff correlation. Fuel Agent at bedside, stat labs sent. Vent adjustments per RT. patient diaphoretic. right [place] sump inserted without issues, cxr post placement to verify. green drainage. rutledge draining harley urine with sediment.
patient mottled. unable to obtain pulse oximeter. ECH@bedside. large amounts oral secretions. small white secretions suctioned from ETT. wrist restraints maintained for patient safety
[2025-03-13 10:16] LABS: HCO3 13.4 mmol/L (21-28); PCO2 18 mmHg (35-48)
--- NOTE | 2025-03-13 10:48 | CARDSERVDEF ---
Echocardiogram with Definity completed after protocol screening completed. Allergies verified.
Patent IV site: _Right arm 20 G PC site clear____
IV site flushed with 0.9% NaCl pre and post administration.
Diluted bolus method utilized to enhance visualization of ventricular pruitt.
Total volume given: _3___ mL
Patient tolerated all procedures well without complications.
[2025-03-13] MEDS: NSS (PRESERVATIVE FREE) 10 ML IV (11:18)
[2025-03-13] MEDS: PROTONIX IV 40 MG IV (11:18)
[2025-03-13] MEDS: LEVOPHED 258 MG IV ×3 (11:32→19:48)
[2025-03-13] MEDS: NOVOLOG FLEXPEN-MODERATE RESISTANCE 1 UNITS SC (11:55)
[2025-03-13 12:04] LABS: Glucose - Point of Care 165 mg/dl (70-99)
--- NOTE | 2025-03-13 12:54 | PTCARENOTE ---
Addendum entered by La Nena Soriano RN 03/13/25 13:49:
Dr Amador in to speak with family. DNR orders received. urine spec sent. updated on current status, gtts
Original Note:
patient with continued hypotension, talat gtt resumed. max on levophed, vasopressin. patient mottled as per initail assessments. right thumb and hand more mottled. thumb black. data security administrator and hospitalist aware. doppler pulses. incontinent liquid
stool. complete care provided.rectal trumpet placed. patient with periods of dropped p waves, data security administrator updated by tiger text. amiodarone@[email or web address] per orders
[2025-03-13 13:14] LABS: Glucose - Point of Care 127 mg/dl (70-99)
--- NOTE | 2025-03-13 13:55 | EEG.RPT ---
Electroencephalogram Report
Recording
Date of EE03/13/25
Type of EEG: Routine
Done with Video Recording: Yes
Patient Status: Inpatient
Recording Conditions: Other
Hyperventilation Performed: No
Photic Stimulation Performed: No
Hand Dominance: Right
Report
Clinical Background: sepsis, cardiac arrest
Introduction: A routine bedside EEG was done using International 10-20 electrode placement protocol.
Meds include propofol 25 mcg/kg/min
Background: there is burst suppression. Most of the record is generalized polymorphic theta activity, with periods of suppression lasting 1-2 seconds comprising ~10% of the record.
Sleep: some spindles are seen
Focal/epileptiform: There were no focal or epileptiform discharges. No clinical or electrographic seizures occurred during this recording.
Photic stimulation: resulted in normal driving response. There was no photo myogenic or photoparoxysmal response.�
Impression: Burst suppression, consistent with propofol medication effect
--- NOTE | 2025-03-13 14:10 | CM ---
0519 this am patient w weak pulse and bradycardia, code 9, CPR, shocked, intubated. Now DNR status. Family is leaning toward comfort focused care if patient does not improve on current therapy in the next 12 to 24 hours. Discharge POC: TBD.
[2025-03-13 15:16] LABS: Triglycerides 111 mg/dl (10-149)
--- NOTE | 2025-03-13 16:04 | PTCARENOTE ---
patient reassessed. lungs with coarse breath sounds bilaterally, suctioned for moderate amount thick white tompkins sputum. gtts per work list. urine output decreased, deliverer pharmacy updated. discoloration unchanged hands and feet, pulses by doppler.
[2025-03-13] MEDS: NEO-SYNEPHRINE 1% 260 MG IV (16:23)
[2025-03-13 16:55] LABS: B.E. -9.9 mmol/L; O2 Saturation % 99.6 % (94-98); PCO2 24 mmHg (35-48); PO2 167 mmHg (83-108)
[2025-03-13 17:00] LABS: HCO3 13.9 mmol/L (21-28)
[2025-03-13 17:36] LABS: ALT (SGPT) 2096 U/L (0-50); Albumin 2.6 g/dl (3.5-5.0); Alkaline Phosphatase 103 U/L (38-126); Blood Urea Nitrogen 64 mg/dl (9-20); Calcium 6.8 mg/dl (8.4-10.2); Carbon Dioxide 14 mmol/L (22-30); Chloride 96 mmol/L (98-107); Estimated Creatinine Clearance 24 ml/min; Glucose 133 mg/dl (70-99); Potassium 6.0 mmol/L (3.5-5.1); Sodium 120 mmol/L (135-145); Total Protein 4.8 g/dl (6.3-8.2); eGFR 20.83
[2025-03-13 17:37] LABS: AST (SGOT) 2083 U/L (17-59)
[2025-03-13 17:45] LABS: Glucose - Point of Care 122 mg/dl (70-99)
--- NOTE | 2025-03-13 17:45 | PTCARENOTE ---
Dr Amador notified by tiger text re:critical labs. orders pending. vent changes by RT
[2025-03-13] MEDS: LOKELMA 10 GRAM TUBE (18:41)
[2025-03-13] MEDS: CALCIUM GLUCONATE 1000 MG IV (18:45)
[2025-03-13] MEDS: SODIUM BICARBONATE 50 MEQ IV (18:51)
[2025-03-13 19:02] LABS: Glucose - Point of Care 119 mg/dl (70-99)
[2025-03-13 19:27] LABS: Glucose - Point of Care 281 mg/dl (70-99)
[2025-03-13] MEDS: WELLBUTRIN REGULAR RELEASE 75 MG TUBE (19:47)
[2025-03-13 20:03] LABS: Glucose - Point of Care 140 mg/dl (70-99)
[2025-03-13 21:06] LABS: Glucose - Point of Care 139 mg/dl (70-99)
[2025-03-13 21:32] LABS: Potassium 5.3 mmol/L (3.5-5.1)
[2025-03-13 23:16] LABS: Glucose - Point of Care 132 mg/dl (70-99)
[2025-03-13 23:38] LABS: Potassium 5.7 mmol/L (3.5-5.1)
--- NOTE | 2025-03-13 23:57 | PTCARENOTE ---
Pt received at 19:00, intubated and sedated. Pupils 2mm and sluggish. SR with occasional PVCs. Pulses by dopper. R hand cyanotic fingers and nail beds. L hand and B/L LE mottled with dusky/pale nail beds. #8 ETT @ 25cm, repositioned from C to R. AC
20/500/40%/+5. Breath sounds clear, diminished at the bases. R nare NGT in place, drainage clear/green. RT in place, tompkins liquid to pasty output, small amount of leakage around tube. Gabriel in place, draining yellow/harley urine. Safe environment
maintained, pt repositioned q2hrs.
[2025-03-14] MEDS: NOVOLIN R 10 UNITS IV (00:22)
[2025-03-14] MEDS: DEXTROSE 50% SYRINGE 25 GRAMS IV (00:26)
[2025-03-14] MEDS: SOLU-CORTEF 50 MG IV ×3 (00:27→12:14)
[2025-03-14] MEDS: LEVOPHED 258 MG IV ×3 (00:27→09:22)
[2025-03-14] MEDS: NOVOLOG FLEXPEN-MODERATE RESISTANCE SC ×3 (00:30→12:14)
[2025-03-14 00:36] LABS: Glucose - Point of Care 127 mg/dl (70-99)
--- NOTE | 2025-03-14 01:15 | PTCARENOTE ---
Pt agitated with care, biting on ETT and thrashing head from side to side. Propofol gtt titrated as ordered.
[2025-03-14 02:04] LABS: Glucose - Point of Care 140 mg/dl (70-99)
[2025-03-14] MEDS: SUBLIMAZE 100 IV ×2 (02:15→21:44)
[2025-03-14] MEDS: DIPRIVAN 100 IV ×2 (02:15→10:29)
[2025-03-14 03:00] LABS: Glucose - Point of Care 102 mg/dl (70-99)
[2025-03-14 04:17] LABS: B.E. -7.0 mmol/L; HCO3 16.2 mmol/L (21-28); O2 Saturation % 99.0 % (94-98); PCO2 25 mmHg (35-48); PO2 138 mmHg (83-108)
[2025-03-14] MEDS: PITRESSIN 100 IV (04:23)
[2025-03-14 04:43] LABS: Hematocrit 26.3 % (39.0-52.0); Hemoglobin 9.6 g/dL (13.0-18.0); Mean Corp Hgb Conc. 36.5 g/dL (33.0-37.0); Mean Corpuscular Volume 86.8 fL (80.0-94.0); Platelet Count 102 10^3/uL (130-400); Red Cell Dist. Width 12.9 % (11.5-14.5)
[2025-03-14 04:54] LABS: Albumin 2.3 g/dl (3.5-5.0); Alkaline Phosphatase 126 U/L (38-126); Blood Urea Nitrogen 70 mg/dl (9-20); Calcium 6.5 mg/dl (8.4-10.2); Carbon Dioxide 17 mmol/L (22-30); Chloride 96 mmol/L (98-107); Glucose 109 mg/dl (70-99); Magnesium 2.1 mg/dl (1.6-2.3); Potassium 5.4 mmol/L (3.5-5.1); Sodium 122 mmol/L (135-145); Total Protein 4.4 g/dl (6.3-8.2)
[2025-03-14 04:59] LABS: ALT (SGPT) 1836 U/L (0-50); Estimated Creatinine Clearance 24 ml/min; eGFR 20.05
[2025-03-14] MEDS: SYNTHROID 25 MCG TUBE (05:00)
[2025-03-14 05:08] LABS: AST (SGOT) 1933 U/L (17-59)
[2025-03-14 05:13] LABS: Nucleated Red Blood Cells % 0 % (-)
[2025-03-14] MEDS: CALCIUM GLUCONATE 130 MG IV (05:19)
[2025-03-14 06:00] VITALS: BMI 29.6
[2025-03-14] MEDS: CORDARONE 518 MG IV (06:35)
[2025-03-14 06:54] LABS: Glucose - Point of Care 137 mg/dl (70-99)
[2025-03-14] MEDS: LOKELMA 10 GRAM PO (07:10)
--- NOTE | 2025-03-14 07:21 | W.PN.HOSP.TC ---
Addendum entered and electronically signed by Gerardo Shaw MD 03/14/25 20:25:
Attending Addendum-
I saw and evaluated the patient. I reviewed the resident�s note and agree with findings and plan as documented in the resident�s note. Sub: intubated and sedated. has had intermittent agitation. Full 12 point ROS unable to review due to GCS Exam:
Vitals reviewed in chart GEN-intubated and sedated heart RRR lungs crackles at bases abd soft Ext-cool clammy extremities blue toes and fingers pulses faint UE B/L rutledge in place LUE A line and PICC in place left foot partial amputation
Plan:
# Cardiac Arrest resulting in VDRF
- 03/14-coded- shocked,CPR, and epi-intubated and sedated
- cont propofol, amiodarone and fentanyl gtt
-cont care in ICU
# Septic shock secondary to CAUTI
# Non-anion gap metabolic acidosis
- probable DIC
- cont IV fluids with bicarbonate
- urine cx and Blood culture x 2- ESBL Klebsiella pneumonia - sensi reviewed
- wbc worsening
- repeat blood cx - P
- cont meropenem #3, DC'd vanco
- Chronic Rutledge catheter exchanged
- Currently on Levophed, vasopressin- talat-Synephrine weaned off- keep MAP > 65
- overall extremely poor prognosis
- cont stress dose steroids for now
- ID on board
# Fecal impaction/constipation
-Patient was manually disimpacted
# FABRICE secondary to hypotension/sepsis
- with metabolic acidosis
- cont bicarb drip
- Hold meloxicam, lisinopril
- worsening
- poor prognosis
- nephro on board
# Hyponatremia-likely from hypervolemia
-Lasix IV x 1
-CTM closely
# Hyperkalemia
-from met acid
-insulin dextrose beta agonist
-cont bicarb gtt
- lokelma given
# Acute Transaminitis - from shock liver poor prognosis
#History of MSSA bacteremia/endocarditis with aortic valve vegetation
#Chronic Rutledge catheter- Rutledge catheter exchanged 03/11
#Essential hypertension- Hold lisinopril
#Orthostatic hypotension- Continue midodrine
#Type 2 diabetes-Hold glargine 5 units- Insulin sliding scale
#Hypothyroidism- Continue levothyroxine
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
#Anemia of chronic disease-Hemoglobin stable
#Anxiety/depression- Continue bupropion
#Chronic pain- Hold meloxicam- Continue tramadol
Full code->DNR 03/13->comfort care 03/14
DVT prophylaxis�heparin
ACP
Patient unable to consent to discuss, d/w , time spent explanation of advance directives, changes in health status, patient�s health care wishes if the patient becomes unable to make health decisions, goals of care, code status, and prognosis
d/w to transition to comfort care all parties in agreement comfort orders placed- 17 minutes
CC Note
Due to a high probability of clinically significant, life-threatening deterioration, the patient required a high level of preparedness to intervene emergently. I personally spent this critical care time directly and personally managing the patient.
This critical care time included obtaining a history; examining the patient; ordering and review of studies and STAT labs; arranging urgent treatment with development of a management plan; evaluation of patient's response to treatment; reassessment;
and, discussions with other providers.
This critical care time was performed to assess and manage the high probability of imminent, life-threatening deterioration that could result in multi-organ failure. It was exclusive of separately billable procedures and treating other patients and
teaching time. Total time documented is also exclusive of any additional time listed that was spent in advance care planning discussion
Total critical care time: Approximately 32 minutes
Original Note:
Today's Communication/Plan
-
Will contact Wound Care team
Assessment / Plan
Assessment / Plan
69-year-old male with history of diabetes, history of sepsis with MSSA bacteremia in 2023 diagnosed with endocarditis at that time, dementia, chronic Rutledge presented from the residential with complaints of lower abdominal pain. Who became
unresponsive this morning. He is intubated.
#Cardiac arrest, 03/13. Initial rhythm ventricular tachycardia, pulseless
-CPR, emergent intubation, currently normal sinus rhythm
-Suspect cardiac arrest is in the setting of severe acidosis, septic shock multiple pressors as well as FABRICE and hyperkalemia
-Continue Amiodarone infusion. EKG to evaluate QTc interval
-Aggressively manage hyperkalemia, hyperventilate in view of acidosis, continue bicarb
# Septic shock (fever, tachycardia, leukopenia initially and now leukocytosis, hypotension) secondary catheter associated UTI versus rule out acute cholecystitis versus stercoral colitis versus bacteremia
- 03/14/25 Normal AG metabolic acidosis, respiratory alkalosis
- 03/13/25 Blood culture with Klebsiella pneumonia�ESBL
- Gr stain of anaerobic blood culture bottle Gram (-) Bacilli
- Stool culture negative C. difficile
-Lactate of 1.6 from 2.7 /2.9
- IV antibiotics continue meropenem D#3
- Currently on vasopressin and norepinephrine, discontinued phenylephrine
Follow ABG
-follow coffee maker servicer recommendations.
# Acute kidney injury secondary to hypotension/sepsis(baseline creatinine 0.8)
-BUN 70, Creatinine 3.2 , Potassium 4.9
-Continue Bicarb drip
-hold nephrotoxic agents
#New rash on inguinal area
# Elevated troponin
03/12/2025 Troponin 1.230 H
-Sepsis induced myocardial dysfunction
# Transaminitis secondary to hypotension versus rule out acute cholecystitis
- AST 1933
-[id number]
History of MSSA bacteremia/endocarditis with aortic valve vegetation
ECHO 03/14/2025 showed no significant valvular heart disease, EF 15-20% global hypokinesis
Chronic Rutledge catheter
- Rutledge catheter exchanged 03/11 2025
Essential hypertension
- Hold lisinopril
Type 2 diabetes
-Hold glargine 5 units
- Insulin sliding scale
Hypothyroidism
- Continue levothyroxine
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
Anemia of chronic disease
- Hemoglobin stable 9.6
Anxiety/depression
- Continue bupropion
Hypercholesterolemia
Steatohepatitis
BPH
- Hold tamsulosin
Chronic pain
- Hold meloxicam
Discussed with the ([place]) animal damage control agent she states DNR/ DNI code
DVT prophylaxis�heparin
N.p.o.
Anticipated Discharge: > 48 hours
Subjective/Interval History
-
Date of Service: March 14, 2025
I saw the patient at the bedside. He is intubated. Per nurse he woke up agitated and had spontaneous wakenings. He has a new rash on his right inguinal area. Rash looks red with yellow peanut size lesion on it.
Objective Data
-
Labs:
Laboratory Results
03/13/25 03/13/25 03/14/25
20:56 23:08 04:06
WBC 59.4 H*
Hgb 9.6 L
Hct 26.3 L
Plt Count 102 L
HCO3 16.2 L
Sodium 122 L
Potassium 5.3 H 5.7 H 5.4 H
Chloride 96 L
Carbon Dioxide 17 L
BUN 70 H
Creatinine 3.2 H
Glucose 109 H
Calcium 6.5 L*
Total Bilirubin 2.2 H
AST 1933 H*
ALT 1836 H*
Alkaline Phosphatase 126
03/14/25
10:00
WBC
Hgb
Hct
Plt Count
HCO3
Sodium
Potassium Pending
Chloride
Carbon Dioxide
BUN
Creatinine
Glucose
Calcium
Total Bilirubin
AST
ALT
Alkaline Phosphatase
Vital Signs:
Vital Signs
Temp Pulse Resp BP Pulse Ox
98.5 F 86 20 116/58 98
03/13/25 16:12 03/14/25 01:00 03/14/25 01:00 03/13/25 09:35 03/14/25 04:01
I&O
03/13/25 03/14/25 03/15/25
06:59 06:59 06:59
Intake Total 5572.3 / 5938.3 4323.4 / 4323.4
Output Total 1430 / 1430 1270 / 1270
Balance 4142.3 / 4508.3 3053.4 / 3053.4
Review of Systems
-
Unable to obtain full review of systems at this time due to: Patient Intubation
Physical Exam
-
General: Well Developed, Well Nourished and Intubated
HEENT: Normocephalic and Atraumatic
Respiratory: Clear to Auscultation
Cardiac: Regular Rhythm and S1/S2
GI: Soft and Nondistended
Rectal: Deferred by Provider
Musculoskeletal: Cyanosis (Blue/ purple discoloration from his toes to nance), Edema, Right Lower Extrem (mild bilateral LE edema) and Edema, Left Lower Extrem
Skin: Warm, Dry and Rash (erythematous, with peanut size yellowish lesion on it.)
Neuro: Sedated
[2025-03-14] MEDS: MERREM 500 MG IV (07:42)
[2025-03-14] MEDS: HEPARIN 5000 UNITS SC (07:42)
[2025-03-14] MEDS: NSS (PRESERVATIVE FREE) 10 ML IV (07:43)
[2025-03-14] MEDS: PROTONIX IV 40 MG IV (07:43)
[2025-03-14] MEDS: STERILE WATER FOR INJECTION 10 ML IV (07:43)
[2025-03-14] MEDS: THERAGRAN 1 TABLET TUBE (07:43)
[2025-03-14] MEDS: WELLBUTRIN REGULAR RELEASE 75 MG TUBE (07:43)
[2025-03-14 08:00] LABS: Glucose - Point of Care 133 mg/dl (70-99)
--- NOTE | 2025-03-14 08:35 | PTCARENOTE ---
Addendum entered by La Nena Soriano RN 03/14/25 09:06:
prior shift vital signs captured. unable to verify accuracy
Original Note:
report received, assessments per work list. patient restless with oral care, propofol and fentanyl per work list. does not follow commands. wrist restraints maintained for patient safety. monitor nsr with avb. amiodarone, levophed and vasopressin
per work list. right hand cyanotic, fingers black. doppler pulses. left hand and feet mottled. left radial arterial line with good waveforms and blood returns. ett secure,lungs with rhonchi bilaterally. increased oral secretions, ett suctions for
moderate thick white tompkins sputum. rutledge draining harley urine with sediment. ngt placement verified. rectal trumpet in place. leaking large amounts stool. exchanged for FMS. fork truck driver and resident updated at bedside. labs sent, results pending
--- NOTE | 2025-03-14 09:52 | W.PN.ID1 ---
Date of Service
Date of Service: March 14, 2025
Today's Communication
Continue with meropenem
Assessment / Plan
# MDR, ESBL-Klebsiella bacteremia
# Complicated ESBL-Klebsiella UTI
# Septic shock on 2 pressors
# Multi-system organ failure: FABRICE, VDRF, shock liver, pulm edema, cardiac arrest
# Leukocytosis worse
-C. diff neg
- Repeat blood cx's pending
- Continue meropenem, renally adjusted dose
- Trend vitals, wbc.
- Continue ICU support.
- Prognosis remains guarded
# Conditions Present on arrival
DM2
Hypothyroidism
Orthostatic hypotension
Depression
MSSA [place] AV endocarditis 02/2024 s/p 6 weeks cefazolin
MSSA Left knee septic arthritis )02/2024 s/p 6 weeks cefazolin
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
left 4th toe osteo s/p partial ray amp (08/2023)
Chief Complaint
-: Clinical Sepsis and Bacteremia
Vital Signs / Physical Exam
Vital Signs
Vital Signs
Temp Pulse Resp BP Pulse Ox
98.3 F 76 20 116/58 100
03/14/25 08:22 03/14/25 09:30 03/14/25 09:30 03/13/25 09:35 03/14/25 09:00
Physical Exam
Constitutional: Acutely Ill
Cardiovascular: Regular Rate and S1/S2
Pulmonary: Rhonchi, Coarse and Other (on vent)
Gastrointestinal: Soft, Non Tender, Non Distended and Normal Bowel Sounds
Genito-Urinary: Gabriel and Clear Urine; Negative CVA Tenderness
Extremities: Cyanosis (BLE)
Musculoskeletal: Negative Joint Swelling or Joint Effusion
Skin: Jaundice
Objective Data
Lab Data
Lab Results
03/14/25 04:06
PT 19.3 Sec (11.4-14.6) H 03/11/25 23:57
INR 1.61 03/11/25 23:57
APTT 51.4 Sec (23.4-35.0) H 03/11/25 23:57
Estimated Creat Clear 24 ml/min 03/14/25 04:06
Lactic Acid 1.6 mmol/L (0.7-2.0) 03/14/25 08:26
Total Bilirubin 2.2 mg/dl (0.2-1.3) H 03/14/25 04:06
AST 1933 U/L (17-59) H* 03/14/25 04:06
ALT 1836 U/L (0-50) H* 03/14/25 04:06
Alkaline Phosphatase 126 U/L (38-126) 03/14/25 04:06
C-Reactive Protein 151.30 mg/L (0.0-10.00) H 03/11/25 23:56
Most recent labs reviewed.
Micro Results:
03/11/25 14:45 Blood Culture - Preliminary
Blood/Venous Klebsiella pneumoniae-ESBL
Gram Stain - Preliminary
03/11/25 13:57 Blood Culture - Final
Blood/Venous Klebsiella pneumoniae-ESBL
Gram Stain - Final
03/14/25 04:06 Blood Culture - Pending
Blood/Venous
03/11/25 14:02 Salmonella/Shigella Culture - Final
Feces/Stool No Salmonella, Shigella, Aeromonas or Plesiomonas species
isolated.
Campylobacter Culture - Final
No Campylobacter species isolated.
Shiga Toxin Test - Final
No E. coli Shiga Toxin 1 or 2 detected.
03/11/25 13:57 Urine Culture - Final
Urine Klebsiella pneumoniae-ESBL
03/11/25 14:45 Influenza Types A & B (YESIKA) - Final
Nasal Swab Negative for Influenza A & B, NAAT
Negative results must be combined with clinical observations
and patient history.
Nucleic Acid Amplification test (NAAT)performed on the
[employer] platform.
03/11/25 14:02 C. difficile GDH Antigen & Toxins - Final
Feces/Stool Negative for toxigenic C.difficile
CT Abd/Pel (IV only) 03/11/25: Large amount of fecal material in the rectum suggesting fecal impaction. New
Gabriel catheter in the penile urethra. New
Mild concentric gallbladder. Appearance of mild pericholecystic fluid. If concern of acute cholecystitis, abdominal ultrasound recommended. New
Mild diffuse bladder wall thickening. This can be seen with cystitis and bladder outlet obstruction. New
Moderate fecal material throughout the colon. New all
US Abdomen 03/11/25:Thickened, edematous and irregular gallbladder wall. No gallstones. This can be seen with acute cholecystitis. Clinical and laboratory correlation recommended
Hepatomegaly. Limited evaluation of pancreas
CT Chest/abd/pelvis Angio W/wo 03/11/25:
IMPRESSION:
1. No acute vascular abnormality is identified.
2. Persistent gallbladder wall thickening. Possible minimal pericholecystic fluid Gallbladder remains contracted, no abnormal dilation to strongly suggest cystic duct obstruction.
3. Persistent malposition of Gabriel catheter, retention balloon inflated within the urethra as described on report of previous CT.
4. Stercoral colitis at the rectum as seen previously.
5. Mild urinary bladder wall thickening. This may be partially related to underdistention. Cystitis is a consideration.
6. Hypoaerated lungs without consolidation.
CXR 03/13/25:
IMPRESSION:
Endotracheal tube tip projects over the midthoracic trachea.
There is diffuse interstitial opacification which is new from prior suggestive of pulmonary edema, less likely an infectious/inflammatory process. There is a questionable trace left pleural effusion.
[2025-03-14 10:10] LABS: Potassium 4.9 mmol/L (3.5-5.1)
[2025-03-14] MEDS: LASIX 40 MG IV (10:22)
--- NOTE | 2025-03-14 10:25 | W.PN.NEPH.PH ---
Today's Communication / Plan
-
Follow BMP
Assessment/Plan
-
Impression
Septic shock secondary to complicated UTI with ESBL producing Klebsiella bacteremia
Cardiac arrest 03/13 and acute respiratory failure s/p intubation and ventilation with sedation
Acute kidney injury�baseline creatinine 0.8, contrast nephropathy, sepsis
Anion gap metabolic acidosis, elevated lactate
Hyperkalemia
Hyponatremia
Transaminitis
Anemia
Mildly elevated troponin
Plan
Follow BMP
Follow LFTs
Hemodynamically stable with pressors with improving lactate as well as LFTs.
Continue IV fluids with bicarbonate
Follow urine output
Hyponatremia is in part perpetuated by hypotonic IV meds which are necessary currently
Critical care time spent 35 minutes
-
-
Date of Service: March 14, 2025
CC / HPI / ROS
-
Chief Complaint:
FABRICE
History of Present Illness:
WBC higher at 59
Critically ill in ICU on pressors
Sedated on vent
LFTs slightly better
Lactic acid improving
FABRICE/Cr higher at 3.2
Potassium high 5.4
Metabolic acidosis persists
Sodium remains low 122
Review of Systems:
Intubated sedated
Labs
-
Labs:
WBC 59.4 10^3/uL (4.8-10.8) H* 03/14/25 04:06
RBC 3.03 10^6/uL (4.70-6.10) L 03/14/25 04:06
Hgb 9.6 g/dL (13.0-18.0) L 03/14/25 04:06
Hct 26.3 % (39.0-52.0) L 03/14/25 04:06
Plt Count 102 10^3/uL (130-400) L 03/14/25 04:06
Sodium 122 mmol/L (135-145) L 03/14/25 04:06
Potassium 4.9 mmol/L (3.5-5.1) 03/14/25 09:33
Chloride 96 mmol/L (98-107) L 03/14/25 04:06
Carbon Dioxide 17 mmol/L (22-30) L 03/14/25 04:06
BUN 70 mg/dl (9-20) H 03/14/25 04:06
Creatinine 3.2 mg/dL (0.7-1.3) H 03/14/25 04:06
eGFR 20.05 03/14/25 04:06
Glucose 109 mg/dl (70-99) H 03/14/25 04:06
Calcium 6.5 mg/dl (8.4-10.2) L* 03/14/25 04:06
Phosphorus 3.8 mg/dl (2.5-4.5) 03/11/25 23:57
Albumin 2.3 g/dl (3.5-5.0) L 03/14/25 04:06
Physical Exam
-
Vital Signs:
Vital Signs
Temp Pulse Resp BP Pulse Ox
98.3 F 81 20 114/51 98
03/14/25 08:22 03/14/25 10:22 03/14/25 09:30 03/14/25 10:22 03/14/25 10:13
Cardiovascular:: Regular rate and rhythm
Respiratory:: Bilateral: Coarse
Lung Excursion:: Normal
Abdomen:: Nontender and Soft
Bowel Sounds:: Normal
Extremity Edema:: None: Bilateral:
--- NOTE | 2025-03-14 11:31 | PN.CDI ---
CDI
- -
CDI:
Physician Documentation Request
Admit Date: 03/11/25 20:22
Dear Doctor Linda,
03/13 TRANSMISSION AND COORDINATION ENGINEER note states ' Code 9 called for weak pulse with bradycardia. Patient appears dusky with mottling in the extremities, agonally breathing....pulse was lost with rhythm changes to ventricular tachycardia, CPR initiated and patient was
shocked....Anesthesia at bedside and intubated with ETT #8'
Mercerizing Range Feeder note include a diagnosis of 'Acute respiratory failure,....'
ABG at approximate time of event
Laboratory Tests
03/13/25
04:57
pH 7.08 L*
pCO2 69 H
pO2 83
HCO3 20.5 L
Base Excess -9.5
Please clarify the type of respiratory failure:
Type
Respiratory failure with hypoxia
Respiratory failure with hypercapnia
Respiratory failure with hypoxia and hypercapnia
Other, please specify
Use of terms such as suspected, likely, concern for, or probable (associated with a specific diagnosis that is being evaluated, monitored, or treated as if it exists) are acceptable and can be coded in the inpatient setting, when documented at the
time of discharge.
Thank you,
Charlene Bond RN, BSN
CDI Specialist
tiger text
Please use your independent medical judgment in providing your response.
--- NOTE | 2025-03-14 11:37 | PN.CDI ---
CDI
- -
CDI:
Physician Documentation Request
Admit Date: 03/11/25 20:22
Dear Doctor Linda,
Patient admitted with septic shock secondary to CAUTI.
Hospitalist progress note states 'elevated troponin'
03/13 Electric Appliance Installer note states ' Elevated troponin, suspect NSTEMI type II
Troponin results:
Laboratory Tests
03/11/25 03/12/25 03/12/25
23:56 05:20 11:46
Troponin I 0.170 H* 0.416 H* D 1.230 H* D
Could you please provide/clarify a diagnosis that supports the above lab abnormalities and additional evaluation/ monitoring:
NSTEMI
Type II NH demand ischemia
Other
Use of terms such as suspected, likely, concern for, or probable (associated with a specific diagnosis that is being evaluated, monitored, or treated as if it exists) are acceptable and can be coded in the inpatient setting, when documented at the
time of discharge.
Thank you,
Charlene Bond RN, BSN
CDI Specialist
tiger text
Please use your independent medical judgment in providing your response.
[2025-03-14] MEDS: SODIUM BICARBONATE 1150 MEQ IV (12:14)
[2025-03-14 12:22] LABS: Glucose - Point of Care 76 mg/dl (70-99)
--- NOTE | 2025-03-14 12:31 | CM ---
outside sales manager reviewed patient's chart and met with patient this am, patient is intubated, will follow patient progress.
Plan; Patient on ventilator will follow with progress.
--- NOTE | 2025-03-14 12:39 | PTCARENOTE ---
patient reassessed. no chnages. family at bedside. TT to squash centre manager and resident to inform
[2025-03-14] MEDS: LOKELMA PO (13:27)
--- NOTE | 2025-03-14 13:29 | PTCARENOTE ---
after GOC meeting, patient to be placed on comfort measures. all gtts d/c with exception of sedation. pastoral care at bedside. spouse requesting slug press operator to come and to wait on extubation until sacraments are administered
--- NOTE | 2025-03-14 13:52 | W.PN.INTV ---
Today's Communication / Plan
Recommendations
- Transition to comfort focused care
- Cheese Specialist service will be available as needed
Assessment
-
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
abdominal pain, sepsis requiring IV fluids, antibiotics and pressors, admitted to ICU 03/11. Patient developed progressive septic shock at times requiring 3 pressors. In the jewel bearing driller 03/13, patient developed increasing acidosis, worsening
encephalopathy and developed cardiac arrest with ventricular tachycardia, pulseless. Patient received CPR, emergent intubation and ROSC was achieved.
Conditions present prior to admission
History of MSSA endocarditis February 2024
Hypertension
Insulin-dependent diabetes
History of osteomyelitis with partial left foot amputation
Chronic Gabriel catheter
[facility] resident
03/14 overview: Patient currently intubated, mechanically ventilated and sedated. Current infusions amiodarone, Levophed, vasopressin, propofol and fentanyl. Also sterile water with bicarb infusing at 75 mL/h. Current MAP of 70. Blood gas 7.40
09/13/, volume assist-control 500/20/40%/5. Fluid balance +2.4 L. Worsening mottling of both hands and feet.
Assessment and plan
Goals of care update 03/14. I met with patient's and daughter at bedside. We went over patient's current clinical condition including septic shock requiring multiple pressors, worsening ischemic change of both hands and feet, acute kidney
injury, acute liver injury. Patient's spouse and daughter expressed that patient would not have wanted to live like this or continue life support at this point. In accordance with patient's wishes per family, family has opted to proceed with
comfort focused care only with the goal to perform palliative extubation and keep patient comfortable through the process. Comfort care order set placed, will use fentanyl as needed for any pain or air hunger patient might experience.
Underlying medical diagnoses:
#1. Septic shock with ESBL producing Klebsiella bacteremia, complicated UTI
#2. Cardiac arrest, 03/13. Initial rhythm ventricular tachycardia, pulseless
#3. Acute respiratory failure, intubated 03/13 after cardiac arrest
#4. Acute kidney injury, suspect developing ATN
#5. Hyperkalemia.
#6. ?Acute cholecystitis per imaging, mild pericholecystic fluid
#7. Elevated troponin, suspect NSTEMI type II
#8. Abnormal LFTs
#9. Acute metabolic encephalopathy.
Critical Care time 52 mins -- The patient is admitted for acute critical illness for the treatment of vital organ failure and/or prevention of further life-threatening conditions. Total care includes time spent in review of history, physical exam,
medications, hemodynamic/ventilator parameters, laboratory data, imaging and discussion with house staff, pharmacy, respiratory therapy, director print, and nursing.
Updated patient's . Will meet in person for ongoing goals of care discussions
Data:
CTA C/A/P 02/2025: 1. No acute vascular abnormality is identified.
2. Persistent gallbladder wall thickening. Possible minimal pericholecystic fluid Gallbladder remains contracted, no abnormal dilation to strongly suggest cystic duct obstruction.
3. Persistent malposition of Gabriel catheter, retention balloon inflated within the urethra as described on report of previous CT.
4. Stercoral colitis at the rectum as seen previously.
5. Mild urinary bladder wall thickening. This may be partially related to underdistention. Cystitis is a consideration.
6. Hypoaerated lungs without consolidation.
ECHO 02/2024: Normal biventricular size and systolic function without regional wall motion abnormality.
No significant valvular disease.
No prior study available for comparison.
ANGLE is more sensitive and specific in the evaluation of endocarditis in the
correct clinical scenario.
Subjective Dataa
Subjective Data
Date of Service:
Date of Service: March 14, 2025
Subjective:
Patient currently intubated, mechanically ventilated and sedated
Review of Systems
General: Unobtainable - Sedation
Objective Data
Data Reviewed
Vital Signs / I&O / Oxygen:
Vital Signs
Temp Pulse Resp BP Pulse Ox
99.7 F 79 18 114/51 99
03/14/25 12:00 03/14/25 13:00 03/14/25 13:00 03/14/25 10:22 03/14/25 13:00
Intake and Output
03/13/25 03/14/25 03/15/25
06:59 06:59 06:59
Intake Total 5572.3 / 5938.3 4323.4 / 4498.7 1369.2 / 1369.2
Output Total 1430 / 1430 1270 / 1270 750 / 750
Balance 4142.3 / 4508.3 3053.4 / 3228.7 619.2 / 619.2
SaO2 [A/C] 94
SaO2 99
Nasal Cannula flow liters per 2
minute
Physical Exam
General: Comfortable
HEENT: Normocephalic
Cardiovascular: S1-S2
Respiratory: Clear
GI: Soft and Non Distended
Neurology: Other (Currently sedated)
Skin: Other (Developing mottling of digits on both hands, worse on the right hand, also skin mottling noted on right foot. Worsening ischemic changes compared to 03/13.)
Labs/Micro/Reports
Lab Data
03/14/25 04:06
03/14/25 09:33
Laboratory Results
03/13/25 03/14/25
16:45 04:06
pH 7.37 7.42
pCO2 24 L 25 L
pO2 167 H 138 H
HCO3 13.9 L* 16.2 L
O2 Delivery Level
Microbiology
03/11/25 14:45 Blood/Venous Blood Culture - Preliminary
Klebsiella pneumoniae-ESBL
03/11/25 14:45 Blood/Venous Gram Stain - Preliminary
03/11/25 13:57 Blood/Venous Blood Culture - Final
Klebsiella pneumoniae-ESBL
03/11/25 13:57 Blood/Venous Gram Stain - Final
03/11/25 14:02 Feces/Stool Salmonella/Shigella Culture - Final
No Salmonella, Shigella, Aeromonas or Plesiomonas species
isolated.
03/11/25 14:02 Feces/Stool Campylobacter Culture - Final
No Campylobacter species isolated.
03/11/25 14:02 Feces/Stool Shiga Toxin Test - Final
No E. coli Shiga Toxin 1 or 2 detected.
03/11/25 13:57 Urine Urine Culture - Final
Klebsiella pneumoniae-ESBL
03/11/25 14:45 Nasal Swab Influenza Types A & B (YESIKA) - Final
Negative for Influenza A & B, NAAT
Negative results must be combined with clinical observations
and patient history.
Nucleic Acid Amplification test (NAAT)performed on the
[employer] platform.
03/11/25 14:02 Feces/Stool C. difficile GDH Antigen & Toxins - Final
Negative for toxigenic C.difficile
[2025-03-14] MEDS: SUBLIMAZE 50 MCG IV ×3 (14:15→15:26)
--- NOTE | 2025-03-14 14:29 | RESPNOTE ---
Pt extubated to room air, comfort care at 14:20.
--- NOTE | 2025-03-14 14:33 | CHAP ---
Monsignor West provided Sacrament of the Sick/Last Rites as requested.
--- NOTE | 2025-03-14 14:35 | PTCARENOTE ---
patient extubated, ngt removed without issue. no respiratory distress post extubation. paitent family at bedside, support given
[2025-03-14] MEDS: SUBLIMAZE 75 MCG IV ×2 (16:02→17:22)
[2025-03-14 17:26] VITALS: BP 54/26
--- NOTE | 2025-03-14 19:50 | W.PN.UPDATE ---
Update Note
Progress Note Update
Today talked to Mr. Chavira's ([place]) discussed about his condition. Family made the decision of continuing with Comfort care. Dr. Amador talked to family as well. Removed all discomfort medications. Transition to comfort focused care.
[2025-03-15] MEDS: SUBLIMAZE 75 MCG IV ×3 (01:23→09:28)
--- NOTE | 2025-03-15 07:15 | PTCARENOTE ---
@Handoff pt RR easy and unlabored. Left DL PICC with Fentanyl drip @ 75mcg/min. Maintained contact precautions.
--- NOTE | 2025-03-15 09:00 | PTCARENOTE ---
Repositioned pt. Will require fentanyl bolus for End of life Dyspnea@4. Family is at the bedside. Will continue to monitor.
[2025-03-15] MEDS: ROBINUL 0.2 MG IV (09:29)
[2025-03-15 09:36] VITALS: BP 38/20
[2025-03-15] MEDS: SUBLIMAZE 100 IV (09:42)
--- NOTE | 2025-03-15 09:59 | W.PN.HOSP.TC ---
Addendum entered and electronically signed by Terrance Mckeon MD, Resident 03/17/25 10:46:
#Elevated troponin
-Type 2 AL demand ischemia
Addendum entered and electronically signed by Gerardo Shaw MD 03/15/25 22:45:
Attending Addendum-
I saw and evaluated the patient. I reviewed the resident�s note and agree with findings and plan as documented in the resident�s note. Sub: intubated and sedated. Full 12 point ROS unable to review due to GCS Exam: Vitals reviewed in chart
GEN-intubated and sedated heart RRR lungs crackles at bases abd soft Ext-cool clammy extremities blue toes and fingers B/L rutledge in place LUE A line and PICC in place left foot partial amputation
Plan:
# Cardiac Arrest resulting in VDRF- 03/14-coded- shocked,CPR, and epi-intubated and sedated
# Septic shock secondary to CAUTI
# Non-anion gap metabolic acidosis
# FABRICE secondary to hypotension/sepsis
# Hyponatremia
# Hyperkalemia
# Acute Transaminitis - from shock liver poor prognosis
-- transitioned to cont comfort care- imminent
#History of MSSA bacteremia/endocarditis with aortic valve vegetation
#Chronic Rutledge catheter
#Essential hypertension
#Orthostatic hypotension
#Type 2 diabetes
#Hypothyroidism
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
#Anemia of chronic disease
#Anxiety/depression
#Chronic pain
Full code->DNR 03/13->comfort care 03/14
addendum- seen on round post pronouncement d/w ICU team. summary completed cert filled out.
Time spent coordinating care, documentation, review of plan of care with resident, review of records, consults, notes, d/w consultants, nursing, ICU and CM� 31 mins >50% of this time was devoted to counseling and coordination of care
Original Note:
Today's Communication/Plan
-
Transitioned to comfort focused care
Assessment / Plan
Assessment / Plan
69-year-old male with history of diabetes, history of sepsis with MSSA bacteremia in 2023 diagnosed with endocarditis at that time, dementia, chronic Rutledge presented from the alf with complaints of lower abdominal pain. Who became
unresponsive this morning. He is intubated. On 03/14 he was extubated and family decided on comfort focused care
#Cardiac arrest, 03/13. Initial rhythm ventricular tachycardia, pulseless
-CPR, emergent intubation, currently normal sinus rhythm
-Suspect cardiac arrest is in the setting of severe acidosis, septic shock multiple pressors as well as FABRICE and hyperkalemia
-Continue Amiodarone infusion. EKG to evaluate QTc interval
-Aggressively manage hyperkalemia, hyperventilate in view of acidosis, continue bicarb
-03/15/2025- discontinued aggressive therapy, only comfort focused care
#Comfort care 03/15
-discontinued other medications
-only fentanyl was continued twice
# Septic shock (fever, tachycardia, leukopenia initially and now leukocytosis, hypotension) secondary catheter associated UTI versus rule out acute cholecystitis versus stercoral colitis versus bacteremia
- 03/14/25 Normal AG metabolic acidosis, respiratory alkalosis
- 03/13/25 Blood culture with Klebsiella pneumonia�ESBL
- Gr stain of anaerobic blood culture bottle Gram (-) Bacilli
- Stool culture negative C. difficile
-Lactate of 1.6 from 2.7 /2.9
-discontinued antibiotics 03/15
#Respiratory failure with hypercapnia
-Severe acute respiratory acidosis
# Acute kidney injury secondary to hypotension/sepsis(baseline creatinine 0.8)
-BUN 70, Creatinine 3.2 , Potassium 4.9
-hold nephrotoxic agents
#New rash on inguinal area
# Elevated troponin, suspect NSTEMI type II
03/12/2025 Troponin 1.230 H
-Sepsis induced myocardial dysfunction
# Transaminitis secondary to hypotension versus rule out acute cholecystitis
- AST 1933
[id number]
History of MSSA bacteremia/endocarditis with aortic valve vegetation
ECHO 03/14/2025 showed no significant valvular heart disease, EF 15-20% global hypokinesis
Chronic Rutledge catheter
- Rutledge catheter exchanged 03/11 2025
Essential hypertension
- Hold lisinopril
Type 2 diabetes
-Hold glargine 5 units
- Insulin sliding scale
Hypothyroidism
- hold levothyroxine
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
Anemia of chronic disease
- 14/03 Hemoglobin stable 9.6
Anxiety/depression
- hold
Hypercholesterolemia
Steatohepatitis
BPH
- Hold tamsulosin
Chronic pain
- Hold meloxicam
Discussed with the ([place]) production helper she states DNR/ DNI code-- comfort focused care
DVT prophylaxis�heparin
N.p.o.
Anticipated Discharge: 24 - 48 hours
Subjective/Interval History
-
Date of Service: March 15, 2025
Patient is on the bed extubated. He makes noises during physical exam. Overnight fentanyl was administered twice. Family is here with him.
Objective Data
-
Labs:
Laboratory Results
03/15/25
06:00
WBC Cancelled
Hgb Cancelled
Hct Cancelled
Plt Count Cancelled
Sodium Cancelled
Potassium Cancelled
Chloride Cancelled
Carbon Dioxide Cancelled
BUN Cancelled
Creatinine Cancelled
Glucose Cancelled
Calcium Cancelled
Total Bilirubin Cancelled
AST Cancelled
ALT Cancelled
Alkaline Phosphatase Cancelled
Vital Signs:
Vital Signs
Temp Pulse Resp BP Pulse Ox
98 F 93 11 / 80
03/15/25 07:21 03/15/25 08:00 03/15/25 08:00 03/14/25 17:26 03/14/25 15:56
I&O
03/14/25 03/15/25 03/16/25
06:59 06:59 06:59
Intake Total 4323.4 / 4498.7 1476.7 / 1476.7
Output Total 1270 / 1270 1450 / 1450
Balance 3053.4 / 3228.7 26.7 / 26.7 0 / 0
Review of Systems
-
Unable to obtain full review of systems at this time due to: Patient Non-verbal
Physical Exam
-
General: Well Developed
HEENT: Normocephalic and Atraumatic
Respiratory: Clear to Auscultation
Cardiac: Other (distant heart sounds)
Breast: Deferred by me
GI: Soft and Nontender
Musculoskeletal: Cyanosis, Edema, Right Lower Extrem and Edema, Left Lower Extrem
Skin: Warm
Psych: Other (sedated)
--- NOTE | 2025-03-15 10:34 | W.PN.DEATH ---
Pronouncement of
-
Called to see patient to pronounce.
No spontaneous heart tones or respirations noted.
Patient not responsive to verbal stimuli.
Patient is pronounced .
Time of : 10:34
Date of : 03/15/25
Cause of : Septic Shock
Family Notified: Yes
--- NOTE | 2025-03-15 10:41 | PTCARENOTE ---
Family provided supportive care. Instructed to notify their junior art director of their choice and notify them that he is at . Family retained the prayer blanket.
--- NOTE | 2025-03-15 13:08 | CM ---
Patient on this date at 1034.
--- NOTE | 2025-03-15 13:52 | W.DCSUMMARY ---
Addendum entered and electronically signed by Gerardo Shaw MD 03/17/25 22:30:
Read, reviewed, and agree. See same day progress note for additional details. ADDENDUM: date of /DC- 03/15/25
Radames Shaw MD
Original Note:
Documented by User: Terrance Mckeon MD, Resident 03/16/25 14:38
Discharge Summary
Discharge Data
Date of Admission: 03/11/25
Date of Discharge: 03/16/25
-
Pending Results: No
Hospital Course
Discharging Physician : Terrance Mckeon
Disposition :
Primary care physician :Lupis Merrill MD
Principal Discharge diagnosis : Septic shock secondary to CAUTI
Chronic Discharge diagnosis : History of MSSA bacteremia/endocarditis with aortic valve vegetation
#Chronic Gabriel catheter
#Essential hypertension
#Orthostatic hypotension
#Type 2 diabetes
#Hypothyroidism
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
#Anemia of chronic disease
#Anxiety/depression
#Chronic pain
Hospital Course :
The patient is a 69-year-old male with a history of MSSA bacteremia/endocarditis, aortic valve vegetation, hypertension, orthostatic hypotension, diabetes, hypothyroidism, chronic Gabriel catheter, and left foot osteomyelitis/gangrene status post
partial amputation. He presented with fever and abdominal pain. CT abdomen/pelvis demonstrated acute cholecystitis, and blood cultures grew ESBL gram-negative rods, consistent with septic shock likely secondary to CAUTI versus acalculous
cholecystitis. He was admitted to the ICU and managed with broad-spectrum antibiotics, vasopressor support, and IV fluids. His course was complicated by FABRICE with metabolic acidosis, requiring bicarbonate infusion, strict fluid monitoring, and
nephrology consultation. He developed acute metabolic encephalopathy and agitation requiring dexmedetomidine infusion and restraints. Endocarditis was considered less likely given culture data, and surgical intervention for cholecystostomy was
deferred as he improved on antibiotics. He suffered cardiac arrest with ventricular tachyarrhythmia. Reviewed events leading to code that probably patient was hyperkalemic in addition to hypercapnia. ACLS was initiated with epinephrine,
defibrillation, amiodarone, calcium, bicarbonate, magnesium, insulin, and D50 for concurrent hyperkalemia (K? 6.5). ROSC was achieved after multiple rounds of CPR. He was re-intubated and sedated with propofol, amiodarone, and fentanyl, and
vasopressors were continued for hemodynamic support.
Despite these measures, he remained critically ill with progressive FABRICE and metabolic derangements. After discussion with the family, the decision was made to transition to comfort-focused care. Patient on the 03/15/2025.
Important imaging findings :
Chest Xray- No acute disease of the chest
Abdomen/pelvic CT- Large amount of fecal material in the rectum suggesting fecal impaction. New
Gabriel catheter in the penile urethra. New
Mild concentric gallbladder. Appearance of mild pericholecystic fluid. If concern of acute cholecystitis, abdominal ultrasound recommended. New
Mild diffuse bladder wall thickening. This can be seen with cystitis and bladder outlet obstruction. New
Moderate fecal material throughout the colon. New all
Abdomen US-Thickened, edematous and irregular gallbladder wall. No gallstones. This can be seen with acute cholecystitis. Clinical and laboratory correlation recommended
Hepatomegaly
Limited evaluation of pancreas
Two adjacent simple right renal cysts.
Chest/abdomen/pelvis- No acute vascular abnormality is identified.
Persistent gallbladder wall thickening. Possible minimal pericholecystic fluid Gallbladder remains contracted, no abnormal dilation to strongly suggest cystic duct obstruction.
Persistent malposition of Gabriel catheter, retention balloon inflated within the urethra as described on report of previous CT.
Stercoral colitis at the rectum as seen previously.
Mild urinary bladder wall thickening. This may be partially related to underdistention. Cystitis is a consideration.
Hypoaerated lungs without consolidation.
Procedure findings :
Discharge Plan
-
Patient Disposition:
Date/Time
Date/Time: 03/15/25 11:56
Discharge Date and Time
Discharge Date/Time: 03/15/25 11:56
Print Language: INDONESIAN

Documented by User: Gerardo Shaw MD 03/17/25 22:28
Discharge Summary
Discharge Data
Date of Admission: 03/11/25
Date of Discharge: 03/17/25
Discharge Plan
-
Patient Disposition:
Date/Time
Date/Time: 03/15/25 11:56
Discharge Date and Time
Discharge Date/Time: 03/15/25 11:56
Print Language: INDONESIAN
== END 2025-03-15 11:56 | disposition expired | DRG 698 ==
LOC: ICU 20:22
PROVIDERS: Internal Medicine; Nurse Practitioner Family; Nurse Practitioner Primary Care; Physician Assistant; Student in an Organized Health Care Education/Training Program; ADMITTING PHYSICIAN Hospitalist; ATTENDING PHYSICIAN Family Medicine; CONSULT PHYSICIAN Internal Medicine Critical Care Medicine; CONSULT PHYSICIAN Internal Medicine Infectious Disease; CONSULT PHYSICIAN Specialist; CONSULT PHYSICIAN Surgery; EMERGENCY PHYSICIAN Emergency Medicine; FAMILY PHYSICIAN Family Medicine
PROC: 03HB33Z Insertion of Infusion Device into Right Radial Artery, Percutaneous Approach (ICD-10-PCS; 2025-03-11)
PROC: 02HV33Z Insertion of Infusion Device into Superior Vena Cava, Percutaneous Approach (ICD-10-PCS; 2025-03-12)
PROC: 5A1945Z Respiratory Ventilation, 24-96 Consecutive Hours (ICD-10-PCS; 2025-03-13)
PROC: 5A2204Z Restoration of Cardiac Rhythm, Single (ICD-10-PCS; 2025-03-13)
PROC: 0BH18EZ Insertion of Endotracheal Airway into Trachea, Via Natural or Artificial Opening Endoscopic (ICD-10-PCS; 2025-03-13)
PROC: 03HC33Z Insertion of Infusion Device into Left Radial Artery, Percutaneous Approach (ICD-10-PCS; 2025-03-13)
PROC: 5A12012 Performance of Cardiac Output, Single, Manual (ICD-10-PCS; 2025-03-13)
DX: T83.511A Infection and inflammatory reaction due to indwelling urethral catheter, initial encounter (principal); A41.59 Other Gram-negative sepsis; L89.323 Pressure ulcer of left buttock, stage 3; R65.21 Severe sepsis with septic shock; J96.02 Acute respiratory failure with hypercapnia; G93.41 Metabolic encephalopathy; K72.00 Acute and subacute hepatic failure without coma; I21.A1 Myocardial infarction type 2; E87.20 Acidosis, unspecified; E87.1 Hypo-osmolality and hyponatremia; N17.9 Acute kidney failure, unspecified; F03.94 Unspecified dementia, unspecified severity, with anxiety; F03.93 Unspecified dementia, unspecified severity, with mood disturbance; F03.911 Unspecified dementia, unspecified severity, with agitation; I47.20 Ventricular tachycardia, unspecified; Z16.12 Extended spectrum beta lactamase (ESBL) resistance; Z99.11 Dependence on respirator [ventilator] status; Z66 Do not resuscitate; Z51.5 Encounter for palliative care; E87.5 Hyperkalemia; E78.00 Pure hypercholesterolemia, unspecified; I95.1 Orthostatic hypotension; K56.41 Fecal impaction; I10 Essential (primary) hypertension; E11.9 Type 2 diabetes mellitus without complications; D63.8 Anemia in other chronic diseases classified elsewhere; E03.9 Hypothyroidism, unspecified; F32.A Depression, unspecified; G89.29 Other chronic pain; N40.0 Benign prostatic hyperplasia without lower urinary tract symptoms; N39.0 Urinary tract infection, site not specified; I46.9 Cardiac arrest, cause unspecified; K75.81 Nonalcoholic steatohepatitis (NASH); Z89.432 Acquired absence of left foot; Z11.52 Encounter for screening for COVID-19; Z86.19 Personal history of other infectious and parasitic diseases; Z79.899 Other long term (current) drug therapy; Z79.890 Hormone replacement therapy; Z79.4 Long term (current) use of insulin; Z78.1 Physical restraint status; Y84.6 Urinary catheterization as the cause of abnormal reaction of the patient, or of later complication, without mention of misadventure at the time of the procedure
CPT/HCPCS: 71045; 71275; 74174; 74177; 76700; 80053; 80076; 80202; 81003; 81015; 82248; 82550; 82570; 82805; 82962; 83036; 83605; 83690; 83735; 83930; 83935; 84100; 84132; 84300; 84478; 84484; 85025; 85027; 85379; 85384; 85610; 85730; 86140; 86803; 86850; 86900; 86901; 87040; 87045; 87046; 87077; 87086; 87154; 87186; 87205; 87324; 87427; 87449; 87502; 87811; 93005; 93306; 94002; 94003; 95816; 96365; 96366; 96375; 99291; P9047; Q9957; Q9967